=== PATIENT | female | born 1935 | race Caucasian/White ===

== ENCOUNTER → 2016-04-11 | Outpatient (CLI) | payer OTHER ==
[~2016-04-11] MED LIST: ADVIN25/60 INH; ALBUAER19 INH; AMOX1TAB43 PO; AMOX875T PO; CIPR-255 PO; CMD/25 PO; CPAP; DICY10CA12 PO; DOCU-94 PO; FLNIN/ NAE; HYOS1SUB SL; LOSA100T65 PO; LSX20 PO; LUTE15CA PO; LVS125 PO; MCRK/20 PO; MISCCAP80 PO; MULT-190 PO; MULT-506 PO; NCY50 PO; NORT10CA4 PO; NRN300 PO; NRV/5 PO; OMEG10007 PO; OXGN; OXYC1TAB3 PO; POTA20TA16 PO; PRAV40TA2 PO; PRED10TA PO; PRED20TA PO; PRLSR20 PO; RANITAB33 PO; SNG10 PO; TRAM-10 PO; TRAM-453 PO; VLT500 PO; VNTHFA/IN INH; WARF-246 PO; ZNTT/150 PO; ZTA10 PO; ZVRO EXT
--- NOTE | 2016-04-11 15:19 | DIAGNOSTIC IMAGING REPORT ---
CT SCAN OF THE ABDOMEN AND PELVIS WITHOUT CONTRAST CLINICAL HISTORY: Lower abdominal pain. History of ureteral calculus or diverticulitis. COMPARISON STUDY: 03/19/2016 TECHNIQUE: CT scan of the abdomen and pelvis was performed from the lung bases to the proximal femurs. Images are reviewed in the axial, sagittal, and coronal planes. IV contrast was not administered for this examination. CT DOSE: 1282.41 mGy.cm FINDINGS: Lower chest: There are mild basilar atelectatic changes. The heart is enlarged. Liver: The unenhanced liver is normal in size, contour, and attenuation. There is no intrahepatic biliary ductal dilatation. Gallbladder: Surgically absent Spleen: Normal in size and attenuation. Pancreas: Unremarkable. Adrenal glands: Unremarkable. Kidneys: There is a 2 mm nonobstructing lower pole right renal calculus. There are punctate nonobstructing right renal calculi. No ureteral or bladder calculi are visualized. Bowel: There are no transition zones indicate bowel obstruction. The appendix is not visualized with certainty. There are no findings to indicate acute appendicitis. There is extensive sigmoid diverticulosis. Mild bowel wall thickening is likely secondary to muscular hypertrophy. There is subtle infiltration the perisigmoid fat suggesting minimal diverticulitis. Peritoneum: There is no intraperitoneal free air or abdominal ascites. Vasculature: The abdominal aorta is normal in course and caliber. Adenopathy: None. Pelvic viscera: The uterus appears surgically absent. Skeletal structures: No destructive osseous lesions are seen. IMPRESSION: 1. Bilateral nonobstructing renal calculi 2. No ureteral or bladder calculi identified 3. Surgically absent gallbladder appendix and uterus 4. No evidence of bowel obstruction. No evidence of free air 5. Extensive sigmoid diverticulosis with minimal peridiverticular inflammatory change. Electronically signed by: Paco Mendez M.D. 04/11/2016 3:17 PM Dictated Date/Time: 04/11/2016 3:12 PM
== END | disposition home or self-care (01) ==
LOC: C.CTS 14:45
PROVIDERS: ATTEND Internal Medicine
DX: K57.92 Diverticulitis of intestine, part unspecified, without perforation or abscess without bleeding (principal); N20.0 Calculus of kidney

== ENCOUNTER 2016-04-16 03:49 | Observation (INO) | payer OTHER ==
[2016-04-16] VITALS (8 sets, daily range): BP systolic 126–156; BP diastolic 73–83; PULSE 71–85; TEMP 36.6–37; O2SAT 91–98; Ht 152.4 cm; Wt 1.0 kg
[~2016-04-16] VITALS: Ht 152.4 cm; Wt 1.0 kg
[~2016-04-16 03:49] MED LIST changes: -AMOX875T PO; -CMD/25 PO; -CPAP; -DOCU-94 PO; -LUTE15CA PO; -LVS125 PO; -MCRK/20 PO; -MULT-190 PO; -NCY50 PO; -NORT10CA4 PO; -NRN300 PO; -PRED10TA PO; -PRED20TA PO; -PRLSR20 PO; -RANITAB33 PO; -TRAM-453 PO; -VLT500 PO; -VNTHFA/IN INH; -ZNTT/150 PO; -ZVRO EXT
--- NOTE | 2016-04-16 04:07 | EMERGENCY ROOM VISIT NOTE ---
History Report prepared by Cleopatra: Stephanie Sequeira Under the Supervision of: Dr. Celia Milan D.O. First contact with patient: 03:57 Chief Complaint: CARDIAC ASSESSMENT Stated Complaint: PAIN BETWEEN SHOULDER BLADES/NAUSEA History of Present Illness The patient is a 80 year old female who presents to the Emergency Room with complaints of resolving chest pain beginning 3 hours prior to arrival. The patient states that she went to bed feeling fine. She then woke up around 1am with pain between her shoulder blades that radiated around into her chest and down her left arms. The patient describes the sensation as feeling as though she had to belch. She arrived via EMS and notes she was given Morphine which has helped to resolve the chest pain. The patient notes that during the chest pain episode she felt nauseous and like she was going to have a bowel movement. She denies similar pain before, shortness of breath, or diaphoresis. The patient was diagnosed with diverticulitis earlier this week. Source of History: patient Onset: 1 am this morning Position: chest Quality: other (need to belch sensation) Timing: resolved Associated Symptoms: + nausea Note: The patient experienced shoulder blade pain, left arm pain, and bowel movement sensation need. Review of Systems See HPI for pertinent positives & negatives. A total of 10 systems reviewed and were otherwise negative. Past Medical & Surgical Medical Problems: (1) A-fib (2) C. difficile colitis (3) HTN (hypertension) (4) Kidney stone (5) PNA (pneumonia) Family History Hypertension Social History Smoking Status: Never Smoker Alcohol Use: none Marital Status: Housing Status: lives alone Occupation Status: retired Current/Historical Medications Scheduled Amlodipine Besylate (Amlodipine Besylate), 5 MG PO QAM Amoxicillin & Pot Clavulanate (Amoxicillin/Clavulanate P), 1 TAB PO Q12 Ezetimibe (Zetia), 10 MG PO HS Fish Oil (Morse-3), 1 CAP PO HS Fluticasone Prop/Salmeterol (Advair Diskus 250/50 60 Dose), 1 PUFF INH Q12 Fluticasone Propionate (Fluticasone Propionate), 2 SPRAYS SHY DAILY Furosemide (Furosemide), 20 MG PO QAM Losartan Potassium (Cozaar), 100 MG PO QAM Lutein-Zeaxanthin (Lutein), 1 CAP PO DAILY Montelukast Sod (Montelukast Sodium), 10 MG PO HS Multivitamin (Multivitamin), 1 TAB PO QAM Ocuvite Preservision (Ocuvite Preservision), 2 TAB PO DAILY Oxygen (Oxygen), 2 LITER NA HS Potassium Chloride (Potassium Chloride ER), 20 MEQ PO QAM Pravastatin Sodium (Pravastatin Sodium), 40 MG PO HS Probiotic Product (Probiotic), 1 CAP PO QAM Warfarin Sodium (Warfarin Sodium), 5 MG PO DAILY Scheduled PRN Albuterol Inhaler (Ventolin Inhaler), 2 PUFFS INH Q4 PRN for SOB/Wheezing Hyoscyamine Sulfate (Hyoscyamine Sulfate), 0.125 MG PO Q6 PRN for ABDOMINAL PAIN Durable Medical Equipment [Cpap], HS Allergies Coded Allergies: Budesonide (Verified Allergy, Unknown, PT UNSURE OF RXN, 04/16/16) Formoterol (Verified Allergy, Unknown, PT UNSURE OF RXN, 04/16/16) Iodinated Diagnostic Agents (Verified Allergy, Unknown, RASH,HIVES FROM IVP DYE, 04/16/16) Metronidazole (Verified Allergy, Unknown, SEVERE GI SYMPTOMS, 04/16/16) KEENA Inhibitors (Verified Adverse Reaction, Intermediate, COUGH, 04/16/16) Physical Exam Vital Signs Date Time Temp Pulse Resp B/P Pulse Ox O2 Delivery O2 Flow Rate FiO2 04/16/16 06:51 71 21 132/80 96 Nasal Cannula 2.0 04/16/16 06:09 73 20 149/78 98 Nasal Cannula 2.0 04/16/16 05:40 87 20 151/65 99 Nasal Cannula 2.0 04/16/16 05:04 73 20 165/86 95 Nasal Cannula 2.0 04/16/16 04:35 77 20 130/54 95 Nasal Cannula 2.0 04/16/16 03:58 81 04/16/16 03:58 82 Room Air 04/16/16 03:57 92 Nasal Cannula 2.0 04/16/16 03:55 83 Room Air 04/16/16 03:54 36.9 79 23 127/91 83 Room Air Physical Exam General: Morbidly obese female, appears to be comfortable. HEENT: Head - normocephalic and atraumatic Pupils are equal, round, and reactive to light. Extraocular eye muscles are intact, and sclera are anicteric. Nose - moist nasal mucosa without discharge. Mouth - moist buccal mucosa. Oropharynx is nonerythematous and there is no tonsillar exudate or edema noted. Neck: Supple; no JVD, nuchal rigidity, cervical lymphadenopathy. Heart: Regular rate and rhythm. Sound extremely distant secondary to body habitus. Lungs: Clear to auscultation bilaterally with no wheezes, rales, or rhonchi. Abdomen: Soft, completely nontender, nondistended, with good bowel sounds. There are no palpable pulsatile masses or hepatosplenomegaly. There is no guarding, rigidity, or rebound noted. Extremities: No evidence of cyanosis, clubbing, or edema. There are easily palpable peripheral pulses. Skin: warm and dry with good turgor and no rashes. Back: The patient has no reproducible discomfort with palpation between the shoulder blades. Medical Decision & Procedures ER Provider Diagnostic Interpretation: Other radiology results as stated below per my review and the radiologist's interpretation: Chest: Pacemaker in place, cardiomegaly, no pulmonary consolidation. CT CHEST With Contrast: No PE. No aortic dissection or aneurysm. Left chest wall pacemaker. Aortic and coronary calcifications. Mild basilar atelectasis. Degenerative changes of the spine. No obvious fracture. Cholecystectomy Radiologist: Mary jameson MD Study ready 06:05. . Laboratory Results 04/16/16 03:58 Red Blood Count 4.20, Mean Corpuscular Volume 94.5, Mean Corpuscular Hemoglobin 32.1, Mean Corpuscular Hemoglobin Concent 34.0, Mean Platelet Volume 10.9, Neutrophils (%) (Auto) 63.6, Lymphocytes (%) (Auto) 23.1, Monocytes (%) (Auto) 9.0, Eosinophils (%) (Auto) 3.7, Basophils (%) (Auto) 0.4, Neutrophils # (Auto) 5.80, Lymphocytes # (Auto) 2.11, Monocytes # (Auto) 0.82, Eosinophils # (Auto) 0.34, Basophils # (Auto) 0.04 04/16/16 03:58 Test 04/16/16 03:58 04/16/16 07:23 White Blood Count 9.13 K/uL (4.8-10.8) Red Blood Count 4.20 M/uL (4.2-5.4) Hemoglobin 13.5 g/dL (12.0-16.0) Hematocrit 39.7 % (37-47) Mean Corpuscular Volume 94.5 fL (80-100) Mean Corpuscular Hemoglobin 32.1 pg (25-34) Mean Corpuscular Hemoglobin Concent 34.0 g/dl (32-36) Platelet Count 199 K/uL (130-400) Mean Platelet Volume 10.9 fL (7.4-10.4) Neutrophils (%) (Auto) 63.6 % Lymphocytes (%) (Auto) 23.1 % Monocytes (%) (Auto) 9.0 % Eosinophils (%) (Auto) 3.7 % Basophils (%) (Auto) 0.4 % Neutrophils # (Auto) 5.80 K/uL (1.4-6.5) Lymphocytes # (Auto) 2.11 K/uL (1.2-3.4) Monocytes # (Auto) 0.82 K/uL (0.11-0.59) Eosinophils # (Auto) 0.34 K/uL (0-0.5) Basophils # (Auto) 0.04 K/uL (0-0.2) RDW Standard Deviation 45.4 fL (36.4-46.3) RDW Coefficient of Variation 13.1 % (11.5-14.5) Immature Granulocyte % (Auto) 0.2 % Immature Granulocyte # (Auto) 0.02 K/uL (0.00-0.02) Anion Gap 10.0 mmol/L (3-11) Est Creatinine Clear Calc Drug Dose 80.9 ml/min Estimated GFR () 98.9 Estimated GFR (Non- 85.4 BUN/Creatinine Ratio 30.4 (10-20) Calcium Level 8.8 mg/dl (8.5-10.1) Total Bilirubin 0.4 mg/dl (0.2-1) Aspartate Amino Transf (AST/SGOT) 13 U/L (15-37) Alanine Aminotransferase (ALT/SGPT) 31 U/L (12-78) Alkaline Phosphatase 67 U/L (45-117) Total Creatine Kinase 68 U/L (26-192) Creatine Kinase MB 1.0 ng/ml (0.5-3.6) Creatine Kinase MB Ratio 1.5 (0-3.0) Troponin I < 0.015 ng/ml (0-0.045) Pro-B-Type Natriuretic Peptide 257 pg/ml (0-1800) Total Protein 6.5 gm/dl (6.4-8.2) Albumin 3.2 gm/dl (3.4-5.0) Globulin 3.3 gm/dl (2.5-4.0) Albumin/Globulin Ratio 1.0 (0.9-2) Thyroid Stimulating Hormone (TSH) 1.970 uIu/ml (0.300-4.500) Medications Administered Medications (Trade) Dose Ordered Sig/Farhan Route Start Time Stop Time Status Last Admin Dose Admin Diphenhydramine HCl (Benadryl Inj) 50 mg NOW STAT IV 04/16/16 05:13 04/16/16 05:14 DC 04/16/16 05:37 50 MG Methylprednisolone Sodium Succinate (Solu-Medrol IV) 125 mg NOW STAT IV 04/16/16 05:13 04/16/16 05:14 DC 04/16/16 05:36 125 MG Procedure Solu-Medrol IV 125 mg IV, Benadryl Inj 50 mg IV. ECG Indication: chest pain Rate (beats per minute): 80 Rhythm: other (Dual chamber paced ) Findings: no acute ischemic change, no ectopy ED Course 0358: Past medical records reviewed. The patient was evaluated in room B6. A complete history and physical exam was performed. Laboratory studies were drawn as above. A twelve-lead EKG was obtained as described above 0359: Upon arrival patient was hypoxic with O2% of 82. 0443: Multiple episodes of hypoxia while in ED. the patient had a chest x-ray as described above 0456: I reevaluated the patient. The patient got up to use the restroom and experienced the chest pain again. A second ECG was done that was unchanged from previous. She had a pulse oxygen of 88%. The patient will be placed back on supplemental oxygen. 0513: Solu-Medrol IV 125 mg IV, Benadryl Inj 50 mg IV to premedicated before CT scan. 0652: I reevaluated the patient. I reviewed the results of the CT scan with the patient and her family. 0720: Discussed the patient's case with Dr. Yris OJEDA. The patient will be evaluated for further management. Medical Decision The patient is a 80 year old female who presents to the ED for a cardiac assessment. Differential diagnosis includes aortic dissection, cardiac ischemia , acute coronary syndrome, GERD, back strain, PE. Lab findings include normal renal function, glucose 127, LFT normal, troponin less than 0.015, normal TSH, stable H&H, no leukocytosis. This is an 80-year-old female patient who presents to the emergency department with moderate pain between her shoulder blades and associated nausea. The patient states that the pain was fairly sudden in onset and she felt as if she were going to need to move her bowels emergently. Once she arrived here in the emergency room, the pain seemed to subside but then she felt some shortness of breath. A chest x-ray was unremarkable. However, the patient had multiple episodes of hypoxia while here in the ER. She went for CT scan of her chest to rule out aortic dissection and PE. This was negative. After discussing the patient's CT results with her, she tells me that she recently underwent pulmonary function tests with Dr. Lea. She also told me that she has had increased episodes of lethargy over the past 2 days. In fact, she states that every time she sits down, she sleeps for approximately 2 hours. I'm concerned about its the sleep apnea and hypoxia that she has demonstrated while here in the emergency department. This may be leading to hypercarbia. I have just ordered an ABG. I discussed the case with the [facility] Hospitalist and they will evaluate for further management. Consults Time Called: 717 Consulting Physician: Dr. Yris OJEDA Returned Call: 07 Discussed the patient's case with Dr. Yris OJEDA. The patient will be evaluated for further management. Impression Primary Impression: Hypoxia Additional Impression: Back pain Scribe Attestation The scribe's documentation has been prepared under my direction and personally reviewed by me in its entirety. I confirm that the note above accurately reflects all work, treatment, procedures, and medical decision making performed by me. Departure Information Dispostion Being Evaluated By Hospitalist Referrals Dania Walsh DO (PCP) Problem Qualifiers
[2016-04-16 04:18] LABS: BASO % 0.4 %; BASO ABS # 0.04 K/uL (0-0.2); COMPLETE YES; EOS % 3.7 %; HEMATOCRIT 39.7 % (37-47); IG% 0.2 %; LYMPH % 23.1 %; LYMPH ABS # 2.11 K/uL (1.2-3.4); MEAN CELL VOLUME 94.5 fL (80-100); MEAN CORPUSCULAR HEMOGLOBIN 32.1 pg (25-34); MEAN PLATELET VOLUME 10.9 fL (7.4-10.4); NEUT % 63.6 %; PLATELET COUNT 199 K/uL (130-400); WHITE BLOOD COUNT 9.13 K/uL (4.8-10.8)
[2016-04-16 04:37] LABS: ALT/SGPT 31 U/L (12-78); AST/SGOT 13 U/L (15-37); BLOOD UREA NITROGEN 18 mg/dl (7-18); BUN/CREATININE RATIO 30.4 (10-20); CALCIUM 8.8 mg/dl (8.5-10.1); CARBON DIOXIDE 28 mmol/L (21-32); CHLORIDE 106 mmol/L (98-107); CREATININE 0.59 mg/dl (0.60-1.20); GLUCOSE 127 mg/dl (70-99); POTASSIUM 3.7 mmol/L (3.5-5.1); SODIUM 144 mmol/L (136-145)
[2016-04-16 04:47] LABS: ALKALINE PHOSPHATASE 67 U/L (45-117); CKMB/CK RATIO 1.5 (0-3.0)
[2016-04-16] MEDS ORDERED: LVS125 PO (04:53)
[2016-04-16] MEDS ORDERED: MCRK/20 PO (04:54)
[2016-04-16] MEDS ORDERED: LUTE15CA PO (04:55)
[2016-04-16] MEDS ORDERED: MULT-190 PO (04:55)
[2016-04-16] MEDS ORDERED: CPAP (04:59)
[2016-04-16] MEDS ORDERED: DiphenhydrAMINE HCL 50 MG/ML VIAL IV STA (05:13)
[2016-04-16] MEDS ORDERED: METHYLPREDNISOLONE 125 MG VIAL IV STA (05:13)
[2016-04-16] MEDS ORDERED: OPTIRAY 320 IV PRN (05:30)
--- NOTE | 2016-04-16 06:39 | DIAGNOSTIC IMAGING REPORT ---
CHEST 2 VIEWS ROUTINE CLINICAL HISTORY: Atypical chest pain. Wide mediastinum. COMPARISON STUDY: 07/23/2014 FINDINGS: The cardiac and mediastinal contours remain stable. There is no evidence of pathologic mediastinal widening on conventional radiographic imaging. If there is clinical concern over mediastinal process, CT scan should be obtained in follow-up. There is a left subclavian dual-chamber central venous pacemaker present. There is no failure. There is no lobar consolidation. There is equivocal 8 mm right upper lung zone nodule. There is mild interstitial thickening which is felt to be chronic. IMPRESSION: 1. No evidence of pathologic mediastinal widening on conventional radiographic evaluation 2. Equivocal 8 mm right upper lung zone pulmonary nodule 3. If further evaluation of the mediastinum and or possible right upper lung zone nodule is desired, CT scanning would be considered the test of choice Electronically signed by: Paco Mendez M.D. 04/16/2016 6:37 AM Dictated Date/Time: 04/16/2016 6:35 AM
--- NOTE | 2016-04-16 06:54 | DIAGNOSTIC IMAGING REPORT ---
CT ANGIOGRAPHY OF THE CHEST, PULMONARY EMBOLUS PROTOCOL CLINICAL HISTORY: Chest and back pain. Hypoxia. COMPARISON STUDY: Chest radiograph April 16, 2016 and July 23, 2014. TECHNIQUE: Following IV administration of 998. mL of Optiray-320, helical axial images of the chest were obtained utilizing the pulmonary embolus protocol. Maximal intensity projections and sagittal and coronal reformats were viewed on an independent 3D workstation. IV contrast was administered without complication. CT DOSE: 747.16 mGy.cm FINDINGS: No pulmonary emboli are identified. The heart is moderately enlarged. There is no pericardial effusion. There is a left subclavian biventricular pacemaker. No enlarged axillary, mediastinal or hilar lymph nodes are present. The central airways are patent. No consolidation is identified to suggest pneumonia. A 4 mm right upper lobe nodule shown on image 235 of 316 is likely benign. The possible nodule shown on chest radiograph from earlier today was artifactual. There is a calcified granuloma within the right upper lobe. Linear and groundglass opacities are suggestive of atelectasis. There is no pneumothorax or pleural effusion. There are cholecystectomy clips. No suspicious osseous lesions are present. IMPRESSION: 1. No pulmonary emboli identified. 2. No acute intrathoracic findings. 3. Moderate cardiomegaly. 4. Linear and ground glass opacities suggestive of atelectasis. Electronically signed by: Constantino Crandall M.D. 04/16/2016 6:52 AM Dictated Date/Time: 04/16/2016 6:44 AM
[2016-04-16 07:57] LABS: ARTERIAL BLD GAS O2 SATURATION 95.9 % (90-95); ARTERIAL BLOOD GAS BASE EXCESS 3.4 mEq/L (-9-1.8); ARTERIAL BLOOD GAS HCO3 29 mmol/L (19-24); ARTERIAL BLOOD GAS PO2 80 mm/Hg (80-95); ARTERIAL BLOOD GAS pH 7.42 (7.35-7.45)
[2016-04-16 07:59] LABS: ALLEN TEST POS (POS); O2 ADMINISTRATION 2L
[2016-04-16] MEDS ORDERED: ACETAMINOPHEN 325 MG TAB PO ONE (08:45)
[2016-04-16] MEDS ORDERED: DEXTROSE 50% 50 ML SYR IV PRN (08:45)
[2016-04-16] MEDS ORDERED: ONDANSETRON INJ 2 MG/ML 2 ML VIAL IV PRN (08:45)
[2016-04-16] MEDS ORDERED: ALUMINUM/MAGNESIUM/SIMETH (MAALOX MAX) 30 ML UDC PO PRN (08:45)
[2016-04-16] MEDS ORDERED: GLUCOSE 10 TABS/TUBE PO PRN (08:45)
[2016-04-16] MEDS ORDERED: POLYETHYLENE (MIRALAX) 17 GM PACK PO PRN (08:45)
[2016-04-16] MEDS ORDERED: MAGNESIUM HYDROXIDE SUSP 30 ML UDC PO PRN (08:45)
[2016-04-16] MEDS ORDERED: ALBUTEROL HFA 8 GM INHALER INH PRN (08:45)
[2016-04-16] MEDS ORDERED: GLUCOSE 40% GEL 15 GM TUBE PO PRN (08:45)
[2016-04-16] MEDS ORDERED: GLUCAGON FOR INJ 1 MG VIAL SQ PRN (08:45)
[2016-04-16] MEDS ORDERED: ENOXAPARIN 40 MG/0.4 ML SYR SC SCH (08:45)
[2016-04-16] MEDS ORDERED: NON-FORMULARY MEDICATION (Probiotic Product (Probiotic) 1 CAP) PO SCH (09:00)
[2016-04-16] MEDS: AMLODIPINE BESYLATE 5 MG TAB PO SCH (09:00)
[2016-04-16] MEDS ORDERED: ACETAMINOPHEN 325 MG TAB ONE (09:01)
[2016-04-16] MEDS ORDERED: AMOX875T PO (09:05)
[2016-04-16] MEDS ORDERED: CMD/25 PO (09:09)
[2016-04-16] MEDS ORDERED: IV FLUIDS COMPLETED PRN (09:45)
--- NOTE | 2016-04-16 09:49 | History and Physical ---
History & Physical Date & Time of Service: Apr 16, 2016 at 09:16 Chief Complaint: Pain Between Shoulder Blades/Nausea Primary Care Physician: Dania Walsh DO History of Present Illness Source: patient, family (daughter and son at bedside), clinic records, hospital records This is an 80 y/o female with a history of asthma, MARIBETH, HTN, HLD, and paroxysmal a-fib who presented to the ED on 04/16 with pain behind her left shoulder radiating to her chest and hypoxia. The patient woke up around 1 am this morning with a sharp, 7/10 pain posterior to her left shoulder that radiated to the left side of her chest and down her left arm. She also felt nauseous at that time but denied any other associated symptoms. In the ambulance, the patient received 2 nitro sprays, which did not alleviate the pain. The patient then received morphine, which resolved the pain. Upon arrival to the ED, the patient's pulse ox was 83% on room air. The patient does have a history of asthma and MARIBETH, but she does not use supplemental oxygen during the day. She does have a history of low oxygen saturations at nighttime , however, and uses 2L oxygen with her CPAP at night. The patient states that she has been doing well with her asthma and CPAP and recently had PFTs that were "okay". She does report having new onset of daytime drowsiness starting one day prior to arrival, stating that every time she sat down yesterday she immediately fell asleep for 2 hours at a time. Currently, the patient feels a 3/10 sharp pain behind her left shoulder, but no chest or arm pain. She states that the pain has been intermittent since arrival, although she has not received any additional doses of morphine while in the ED. The patient denies fevers, chills, sweats,palpitations, claudication, cough, wheezing, shortness of breath, vomiting, abdominal pain, dysuria, hematuria, urinary retention, paralysis, weakness, numbness and tingling. Past Medical/Surgical History Medical Problems: (1) Paroxysmal a-fib Status: Chronic (2) C. difficile colitis Status: Resolved (3) HTN (hypertension) Status: Chronic (4) Kidney stone Status: Resolved (5) PNA (pneumonia) Status: Resolved Asthma HTN HLD MARIBETH Diverticulitis--acute Family History Coronary artery disease FATHER Diabetes mellitus MOTHER Hypertension FATHER MOTHER Myocardial infarction FATHER Stroke FATHER MOTHER Social History Smoking Status: Never Smoker Smokeless Tobacco Use: No Alcohol Use: occasionally (special occasions/holidays) Drug Use: none Marital Status: Housing status: lives alone Occupational Status: retired Immunizations History of Influenza Vaccine: Unknown History of Tetanus Vaccine?: Unknown History of Pneumococcal: Unknown History of Hepatitis B Vaccine: Unknown Multi-Drug Resistant Organisms History of MDRO: No Allergies Coded Allergies: Budesonide (Verified Allergy, Unknown, PT UNSURE OF RXN, 04/16/16) Formoterol (Verified Allergy, Unknown, PT UNSURE OF RXN, 04/16/16) Iodinated Diagnostic Agents (Verified Allergy, Unknown, RASH,HIVES FROM IVP DYE, 04/16/16) Metronidazole (Verified Allergy, Unknown, SEVERE GI SYMPTOMS, 04/16/16) KEENA Inhibitors (Verified Adverse Reaction, Intermediate, COUGH, 04/16/16) Home Medications Scheduled Amlodipine Besylate (Amlodipine Besylate), 5 MG PO QAM Amoxicillin & Pot Clavulanate (Augmentin 875-125 mg), 1 TAB PO BID Ezetimibe (Zetia), 10 MG PO HS Fish Oil ([place]-3), 1 CAP PO HS Fluticasone Prop/Salmeterol (Advair Diskus 250/50 60 Dose), 1 PUFF INH Q12 Fluticasone Propionate (Fluticasone Propionate), 2 SPRAYS SHY DAILY Furosemide (Furosemide), 20 MG PO QAM Losartan Potassium (Cozaar), 100 MG PO QAM Lutein-Zeaxanthin (Lutein), 1 CAP PO DAILY Montelukast Sod (Montelukast Sodium), 10 MG PO HS Multivitamin (Multivitamin), 1 TAB PO QAM Ocuvite Preservision (Ocuvite Preservision), 2 TAB PO DAILY Oxygen (Oxygen), 2 LITER NA HS Potassium Chloride (Potassium Chloride ER), 20 MEQ PO QAM Pravastatin Sodium (Pravastatin Sodium), 40 MG PO HS Probiotic Product (Probiotic), 1 CAP PO QAM Warfarin Sod (Coumadin), 2.5 MG PO UD Warfarin Sodium (Warfarin Sodium), 5 MG PO UD Scheduled PRN Albuterol Inhaler (Ventolin Inhaler), 2 PUFFS INH Q4 PRN for SOB/Wheezing Hyoscyamine Sulfate (Hyoscyamine Sulfate), 0.125 MG PO Q6 PRN for ABDOMINAL PAIN Review of Systems Constitutional: No chills, No fever, No sweats Eyes: No diplopia, No eye pain, No worsening of vision ENT: No hearing loss, No sore throat, No tinnitus Respiratory: No cough, No shortness of breath, No wheezing Cardiovascular: + chest pain (left chest, radiating from posterior left shoulder), No claudication, No palpitations Abdomen: + nausea, No pain, No vomiting Musculoskeletal: + joint pain (L posterior shoulder), No calf pain, No muscle pain Genitourinary - Female: No dysuria, No hematuria, No urinary retention Neurologic: No numbness/tingling, No paralysis, No weakness Integumentary: No color change, No itch, No rash Physical Exam Vital Signs Date Time Temp Pulse Resp B/P Pulse Ox O2 Delivery O2 Flow Rate FiO2 04/16/16 07:54 84 04/16/16 07:36 83 20 162/70 95 Nasal Cannula 2.0 04/16/16 06:51 71 21 132/80 96 Nasal Cannula 2.0 04/16/16 06:09 73 20 149/78 98 Nasal Cannula 2.0 04/16/16 05:40 87 20 151/65 99 Nasal Cannula 2.0 04/16/16 05:04 73 20 165/86 95 Nasal Cannula 2.0 04/16/16 04:35 77 20 130/54 95 Nasal Cannula 2.0 04/16/16 03:58 81 04/16/16 03:58 82 Room Air 04/16/16 03:57 92 Nasal Cannula 2.0 04/16/16 03:55 83 Room Air 04/16/16 03:54 36.9 79 23 127/91 83 Room Air General Appearance: WD/WN, no apparent distress, + obese (morbidly obese) Head: normocephalic, atraumatic Eyes: normal inspection, PERRL, EOMI ENT: normal ENT inspection, hearing grossly normal, pharynx normal Neck: supple, no JVD, trachea midline Respiratory/Chest: normal breath sounds, no respiratory distress, + crackles ( bases bilaterally), + pertinent finding (left chest TTP) Cardiovascular: regular rate, rhythm, no gallop, no murmur Abdomen/GI: normal bowel sounds, soft, + tenderness (RLQ mildy TTP) Back: normal inspection, no muscle spasm, normal range of motion Extremities/Musculoskelatal: normal inspection, no calf tenderness, no pedal edema Neurologic/Psych: alert, normal mood/affect, oriented x 3 Skin: normal color, warm/dry, no rash Diagnostics Laboratory Results Results Past 24 Hours Test 04/16/16 03:58 04/16/16 07:47 Range/Units White Blood Count 9.13 4.8-10.8 K/uL Red Blood Count 4.20 4.2-5.4 M/uL Hemoglobin 13.5 12.0-16.0 g/dL Hematocrit 39.7 37-47 % Mean Corpuscular Volume 94.5 80-100 fL Mean Corpuscular Hemoglobin 32.1 25-34 pg Mean Corpuscular Hemoglobin Concent 34.0 32-36 g/dl Platelet Count 199 130-400 K/uL Mean Platelet Volume 10.9 7.4-10.4 fL Neutrophils (%) (Auto) 63.6 % Lymphocytes (%) (Auto) 23.1 % Monocytes (%) (Auto) 9.0 % Eosinophils (%) (Auto) 3.7 % Basophils (%) (Auto) 0.4 % Neutrophils # (Auto) 5.80 1.4-6.5 K/uL Lymphocytes # (Auto) 2.11 1.2-3.4 K/uL Monocytes # (Auto) 0.82 0.11-0.59 K/uL Eosinophils # (Auto) 0.34 0-0.5 K/uL Basophils # (Auto) 0.04 0-0.2 K/uL RDW Standard Deviation 45.4 36.4-46.3 fL RDW Coefficient of Variation 13.1 11.5-14.5 % Immature Granulocyte % (Auto) 0.2 % Immature Granulocyte # (Auto) 0.02 0.00-0.02 K/uL Sodium Level 144 136-145 mmol/L Potassium Level 3.7 3.5-5.1 mmol/L Chloride Level 106 98-107 mmol/L Carbon Dioxide Level 28 21-32 mmol/L Anion Gap 10.0 3-11 mmol/L Blood Urea Nitrogen 18 7-18 mg/dl Creatinine 0.59 0.60-1.20 mg/dl Est Creatinine Clear Calc Drug Dose 80.9 ml/min Estimated GFR () 98.9 Estimated GFR (Non- 85.4 BUN/Creatinine Ratio 30.4 10-20 Random Glucose 127 70-99 mg/dl Calcium Level 8.8 8.5-10.1 mg/dl Total Bilirubin 0.4 0.2-1 mg/dl Aspartate Amino Transf (AST/SGOT) 13 15-37 U/L Alanine Aminotransferase (ALT/SGPT) 31 12-78 U/L Alkaline Phosphatase 67 45-117 U/L Total Creatine Kinase 68 26-192 U/L Creatine Kinase MB 1.0 0.5-3.6 ng/ml Creatine Kinase MB Ratio 1.5 0-3.0 Troponin I < 0.015 0-0.045 ng/ml Pro-B-Type Natriuretic Peptide 257 0-1800 pg/ml Total Protein 6.5 6.4-8.2 gm/dl Albumin 3.2 3.4-5.0 gm/dl Globulin 3.3 2.5-4.0 gm/dl Albumin/Globulin Ratio 1.0 0.9-2 Thyroid Stimulating Hormone (TSH) 1.970 0.300-4.500 uIu/ml Arterial Blood pH 7.42 7.35-7.45 Arterial Blood Partial Pressure CO2 46 35-46 mmHg Arterial Blood Partial Pressure O2 80 80-95 mm/Hg Arterial Blood HCO3 29 19-24 mmol/L Arterial Blood Oxygen Saturation 95.9 90-95 % Arterial Blood Base Excess 3.4 -9-1.8 mEq/L Arterial Blood Gas Delivery 2L Luca Test POS POS Diagnostic Radiology Reviewed the following studies and agree with interpretation as follows: Patient Name: SUSAN MANZANO Unit Number: [id number] Dictated: 04/16/16634 Transcribed: 04/16/16634 ARG Printed Date/Time: [~ rep prt dt]/[~ rep prt tm] [~ rep ct labl] - [~ rep ct ivnm] [facility] [place] [address] Dictated: 04/16/16634 Transcribed: 04/16/16634 ARG Printed Date/Time: [~ rep prt dt]/[~ rep prt tm] [~ rep ct labl] - [~ rep ct ivnm] Patient: SUSAN MANZANO Address1: [address] [facility] Rec: [id number] Address2: Acct ID: [id number] [facility] Zip: [place] [address] Date: 1935 Sex: F Room/Bed: Ref Phy: Dania Walsh DO SC: GEO Att Phy: Report #: [id number] Whit Phy: Dania Walsh DO Test: CXR Admit Phy: [employer] Sales Consultant: MARKUS Interpreting Phy: Paco Mendez M.D. Diagnosis: PAIN BETWEEN SHOULDER BLADES/ NAUSEA Ordering Phy: Celia Milan D.O. Service Date: 04/16/16 Admit Date: 04/16/16 MNE: PWRSCRIBE CONF: DICTATED BY: Paco Mendez M.D.]] CC: Celia Milan D.O. Dellegrotti, Cara M., DO Endcc: [~ rep ct add3]] CHEST 2 VIEWS ROUTINE CLINICAL HISTORY: Atypical chest pain. Wide mediastinum. COMPARISON STUDY: 07/23/2014 FINDINGS: The cardiac and mediastinal contours remain stable. There is no evidence of pathologic mediastinal widening on conventional radiographic imaging. If there is clinical concern over mediastinal process, CT scan should be obtained in follow-up. There is a left subclavian dual-chamber central venous pacemaker present. There is no failure. There is no lobar consolidation. There is equivocal 8 mm right upper lung zone nodule. There is mild interstitial thickening which is felt to be chronic. IMPRESSION: 1. No evidence of pathologic mediastinal widening on conventional radiographic evaluation 2. Equivocal 8 mm right upper lung zone pulmonary nodule 3. If further evaluation of the mediastinum and or possible right upper lung zone nodule is desired, CT scanning would be considered the test of choice Electronically signed by: Paco Mendez M.D. 04/16/2016 6:37 AM Dictated Date/Time: 04/16/2016 6:35 AM The status of this report is Signed. Draft = Not yet reviewed or approved by Radiologist. Signed = Reviewed and approved by Radiologist. <AttendingPhy></AttendingPhy> <FamilyPhy>Dania Walsh DO</FamilyPhy> < PrimaryPhy>Dania Walsh, </PrimaryPhy> <UnitNumber>[id number]</ UnitNumber> <VisitNumber>[id number]</VisitNumber> <PatientName>SUSAN MANZANO</ PatientName> <DateOfBirth>1935</DateOfBirth> <Location>C.EDB</Location> < ServiceDate>04/16/16</ServiceDate> <MNE>ESINDI</MNE> <OrderingPhy>Celia Milan D.Delores</OrderingPhy> <OrderingPhyMNE>f rep ord dr camilo</OrderingPhyMNE> < DictatingPhyMNE>f rep dict dr camilo</DictatingPhyMNE> <CCListMNE>f rep ct mne</ CCListMNE> <AdmittingPhyMNE>f pt admit dr camilo</AdmittingPhyMNE> <AttendingPhyMNE >f pt attend dr camilo</AttendingPhyMNE> <ConsultingPhyMNE>f pt consult dr camilo</ConsultingPhyMNE> <FamilyPhyMNE>f pt fam dr camilo</FamilyPhyMNE> <OtherPhyMNE>f pt other dr camilo</OtherPhyMNE> < PrimaryPhyMNE>f pt prim care dr camilo</PrimaryPhyMNE> <ReferringPhyMNE>f pt referring dr camilo</ReferringPhyMNE> Patient Name: SUSAN MANZANO Unit Number: [id number] Dictated: 04/16/16643 Transcribed: 04/16/16643 HANNY Printed Date/Time: [~ rep prt dt]/[~ rep prt tm] [~ rep ct labl] - [~ rep ct ivnm] [facility] [place] [address] Dictated: 04/16/16643 Transcribed: 04/16/16643 HANNY Printed Date/Time: [~ rep prt dt]/[~ rep prt tm] [~ rep ct labl] - [~ rep ct ivnm] Patient: SUSAN MANZANO Address1: [address] [facility] Rec: [id number] Address2: Acct ID: [id number] [facility] Zip: [place] [address] Date: 1935 Sex: F Room/Bed: Ref Phy: Dania Walsh DO SC: GEO Att Phy: Report #: [id number] Whit Phy: Dania Walsh DO Test: CXPEA Admit Phy: [employer] Sales Consultant: JINA Interpreting Phy: Constantino Crandall MD Diagnosis: PAIN BETWEEN SHOULDER BLADES /NAUSEA Ordering Phy: Celia Milan D.O. Service Date: 04/16/16 Admit Date: 04/16/16 MNE: PWRSCRIBE CONF: DICTATED BY: Constantino Crandall MD]] CC: Celia Milan D.O. Dellegrotti, Cara M., DO Endcc: [~ rep ct add3]] CT ANGIOGRAPHY OF THE CHEST, PULMONARY EMBOLUS PROTOCOL CLINICAL HISTORY: Chest and back pain. Hypoxia. COMPARISON STUDY: Chest radiograph April 16, 2016 and July 23, 2014. TECHNIQUE: Following IV administration of 998. mL of Optiray-320, helical axial images of the chest were obtained utilizing the pulmonary embolus protocol. Maximal intensity projections and sagittal and coronal reformats were viewed on an independent 3D workstation. IV contrast was administered without complication. CT DOSE: 747.16 mGy.cm FINDINGS: No pulmonary emboli are identified. The heart is moderately enlarged. There is no pericardial effusion. There is a left subclavian biventricular pacemaker. No enlarged axillary, mediastinal or hilar lymph nodes are present. The central airways are patent. No consolidation is identified to suggest pneumonia. A 4 mm right upper lobe nodule shown on image 235 of 316 is likely benign. The possible nodule shown on chest radiograph from earlier today was artifactual. There is a calcified granuloma within the right upper lobe. Linear and groundglass opacities are suggestive of atelectasis. There is no pneumothorax or pleural effusion. There are cholecystectomy clips. No suspicious osseous lesions are present. IMPRESSION: 1. No pulmonary emboli identified. 2. No acute intrathoracic findings. 3. Moderate cardiomegaly. 4. Linear and ground glass opacities suggestive of atelectasis. Electronically signed by: Constantino Crandall M.D. 04/16/2016 6:52 AM Dictated Date/Time: 04/16/2016 6:44 AM The status of this report is Signed. Draft = Not yet reviewed or approved by Radiologist. Signed = Reviewed and approved by Radiologist. <AttendingPhy></AttendingPhy> <FamilyPhy>Dania Walsh, DO</FamilyPhy> < PrimaryPhy>Dania Walsh, DO</PrimaryPhy> <UnitNumber>[id number]</ UnitNumber> <VisitNumber>[id number]</VisitNumber> <PatientName>SUSAN MANZANO</ PatientName> <DateOfBirth>1935</DateOfBirth> <Location>C.EDB</Location> < ServiceDate>04/16/16</ServiceDate> <MNE>ESINDI</MNE> <OrderingPhy>Celia Milan D.O.</OrderingPhy> <OrderingPhyMNE>f rep ord dr camilo</OrderingPhyMNE> < DictatingPhyMNE>f rep dict dr camilo</DictatingPhyMNE> <CCListMNE>f rep ct mne</ CCListMNE> <AdmittingPhyMNE>f pt admit dr camilo</AdmittingPhyMNE> <AttendingPhyMNE >f pt attend dr camilo</AttendingPhyMNE> <ConsultingPhyMNE>f pt consult dr camilo</ConsultingPhyMNE> <FamilyPhyMNE>f pt fam dr camilo</FamilyPhyMNE> <OtherPhyMNE>f pt other dr camilo</OtherPhyMNE> < PrimaryPhyMNE>f pt prim care dr camilo</PrimaryPhyMNE> <ReferringPhyMNE>f pt referring dr camilo</ReferringPhyMNE> EKG Reviewed EKG and agree with interpretation as follows: 03:55--80 bpm, ventricularly paced rhythm 04:56--75 bpm, ventricularly paced rhythm Impression Assessment and Plan 80 y/o female with a history of asthma, MARIBETH, HTN, HLD, and paroxysmal a-fib who presented to the ED on 04/16 with pain behind her left shoulder radiating to her chest and hypoxia. Excessive daytime drowsiness one day prior to arrival. Pt woke up early this morning with pain behind left shoulder radiating to left chest and left arm, nausea. Received 2 sprays nitro in ambulance, no relief. Pain resolved with morphine in ambulance. Pulse ox 83% on room air upon arrival. CTA negative for PE, CXR RUL nodule no acute disease. EKGs no ischemic changes. ABG normal pH, elevated HCO3 at 29. Cardiac enzymes negative. Chest pain, hypoxia--Pt uses supplemental oxygen at nighttime only with her CPAP , h/o MARIBETH and asthma that has been well-controlled according to outpatient records. PFTs done 1 month ago showed mild restrictive changes secondary to obesity -Admit to telemetry for observation -Trend cardiac enzymes q8h x 2 more sets -Check HgbA1c -Check PTT, PT/INR -Stress echo tomorrow am -NPO after midnight -Fasting lipid panel tomorrow am -Consult pulmonology, appreciate recs -Continue CPAP, O2 by protocol Acute diverticulitis--following with SARITA Barker as outpatient -Continue Augmentin 875 mg PO BID. 10 day course total, pt on day #5 Asthma -Continue Advair 1 puff inh BID, Singulair 10 mg PO qd and Ventolin 2 puffs inh q4h prn SOB/wheezing HTN--stable -Continue amlodipine 5 mg and losartan 100 mg PO qd HLD -Continue pravastatin 40 mg PO qhs and Zetia 10 mg PO qd Paroxysmal a-fib--pt has pacemaker -Continue Warfarin 5 mg PO /// and 2.5 mg PO // DVT prophylaxis -Enoxaparin 40 mg SC q24h -NAHOMY alfredo and SCDs Code Status -Level IV, FULL WITHOUT CARDIOVERSION OR MECHANICAL VENTILATOR Level of Care Telemetry (observation) Resuscitation Status FULL NO CARDIOV/MECH SHIRLEY VTE Prophylaxis VTE Risk Assessment Done? Y/N: Yes Risk Level: Moderate Given or contraindicated: Enoxaparin (Lovenox)SQ, T.E.D. Stockings, SCD's
[2016-04-16] MEDS: INSULIN ASPART 100 UNITS/ML 3 ML PEN SC SCH ×3 (11:00→20:25)
[2016-04-16 11:01] LABS: INR 2.5 (0.9-1.1); PARTIAL THROMBOPLASTIN RATIO 1.5; PROTHROMBIN TIME (PATIENT) 27.4 SECONDS (9.0-12.0)
[2016-04-16 11:24] LABS: ESTIMATED AVERAGE GLUCOSE 134 mg/dl; HA1C FLAG Normal (Normal)
--- NOTE | 2016-04-16 12:59 | PULMONARY CONSULTATION ---
DATE OF CONSULTATION: 04/16/2016 The patient is an 80-year-old female who was admitted to the hospital with left-sided chest pain and left arm pain. She was noted to be hypoxemic with an oxygen saturation of 83% on room air upon arrival to the Emergency Room. Was 95% on 2 liters. Eventually, she had a blood gas done that revealed a pH 7.42, pCO2 of 46, pO2 of 80 on 2 liters suggesting mild widening of the A-a gradient. Ms. Tracy has asked me to evaluate the patient from a pulmonary standpoint. Her 2 daughters were there for the evaluation today. She has not had any problems with her lungs except pneumonia in the past. When I reviewed those records, her oxygen saturation was 93% on room air at the time of discharge. She denies cough, sputum production, fevers, night sweats or chest pain and has not had any peripheral edema or evidence of DVT. She remains fairly active at home and was able to go up her cellar steps, do her shopping, go out to [employer] and to the grocery store without difficulty. She drives. Can walk in through the parking lot without shortness of breath. She does have easy fatigability recently with occasional episodes of chest discomfort. Apparently she was given some nitroglycerin before she arrived in the Emergency Room and cared for by Dr. Milan. I wonder if that could have caused bit of a low oxygen saturation. The patient feels well at the present time. She denies any chest pain other than some discomfort across the thorax and into the left arm, which has resolved now. She has not had any problems from a pulmonary standpoint otherwise. She does carry a history of asthma, and that has been under good control. She is cared for by Dr. Lea. Recently she was seen by him according to the outpatient records on March 07. Recent PFT showed normal flow/volume with normal spirometry. PAST MEDICAL HISTORY: Positive for atrial fibrillation, C. diff colitis, diverticulitis, hypertension, renal lithiasis, and pneumonia and asthma in the past. PAST SURGICAL HISTORY: Unremarkable. ALLERGIES: BUDESONIDE, FORMOTEROL, IODINATED DIAGNOSTIC AGENTS, METRONIDAZOLE, AND KEENA INHIBITORS. THE KEENA INHIBITORS CAUSED COUGH. SOCIAL HISTORY: Unremarkable. 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 Both of her parents were heavy tobacco users so she has had significant secondhand smoke exposure. She is compliant with CPAP. MEDICATIONS: Noted. PHYSICAL EXAMINATION: VITAL SIGNS: Stable and she is afebrile. Oxygen saturation 91% on 2 liters. It was 94% on room air at 10:00 this morning. Her blood pressure 147/80. Weight is stable at 103 kilograms. HEENT: Unremarkable. No telangiectasia is noted. No AVMs on the skin or conjunctiva noted. No adenopathy is noted. NECK: Carotid upstroke normal, no bruits are auscultated. Thyroid normal. CHEST: Expansion of the thorax is slightly limited because of her obesity, inability to take a full deep breath, perhaps related to some chest cage restriction. HEART: Regular rate and rhythm. No murmurs are heard. Pacer pocket looks good underneath the left clavicle. LUNGS: Lungs are clear. No crackles, wheezing or rales noted. No rhonchi are noted. There is no fremitus or dullness to percussion. ABDOMEN: Soft and obese, nontender. She has no cyanosis, clubbing or edema. CT scan of the chest was done with contrast and shows no pulmonary emboli, no intrathoracic findings, moderate cardiomegaly and minimal atelectatic changes at the lung bases. This is supported by the chest x-ray as well. There is a small 4 mm nodule in the right upper lobe. The blood gases noted as above. White count 9.13. Hemoglobin was 13.5 with a platelet count of 199,000. PRP is unremarkable with sugar 127. A1c is 6.3. Liver function studies are normal. BNP, troponin, CK enzymes are unremarkable. TSH is 1.97. Coagulation profile reveals an INR of 2.5. IMPRESSION: 1. Hypoxemia. I wonder if this could have been related to mild basilar atelectasis with inability to take a full deep breath, perhaps related to the chest discomfort, maybe the supine position. It has resolved. There is no evidence of any hypoxemia during a recent hospitalization for pneumonia in 2015. She has not had any hypoxemia. Her lung exam is unremarkable. Spirometry looked good. A CAT scan showed no evidence of any significant parenchymal abnormalities or pulmonary embolism. It is unlikely she has a shunt since she has not had chronic hypoxemia. I suspect the nitroglycerin could have caused problems with the hemoglobin and the red cell, but she only got 1 dose apparently. 2. Asthma, under good control. 3. Obstructive sleep apnea. RECOMMENDATIONS: At this point, I think a stress test will be indicated. I believe she is scheduled for that for tomorrow. I would continue on oxygen and if the stress test is unremarkable, check a 6-minute walk test before she is discharged. If she needs oxygen, that can be adjusted. She should follow up with Dr. Lea within the next 2 weeks for assessment of her oxygenation. She has a 4 mm nodule in the right upper lobe, is a nonsmoker and by the Fleischner criteria, it probably does not need to be reevaluated in the future. Thanks for asking me to evaluate Ms. Perkins and I will be glad to see her again if you desire.
[2016-04-16] MEDS: FLUTICASONE/SALMETEROL 250/50 (ADVAIR) 14 PUFF/1 INHALER INH SCH ×2 (13:03→20:31)
[2016-04-16] MEDS: LOSARTAN POTASSIUM 50 MG TAB PO SCH (13:04)
[2016-04-16 13:05] LABS: CKMB/CK RATIO 0.9 (0-3.0)
[2016-04-16] MEDS: FUROSEMIDE 20 MG TAB PO SCH (13:05)
[2016-04-16] MEDS: POTASSIUM CHLORIDE 20 MEQ TABCR PO SCH (13:05)
[2016-04-16] MEDS ORDERED: WARFARIN SOD 5 MG TAB PO SCH (16:00)
[2016-04-16] MEDS: AMOXICILLIN/CLAVULANATE TAB 875 MG TAB PO SCH (16:20)
[2016-04-16] MEDS ORDERED: ALBUT/IPRATROP 3MG/0.5MG NEB 3 ML VIAL INH PRN (17:45)
[2016-04-16] MEDS ORDERED: ZOLPIDEM TARTRATE 5 MG TAB PO PRN (18:00)
[2016-04-16] MEDS ORDERED: IBUPROFEN 200 MG TAB PO PRN (18:00)
[2016-04-16] MEDS: ACETAMINOPHEN 325 MG TAB PO PRN (18:41)
[2016-04-16] MEDS: ALBUT/IPRATROP 3MG/0.5MG NEB 3 ML VIAL INH SCH (19:45)
[2016-04-16 20:40] LABS: CKMB/CK RATIO 0.8 (0-3.0)
[2016-04-16] MEDS ORDERED: MONTELUKAST SOD 10 MG TAB PO SCH (21:00)
[2016-04-16] MEDS ORDERED: EZETIMIBE 10MG TAB PO SCH (21:00)
[2016-04-16] MEDS ORDERED: PRAVASTATIN SOD 40 MG TAB PO SCH (21:00)
[2016-04-17] VITALS: BP 125/65; PULSE 80; TEMP 36.1; O2SAT 95
[2016-04-17 04:00] VITALS: BP 134/66; PULSE 76; TEMP 36.4; O2SAT 96
[2016-04-17] MEDS: INSULIN ASPART 100 UNITS/ML 3 ML PEN SC SCH ×2 (07:00→11:00)
[2016-04-17 07:08] VITALS: PULSE 81; O2SAT 96
[2016-04-17] MEDS: ALBUT/IPRATROP 3MG/0.5MG NEB 3 ML VIAL INH SCH ×2 (07:08→11:07)
[2016-04-17 07:19] VITALS: BP 129/77; PULSE 74; TEMP 36.5; O2SAT 96
[2016-04-17 07:33] LABS: HEMATOCRIT 41.1 % (37-47); MEAN CELL VOLUME 94.3 fL (80-100); MEAN CORPUSCULAR HEMOGLOBIN 31.7 pg (25-34); MEAN CORPUSCULAR HGB CONC 33.6 g/dl (32-36); MEAN PLATELET VOLUME 11.6 fL (7.4-10.4); PLATELET COUNT 219 K/uL (130-400); RED BLOOD COUNT 4.36 M/uL (4.2-5.4); WHITE BLOOD COUNT 13.36 K/uL (4.8-10.8)
[2016-04-17] MEDS: FUROSEMIDE 20 MG TAB PO SCH (07:49)
[2016-04-17] MEDS: AMLODIPINE BESYLATE 5 MG TAB PO SCH (07:49)
[2016-04-17] MEDS: LOSARTAN POTASSIUM 50 MG TAB PO SCH (07:50)
[2016-04-17] MEDS: FLUTICASONE/SALMETEROL 250/50 (ADVAIR) 14 PUFF/1 INHALER INH SCH (07:51)
[2016-04-17] MEDS: POTASSIUM CHLORIDE 20 MEQ TABCR PO SCH (07:51)
--- NOTE | 2016-04-17 07:59 | PULMONARY PROGRESS NOTE ---
DATE: 04/17/2016 HISTORY OF PRESENT ILLNESS: The patient is comfortable this morning. She is using a nebulizer treatment and states she had a fairly good night last night. She denies cough, chest pain or shortness of breath. She has had prednisone on board started last night with incentive spirometry. PHYSICAL EXAMINATION: VITAL SIGNS: Stable and she is afebrile. Apparently she is scheduled for cardiac catheterization today. Blood pressure 129/77, oxygen saturation 96% on 2 liters. I\T\O is 372 in and 1430 out. Weight 97.2 kilograms and that is down about a half kilogram. According to nurses' note she had a fairly good night last night, resting comfortably, rhythm has been stable. Oxygen sats on room air in the high 80s, 92% on 2 liters. HEENT: Unremarkable. No neck vein distention or HJR. HEART: Regular rate and rhythm. No murmurs are heard. LUNGS: Clear today. No wheezing is noted. ABDOMEN: Soft, nontender. EXTREMITIES: She has no cyanosis, clubbing or edema. She does use CPAP each night. LABORATORY DATA: White count is 13.36, hemoglobin 13.8. PRP is pending. Glucose is 177 range. CK enzymes are unremarkable. IMPRESSION: 1. Hypoxemia, probably related to some regional areas of atelectasis with increase in AA gradient. 2. Asthma. 3. Obstructive sleep apnea. 4. Chest pain. RECOMMENDATIONS: 1. Continue with her present medications. I think the prednisone, if that is used for bronchospasm, could be tapered down and perhaps even stopped. I do not think she needs 80 mg; she is not wheezing and I do not think that this is going to help with the hypoxemia. 2. Continue to adjust the Coumadin. Her INR was 2.5 yesterday. 3. Continue with her present inhalers. 4. Continue with CPAP each time she sleeps. Overall she is stable. A 6-minute walk test would be helpful as well to ascertain whether she will need oxygen with exercise during the daytime.
[2016-04-17 08:04] LABS: BUN/CREATININE RATIO 31.4 (10-20); CALCIUM 9.1 mg/dl (8.5-10.1); CREATININE 0.58 mg/dl (0.60-1.20); MAGNESIUM 2.2 mg/dl (1.8-2.4); POTASSIUM 3.8 mmol/L (3.5-5.1)
[2016-04-17 08:06] LABS: CHOLESTEROL/HDL RATIO 2.8
[2016-04-17] MEDS: AMOXICILLIN/CLAVULANATE TAB 875 MG TAB PO SCH (08:38)
[2016-04-17] MEDS: ACETAMINOPHEN 325 MG TAB PO PRN (09:17)
[2016-04-17] MEDS ORDERED: DOBUTamine HCL 12.5 MG/ML 20 ML VIAL ONE (10:21)
[2016-04-17] MEDS ORDERED: ATROPINE SULFATE 0.1 MG/ML 5ML SYR ONE (10:21)
[2016-04-17] MEDS ORDERED: METOPROLOL TARTRATE 1 MG/ML VIAL ONE (10:22)
[2016-04-17] MEDS ORDERED: ESMOLOL HCL 10 MG/ML 10 ML VIAL ONE (10:22)
[2016-04-17] MEDS ORDERED: PERFLUTREN LIPID MICROSPHERE (DEFINITY) IV ONE (11:10)
[2016-04-17] MEDS ORDERED: AMOX875T PO (11:35)
[2016-04-17] MEDS ORDERED: PRED10TA PO (11:35)
[2016-04-17 12:30] VITALS: BP 104/65; PULSE 83; TEMP 36.5; O2SAT 91
[2016-04-17 14:39] VITALS: BP 141/97; PULSE 84; TEMP 36.5; O2SAT 94
--- NOTE | 2016-04-17 15:18 | Discharge Instructions ---
Discharge Instructions Admission Reason for Admission: Pain Between Shoulder Blades/Nausea Discharge Discharge Diagnosis / Problem: Chest pain Discharge Goals Goal(s): Decrease discomfort, Diagnostic testing, Therapeutic intervention Activity Recommendations Activity Limitations: resume your previous activity . Instructions / Follow-Up Instructions / Follow-Up You were admitted to the hospital for overnight observation due to chest pain. Upon arrival to the emergency room, you were also found to have a low oxygen saturation just breathing on room air, so you were put on supplemental oxygen. You had a cardiac work up which included checking your cholesterol, checking for diabetes, repeat EKGs, and a stress echocardiogram, or ultrasound of your heart. We also trended your cardiac enzymes, which are chemicals released by your heart if it is damaged or doesn't have enough blood/oxygen. This work up all came back normal, and your pain spontaneously resolved after a few hours. Pulmonology was consulted during your stay regarding the oxygen issue. Dr. Ivy recommended continuing your current home regimen and your CPAP with oxygen. He also recommended a 2 step walk test to assess any possible need for daytime oxygen in addition to the oxygen you use with your CPAP. This test was performed prior to discharge and determined that you do not need additional oxygen during the daytime at home. Dr. Ivy also recommended that you follow up with Dr. Lea in 2 weeks regarding your breathing and oxygenation. You were started on an oral steroid called Prednisone while in the hospital. You will need to taper this medication prior to stopping. A prescription for this medication has been sent to your pharmacy. Please take it as directed: -Take 2 tablets twice a day on Day 1 (04/18) and Day 2 (04/19) -Take 2 tablets once a day on Day 3 (04/20) and Day 4 (04/21) -Take 1 tablet once a day on Day 5 (04/22) and Day 6 (04/23) You will also continue the antibiotic that you have been taking for acute diverticulitis. You have been taking amoxicillin/potassium clavulanate 875/125 (brand name Augmentin). You will continue to take the pills that had been given to you; however, since you received some of this medication while in the hospital instead of your pill bottle at home, I have given you new instructions as follows: -Take 1 tablet twice a day at 9 am and 9 pm. -Restart your home Augmentin pills tonight at 9 pm. -Take a total of 10 more pills to complete the 10 day course that was prescribed to you by Crista Barker. Your last pill should be the morning of You may resume your other home medications as previously prescribed with the above exceptions. As your work up has been normal, you are medically stable for discharge. Please seek medical attention if you experience fever, chills, sweats, lightheadedness, fainting, chest pain, shortness of breath, nausea, vomiting, numbness, or tingling. Please follow up with your primary care provider within 1 week regarding your hospital stay. Please follow up with Dr. Lea in 2 weeks. Current Hospital Diet Patient's current hospital diet: Low Fiber Diet, AHA Diet (Heart Healthy) Discharge Diet Recommended Diet: AHA Diet (Heart Healthy), Low Fiber Diet Procedures Procedures Performed: Stress echocardiogram Pending Studies Studies pending at discharge: no Laboratory Results Hemoglobin A1c Test 04/16/16 03:58 Range/Units Estimated Average Glucose 134 mg/dl Hemoglobin A1c 6.3 H 4.5-5.6 % Lipid Panel Test 04/17/16 06:30 Range/Units Triglycerides Level 81 0-150 mg/dl Cholesterol Level 182 0-200 mg/dl HDL Cholesterol 66 mg/dl Cholesterol/HDL Ratio 2.8 LDL Cholesterol, Calculated 100 mg/dl Medical Emergencies . Who to Call and When: Medical Emergencies: If at any time you feel your situation is an emergency, please call 911 immediately. . Non-Emergent Contact Non-Emergency issues call your: Primary Care Provider, Head Waiter/Waitress Banquet Call Non-Emergent contact if: you have a fever, your pain is not controlled, your pain is worsening, your pain is concerning you, you have any medication questions . Past History Medical & Surgical History: (1) Chest pain (2) Hypoxia (3) Diverticulitis . "Provider Documentation" section prepared by Linh Tracy. VTE Core Measure Inpt VTE Proph given/why not?: Warfarin (Coumadin), T.E.D. Ivonne, SCD's
--- NOTE | 2016-04-17 15:55 | Discharge Summary ---
Discharge Summary Admission Date: Apr 16, 2016 at 09:16 Discharge Date: Apr 17, 2016 Discharge Disposition: Home Principal Diagnosis: Chest pain Immunizations: Have You Had Influenza Vaccine: Unknown History of Tetanus Vaccine?: Unknown History of Pneumococcal: Unknown History of Hepatitis B Vaccine: Unknown Procedures: Stress echocardiogram Medication Reconciliation New Medications: Prednisone Tab (Prednisone) 10 Mg Tab 10 MG PO UD for 6 Days, #14 TAB Take 2 tablets twice a day on days 1 & 2. Take 2 tablets once a day on days 3 & 4. Take 1 tablet once a day on days 5 & 6. Changed Medications: Amoxicillin & Pot Clavulanate (Augmentin 875-125 mg) 1 Tab Tab 1 TAB PO BID, #10 TAB (Changed from: 12) Take 1 tablet twice a day at 9 am and 9 pm. Continued Medications: Albuterol Inhaler (Ventolin Inhaler) Aers 2 PUFFS INH Q4 PRN for SOB/Wheezing Amlodipine Besylate (Amlodipine Besylate) 5 Mg Tab 5 MG PO QAM Ezetimibe (Zetia) 10 Mg Tab 10 MG PO HS Fish Oil ([place]-3) 1 Ea Cap 1 CAP PO HS, CAP Fluticasone Prop/Salmeterol (Advair Diskus 250/50 60 Dose) 1 Ea Aerp 1 PUFF INH Q12 Fluticasone Propionate (Fluticasone Propionate) 120 Sprays/6000 Mcg Inha 2 SPRAYS SHY DAILY Furosemide (Furosemide) 20 Mg Tab 20 MG PO QAM Hyoscyamine Sulfate (Hyoscyamine Sulfate) 0.125 Mg Tab 0.125 MG PO Q6 PRN for ABDOMINAL PAIN Losartan Potassium (Cozaar) 100 Mg Tab 100 MG PO QAM Lutein-Zeaxanthin (Lutein) 1 Cap Cap 1 CAP PO DAILY Montelukast Sod (Montelukast Sodium) 10 Mg Tab 10 MG PO HS Multivitamin (Multivitamin) Tab 1 TAB PO QAM, TAB Ocuvite Preservision (Ocuvite Preservision) 1 Tab Tab 2 TAB PO DAILY, TAB Oxygen (Oxygen) Gas 2 LITER NA HS USE WITH CPAP Potassium Chloride (Potassium Chloride ER) 20 Meq Tabcr 20 MEQ PO QAM Pravastatin Sodium (Pravastatin Sodium) 40 Mg Tab 40 MG PO HS Probiotic Product (Probiotic) 1 Cap Cap 1 CAP PO QAM Warfarin Sod (Coumadin) 2.5 Mg Tab 2.5 MG PO UD, TAB Take 2.5 mg Saturday, , Saturday Warfarin Sodium (Warfarin Sodium) 5 Mg Tab 5 MG PO UD Take 5 mg Saturday, Saturday, Saturday, Saturday [Cpap] () HS NASAL CPAP 7CM WATER,C-FLEX OF 2 MIRAGE FX NASAL MASK,20 MIN RAMP,HEATED,HUMIDIFIED Referrals At Discharge Follow up Referrals: Spreader Operator Automatic Referral - Within 2 Weeks with Guru Lea M.D. Discharge Exam Patient reports feeling well. She has not had any pain since yesterday and denies any shortness of breath. Cardiac work up has all been normal. The patient denies fevers, chills, sweats, chest pain, palpitations, claudication, cough, wheezing, shortness of breath, nausea, vomiting, abdominal pain, dysuria , hematuria, urinary retention, paralysis, weakness, numbness and tingling. Review of Systems: Constitutional: No chills, No fever, No sweats Eyes: No diplopia, No eye pain, No worsening of vision ENT: No hearing loss, No sore throat, No tinnitus Respiratory: No cough, No shortness of breath, No wheezing Cardiovascular: No chest pain, No claudication, No palpitations Abdomen: No nausea, No pain, No vomiting Musculoskeletal: No calf pain, No joint pain, No muscle pain Genitourinary - Female: No dysuria, No hematuria, No urinary retention Neurologic: No numbness/tingling, No paralysis, No weakness Integumentary: No color change, No itch, No rash Physical Exam: General Appearance: WD/WN, no apparent distress, + obese (morbidly obese) Eyes: normal inspection, PERRL, EOMI ENT: normal ENT inspection, hearing grossly normal, pharynx normal Neck: supple, no JVD, trachea midline Respiratory/Chest: normal breath sounds, no respiratory distress, + decreased breath sounds, + crackles (mild crackles left base) Cardiovascular: regular rate, rhythm, no gallop, no murmur Abdomen / GI: normal bowel sounds, non tender, soft Extremities: normal inspection, no calf tenderness, no pedal edema Neurologic/Psychiatric: alert, normal mood/affect, oriented x 3 Skin: normal color, warm/dry, no rash Hospital Course 80 y/o female with a history of asthma, MARIBETH, HTN, HLD, and paroxysmal a-fib who presented to the ED on 04/16 with pain behind her left shoulder radiating to her chest and hypoxia. Excessive daytime drowsiness one day prior to arrival. Pt woke up early this morning with pain behind left shoulder radiating to left chest and left arm, nausea. Received 2 sprays nitro in ambulance, no relief. Pain resolved with morphine in ambulance. Pulse ox 83% on room air upon arrival. CTA negative for PE, CXR RUL nodule no acute disease. EKGs no ischemic changes. ABG normal pH, elevated HCO3 at 29. Cardiac enzymes negative. Chest pain, hypoxia--Pt uses supplemental oxygen at nighttime only with her CPAP , h/o MARIBETH and asthma that has been well-controlled according to outpatient records. PFTs done 1 month ago showed mild restrictive changes secondary to obesity -Admit to telemetry for observation -Trend cardiac enzymes q8h x 2 more sets. Cardiac enzymes negative x 3 -Check HgbA1c. 6.3 on 04/16 -Check PTT, PT/INR. Warfarin therapeutic with INR of 2.5 -Repeat EKG 04/17 no ischemic changes -Stress echo. Final report pending, spoke with Bon Robbins PA-C who performed the study. No ischemia, infarction, or significant hypokinesis. Overall normal study. -NPO after midnight prior to stress echo -Fasting lipid panel WNL: total cholesterol 182, HLD 66, LDL 100, triglycerides 81 -Consult pulmonology, appreciate recs: recommend 2-step prior to discharge, f/ u with Dr. Lea in 2 weeks. No further evaluation needed. -Continue CPAP, O2 by protocol. Pt. weaned off daytime O2 in afternoon prior to discharge, pulse ox in mid 90s in room air -2 step done, no oxygen needed at rest or with ambulation at home during daytime -Pt had been started on Prednisone 40 mg PO BID, will taper dose on discharge: 20 mg PO BID x 2 days, 20 mg PO qd x 2 days, 10 mg PO qd x 2 days Acute diverticulitis--following with SARITA Barker as outpatient -Continue Augmentin 875 mg PO BID. 10 day course total, pt started course in the evening of 04/12. Instructed to continue taking twice a day until the morning of 04/22 Mild leukocytosis--WBC 9.13 upon arrival -WBC 13.36 on 04/17 -Likely secondary to steroids. Pt afebrile. Asthma -Continue Advair 1 puff inh BID, Singulair 10 mg PO qd and Ventolin 2 puffs inh q4h prn SOB/wheezing HTN--stable -Continue amlodipine 5 mg and losartan 100 mg PO qd HLD -Continue pravastatin 40 mg PO qhs and Zetia 10 mg PO qd Paroxysmal a-fib--pt has pacemaker -Continue Warfarin 5 mg PO /// and 2.5 mg PO // DVT prophylaxis -Warfarin -NAHOMY alfredo and SCDs Code Status -Level IV, FULL WITHOUT CARDIOVERSION OR MECHANICAL VENTILATOR Total Time Spent: Greater than 30 minutes This includes examination of the patient, discharge planning, medication reconciliation, and communication with other providers. Discharge Instructions Please refer to the electronic Patient Visit Report (Discharge Instructions) for additional information. Additional Copies To Reuben Akers M.D.; Dania Walsh, DO
[2016-04-17] MEDS ORDERED: WARFARIN SOD 2.5 MG TAB PO SCH (16:00)
--- NOTE | 2016-04-17 17:56 | DOBUTAMINE ECHO ---
*NOTICE TO RECEIVING LIBERTARIAN AGENCY This information is strictly Confidential and protected under [place] law. [place] law prohibits you from making any further disclosure of this information unless further disclosure is expressly permitted by the written consent of the person to whom it pertains or is authorized by law. A general authorization for the release of medical or other information is not sufficient for this purpose. Hospital accepts no responsibility if the information is made available to any other person, INCLUDING THE PATIENT. Interpretation Summary * Name: SUSAN MANZANO Study Date: 04/17/2016 10:31 AM BP: 149/52 mmHg * Patient Location: C.2T\S\S240\S\1 HR: 90 * : 1935 (M/d/yyyy) Gender: Female Height: 60 in * Age: 80 yrs Ethnicity: CA Weight: 226 lb * Ordering Physician: Linh Tracy * Referring Physician: Self, Referred * Performed By: Raisa Brown RDCS * * Reason For Study: Chest Pain * BSA: 2.0 m2 * Normal resting biventricular systolic function. * Small pericardial effusion without evidence of cardiac tamponade. * The study was technically difficult. * This was a normal stress echocardiogram. * The left ventricular ejection fraction increases normally with stress. The left ventricular end-systolic cavity size reduces post-stress (normal response). The left ventricular wall motion with stress is normal. * The stress ECG response was normal * The stress echocardiogram is negative for inducible ischemia. * -- Conclusions -- * There is no diastolic compression of the right ventricle to suggest cardiac tamponade. * No segmental left ventricular wall motion abnormalities are noted. Procedure Details * DOBUTAMINE ECHO, CPT#[id number] * ECHO DOPPLER, CPT #[id number] * ECHO COLOR FLOW, CPT #[id number] * The study was technically difficult with many images being suboptimal in quality. * A contrast injection of Definity was performed to improve assessment of LV function. * Contrast was injected into an intravenous site in the left arm. * One vial of Definity ultrasound contrast was diluted in normal saline to a total volume of 10 ml. A total of '5' ml of solution was administered during imaging. * Lot # [id number] of Definity utilized for procedure. * Expiration date . * The attending nurse who injected the contrast agent was Toña Araujo RN. Left Ventricle * The left ventricle is normal in size. * There is normal left ventricular wall thickness. * Ejection Fraction = 65-70%. * Left ventricular systolic function is normal. * No segmental left ventricular wall motion abnormalities are noted. * Resting wall motion: Normal. Stress wall motion: Appropriate increase in Left ventricular systolic function and decrease in cavity size. No stress induced segmental wall motion abnormalities. * The left ventricular ejection fraction increases normally with stress. The left ventricular end-systolic cavity size reduces post-stress (normal response). The left ventricular wall motion with stress is normal. Right Ventricle * The right ventricle is normal in size and function. Atria * The left atrial size is normal. * Right atrial size is normal. Mitral Valve * The mitral valve is not well visualized. * Significant mitral regurgitation is absent. Tricuspid Valve * The tricuspid valve is not well visualized. * Significant tricuspid regurgitation is absent. Aortic Valve * The aortic valve is trileaflet. * The aortic valve opens well. * No aortic regurgitation is present. Pulmonic Valve * The pulmonic valve is not well visualized. * There is no significant pulmonary regurgitation. Great Vessels * The aortic root is normal size. Pericardium * Small pericardial effusion. * There are no echocardiographic indications of cardiac tamponade. * There is no diastolic compression of the right ventricle to suggest cardiac tamponade. Stress Parameters * Baseline ECG: NSR, Left axis deviation, left anterior fasicular block, right bundle branch block * The stress ECG response was normal * Stress ECG: No ST changes. Isolated premature ventricular contractions were present. * Rest heart rate was '90' BPM. * Rest blood pressure was '149/52' * Maximum heart rate achieved was 130 bpm. * Maximum heart rate was 94 % of maximum age-predicted heart rate. * Maximum blood pressure was '181/38' * Maximum Dobutamine infusion rate was '30' mcg/kg/min. * Dobutamine infusion was terminated due to achieving target heart rate * [place] 17.5 mg * The patient did not exhibit any symptoms during drug infusion. MMode 2D Measurements and Calculations IVSd 0.88 cm IVSs 1.3 cm LVIDd 5.3 cm LVIDs 3.2 cm LVPWd 1.0 cm LVPWs 1.6 cm IVS/LVPW 0.84 FS 40.1 % EDV(Teich) 135.7 ml ESV(Teich) 40.4 ml EF(Teich) 70.3 % EDV(cubed) 149.3 ml ESV(cubed) 32.2 ml EF(cubed) 78.5 % % IVS thick 44.2 % % LVPW thick 57.2 % LV mass(C)d 191.0 grams LV mass(C)dI 97.2 grams/m\S\2 LV mass(C)s 162.2 grams LV mass(C)sI 82.5 grams/m\S\2 SV(Teich) 95.3 ml SI(Teich) 48.5 ml/m\S\2 SV(cubed) 117.2 ml SI(cubed) 59.6 ml/m\S\2 Ao root diam 2.8 cm Ao root area 6.3 cm\S\2 ACS 1.9 cm LA dimension 3.3 cm LA/Ao 1.2 LVAd ap4 26.6 cm\S\2 LVLd ap4 7.5 cm EDV(MOD-sp4) 79.6 ml EDV(sp4-el) 80.6 ml LVAs ap4 14.8 cm\S\2 LVLs ap4 6.4 cm ESV(MOD-sp4) 29.4 ml ESV(sp4-el) 29.0 ml EF(MOD-sp4) 63.1 % EF(sp4-el) 64.0 % LVAd ap2 28.4 cm\S\2 LVLd ap2 8.2 cm EDV(MOD-sp2) 85.4 ml EDV(sp2-el) 82.9 ml LVAs ap2 12.3 cm\S\2 LVLs ap2 6.1 cm ESV(MOD-sp2) 22.1 ml ESV(sp2-el) 20.7 ml EF(MOD-sp2) 74.2 % EF(sp2-el) 75.0 % LVLd %diff 9.4 % EDV(MOD-bp) 86.5 ml LVLs %diff -4.64 % ESV(MOD-bp) 25.8 ml EF(MOD-bp) 70.2 % SV(MOD-sp4) 50.3 ml SI(MOD-sp4) 25.6 ml/m\S\2 SV(MOD-sp2) 63.3 ml SI(MOD-sp2) 32.2 ml/m\S\2 SV(MOD-bp) 60.7 ml SI(MOD-bp) 30.9 ml/m\S\2 SV(sp4-el) 51.5 ml SI(sp4-el) 26.2 ml/m\S\2 SV(sp2-el) 62.1 ml SI(sp2-el) 31.6 ml/m\S\2 Doppler Measurements and Calculations MV E max armando 113.1 cm/sec MV A max armando 97.1 cm/sec MV E/A 1.2 MV dec time 0.17 sec Ao V2 max 124.8 cm/sec Ao max PG 6.4 mmHg Ao max PG (full) 4.3 mmHg Ao V2 mean 89.5 cm/sec Ao mean PG 3.8 mmHg Ao V2 VTI 30.2 cm LV V1 max PG 2.1 mmHg LV V1 max 72.7 cm/sec SV(Ao) 190.6 ml SI(Ao) 96.9 ml/m\S\2 PA V2 max 97.6 cm/sec PA max PG 3.9 mmHg
--- NOTE | 2016-04-20 10:09 | EDITING REQUIRED CODING QUERY ---
SUPPORTING DIAGNOSIS NEEDED A supporting diagnosis is required for the test/procedure performed on this patient in order for us to be reimbursed by the patient's insurance. Please provide a supporting diagnosis for the following test/procedure listed below next to the test name along with your signature. *If there is no additional diagnosis for this patient that would support the following test/procedure please document that below next to the test/procedure. Test(s)/Procedure(s) that require a supporting diagnosis: * GLYCATED HEMOGLOBIN DIAGNOSIS: Hyperglycemia in the setting of acute coronary syndrome rule out * DOS: 04/16/16 Provider Signature: _Linh Tracy PA-C Date: Thank you Miranda Vazquez Health Information Management For questions please call [phone]
[2016-05-10] MEDS ORDERED: DICY10CA12 PO (13:55)
[2016-05-10] MEDS ORDERED: RANITAB33 PO (13:55)
[2016-09-13] MEDS ORDERED: NRN300 PO (10:38)
[2016-09-13] MEDS ORDERED: ZVRO EXT (10:38)
[2016-09-13] MEDS ORDERED: VLT500 PO (10:38)
[2016-09-13] MEDS ORDERED: NORT10CA4 PO (10:38)
[2016-09-13] MEDS ORDERED: NCY50 PO (10:42)
== END 2016-04-17 15:45 | disposition home or self-care (01) ==
LOC: ENRESERVDT → ENRESERVTM → C.EDB 03:49 → EDBD 03:49 → C.2T 09:16
PROVIDERS: ADMIT Hospitalist; ATTEND Hospitalist
DX: R07.9 Chest pain, unspecified (principal); E66.9 Obesity, unspecified; E78.5 Hyperlipidemia, unspecified; G47.33 Obstructive sleep apnea (adult) (pediatric); I10 Essential (primary) hypertension; I48.0 Paroxysmal atrial fibrillation; J45.909 Unspecified asthma, uncomplicated; K57.92 Diverticulitis of intestine, part unspecified, without perforation or abscess without bleeding; R91.1 Solitary pulmonary nodule; Z79.01 Long term (current) use of anticoagulants; D72.829 Elevated white blood cell count, unspecified; R73.9 Hyperglycemia, unspecified

== ENCOUNTER → 2016-05-16 | Day surgery (SDC) | payer OTHER ==
[2016-05-10 13:59] VITALS: Ht 152.4 cm; Wt 95.9 kg
[~2016-05-16] VITALS: Ht 152.4 cm; Wt 95.9 kg
[~2016-05-16] MED LIST changes: -AMOX1TAB43 PO; -CIPR-255 PO; +CMD/25 PO; +DOCU-94 PO; -HYOS1SUB SL; +LIDOCAINE HCL 2% 2 ML VIAL (20MG/ML) ONE; +LUTE15CA PO; +LVS125 PO; +MCRK/20 PO; +MULT-190 PO; +NCY50 PO; +NORT10CA4 PO; +NRN300 PO; -OXGN; -POTA20TA16 PO; +PRED20TA PO; +PRLSR20 PO; +PROPOFOL IV EMULSION 10 MG/ML 20 ML VIAL IV ONE; +RANITAB33 PO; +SODIUM CHLORIDE 0.9% 500ML 500 ML IV ONE; -TRAM-10 PO; +TRAM-453 PO; +VLT500 PO; +VNTHFA/IN INH; +ZNTT/150 PO; +ZVRO EXT
--- NOTE | 2016-05-16 15:21 | Endo History and Physical ---
History & Physical Date of Service: May 16, 2016. Chief Complaint: LLQ PAIN Referring Physician: Dania Barcenas History of Present Illness 80 yo CF who presents for colonoscopy secondary to LLQ abdominal pain. Past Medical History Atrial Fibrillation, Arthritis, Pacemaker, Asthma, Gastrointestinal Disorder, Cancer, High Cholesterol, Sleep Apnea, Hypertension, Other Past Surgical History Hx Cardiac Surgery: Yes (CARDIAC ABLATION 2011) Hx Internal Defibrillator: No Hx Pacemaker: Yes (2011) Hx Abdominal Surgery: Yes (PRIMO BSO, [facility]VIZ) Hx of Implantable Prosthesis: No Hx Post-Op Nausea and Vomiting: No Hx Cancer Surgery: Yes (SKIN CANCER REMOVAL FROM NOSE (MOHS)) Hx Thoracic Surgery: No Hx Orthopedic: Yes (L/R TKA, RT RCR, RT CTR) Hx Urinary Tract Surgery: Yes (BLADDER SLING PLACEMENT AND REMOVAL, RECTOCELE) Family History None Social History Smoking Status: Never Smoker Hx Substance Use: No Hx Alcohol Use: No Allergies Coded Allergies: Budesonide (Verified Allergy, Unknown, PT UNSURE OF RXN, 05/10/16) Formoterol (Verified Allergy, Unknown, PT UNSURE OF RXN, 05/10/16) Iodinated Diagnostic Agents (Verified Allergy, Unknown, RASH,HIVES FROM IVP DYE, 05/10/16) Metronidazole (Verified Allergy, Unknown, SEVERE GI SYMPTOMS, 05/10/16) KEENA Inhibitors (Verified Adverse Reaction, Intermediate, COUGH, 05/10/16) Current Medications Reported Home Medications Medications Dose Route/Sig Max Daily Dose Days Date Category Dose Instructions Zantac (Ranitidine Hcl) 75 Mg Tab 75 Mg PO HS PRN 05/10/16 Reported Dicyclomine Hcl 10 Mg Cap 1 Cap PO TID PRN 05/10/16 Reported Coumadin (Warfarin Sod) 2.5 Mg Tab 2.5 Mg PO UD 04/16/16 Reported Take 2.5 mg Saturday, , Saturday Lutein (Lutein-Zeaxanthin) 1 Cap Cap 1 Cap PO QAM 04/16/16 Reported Ocuvite Preservision (Multivitamins/Minerals) 1 Tab Tab 2 Tab PO QAM 04/16/16 Reported Potassium Chloride ER (Potassium Chloride) 20 Meq Tabcr 20 Meq PO HS 04/16/16 Reported Hyoscyamine Sulfate 0.125 Mg Tab 0.125 Mg PO Q6 PRN 04/16/16 Reported Warfarin Sodium 5 Mg Tab 5 Mg PO UD 08/11/15 Reported Take 5 mg Saturday, Saturday, Saturday, Saturday Probiotic (Probiotic Product) 1 Cap Cap 1 Cap PO BID 07/13/15 Reported [place]-3 (Fish Oil) 1 Ea Cap 1 Cap PO HS 07/13/15 Reported Multivitamin (Multivitamins) Tab 1 Tab PO QAM 07/13/15 Reported Advair Diskus 250/50 60 Dose (Fluticasone Prop/Salmeterol) 1 Ea Aerp 1 Puff INH Q12 07/13/15 Reported Ventolin Inhaler (Albuterol) Aers 2 Puffs INH Q4 PRN 07/07/14 Reported Zetia (Ezetimibe) 10 Mg Tab 10 Mg PO HS 07/07/14 Reported Pravastatin Sodium 40 Mg Tab 40 Mg PO HS 07/07/14 Reported Montelukast Sodium (Montelukast Sod) 10 Mg Tab 10 Mg PO HS 07/07/14 Reported Cozaar (Losartan Potassium) 100 Mg Tab 100 Mg PO QAM 07/07/14 Reported Furosemide 20 Mg Tab 20 Mg PO QAM 07/07/14 Reported Fluticasone Propionate 120 Sprays/6000 Mcg Inha 2 Sprays SHY DAILY PRN 07/07/14 Reported Amlodipine Besylate 5 Mg Tab 5 Mg PO QAM 07/07/14 Reported Vital Signs Weight (Kilograms): 95.91 Height (Feet): 5 Height (Inches): 0 Date Time Temp Pulse Resp B/P Pulse Ox O2 Delivery O2 Flow Rate FiO2 05/16/16 14:48 36.8 74 20 186/70 95 Room Air Physical Exam General Appearance: WD/WN, no apparent distress Respiratory/Chest: Auscultation: breath sounds normal Cardiovascular: Heart Auscultation: RRR Abdomen: Bowel Sounds: normal Inspection & Palpation: soft, non-distended, no tenderness, guarding & rebound Assessment and Plan Assessment: 80 yo CF who presents for colonoscopy secondary to LLQ abdominal pain. Plan: Proceed with colonoscopy.
--- NOTE | 2016-05-16 16:26 | Discharge Instructions ---
Endoscopy Patient Instructions Date / Procedure(s) Performed May 16, 2016. Colonoscopy Allergy Information Coded Allergies: Budesonide (Verified Allergy, Unknown, PT UNSURE OF RXN, 05/10/16) Formoterol (Verified Allergy, Unknown, PT UNSURE OF RXN, 05/10/16) Iodinated Diagnostic Agents (Verified Allergy, Unknown, RASH,HIVES FROM IVP DYE, 05/10/16) Metronidazole (Verified Allergy, Unknown, SEVERE GI SYMPTOMS, 05/10/16) KEENA Inhibitors (Verified Adverse Reaction, Intermediate, COUGH, 05/10/16) Discharge Date / Findings May 16, 2016. Colon polyps Diverticulosis Internal hemorrhoids Medication Instructions Stopped Medication(s): coumadin Restart Stopped Medication(s): OK to resume Coumadin therapy starting on 05/17/2016 OK to resume all medications today as prescribed Reported Home Medications Medications Dose Route/Sig Max Daily Dose Days Date Category Dose Instructions Zantac (Ranitidine Hcl) 75 Mg Tab 75 Mg PO HS PRN 05/10/16 Reported Dicyclomine Hcl 10 Mg Cap 1 Cap PO TID PRN 05/10/16 Reported Coumadin (Warfarin Sod) 2.5 Mg Tab 2.5 Mg PO UD 04/16/16 Reported Take 2.5 mg Saturday, , Saturday Lutein (Lutein-Zeaxanthin) 1 Cap Cap 1 Cap PO QAM 04/16/16 Reported Ocuvite Preservision (Multivitamins/Minerals) 1 Tab Tab 2 Tab PO QAM 04/16/16 Reported Potassium Chloride ER (Potassium Chloride) 20 Meq Tabcr 20 Meq PO HS 04/16/16 Reported Hyoscyamine Sulfate 0.125 Mg Tab 0.125 Mg PO Q6 PRN 04/16/16 Reported Warfarin Sodium 5 Mg Tab 5 Mg PO UD 08/11/15 Reported Take 5 mg Saturday, Saturday, Saturday, Saturday Probiotic (Probiotic Product) 1 Cap Cap 1 Cap PO BID 07/13/15 Reported [place]-3 (Fish Oil) 1 Ea Cap 1 Cap PO HS 07/13/15 Reported Multivitamin (Multivitamins) Tab 1 Tab PO QAM 07/13/15 Reported Advair Diskus 250/50 60 Dose (Fluticasone Prop/Salmeterol) 1 Ea Aerp 1 Puff INH Q12 07/13/15 Reported Ventolin Inhaler (Albuterol) Aers 2 Puffs INH Q4 PRN 07/07/14 Reported Zetia (Ezetimibe) 10 Mg Tab 10 Mg PO HS 07/07/14 Reported Pravastatin Sodium 40 Mg Tab 40 Mg PO HS 07/07/14 Reported Montelukast Sodium (Montelukast Sod) 10 Mg Tab 10 Mg PO HS 07/07/14 Reported Cozaar (Losartan Potassium) 100 Mg Tab 100 Mg PO QAM 07/07/14 Reported Furosemide 20 Mg Tab 20 Mg PO QAM 07/07/14 Reported Fluticasone Propionate 120 Sprays/6000 Mcg Inha 2 Sprays SHY DAILY PRN 07/07/14 Reported Amlodipine Besylate 5 Mg Tab 5 Mg PO QAM 07/07/14 Reported Provider Instructions Activity Restrictions - No exercising or heavy lifting for 24 hours. - Do not drink alcohol the day of the procedure. - Do not drive a car or operate machinery until the day after the procedure. - Do not make any important decisions or sign important papers in 24 hours after the procedure. Following Day: - Return to full activity which may include returning to work/school. Diet Start your diet with liquids and light foods (jello, soup, juice, toast). Then eat your usual diet if not nauseated. Treatment For Common After Affects For mild abdominal pain, bloating, or excessive gas: - Rest - Eat lightly - Lie on right side Follow-Up Information Follow-up with Dania Barcenas as scheduled Anesthesia Information What You Should Know You have had a procedure that required some medicine to reduce anxiety and discomfort. This treatment is called moderate sedation. After receiving the treatment, you may be sleepy, but you will be able to breathe on your own. The effects of the treatment may last for several hours. Follow these instructions along with Activity/Diet recommendations noted above: * Do NOT do anything where dizziness or clumsiness would be dangerous. * Rest quietly at home today, then you can be up and about tomorrow. * Have a responsible person stay with you the rest of today. * You may have had an I.V. today. If so, you may take the dressing off later today. Recommendations Call your doctor if: * Trouble breathing * Continuous vomiting for more than 24 hours * Temperature above 101 degrees * Severe abdominal pain or bloating * Pain not relieved by pain medicine ordered * There is increased drainage or redness from any incision * A large amount of rectal bleeding greater than 2-3 tablespoons. (If you had a polyp/s removed or have hemorrhoids, a small amount of blood - from the rectum is to be expected.) * You have any unanswered questions or concerns. IN THE EVENT OF A SERIOUS EMERGENCY, GO TO THE NEAREST EMERGENCY ROOM Your discharge instructions were prepared by provider Cassius Traore. Patient Instructions Signature Page Lorna Perkins Patient (or Guardian) Signature/Date: I have read and understand the instructions given to me by my caregivers. Caregiver/RN/Doctor Signature/Date: The above-named patient and/or guardian has received patient instructions on this date. + Original Patient Signature Page (only) stays with chart. Please make copy for patient.
--- NOTE | 2016-05-16 16:35 | Anesthesiology Progress Note ---
Anesthesia Post Op Note Date & Time May 16, 2016 at 16:29 Vital Signs Vital Signs Past 12 Hours Date Time Temp Pulse Resp B/P Pulse Ox O2 Delivery O2 Flow Rate FiO2 05/16/16 14:48 36.8 74 20 186/70 95 Room Air Notes Mental Status: alert / awake / arousable, participated in evaluation Pt Amnestic to Procedure: Yes Nausea / Vomiting: adequately controlled Pain: adequately controlled Airway Patency, RR, SpO2: stable & adequate BP & HR: stable & adequate Hydration State: stable & adequate Anesthetic Complications: no major complications apparent Pt seen in PACU awake, VSS. Complaining that she was awake and having pain during procedure. Pt was sedated with propofol 300mg total for procedure. She had moderate degree of respiratory depression from medication. I expressed regret for pt's discomfort but emphasized that increased doses would have posed risk of further respiratory depression and potentially severe complications. She expressed understanding and is presently being prepared for discharge.
--- NOTE | 2016-05-16 16:49 | GI REPORT ---
Procedure Date: 05/16/2016 3:25 PM Procedure: Colonoscopy Indications: Abdominal pain in the left lower quadrant Medicines: Monitored Anesthesia Care Complications: No immediate complications. Estimated Blood Loss: Estimated blood loss: none. Procedure: Pre-Anesthesia Assessment: - Prior to the procedure, a History and Physical was performed, and patient medications and allergies were reviewed. The patient's tolerance of previous anesthesia was also reviewed. The risks and benefits of the procedure and the sedation options and risks were discussed with the patient. All questions were answered, and informed consent was obtained. Prior Anticoagulants: The patient has taken Coumadin (warfarin), last dose was 4 days prior to procedure. ASA Grade Assessment: III - A patient with severe systemic disease. After reviewing the risks and benefits, the patient was deemed in satisfactory condition to undergo the procedure. After I obtained informed consent, the scope was passed under direct vision. Throughout the procedure, the patient's blood pressure, pulse, and oxygen saturations were monitored continuously. The scope was introduced through the anus and advanced to the cecum, identified by appendiceal orifice and ileocecal valve. The colonoscopy was performed with difficulty due to the patient's body habitus and the patient's respiratory instability (hypoxia). Successful completion of the procedure was aided by decreasing the dose of sedation medication and applying abdominal pressure. The patient tolerated the procedure. The quality of the bowel preparation was good. The ileocecal valve, appendiceal orifice, and rectum were photographed. Findings: A 18 mm polyp was found in the cecum. The polyp was flat. The polyp was removed with a saline injection-lift technique using a hot snare. Resection and retrieval were complete. To prevent bleeding after the polypectomy, four hemostatic clips were successfully placed (MR conditional). There was no bleeding at the end of the procedure. A 4 mm polyp was found in the descending colon. The polyp was sessile. The polyp was removed with a hot snare. Resection was complete, but the polyp tissue was not retrieved. A 8 mm polyp was found in the sigmoid colon. The polyp was pedunculated. The polyp was removed with a hot snare. Resection and retrieval were complete. To prevent bleeding after the polypectomy, one hemostatic clip was successfully placed (MR conditional). There was no bleeding at the end of the procedure. Scattered small and large-mouthed diverticula were found in the entire colon. There was no evidence of diverticular bleeding. Non-bleeding internal hemorrhoids were found during retroflexion. The hemorrhoids were small. Impression: - One 18 mm polyp in the cecum, removed using injection-lift and a hot snare. Resected and retrieved. Clips (MR conditional) were placed. - One 4 mm polyp in the descending colon, removed with a hot snare. Complete resection. Polyp tissue not retrieved. - One 8 mm polyp in the sigmoid colon, removed with a hot snare. Resected and retrieved. Clip (MR conditional) was placed. - Severe diverticulosis in the sigmoid colon. There was no evidence of diverticular bleeding. - Non-bleeding internal hemorrhoids. Recommendation: - Resume previous diet. - Continue present medications. - Repeat colonoscopy for surveillance based on pathology results. - Return to primary care physician as previously scheduled. Cassius Traore, DO 05/16/2016 4:48:38 PM This report has been signed electronically. Note Initiated On: 05/16/2016 3:25 PM I attest to the content of the Intraoperative Record and orders documented therein, exceptions below
[2016-05-16 16:58] VITALS: BP 172/80; PULSE 78; O2SAT 92
== END | disposition home or self-care (01) ==
LOC: C.GI 14:14
PROVIDERS: ATTEND Internal Medicine
DX: D12.0 Benign neoplasm of cecum (principal); D12.5 Benign neoplasm of sigmoid colon; K57.30 Diverticulosis of large intestine without perforation or abscess without bleeding; K64.8 Other hemorrhoids; M19.90 Unspecified osteoarthritis, unspecified site; I48.91 Unspecified atrial fibrillation; J45.909 Unspecified asthma, uncomplicated; E78.5 Hyperlipidemia, unspecified; I10 Essential (primary) hypertension; Z98.890 Other specified postprocedural states; Z79.01 Long term (current) use of anticoagulants; Z91.041 Radiographic dye allergy status

== ENCOUNTER → 2016-05-23 | Outpatient (CLI) | payer OTHER ==
[~2016-05-23] MED LIST changes: -LIDOCAINE HCL 2% 2 ML VIAL (20MG/ML) ONE; -PROPOFOL IV EMULSION 10 MG/ML 20 ML VIAL IV ONE; -SODIUM CHLORIDE 0.9% 500ML 500 ML IV ONE
--- NOTE | 2016-05-23 13:35 | MAMMOGRAPHY REPORT ---
BILATERAL DIGITAL DIAGNOSTIC MAMMOGRAM TOMOSYNTHESIS WITH CAD: 05/23/2016 CLINICAL HISTORY: 80 year-old woman presents for follow-up of probably benign subcentimeter masses i n the central left breast. TECHNIQUE: Bilateral breast tomosynthesis in addition to standard 2D mammography was performed. Curr ent study was also evaluated with a Computer Aided Detection (CAD) system. COMPARISON: Comparison is made to exams dated: 11/21/2015 mammogram, 05/24/2015 ultrasound, 05/24/2015 mammogram, and 05/06/2015 mammogram - [facility]. BREAST COMPOSITION: There are scattered areas of fibroglandular density in both breasts. FINDINGS: There are moderate vascular calcifications and scattered benign rim calcifications in the breasts. The previously observed subcentimeter rounded masses in the central left breast have decre ased comparing to prior mammograms and are no longer definitely visible, confirming benignity. No n ew suspicious mass, architectural distortion or cluster of microcalcifications is seen. Recommend f ollow-up in 1 year for next annual screening mammogram. IMPRESSION: ACR BI-RADS CATEGORY 2: BENIGN The 2 benign-appearing subcentimeter masses in the central left breast are decreased in size, confir esthela benignity. There is no mammographic evidence of malignancy. A 1 year screening mammogram is re commended. The patient has been verbally notified of the results. Approximately 10% of breast cancers are not detected with mammography. A negative mammographic repor t should not delay biopsy if a clinically suggestive mass is present. Luna Amador M.D. ay/:05/23/2016 12:48:43 Employment Case Manager: Skye MANDEL(Lorna)(Erich), [facility] letter sent: Normal 1/2 BI-RADS Code: ACR BI-RADS Category 2: Benign
== END | disposition home or self-care (01) ==
LOC: C.MAMM 09:20
PROVIDERS: ATTEND Family Medicine
DX: N63 Unspecified lump in breast (principal)

== ENCOUNTER 2016-08-16 08:45 | Emergency (ER) | payer OTHER ==
[~2016-08-16] VITALS: Ht 154.9 cm; Wt 97.4 kg
[~2016-08-16 08:45] MED LIST changes: -DOCU-94 PO; -NCY50 PO; -NORT10CA4 PO; -NRN300 PO; -OXYC1TAB3 PO; -PRED20TA PO; -PRLSR20 PO; -TRAM-453 PO; -VLT500 PO; -VNTHFA/IN INH; -ZNTT/150 PO; -ZVRO EXT
[2016-08-16 09:03] VITALS: TEMP 36.8; Ht 154.9 cm; Wt 97.4 kg
[2016-08-16] MEDS ORDERED: VNTHFA/IN INH (09:16)
[2016-08-16] MEDS ORDERED: SODIUM CHLORIDE 0.9% 1000ML 1,000 ML IV STA (09:37)
--- NOTE | 2016-08-16 09:42 | EMERGENCY ROOM VISIT NOTE ---
History Report prepared by Cleopatra: Rob Parrish Under the Supervision of: Dr. Tonia Dalton M.D. First contact with patient: 09:03 Chief Complaint: ABDOMINAL PAIN Stated Complaint: STOMACH AND BACK PAIN History of Present Illness The patient is an 81 year old female who presents to the Emergency Room with complaints of persistent abdominal pain that began on Saturday, four days prior to arrival. The patient states that her abdominal pain is radiating into her right lower back. She has a history of diverticulitis and claims that her current pains feels similar to the symptoms she has had in the past. She denies any recent bouts of nausea. She is having bowel movements lately which have been somewhat lose, but she denies any significant diarrhea. The patient also complains that when she sits down she has pain in her rectum. She also has a history of kidney stones. She has a pacemaker placed. 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 A total of 10 systems reviewed and were otherwise negative. Past Medical & Surgical Medical Problems: (1) A-fib (2) C. difficile colitis (3) Chest pain (4) HTN (hypertension) (5) Hypoxia (6) Kidney stone (7) PNA (pneumonia) Family History Coronary artery disease FATHER Diabetes mellitus MOTHER Hypertension FATHER MOTHER Myocardial infarction FATHER Stroke FATHER MOTHER Social History Smoking Status: Never Smoker Alcohol Use: none Drug Use: none Marital Status: Housing Status: lives alone Occupation Status: retired Current/Historical Medications Scheduled Amlodipine Besylate (Amlodipine Besylate), 5 MG PO QAM Ezetimibe (Zetia), 10 MG PO HS Fish Oil ([place]-3), 1 CAP PO HS Fluticasone Prop/Salmeterol (Advair Diskus 250/50 60 Dose), 1 PUFF INH Q12 Furosemide (Furosemide), 20 MG PO QAM Losartan Potassium (Cozaar), 100 MG PO QAM Lutein-Zeaxanthin (Lutein), 1 CAP PO QAM Montelukast Sod (Montelukast Sodium), 10 MG PO HS Multivitamin (Multivitamin), 1 TAB PO QAM Ocuvite Preservision (Ocuvite Preservision), 2 TAB PO QAM Omeprazole (Prilosec), 20 MG PO DAILY Potassium Chloride (Potassium Chloride ER), 20 MEQ PO HS Pravastatin Sodium (Pravastatin Sodium), 40 MG PO HS Probiotic Product (Probiotic), 1 CAP PO BID Warfarin Sod (Coumadin), 2.5 MG PO UD Warfarin Sodium (Warfarin Sodium), 5 MG PO UD Scheduled PRN Albuterol Hfa (Ventolin Hfa), 2 PUFFS INH Q4H PRN for SOB/Wheezing Dicyclomine Hcl (Dicyclomine Hcl), 1 CAP PO TID PRN for ABDOMINAL PAIN Fluticasone Propionate (Fluticasone Propionate), 2 SPRAYS SHY DAILY PRN for ALLERGIES Hyoscyamine Sulfate (Hyoscyamine Sulfate), 0.125 MG PO Q6 PRN for ABDOMINAL PAIN Ranitidine Hcl (Zantac), 75 MG PO HS PRN for Indigestion Allergies Coded Allergies: Budesonide (Verified Allergy, Unknown, PT UNSURE OF RXN, 08/16/16) Formoterol (Verified Allergy, Unknown, PT UNSURE OF RXN, 08/16/16) Iodinated Diagnostic Agents (Verified Allergy, Unknown, RASH,HIVES FROM IVP DYE, 08/16/16) Metronidazole (Verified Allergy, Unknown, SEVERE GI SYMPTOMS, 08/16/16) KEENA Inhibitors (Verified Adverse Reaction, Intermediate, COUGH, 08/16/16) Physical Exam Vital Signs Date Time Temp Pulse Resp B/P Pulse Ox O2 Delivery O2 Flow Rate FiO2 08/16/16 12:03 83 153/81 93 08/16/16 10:24 71 08/16/16 10:21 70 171/81 94 Room Air 08/16/16 09:03 36.8 102 20 155/74 98 Room Air Physical Exam Vital signs reviewed. General: Well-appearing 81 yo female, in no significant distress. HEENT: No scleral icterus, PERRLA, neck supple. Atraumatic. Cardiovascular: Regular rate and rhythm, no extra sounds. Pulmonary: Clear to auscultation bilaterally, normal work of breathing. Abdomen: Obese, Soft, with diffuse mild tenderness; particularly in the RLQ, no rebounding or guarding nondistended, positive bowel sounds. Musculoskeletal: Atraumatic, minimal peripheral edema. BACK: No CVA tenderness. Neurologic: Patient awake alert and oriented x 3 Skin: Warm, dry, no rash Medical Decision & Procedures ER Provider Diagnostic Interpretation: Radiology results as stated below per my review and radiologist interpretation: CT SCAN OF THE ABDOMEN AND PELVIS WITHOUT CONTRAST CLINICAL HISTORY: diverticulitis RIGHT-SIDED ABDOMINAL PAIN COMPARISON STUDY: 04/11/2016 TECHNIQUE: CT scan of the abdomen and pelvis was performed from the lung bases to the proximal femurs. Images are reviewed in the axial, sagittal, and coronal planes. IV contrast was not administered for this examination. CT DOSE: 1588.31 mGy.cm FINDINGS: Lower chest: The heart is mildly enlarged. There is a pacemaker present. There is dependent atelectasis in lung reticulation. Liver: The unenhanced liver is normal in size, contour, and attenuation. There is no intrahepatic biliary ductal dilatation. Gallbladder: Surgically absent Spleen: Normal in size and attenuation. Pancreas: Unremarkable. Adrenal glands: Unremarkable. Kidneys: There is a nonobstructing 4 mm lower pole left renal calculus. There are punctate nonobstructing lower pole right renal calculi. No ureteral or bladder calculi are visualized. Bowel: There are no transition zone to indicate bowel obstruction. There are no findings to indicate acute appendicitis. There is moderately extensive sigmoid diverticulosis. No acute peridiverticular inflammatory changes are visualized. Peritoneum: There is no intraperitoneal free air or abdominal ascites. Vasculature: The abdominal aorta is normal in course and caliber. Adenopathy: None. Pelvic viscera: The uterus appears surgically absent. Skeletal structures: No destructive osseous lesions are seen. IMPRESSION: 1. No evidence of bowel obstruction. No evidence of free air 2. Bilateral nephrolithiasis. No ureteral or bladder calculi identified. 3. Extensive sigmoid diverticulosis. No current evidence of significant peridiverticular inflammatory change. Electronically signed by: Paco Mendez M.D. 08/16/2016 10:18 AM Dictated Date/Time: 08/16/2016 10:12 AM Laboratory Results 08/16/16 09:43 Red Blood Count 4.56, Mean Corpuscular Volume 93.2, Mean Corpuscular Hemoglobin 30.9, Mean Corpuscular Hemoglobin Concent 33.2, Mean Platelet Volume 11.2, Neutrophils (%) (Auto) 69.0, Lymphocytes (%) (Auto) 19.4, Monocytes (%) (Auto) 10.0, Eosinophils (%) (Auto) 0.9, Basophils (%) (Auto) 0.4, Neutrophils # (Auto ) 6.47, Lymphocytes # (Auto) 1.82, Monocytes # (Auto) 0.94, Eosinophils # (Auto ) 0.08, Basophils # (Auto) 0.04 08/16/16 09:43 Test 08/16/16 09:43 08/16/16 09:50 White Blood Count 9.38 K/uL (4.8-10.8) Red Blood Count 4.56 M/uL (4.2-5.4) Hemoglobin 14.1 g/dL (12.0-16.0) Hematocrit 42.5 % (37-47) Mean Corpuscular Volume 93.2 fL (80-100) Mean Corpuscular Hemoglobin 30.9 pg (25-34) Mean Corpuscular Hemoglobin Concent 33.2 g/dl (32-36) Platelet Count 199 K/uL (130-400) Mean Platelet Volume 11.2 fL (7.4-10.4) Neutrophils (%) (Auto) 69.0 % Lymphocytes (%) (Auto) 19.4 % Monocytes (%) (Auto) 10.0 % Eosinophils (%) (Auto) 0.9 % Basophils (%) (Auto) 0.4 % Neutrophils # (Auto) 6.47 K/uL (1.4-6.5) Lymphocytes # (Auto) 1.82 K/uL (1.2-3.4) Monocytes # (Auto) 0.94 K/uL (0.11-0.59) Eosinophils # (Auto) 0.08 K/uL (0-0.5) Basophils # (Auto) 0.04 K/uL (0-0.2) RDW Standard Deviation 46.8 fL (36.4-46.3) RDW Coefficient of Variation 13.7 % (11.5-14.5) Immature Granulocyte % (Auto) 0.3 % Immature Granulocyte # (Auto) 0.03 K/uL (0.00-0.02) Anion Gap 5.0 mmol/L (3-11) Est Creatinine Clear Calc Drug Dose 91.0 ml/min Estimated GFR () 103.7 Estimated GFR (Non- 89.5 BUN/Creatinine Ratio 19.3 (10-20) Calcium Level 8.9 mg/dl (8.5-10.1) Magnesium Level 2.1 mg/dl (1.8-2.4) Total Bilirubin 0.6 mg/dl (0.2-1) Direct Bilirubin 0.2 mg/dl (0-0.2) Aspartate Amino Transf (AST/SGOT) 25 U/L (15-37) Alanine Aminotransferase (ALT/SGPT) 35 U/L (12-78) Alkaline Phosphatase 84 U/L (45-117) Total Protein 7.1 gm/dl (6.4-8.2) Albumin 3.4 gm/dl (3.4-5.0) Urine Color YELLOW Urine Appearance CLEAR (CLEAR) Urine pH 6.0 (4.5-7.5) Urine Specific [place] 1.009 (1.000-1.030) Urine Protein NEG (NEG) Urine Glucose (UA) NEG (NEG) Urine Ketones TRACE (NEG) Urine Occult Blood NEG (NEG) Urine Nitrite NEG (NEG) Urine Bilirubin NEG (NEG) Urine Urobilinogen NEG (NEG) Urine Leukocyte Esterase MODERATE (NEG) Urine WBC (Auto) 5-10 /hpf (0-5) Urine RBC (Auto) 0-4 /hpf (0-4) Urine Hyaline Casts (Auto) 0 /lpf (0-5) Urine Epithelial Cells (Auto) 20-30 /lpf (0-5) Urine Bacteria (Auto) NEG (NEG) Laboratory results per my review. Medications Administered Medications (Trade) Dose Ordered Sig/Farhan Route Start Time Stop Time Status Last Admin Dose Admin Sodium Chloride (Nss 1000ml) 1,000 ml @ 150 mls/hr [id number] STAT IV 08/16/16 09:37 08/16/16 12:20 DC 08/16/16 10:18 150 MLS/HR ED Course 0911: Past medical records reviewed. The patient was evaluated in room B3. A complete history and physical examination was performed. 0937: Ordered Sodium Chloride 1000 mL @ 150 mL/hr IV. 1157: Upon reevaluation, the patient appeared to have improvement of her symptoms. I discussed findings with her. She verbalized agreement of the treatment plan. The patient was discharged home. Medical Decision Differential diagnosis: Etiologies such as appendicitis, diverticulitis, PUD, biliary pathology, UTI, pancreatitis, obstruction, mesenteric ischemia, aortic pathology, infections, inflammatory bowel disease, renal colic, as well as others were entertained. This patient was evaluated and appeared to be in no significant distress. IV access was obtained and laboratory work was drawn. The patient was placed on the electronic device monitor and found to be in a normal sinus rhythm. She was hydrated with normal saline solution. A CT scan of the abdomen and pelvis was performed and reveals evidence of diverticulosis without evidence of acute diverticulitis. Laboratory work is fairly unrevealing. Urinalysis is likely contaminated by epithelial cells. The patient was informed of the findings. She will be discharged to follow-up closely with her primary care physician. If symptoms worsen or a fever develops, she will return to the ER immediately for further management. Impression Primary Impression: Right sided abdominal pain Additional Impression: Diverticulosis Scribe Attestation The scribe's documentation has been prepared under my direction and personally reviewed by me in its entirety. I confirm that the note above accurately reflects all work, treatment, procedures, and medical decision making performed by me. Departure Information Prescriptions Omeprazole (PRILOSEC) 20 Mg Capcr 20 MG PO DAILY, #30 CAP Prov: Tonia Dalton M.D. 08/16/16 Referrals No Doctor, Assigned (PCP) Forms HOME CARE DOCUMENTATION FORM, IMPORTANT VISIT INFORMATION Patient Instructions My [facility] Additional Instructions Diagnosis: Left Colles' fracture. Ice and elevate the wrist as much as possible. Ultram 50 mg every 6 hours as needed for pain. Follow-up with [place] [facility] tomorrow for reevaluation. Return to the emergency department for worsening of symptoms or any medical concerns. Problem Qualifiers
[2016-08-16 10:06] LABS: BASO % 0.4 %; BASO ABS # 0.04 K/uL (0-0.2); COMPLETE YES; EOS % 0.9 %; HEMATOCRIT 42.5 % (37-47); IG% 0.3 %; LYMPH % 19.4 %; LYMPH ABS # 1.82 K/uL (1.2-3.4); MEAN CELL VOLUME 93.2 fL (80-100); MEAN CORPUSCULAR HEMOGLOBIN 30.9 pg (25-34); MEAN CORPUSCULAR HGB CONC 33.2 g/dl (32-36); MEAN PLATELET VOLUME 11.2 fL (7.4-10.4); PLATELET COUNT 199 K/uL (130-400); RED BLOOD COUNT 4.56 M/uL (4.2-5.4); WHITE BLOOD COUNT 9.38 K/uL (4.8-10.8)
[2016-08-16 10:12] LABS: URINE APPEARANCE CLEAR (CLEAR); URINE BILIRUBIN NEG (NEG); URINE COLOR YELLOW; URINE EPITHELIAL CELL AUTO 20-30 /lpf (0-5); URINE NITRITE NEG (NEG); URINE SPECIFIC GRAVITY 1.009 (1.000-1.030); UROBILINOGEN NEG (NEG); ZZUR CULT IF INDIC CLEAN CATCH NO
[2016-08-16 10:16] LABS: REVIEW REQ? NO
[2016-08-16 10:17] LABS: MANUAL MICROSCOPIC REQUIRED? NO
--- NOTE | 2016-08-16 10:19 | DIAGNOSTIC IMAGING REPORT ---
CT SCAN OF THE ABDOMEN AND PELVIS WITHOUT CONTRAST CLINICAL HISTORY: diverticulitis RIGHT-SIDED ABDOMINAL PAIN COMPARISON STUDY: 04/11/2016 TECHNIQUE: CT scan of the abdomen and pelvis was performed from the lung bases to the proximal femurs. Images are reviewed in the axial, sagittal, and coronal planes. IV contrast was not administered for this examination. CT DOSE: 1588.31 mGy.cm FINDINGS: Lower chest: The heart is mildly enlarged. There is a pacemaker present. There is dependent atelectasis in lung reticulation. Liver: The unenhanced liver is normal in size, contour, and attenuation. There is no intrahepatic biliary ductal dilatation. Gallbladder: Surgically absent Spleen: Normal in size and attenuation. Pancreas: Unremarkable. Adrenal glands: Unremarkable. Kidneys: There is a nonobstructing 4 mm lower pole left renal calculus. There are punctate nonobstructing lower pole right renal calculi. No ureteral or bladder calculi are visualized. Bowel: There are no transition zone to indicate bowel obstruction. There are no findings to indicate acute appendicitis. There is moderately extensive sigmoid diverticulosis. No acute peridiverticular inflammatory changes are visualized. Peritoneum: There is no intraperitoneal free air or abdominal ascites. Vasculature: The abdominal aorta is normal in course and caliber. Adenopathy: None. Pelvic viscera: The uterus appears surgically absent. Skeletal structures: No destructive osseous lesions are seen. IMPRESSION: 1. No evidence of bowel obstruction. No evidence of free air 2. Bilateral nephrolithiasis. No ureteral or bladder calculi identified. 3. Extensive sigmoid diverticulosis. No current evidence of significant peridiverticular inflammatory change. Electronically signed by: Paco Mendez M.D. 08/16/2016 10:18 AM Dictated Date/Time: 08/16/2016 10:12 AM
[2016-08-16 10:24] LABS: BUN/CREATININE RATIO 19.3 (10-20); CALCIUM 8.9 mg/dl (8.5-10.1); CREATININE 0.5 mg/dl (0.60-1.20); MAGNESIUM 2.1 mg/dl (1.8-2.4); POTASSIUM 3.7 mmol/L (3.5-5.1)
[2016-08-16] MEDS ORDERED: PRLSR20 PO (11:17)
[2016-08-16 12:03] VITALS: BP 153/81; PULSE 83; O2SAT 93
[2016-09-13] MEDS ORDERED: NORT10CA4 PO (10:38)
[2016-09-13] MEDS ORDERED: VLT500 PO (10:38)
[2016-09-13] MEDS ORDERED: ZVRO EXT (10:38)
[2016-09-13] MEDS ORDERED: NRN300 PO (10:38)
[2016-09-13] MEDS ORDERED: NCY50 PO (10:42)
== END 2016-08-16 12:06 | disposition home or self-care (01) ==
LOC: C.EDB 08:46
DX: K57.90 Diverticulosis of intestine, part unspecified, without perforation or abscess without bleeding (principal); R10.9 Unspecified abdominal pain; I48.91 Unspecified atrial fibrillation; I10 Essential (primary) hypertension; Z87.442 Personal history of urinary calculi; Z86.19 Personal history of other infectious and parasitic diseases; Z79.01 Long term (current) use of anticoagulants; Z79.899 Other long term (current) drug therapy; Z88.8 Allergy status to other drugs, medicaments and biological substances; Z91.041 Radiographic dye allergy status; Z82.49 Family history of ischemic heart disease and other diseases of the circulatory system; Z83.3 Family history of diabetes mellitus; Z82.3 Family history of stroke

== ENCOUNTER 2016-09-02 06:35 | Emergency (ER) | payer OTHER ==
[~2016-09-02] VITALS: Ht 154.9 cm; Wt 98.2 kg
[~2016-09-02 06:35] MED LIST changes: -ALBUAER19 INH; +PRLSR20 PO; +VNTHFA/IN INH
[2016-09-02 06:40] VITALS: TEMP 36.7; Ht 154.9 cm; Wt 98.2 kg
[2016-09-02] MEDS ORDERED: ONDANSETRON 4MG OD TAB PO STA (07:32)
[2016-09-02] MEDS ORDERED: MoRPHine SULFATE 4 MG/ML 1 ML CARP\\VIAL IM STA ×2 (07:32→08:29)
--- NOTE | 2016-09-02 08:35 | DIAGNOSTIC IMAGING REPORT ---
LUMBAR SPINE 3 VIEWS CLINICAL HISTORY: Low back pain. No trauma. FINDINGS: AP, lateral, and coned-down views of lumbar spine are correlated with abdominal CT dated 08/16/2016. The skeletal structures are osteopenic. There is no radiographic evidence of fracture or malalignment. Vertebral body height is maintained throughout the lumbar spine. There is minimal anterolisthesis at L3-L4 and L4-L5. The transverse and spinous processes appear intact. Small anterior osteophytes are seen throughout. Moderate facet arthropathy is noted in the lower lumbar region. Mild degenerative disc space narrowing is seen at all levels. The bony pelvis is intact as visualized. Sclerotic change is noted in the sacroiliac joints. Cholecystectomy clips are observed. There is a nonobstructed abdominal bowel gas pattern. Advanced atherosclerotic calcification is present in the abdominal aorta. Cardiomegaly and cardiac pacemaker leads are observed on the lateral projection. Large calcified gluteal granulomas are incidentally noted. IMPRESSION: 1. No acute bony abnormality is seen involving the lumbosacral spine. 2. Osteopenia and spondylotic change as above. Electronically signed by: Melo Vega M.D. 09/02/2016 8:33 AM Dictated Date/Time: 09/02/2016 8:15 AM
[2016-09-02] MEDS ORDERED: RANITIDINE HCL 150 MG TAB PO STA (09:06)
--- NOTE | 2016-09-02 09:06 | EMERGENCY ROOM VISIT NOTE ---
History First contact with patient: 07:07 Chief Complaint: BACK PAIN Stated Complaint: BACK PAIN History of Present Illness The patient is a 81 year old female who presents to the Emergency Room with complaints of lower back pain. This started on night after a day of cleaning the house and chores which was a lot of activity for her. She took a Tylenol that night and the pain went away. The pain came back Saturday morning and then started to radiate down her left leg down to her knee with associated numbness. Steady aching pain which progressed slowly and is now 10/10 severity. Worse when she lies down and keeps still, better with moving around. No falls or trauma. No fevers, chills. No weight loss. No bowel incontinence or perianal numbness. Stable chronic urinary stress incontinence (wears incontinence pads). She had a similar pain years previously but reports complete resolution of that with steroid injections, thinks it was due to a herniated disc. Review of Systems See HPI for pertinent positives & negatives. A total of 10 systems reviewed and were otherwise negative. Past Medical/Surgical History Medical Problems: (1) A-fib (2) C. difficile colitis (3) Chest pain (4) HTN (hypertension) (5) Hypoxia (6) Kidney stone (7) PNA (pneumonia) Family History Coronary artery disease FATHER Diabetes mellitus MOTHER Hypertension FATHER MOTHER Myocardial infarction FATHER Stroke FATHER MOTHER Social History Smoking Status: Never Smoker Alcohol Use: none Drug Use: none Marital Status: Housing Status: lives alone Occupation Status: retired Current/Historical Medications Scheduled Amlodipine Besylate (Amlodipine Besylate), 5 MG PO QAM Ezetimibe (Zetia), 10 MG PO HS Fish Oil (Ellsworth-3), 1 CAP PO HS Fluticasone Prop/Salmeterol (Advair Diskus 250/50 60 Dose), 1 PUFF INH Q12 Furosemide (Furosemide), 20 MG PO QAM Losartan Potassium (Cozaar), 100 MG PO QAM Lutein-Zeaxanthin (Lutein), 1 CAP PO QAM Montelukast Sod (Montelukast Sodium), 10 MG PO HS Multivitamin (Multivitamin), 1 TAB PO QAM Ocuvite Preservision (Ocuvite Preservision), 2 TAB PO QAM Potassium Chloride (Potassium Chloride ER), 20 MEQ PO HS Pravastatin Sodium (Pravastatin Sodium), 40 MG PO HS Prednisone (Prednisone), 1 TAB PO DAILY Probiotic Product (Probiotic), 1 CAP PO BID Ranitidine (Zantac), 1 TAB PO BID Warfarin Sod (Coumadin), 2.5 MG PO UD Warfarin Sodium (Warfarin Sodium), 5 MG PO UD Scheduled PRN Albuterol Hfa (Ventolin Hfa), 2 PUFFS INH Q4H PRN for SOB/Wheezing Dicyclomine Hcl (Dicyclomine Hcl), 1 CAP PO TID PRN for ABDOMINAL PAIN Fluticasone Propionate (Fluticasone Propionate), 2 SPRAYS SHY DAILY PRN for ALLERGIES Hyoscyamine Sulfate (Hyoscyamine Sulfate), 0.125 MG PO Q6 PRN for ABDOMINAL PAIN Oxycodone Ir (Roxicodone Ir), 1-2 TAB PO Q4H PRN for Severe Pain Ranitidine Hcl (Zantac), 75 MG PO HS PRN for Indigestion Allergies Coded Allergies: Budesonide (Verified Allergy, Unknown, PT UNSURE OF RXN, 09/02/16) Formoterol (Verified Allergy, Unknown, PT UNSURE OF RXN, 09/02/16) Iodinated Diagnostic Agents (Verified Allergy, Unknown, RASH,HIVES FROM IVP DYE, 09/02/16) Metronidazole (Verified Allergy, Unknown, SEVERE GI SYMPTOMS, 09/02/16) KEENA Inhibitors (Verified Adverse Reaction, Intermediate, COUGH, 09/02/16) Physical Exam Vital Signs Date Time Temp Pulse Resp B/P (MAP) Pulse Ox O2 Delivery O2 Flow Rate FiO2 09/02/16 10:20 90 16 142/69 92 09/02/16 08:53 81 09/02/16 08:24 71 18 133/63 91 Room Air 09/02/16 06:40 36.7 73 18 190/90 95 Room Air Physical Exam VITAL SIGNS: were reviewed as above GENERAL: mild acute distress from pain SKIN: Warm dry and pink, no rashes HEAD: Normocephalic and atraumatic EYES: extraocular muscles intact, pupils equal and reactive to light OROPHARYNX: non erythematous, clear and moist NECK: Supple, no adenopathy or meningismus LUNGS: clear to auscultation, no accessory muscle use HEART: Regular rate and rhythm, heart sounds 1+2, no murmurs ABDOMEN: Soft and nontender, bowel sounds normal BACK: no CVA tenderness, no central spinal tenderness, pain on palpation of left SI joint and surrounding muscles EXTREMITIES: Warm and well perfused, no calf tenderness/swelling, no pedal edema. NEUROLOGICALLY: Awake alert and oriented without focal deficit. Normal gait. Bilateral Hip flex, knee flex/ext, ankle dorsi/plantarflex 5/5. B/l knee and ankle reflexes 2+ equal b/l. Plantars downgoing b/l. Pain and numbness left L3/ 4 dermatome otherwise sensory examination normal. MUSCULOSKELETAL: Good muscle tone. FREEDOM positive on left side. Hip rotation and knee flexion without pain. No evidence of trauma Medical Decision & Procedures ER Provider Diagnostic Interpretation: LUMBAR SPINE 3 VIEWS CLINICAL HISTORY: Low back pain. No trauma. FINDINGS: AP, lateral, and coned-down views of lumbar spine are correlated with abdominal CT dated 08/16/2016. The skeletal structures are osteopenic. There is no radiographic evidence of fracture or malalignment. Vertebral body height is maintained throughout the lumbar spine. There is minimal anterolisthesis at L3-L4 and L4-L5. The transverse and spinous processes appear intact. Small anterior osteophytes are seen throughout. Moderate facet arthropathy is noted in the lower lumbar region. Mild degenerative disc space narrowing is seen at all levels. The bony pelvis is intact as visualized. Sclerotic change is noted in the sacroiliac joints. Cholecystectomy clips are observed. There is a nonobstructed abdominal bowel gas pattern. Advanced atherosclerotic calcification is present in the abdominal aorta. Cardiomegaly and cardiac pacemaker leads are observed on the lateral projection. Large calcified gluteal granulomas are incidentally noted. IMPRESSION: 1. No acute bony abnormality is seen involving the lumbosacral spine. 2. Osteopenia and spondylotic change as above. Electronically signed by: Melo Vega M.D. 09/02/2016 8:33 AM Dictated Date/Time: 09/02/2016 8:15 AM Medications Administered Medications (Trade) Dose Ordered Sig/Farhan Route Start Time Stop Time Status Last Admin Dose Admin Morphine Sulfate (MoRPHine SULFATE INJ) 4 mg ONE STAT IM 09/02/16 07:32 09/02/16 07:38 DC 09/02/16 07:49 4 MG Ondansetron HCl (Zofran Odt) 4 mg NOW STAT PO 09/02/16 07:32 09/02/16 07:38 DC 09/02/16 07:49 4 MG Morphine Sulfate (MoRPHine SULFATE INJ) 4 mg ONE STAT IM 09/02/16 08:29 09/02/16 08:30 DC 09/02/16 08:46 4 MG Ranitidine HCl (zANTac TAB) 150 mg NOW STAT PO 09/02/16 09:06 09/02/16 09:08 DC 09/02/16 09:20 150 MG Prednisone (PredniSONE TAB) 20 mg NOW STAT PO 09/02/16 09:07 09/02/16 09:08 DC 09/02/16 09:21 20 MG Ondansetron HCl (ZOFRAN ODT 4MG Home Pack) 1 homepack UD STAT PO 09/02/16 09:48 09/02/16 09:49 DC 09/02/16 10:18 1 HOMEPACK ED Course Patient history and physical taken. Morphine and ondansetron ordered due to ongoing back pain and unable to take NSAIDs. Discussed patient with Dr Julian who separately saw patient and took history and examination. 8:28am re-examined patient and pain went from 10-6/10 with morphine so additional dose ordered. 9:00am had some abdominal fullness with morphine injection but rapidly resolved , back pain 0/10. Ranitidine and prednisone ordered. Good resolution of pain and discharge information written and discussed plan with patient including follow up with her PCP regarding her ER visit. Medical Decision Back pain - age is a red flag but otherwise no acute red flags. Lumbar spine XR show degenerative changes only, no acute fracture or mass identified. Good relief with opiate medications. Discussed in detail side effects of these include dizziness, nausea/vomiting, confusion, constipation and increased risk of falls. She lives home alone but family live close by and can keep a close eye on her. She wishes to return home rather than acute inpatient rehabilitation. Will treat acute inflammation with prednisone 20mg for 5 days and pain with oxycodone. Recommend taking ondansetron with the oxycodone given previous nausea and vomiting with oxycodone use. Mild epigastric pain - possible gastritis from increased stress, recommend increasing dose of Zantac to 150mg BID especially while on prednisone. [place] Drug Monitoring Program Search Results: patient reviewed within database, no issues identified ( Oxycodone from Mar 2016 20 tabs) Impression Primary Impression: Sciatica Additional Impressions: Strain of lumbar region Musculoskeletal back pain Lumbar disc herniation with radiculopathy Gastritis Departure Information Dispostion Home / Self-Care Condition GOOD Prescriptions Prednisone (Prednisone) 20 Mg Tab 1 TAB PO DAILY for 4 Days, #4 TAB Prov: Michael Sanford MD 09/02/16 Ranitidine (Zantac) 150 Mg Tab 1 TAB PO BID for 15 Days, #30 TAB 3 Refills Prov: Michael Sanford MD 09/02/16 Oxycodone Ir (Roxicodone Ir) 5 Mg Tab 1-2 TAB PO Q4H Y for Severe Pain, #15 TAB Prov: Michael Sanford MD 09/02/16 Referrals Derrick Hare DYannOYann (PCP) Patient Instructions [facility] Resident Tracking Resident Involvement: Resident Care Provided Care Provided: Adult ED Problem Qualifiers Primary Impression: Sciatica Laterality: left Qualified Codes: M54.32 - Sciatica, left side Additional Impressions: Strain of lumbar region Encounter type: initial encounter Qualified Codes: S39.012A - Strain of muscle, fascia and tendon of lower back, initial encounter
[2016-09-02] MEDS ORDERED: OXYC1TAB3 PO (09:32)
[2016-09-02] MEDS ORDERED: PRED20TA PO (09:33)
[2016-09-02] MEDS ORDERED: ZNTT/150 PO (09:33)
[2016-09-02] MEDS ORDERED: ONDANSETRON HOME PACK 4MG OD TAB PO STA (09:48)
--- NOTE | 2016-09-02 09:55 | EMERGENCY ROOM VISIT NOTE ---
History Report prepared by Cleopatra: David Rubin Under the Supervision of: Dr. Khoa Julian D.O. First contact with patient: 07:07 Chief Complaint: BACK PAIN Stated Complaint: BACK PAIN History of Present Illness The patient is an 81 year old female who presents to the Emergency Room with complaints of worsening lower left back pain that started 3 days ago. She says that she did a bunch of house work 3 days ago, and that night, she started feeling low back pain. The patient notes that the pain went away with Tylenol, but she woke up the next morning with the pain, and it has progressively gotten worse since then. She currently rates her pain as a 10 out of 10 in severity. She states that the pain is worsened with lying down, and gets better when she is up and walking around. The patient adds that the back pain radiates down into her left leg, down to her left knee. The pain does not go below her knee. She does not have chronic back pain. The patient denies any chest pain, nausea, abdominal pain, numbness in groin, new bowel or urinary difficulties, or weakness in legs. The patient does note that her left knee is a bit tingly and sore. She states that she has a history of a herniated disc 15 years ago, which has just required steroid injections. The patient says that her current pain is similar to the herniated disc pain, but the pain that time went all the way down her left leg into her toes. She is on Warfarin. The patient says that she is a borderline diabetic. Source of History: patient Onset: 3 days ago Position: back (lower left) Symptom Intensity: 10/10 Timing: worsening Modifying Factors (Worsening): other (lying down) Modifying Factors (Relieving): tylenol, other (standing and walking around) Associated Symptoms: No chest pain, No nausea, No abdominal pain, No urinary symptoms, No weakness (in legs), No numbness (in groin) Note: Associated symptoms: Pain radiating down left leg into left knee, a bit of tingling in left knee, soreness in left knee. Denies bowel difficulties or pain below left knee. Review of Systems See HPI for pertinent positives & negatives. A total of 10 systems reviewed and were otherwise negative. Past Medical & Surgical Medical Problems: (1) A-fib (2) C. difficile colitis (3) Chest pain (4) HTN (hypertension) (5) Hypoxia (6) Kidney stone (7) PNA (pneumonia) Family History Coronary artery disease FATHER Diabetes mellitus MOTHER Hypertension FATHER MOTHER Myocardial infarction FATHER Stroke FATHER MOTHER Social History Smoking Status: Never Smoker Alcohol Use: none Drug Use: none Marital Status: Housing Status: lives alone Occupation Status: retired Current/Historical Medications Scheduled Amlodipine Besylate (Amlodipine Besylate), 5 MG PO QAM Ezetimibe (Zetia), 10 MG PO HS Fish Oil (Beulah-3), 1 CAP PO HS Fluticasone Prop/Salmeterol (Advair Diskus 250/50 60 Dose), 1 PUFF INH Q12 Furosemide (Furosemide), 20 MG PO QAM Losartan Potassium (Cozaar), 100 MG PO QAM Lutein-Zeaxanthin (Lutein), 1 CAP PO QAM Montelukast Sod (Montelukast Sodium), 10 MG PO HS Multivitamin (Multivitamin), 1 TAB PO QAM Ocuvite Preservision (Ocuvite Preservision), 2 TAB PO QAM Potassium Chloride (Potassium Chloride ER), 20 MEQ PO HS Pravastatin Sodium (Pravastatin Sodium), 40 MG PO HS Prednisone (Prednisone), 1 TAB PO DAILY Probiotic Product (Probiotic), 1 CAP PO BID Ranitidine (Zantac), 1 TAB PO BID Warfarin Sod (Coumadin), 2.5 MG PO UD Warfarin Sodium (Warfarin Sodium), 5 MG PO UD Scheduled PRN Albuterol Hfa (Ventolin Hfa), 2 PUFFS INH Q4H PRN for SOB/Wheezing Dicyclomine Hcl (Dicyclomine Hcl), 1 CAP PO TID PRN for ABDOMINAL PAIN Fluticasone Propionate (Fluticasone Propionate), 2 SPRAYS SHY DAILY PRN for ALLERGIES Hyoscyamine Sulfate (Hyoscyamine Sulfate), 0.125 MG PO Q6 PRN for ABDOMINAL PAIN Oxycodone Ir (Roxicodone Ir), 1-2 TAB PO Q4H PRN for Severe Pain Ranitidine Hcl (Zantac), 75 MG PO HS PRN for Indigestion Allergies Coded Allergies: Budesonide (Verified Allergy, Unknown, PT UNSURE OF RXN, 09/02/16) Formoterol (Verified Allergy, Unknown, PT UNSURE OF RXN, 09/02/16) Iodinated Diagnostic Agents (Verified Allergy, Unknown, RASH,HIVES FROM IVP DYE, 09/02/16) Metronidazole (Verified Allergy, Unknown, SEVERE GI SYMPTOMS, 09/02/16) KEENA Inhibitors (Verified Adverse Reaction, Intermediate, COUGH, 09/02/16) Physical Exam Vital Signs Date Time Temp Pulse Resp B/P (MAP) Pulse Ox O2 Delivery O2 Flow Rate FiO2 09/02/16 08:53 81 09/02/16 08:24 71 18 133/63 91 Room Air 09/02/16 06:40 36.7 73 18 190/90 95 Room Air Physical Exam GENERAL: standing up, walking around room, in mild distress, holding left lower back EYE EXAM: normal conjunctiva OROPHARYNX: no exudate, no erythema, lips, buccal mucosa, and tongue normal and mucous membranes are moist NECK: supple, no nuchal rigidity, no adenopathy, non-tender LUNGS: Clear to auscultation. Normal chest wall mechanics HEART: no murmurs, S1 normal and S2 normal ABDOMEN: abdomen soft, non-tender, normo-active bowel sounds, no masses, no rebound or guarding. BACK: Acute reproducible tenderness in left lateral lumbar tracking through SI joint and left gluteus. SKIN: no rashes and no bruising UPPER EXTREMITIES: upper extremities are grossly normal. LOWER EXTREMITIES: Flexion/extension of hip, knee, ankles, and EHL 5/5 bilaterally. Gross sensations intact. DP is 2/4. Patellar tendon reflexes 1/4 bilaterally. Old incisions over bilateral knees. NEURO EXAM: Normal sensorium, cranial nerves II-XII grossly intact, normal speech, no gross weakness of arms. Medical Decision & Procedures ER Provider Diagnostic Interpretation: X-ray results as stated below per my review and the radiologist's interpretation : LUMBAR SPINE 3 VIEWS CLINICAL HISTORY: Low back pain. No trauma. FINDINGS: AP, lateral, and coned-down views of lumbar spine are correlated with abdominal CT dated 08/16/2016. The skeletal structures are osteopenic. There is no radiographic evidence of fracture or malalignment. Vertebral body height is maintained throughout the lumbar spine. There is minimal anterolisthesis at L3-L4 and L4-L5. The transverse and spinous processes appear intact. Small anterior osteophytes are seen throughout. Moderate facet arthropathy is noted in the lower lumbar region. Mild degenerative disc space narrowing is seen at all levels. The bony pelvis is intact as visualized. Sclerotic change is noted in the sacroiliac joints. Cholecystectomy clips are observed. There is a nonobstructed abdominal bowel gas pattern. Advanced atherosclerotic calcification is present in the abdominal aorta. Cardiomegaly and cardiac pacemaker leads are observed on the lateral projection. Large calcified gluteal granulomas are incidentally noted. IMPRESSION: 1. No acute bony abnormality is seen involving the lumbosacral spine. 2. Osteopenia and spondylotic change as above. Electronically signed by: Melo Vega M.D. 09/02/2016 8:33 AM Dictated Date/Time: 09/02/2016 8:15 AM Medications Administered Medications (Trade) Dose Ordered Sig/Farhan Route Start Time Stop Time Status Last Admin Dose Admin Morphine Sulfate (MoRPHine SULFATE INJ) 4 mg ONE STAT IM 09/02/16 07:32 09/02/16 07:38 DC 09/02/16 07:49 4 MG Ondansetron HCl (Zofran Odt) 4 mg NOW STAT PO 09/02/16 07:32 09/02/16 07:38 DC 09/02/16 07:49 4 MG Morphine Sulfate (MoRPHine SULFATE INJ) 4 mg ONE STAT IM 09/02/16 08:29 09/02/16 08:30 DC 09/02/16 08:46 4 MG Ranitidine HCl (zANTac TAB) 150 mg NOW STAT PO 09/02/16 09:06 09/02/16 09:08 DC 09/02/16 09:20 150 MG Prednisone (PredniSONE TAB) 20 mg NOW STAT PO 09/02/16 09:07 09/02/16 09:08 DC 09/02/16 09:21 20 MG ECG Indication: abdominal pain Rate (beats per minute): 73 Rhythm: other (AV paced) Findings: left axis deviation ED Course ED COURSE: Vital signs were reviewed and showed hypertensive vitals. The patients medical record was reviewed The above diagnostic studies were performed and reviewed. ED treatments and interventions as stated above. 0732: Ordered Zofran Odt 4 mg PO, Morphine Sulfate Inj 4 mg IM. 0743: The patient was evaluated in room A3. A complete history and physical examination was performed. 0853: I reevaluated the patient and she is starting to get chest tightness with the Morphine. 0906: Ordered Zantac Tab 150 mg PO. 0908: Ordered Prednisone Tab 20 mg PO. 0940: Upon reevaluation, the patient is resting comfortably. She is sitting up, and eating. She says that her pain was in the epigastric region, and after burping it completely resolved. She has had this before. I discussed my findings with the patient and she understands and agrees with the treatment plan. Based on the patients age, coexisting illnesses, exam and lab findings the decision to treat as an outpatient was made. The patient remained stable while under my care. The patient appeared well at the time of discharge. Medical Decision Differential diagnoses includes but is not limited to lumbar radiculopathy, muscle strain, facture, cauda equina, mass, and disc herniation. Medication Reconciliation: I attest that I have personally reviewed the patient' s current medication list. Blood pressure screening: Patient was found to have an elevated blood pressure and was referred to their primary doctor for recheck and further treatment. Patient is an 81-year-old female who presents the ER for left lower back pain which radiates down her left leg. She denies any saddle paresthesias. No weakness in her legs. She is able to ambulate as she normally does with a cane. She complains of pain on her left lateral knee which sometimes feels like a slight numbness. No fevers or IV drug use. No trauma. X-rays of her lumbar spine show no acute fractures. Patient was given 2 doses of IM morphine with resolution of her pain. Following the second dose she did have a discomfort in her epigastric region. Following her belching she had complete resolution of her symptoms. I did obtain an EKG which showed a paced rhythm as there was a chance that this could've been cardiac but after her belching and stating that this feels like her previous bouts of reflux felt was reasonable to discharge her. She was given a small dose of steroids. She was discharged with OxyIR. She was seen and evaluated independently of the resident. Discussed with Pt concerning signs and symptoms to watch out for. Pt was instructed to follow up with their PCP and discussed with the patient their option to return to the ED at anytime for persistent or worsening symptoms. The appropriate anticipatory guidance and out-patient management, including indications for return to the emergency department, were explained at length to the patient and understood. Impression Primary Impression: Sciatica Additional Impressions: Strain of lumbar region Lumbar disc herniation with radiculopathy Musculoskeletal back pain HTN (hypertension) Scribe Attestation The scribe's documentation has been prepared under my direction and personally reviewed by me in its entirety. I confirm that the note above accurately reflects all work, treatment, procedures, and medical decision making performed by me. Departure Information Dispostion Home / Self-Care Prescriptions Prednisone (Prednisone) 20 Mg Tab 1 TAB PO DAILY for 4 Days, #4 TAB Prov: Michael Sanford MD 09/02/16 Ranitidine (Zantac) 150 Mg Tab 1 TAB PO BID for 15 Days, #30 TAB 3 Refills Prov: Michael Sanford MD 09/02/16 Oxycodone Ir (Roxicodone Ir) 5 Mg Tab 1-2 TAB PO Q4H Y for Severe Pain, #15 TAB Prov: Michael Sanford MD 09/02/16 Referrals Derrick Hare D.OYann (PCP) Patient Instructions Back Pain - [facility], My [facility] Additional Instructions You were seen in the ER for lower back pain radiating down your left leg. The history and examination of this is most consistent with sciatica and sacro- ilitis. Lumbar spine XR showed degerative changes only but no acute fracture or concerning mass. The treatment for this is pain relief and physical therapy. You have also been prescribed prednisone to help reduce any inflammation. I also recommend taking Ranitidine 150mg BID due to epigastric pain/fullness that you had in the ER and the prednisone can exacerbate gastritis (stomach inflammation). Please follow up with your PCP on as previously arranged as you may need formal physical therapy or further pain relief. In the ER we see you at one point in time therefore if your symptoms should change or get worse you should be reassesed. In an emergency please return to the ER. Problem Qualifiers Primary Impression: Sciatica Laterality: left Qualified Codes: M54.32 - Sciatica, left side Additional Impressions: Strain of lumbar region Encounter type: initial encounter Qualified Codes: S39.012A - Strain of muscle, fascia and tendon of lower back, initial encounter HTN (hypertension) Hypertension type: unspecified secondary hypertension Qualified Codes: I15.9 - Secondary hypertension, unspecified
[2016-09-02 10:20] VITALS: BP 142/69; PULSE 90; O2SAT 92
[2016-09-13] MEDS ORDERED: ZVRO EXT (10:38)
[2016-09-13] MEDS ORDERED: NORT10CA4 PO (10:38)
[2016-09-13] MEDS ORDERED: VLT500 PO (10:38)
[2016-09-13] MEDS ORDERED: NRN300 PO (10:38)
[2016-09-13] MEDS ORDERED: NCY50 PO (10:42)
== END 2016-09-02 10:24 | disposition home or self-care (01) ==
LOC: C.EDB 06:36 → C.EDA 10:24
DX: M54.32 Sciatica, left side (principal); S39.012A Strain of muscle, fascia and tendon of lower back, initial encounter; M51.16 Intervertebral disc disorders with radiculopathy, lumbar region; I15.9 Secondary hypertension, unspecified; I48.91 Unspecified atrial fibrillation; Z79.01 Long term (current) use of anticoagulants; Z79.899 Other long term (current) drug therapy; Z86.19 Personal history of other infectious and parasitic diseases; Z87.09 Personal history of other diseases of the respiratory system; Z87.442 Personal history of urinary calculi

== ENCOUNTER 2016-09-06 11:34 | Emergency (ER) | payer OTHER ==
[~2016-09-06] VITALS: Ht 152.4 cm; Wt 100.0 kg
[~2016-09-06 11:34] MED LIST changes: +OXYC1TAB3 PO; +PRED20TA PO; -PRLSR20 PO; +ZNTT/150 PO
[2016-09-06 11:43] VITALS: Ht 152.4 cm; Wt 100.0 kg
[2016-09-06 11:58] VITALS: O2SAT 92
[2016-09-06] MEDS ORDERED: ONDANSETRON INJ 2 MG/ML 2 ML VIAL IV PRN (12:15)
[2016-09-06] MEDS ORDERED: MoRPHine SULFATE 10 MG/ML CARP/VIAL IV PRN (12:15)
--- NOTE | 2016-09-06 12:25 | EMERGENCY ROOM VISIT NOTE ---
History Report prepared by Cleopatra: Dina Doyle Under the Supervision of: Dr. Jd Anderson M.D. First contact with patient: 11:55 Chief Complaint: CONSTIPATION Stated Complaint: ABD PAIN Nursing Triage Summary: pt was seen here on saturday with back pain and RX oxycodone and has been taking it every 4 hrs and has not had a BM since saturday. pt had taken numerous OTC meds to help with this and has also attempted a fleets with her son who is a nurse and has not gone. no c/o abd pain pt c/o her lower back hurting with it going down her leg pt is ambulatory and wears 2 L at night with her c pap History of Present Illness The patient is an 81 year old female who presents to the Emergency Room with complaints of persistent constipation that began five days ago. She currently rates her discomfort as a 5/10 in severity. The patient reports that she was evaluated in the emergency department on Saturday for sciatica. She reports that she was started on oxycodone every four hours. The patient reports that she has not had a bowel movement since Saturday. She reports that her pain is alleviated with the narcotics, but states that she still notices the pain. The patient states that she has tried taking multiple over the counter stool softeners and also attempted a fleets enema without relief of her constipation. The patient reports a history of IBS, stating that she typically has three bowel movements per day. Source of History: patient Onset: five days ago Position: other (global) Symptom Intensity: 5/10 Quality: other (constipation) Timing: other (persistent) Associated Symptoms: + back pain Review of Systems See HPI for pertinent positives & negatives. A total of 10 systems reviewed and were otherwise negative. Past Medical & Surgical Medical Problems: (1) A-fib (2) C. difficile colitis (3) Chest pain (4) HTN (hypertension) (5) Hypoxia (6) Kidney stone (7) PNA (pneumonia) Family History Coronary artery disease FATHER Diabetes mellitus MOTHER Hypertension FATHER MOTHER Myocardial infarction FATHER Stroke FATHER MOTHER Social History Smoking Status: Never Smoker Alcohol Use: none Drug Use: none Marital Status: Housing Status: lives alone Occupation Status: retired Current/Historical Medications Scheduled Amlodipine Besylate (Amlodipine Besylate), 5 MG PO QAM Docusate Sodium (Colace), 100 MG PO BID Ezetimibe (Zetia), 10 MG PO HS Fish Oil (Biggs-3), 1 CAP PO HS Fluticasone Prop/Salmeterol (Advair Diskus 250/50 60 Dose), 1 PUFF INH Q12 Furosemide (Furosemide), 20 MG PO QAM Losartan Potassium (Cozaar), 100 MG PO QAM Lutein-Zeaxanthin (Lutein), 1 CAP PO QAM Montelukast Sod (Montelukast Sodium), 10 MG PO HS Multivitamin (Multivitamin), 1 TAB PO QAM Ocuvite Preservision (Ocuvite Preservision), 2 TAB PO QAM Potassium Chloride (Potassium Chloride ER), 20 MEQ PO HS Pravastatin Sodium (Pravastatin Sodium), 40 MG PO HS Prednisone (Prednisone), 1 TAB PO DAILY Probiotic Product (Probiotic), 1 CAP PO BID Ranitidine (Zantac), 1 TAB PO BID Warfarin Sod (Coumadin), 2.5 MG PO UD Warfarin Sodium (Warfarin Sodium), 5 MG PO UD Scheduled PRN Albuterol Hfa (Ventolin Hfa), 2 PUFFS INH Q4H PRN for SOB/Wheezing Dicyclomine Hcl (Dicyclomine Hcl), 1 CAP PO TID PRN for ABDOMINAL PAIN Fluticasone Propionate (Fluticasone Propionate), 2 SPRAYS SHY DAILY PRN for ALLERGIES Hyoscyamine Sulfate (Hyoscyamine Sulfate), 0.125 MG PO Q6 PRN for ABDOMINAL PAIN Oxycodone Ir (Roxicodone Ir), 1-2 TAB PO Q4H PRN for Severe Pain Ranitidine Hcl (Zantac), 75 MG PO HS PRN for Indigestion Tramadol Hcl (Ultram), 50 MG PO Q4H PRN for Pain Allergies Coded Allergies: Budesonide (Verified Allergy, Unknown, PT UNSURE OF RXN, 09/06/16) Formoterol (Verified Allergy, Unknown, PT UNSURE OF RXN, 09/06/16) Iodinated Diagnostic Agents (Verified Allergy, Unknown, RASH,HIVES FROM IVP DYE, 09/06/16) Metronidazole (Verified Allergy, Unknown, SEVERE GI SYMPTOMS, 09/06/16) KEENA Inhibitors (Verified Adverse Reaction, Intermediate, COUGH, 09/06/16) Physical Exam Vital Signs Date Time Temp Pulse Resp B/P (MAP) Pulse Ox O2 Delivery O2 Flow Rate FiO2 09/06/16 14:20 36.6 70 16 128/71 89 09/06/16 14:13 89 Room Air 09/06/16 13:47 70 16 128/71 96 2.0 09/06/16 12:43 Nasal Cannula 2.0 09/06/16 11:58 92 Room Air 09/06/16 11:43 36.6 72 20 173/79 91 Room Air Physical Exam GENERAL: Patient awake, alert, oriented x 3. Patient appears to be in moderate to severe distress. Patient follows commands. Patient does not appear toxic. Patient is adequately hydrated and well-nourished. SKIN: No erythema, pallor, cyanosis or rash HEENT: Normal head, pupils equal, reactive to light and accommodation. Neck: Without adenopathy, no neck vein distention. LUNGS: Clear to auscultation. No wheezes, no rales, no rhonchi. HEART: No murmurs. No gallops. No rubs ABDOMEN: Obese, soft nontender. EXTREMITIES: Pain down left leg to knee, no obvious deformity or signs of infection. Mild peripheral edema bilaterally. No calf or thigh tenderness. NEUROLOGIC: Cranial nerves II-XII within normal limits. No gross motor sensory function deficits. Medical Decision & Procedures Laboratory Results 09/06/16 12:14 09/06/16 12:14 Test 09/06/16 12:14 Red Blood Count 4.88 M/uL (4.2-5.4) Mean Corpuscular Volume 94.1 fL (80-100) Mean Corpuscular Hemoglobin 32.2 pg (25-34) Mean Corpuscular Hemoglobin Concent 34.2 g/dl (32-36) RDW Standard Deviation 48.5 fL (36.4-46.3) RDW Coefficient of Variation 14.2 % (11.5-14.5) Mean Platelet Volume 11.3 fL (7.4-10.4) Prothrombin Time 29.1 SECONDS (9.0-12.0) Prothromb Time International Ratio 2.6 (0.9-1.1) Anion Gap 7.0 mmol/L (3-11) Est Creatinine Clear Calc Drug Dose 62.0 ml/min Estimated GFR () 88.3 Estimated GFR (Non- 76.2 BUN/Creatinine Ratio 20.7 (10-20) Calcium Level 8.5 mg/dl (8.5-10.1) Laboratory results as stated above per my review. Medications Administered Medications (Trade) Dose Ordered Sig/Farhan Route Start Time Stop Time Status Last Admin Dose Admin Morphine Sulfate (MoRPHine SULFATE INJ) 6 mg Q1H PRN IV 09/06/16 12:15 09/06/16 14:37 DC 09/06/16 12:32 6 MG Ondansetron HCl (Zofran Inj) 4 mg Q1HWA PRN IV 09/06/16 12:15 09/06/16 14:37 DC 09/06/16 12:31 4 MG ED Course 1155: Past medical records reviewed. The patient was evaluated in room C5. A complete history and physical examination was performed. 1215: Ordered Zofran Inj 4 mg IV, Morphine Sulfate 6 mg IV. 1330: I reevaluated the patient at this time. She had a large bowel movement and is feeling much better. I discussed the exam findings with her and I discussed the treatment plan. She verbalized complete understanding and agreement. She is ready to go home. Medical Decision Nurses notes reviewed. Medical history sheet reviewed. Differential diagnosis includes but is not limited to: constipation, sciatica, bowel obstruction, metabolic disorder. Medication Reconciliation: I attest that I have personally reviewed the patient' s current medication list. Blood pressure Screening: Patient was found to have normal blood pressure on screening and does not require follow up. The patient is here with pain in her left leg previously diagnosed as sciatica. She also complains of severe constipation. The patient has been on narcotics for sciatica. The patient was given a soapsuds enema with good results. The patient felt significantly better. Patient will continue taking pain medication at home along with Colace. Multiple labs were obtained. Please see above. White count is elevated most likely secondary to prednisone which she has been on. Impression Primary Impression: Constipation Additional Impression: Sciatica Scribe Attestation The scribe's documentation has been prepared under my direction and personally reviewed by me in its entirety. I confirm that the note above accurately reflects all work, treatment, procedures, and medical decision making performed by me. Departure Information Dispostion Home / Self-Care Prescriptions Tramadol Hcl (ULTRAM) 50 Mg Tab 50 MG PO Q4H Y for Pain, #20 TAB PRN PAIN Prov: Jd Anderson M.D. 09/06/16 Docusate Sodium (COLACE) 100 Mg Cap 100 MG PO BID, #60 CAP Prov: Jd Anderson M.D. 09/06/16 Referrals Derrick Hare D.O. (PCP) Forms HOME CARE DOCUMENTATION FORM, IMPORTANT VISIT INFORMATION Patient Instructions My [facility] Additional Instructions Follow-up with your family physician within the next week. 650 mg of Tylenol every 4 hours as needed for [id number] pain. 1 tramadol every 4 hours as needed for moderate to severe pain. 100 mg of Colace twice a day. Continue all of your current medications as prescribed. Problem Qualifiers
[2016-09-06 12:38] LABS: HEMATOCRIT 45.9 % (37-47); MEAN CELL VOLUME 94.1 fL (80-100); MEAN CORPUSCULAR HEMOGLOBIN 32.2 pg (25-34); MEAN CORPUSCULAR HGB CONC 34.2 g/dl (32-36); MEAN PLATELET VOLUME 11.3 fL (7.4-10.4); PLATELET COUNT 213 K/uL (130-400); RED BLOOD COUNT 4.88 M/uL (4.2-5.4); WHITE BLOOD COUNT 18.01 K/uL (4.8-10.8)
[2016-09-06 12:48] LABS: INR 2.6 (0.9-1.1); PROTHROMBIN TIME (PATIENT) 29.1 SECONDS (9.0-12.0)
[2016-09-06 12:55] LABS: BUN/CREATININE RATIO 20.7 (10-20); CALCIUM 8.5 mg/dl (8.5-10.1); CREATININE 0.73 mg/dl (0.60-1.20); POTASSIUM 3.3 mmol/L (3.5-5.1)
[2016-09-06] MEDS ORDERED: DOCU-94 PO (13:51)
[2016-09-06] MEDS ORDERED: TRAM-453 PO (13:51)
[2016-09-06 14:20] VITALS: BP 128/71; PULSE 70; TEMP 36.6; O2SAT 89
[2016-09-13] MEDS ORDERED: NORT10CA4 PO (10:38)
[2016-09-13] MEDS ORDERED: NRN300 PO (10:38)
[2016-09-13] MEDS ORDERED: ZVRO EXT (10:38)
[2016-09-13] MEDS ORDERED: VLT500 PO (10:38)
[2016-09-13] MEDS ORDERED: NCY50 PO (10:42)
== END 2016-09-06 14:21 | disposition home or self-care (01) ==
LOC: EDBD 11:34 → C.EDC 11:35
DX: K59.00 Constipation, unspecified (principal); M53.3 Sacrococcygeal disorders, not elsewhere classified; I48.91 Unspecified atrial fibrillation; I10 Essential (primary) hypertension; Z87.442 Personal history of urinary calculi; Z86.19 Personal history of other infectious and parasitic diseases; Z79.01 Long term (current) use of anticoagulants; Z79.899 Other long term (current) drug therapy; Z82.49 Family history of ischemic heart disease and other diseases of the circulatory system; Z83.3 Family history of diabetes mellitus; Z82.3 Family history of stroke

== ENCOUNTER 2016-09-08 09:41 | Observation (INO) | payer OTHER ==
[~2016-09-08] VITALS: Ht 152.4 cm; Wt 96.7 kg
[~2016-09-08 09:41] MED LIST changes: +DOCU-94 PO; -PRED20TA PO; +TRAM-453 PO
[2016-09-08] MEDS ORDERED: ONDANSETRON INJ 2 MG/ML 2 ML VIAL IV PRN (10:15)
[2016-09-08] MEDS ORDERED: MoRPHine SULFATE 10 MG/ML CARP/VIAL IV PRN (10:15)
--- NOTE | 2016-09-08 10:19 | EMERGENCY ROOM VISIT NOTE ---
History Report prepared by Cleopatra: Dina Doyle Under the Supervision of: Dr. Jd Anderson M.D. First contact with patient: 10:06 Chief Complaint: BACK PAIN Stated Complaint: SCIATICA History of Present Illness The patient is an 81 year old female who presents to the Emergency Room with complaints of persistent, worsening back pain that began 1 week ago. She currently rates her discomfort as a 10/10 in severity. The patient reports that she is evaluated in the emergency department 1 week ago for her back pain. She states that her pain radiates into her left leg. The patient notes that she was diagnosed with sciatica and discharged with narcotic pain medications. She states that she then developed constipation and was evaluated in the emergency department two days ago. The patient states that constipation was alleviated with a soaps suds enema and was discharged with Tramadol for her pain. She reports increased pain since . The patient states that she has had a decrease in sleep due to the pain. She reports rectal soreness and states that she had a bowel movement this morning. The patient denies any abdominal pain or leg numbness. Source of History: patient Onset: 1 week ago Position: back Symptom Intensity: 10/10 Timing: worsening, other (persistent) Associated Symptoms: No abdominal pain, No numbness Note: Associated Symptoms: sore rectum, decreased sleep Review of Systems Review of Systems were reviewed and no change from 09/06/2016 Past Medical & Surgical Medical Problems: (1) A-fib (2) Atrial flutter (3) C. difficile colitis (4) Chest pain (5) HTN (hypertension) (6) Hypoxia (7) Kidney stone (8) PNA (pneumonia) Family History Coronary artery disease FATHER Diabetes mellitus MOTHER Hypertension FATHER MOTHER Myocardial infarction FATHER Stroke FATHER MOTHER Social History Smoking Status: Never Smoker Alcohol Use: none Drug Use: none Marital Status: Housing Status: lives alone Occupation Status: retired Current/Historical Medications Scheduled Amlodipine Besylate (Amlodipine Besylate), 5 MG PO QAM Docusate Sodium (Colace), 100 MG PO BID Ezetimibe (Zetia), 10 MG PO HS Fish Oil (Coleman-3), 1 CAP PO HS Fluticasone Prop/Salmeterol (Advair Diskus 250/50 60 Dose), 1 PUFF INH Q12 Furosemide (Furosemide), 20 MG PO QAM Losartan Potassium (Cozaar), 100 MG PO QAM Lutein-Zeaxanthin (Lutein), 1 CAP PO QAM Montelukast Sod (Montelukast Sodium), 10 MG PO HS Multivitamin (Multivitamin), 1 TAB PO QAM Ocuvite Preservision (Ocuvite Preservision), 2 TAB PO QAM Potassium Chloride (Potassium Chloride ER), 20 MEQ PO HS Pravastatin Sodium (Pravastatin Sodium), 40 MG PO HS Probiotic Product (Probiotic), 1 CAP PO BID Ranitidine (Zantac), 1 TAB PO DAILY Warfarin Sod (Coumadin), 2.5 MG PO UD Warfarin Sodium (Warfarin Sodium), 5 MG PO UD Scheduled PRN Albuterol Hfa (Ventolin Hfa), 2 PUFFS INH Q4H PRN for SOB/Wheezing Dicyclomine Hcl (Dicyclomine Hcl), 1 CAP PO TID PRN for ABDOMINAL PAIN Fluticasone Propionate (Fluticasone Propionate), 2 SPRAYS SHY DAILY PRN for ALLERGIES Hyoscyamine Sulfate (Hyoscyamine Sulfate), 0.125 MG PO Q6 PRN for ABDOMINAL PAIN Oxycodone Ir (Roxicodone Ir), 1-2 TAB PO Q4H PRN for Severe Pain Tramadol Hcl (Ultram), 50 MG PO Q4H PRN for Pain Allergies Coded Allergies: Acetaminophen (Unverified Allergy, Unknown, NAUSEA/DIZZINESS, 09/08/16) Budesonide (Verified Allergy, Unknown, PT UNSURE OF RXN, 09/08/16) Formoterol (Verified Allergy, Unknown, PT UNSURE OF RXN, 09/08/16) Iodinated Diagnostic Agents (Verified Allergy, Unknown, RASH,HIVES FROM IVP DYE, 09/08/16) Metronidazole (Verified Allergy, Unknown, SEVERE GI SYMPTOMS, 09/08/16) Oxycodone (Unverified Allergy, Unknown, NAUSEA/DIZZINESS, 09/08/16) Tramadol (Unverified Allergy, Unknown, NAUSEA/DIZZINESS, 09/08/16) KEENA Inhibitors (Verified Adverse Reaction, Intermediate, COUGH, 09/08/16) Physical Exam Vital Signs Date Time Temp Pulse Resp B/P (MAP) Pulse Ox O2 Delivery O2 Flow Rate FiO2 09/08/16 13:46 68 16 129/60 92 Nasal Cannula 3.0 09/08/16 13:15 94 Nasal Cannula 2.0 09/08/16 11:49 74 18 137/71 94 Nasal Cannula 2.0 09/08/16 11:18 70 09/08/16 10:53 92 Room Air 09/08/16 09:49 36.7 76 20 166/84 92 Room Air Physical Exam GENERAL: Patient awake, alert, oriented x 3. Patient follows commands. Patient does not appear toxic. Patient is adequately hydrated and well- nourished. SKIN: No erythema, pallor, cyanosis or rash HEENT: Normal head, pupils equal, reactive to light and accommodation. Neck: Without adenopathy, no neck vein distention. LUNGS: Clear to auscultation. No wheezes, no rales, no rhonchi. HEART: No murmurs. No gallops. No rubs ABDOMEN: No masses, no rebound, no hepatomegaly or splenomegaly. BACK: Patient has severe pain from mid lumbar spine through buttocks, down lateral aspect of left leg. EXTREMITIES: No signs of trauma. No pedal or pretibial edema. No calf or thigh tenderness. NEUROLOGIC: Cranial nerves II-XII within normal limits. No gross motor sensory function deficits. Medical Decision & Procedures Laboratory Results 09/08/16 10:38 Red Blood Count 4.92, Mean Corpuscular Volume 94.1, Mean Corpuscular Hemoglobin 31.7, Mean Corpuscular Hemoglobin Concent 33.7, Mean Platelet Volume 11.1, Neutrophils (%) (Auto) 77.2, Lymphocytes (%) (Auto) 12.6, Monocytes (%) (Auto) 9.1, Eosinophils (%) (Auto) 0.4, Basophils (%) (Auto) 0.3, Neutrophils # (Auto) 12.04, Lymphocytes # (Auto) 1.96, Monocytes # (Auto) 1.42, Eosinophils # (Auto) 0.06, Basophils # (Auto) 0.04 09/08/16 10:38 Test 09/08/16 10:38 White Blood Count 15.59 K/uL (4.8-10.8) Red Blood Count 4.92 M/uL (4.2-5.4) Hemoglobin 15.6 g/dL (12.0-16.0) Hematocrit 46.3 % (37-47) Mean Corpuscular Volume 94.1 fL (80-100) Mean Corpuscular Hemoglobin 31.7 pg (25-34) Mean Corpuscular Hemoglobin Concent 33.7 g/dl (32-36) Platelet Count 214 K/uL (130-400) Mean Platelet Volume 11.1 fL (7.4-10.4) Neutrophils (%) (Auto) 77.2 % Lymphocytes (%) (Auto) 12.6 % Monocytes (%) (Auto) 9.1 % Eosinophils (%) (Auto) 0.4 % Basophils (%) (Auto) 0.3 % Neutrophils # (Auto) 12.04 K/uL (1.4-6.5) Lymphocytes # (Auto) 1.96 K/uL (1.2-3.4) Monocytes # (Auto) 1.42 K/uL (0.11-0.59) Eosinophils # (Auto) 0.06 K/uL (0-0.5) Basophils # (Auto) 0.04 K/uL (0-0.2) RDW Standard Deviation 49.4 fL (36.4-46.3) RDW Coefficient of Variation 14.4 % (11.5-14.5) Immature Granulocyte % (Auto) 0.4 % Immature Granulocyte # (Auto) 0.07 K/uL (0.00-0.02) Anion Gap 9.0 mmol/L (3-11) Estimated GFR () 98.2 Estimated GFR (Non- 84.8 BUN/Creatinine Ratio 15.0 (10-20) Calcium Level 8.5 mg/dl (8.5-10.1) Laboratory results as stated above per my review. Medications Administered Medications (Trade) Dose Ordered Sig/Farhan Route Start Time Stop Time Status Last Admin Dose Admin Morphine Sulfate (MoRPHine SULFATE INJ) 8 mg Q1H PRN IV 09/08/16 10:15 09/22/16 10:14 09/08/16 10:22 8 MG Ondansetron HCl (Zofran Inj) 4 mg Q1HWA PRN IV 09/08/16 10:15 10/08/16 10:14 09/08/16 10:21 4 MG Morphine Sulfate (MoRPHine SULFATE INJ) 6 mg ONE ONCE IV 09/08/16 12:00 09/08/16 12:01 DC 09/08/16 12:08 6 MG ED Course 1007: Past medical records reviewed. The patient was evaluated in room B11B. A complete history and physical examination was performed. 1015: Ordered Zofran Inj 4 mg IV, Morphine Sulfate 8 mg IV. 1154: I reevaluated the patient and she is still experiencing pain. I discussed the exam findings with her and her family and I discussed the treatment plan. She verbalized complete understanding and agreement. She will be evaluated for further treatment. 1200: Ordered Morphine Sulfate 6 mg IV. 1257: I discussed the patients case with LYNETTE Burnette. He is going to evaluate the patient for further treatment. Medical Decision Nurses notes reviewed. Medical history sheet reviewed. Differential diagnosis includes but is not limited to: sciatica, ruptured spondylosis nucleosis, discitis, constipation. Medication Reconciliation: I attest that I have personally reviewed the patient' s current medication list. Blood Pressure Screening: Patient was found to have a slightly elevated blood pressure due to circumstances. I do not believe that the patient requires hypertension monitoring. This is the patient's fourth visit in the last 30 days. I saw the patient 2 days ago for severe constipation in addition to her sciatica. The patient was given multiple doses of pain medication here but still has significant pain. I believe that she will require further evaluation in the hospital. I discussed care with the hospitalist, patient and with her daughter. Consults Time Called: 1156 Consulting Physician: LYNETTE Burnette Returned Call: [phone] I discussed the patients case with LYNETTE Burnette. He is going to evaluate the patient for further treatment. Impression Primary Impression: Intractable back pain Additional Impressions: Sciatica History of constipation Scribe Attestation The scribe's documentation has been prepared under my direction and personally reviewed by me in its entirety. I confirm that the note above accurately reflects all work, treatment, procedures, and medical decision making performed by me. Departure Information Dispostion Being Evaluated By Hospitalist Prescriptions Ranitidine (Zantac) 150 Mg Tab 1 TAB PO DAILY for 15 Days, #15 TAB 3 Refills Prov: Linh Tracy ., BOGDAN 09/08/16 Referrals Derrick Hare D.O. (PCP) Problem Qualifiers
[2016-09-08 10:56] LABS: BASO % 0.3 %; BASO ABS # 0.04 K/uL (0-0.2); COMPLETE YES; EOS % 0.4 %; HEMATOCRIT 46.3 % (37-47); IG% 0.4 %; LYMPH % 12.6 %; LYMPH ABS # 1.96 K/uL (1.2-3.4); MEAN CELL VOLUME 94.1 fL (80-100); MEAN CORPUSCULAR HEMOGLOBIN 31.7 pg (25-34); MEAN CORPUSCULAR HGB CONC 33.7 g/dl (32-36); MEAN PLATELET VOLUME 11.1 fL (7.4-10.4); MONO % 9.1 %; NEUT % 77.2 %; PLATELET COUNT 214 K/uL (130-400); RED BLOOD COUNT 4.92 M/uL (4.2-5.4); WHITE BLOOD COUNT 15.59 K/uL (4.8-10.8)
[2016-09-08 11:32] LABS: CALCIUM 8.5 mg/dl (8.5-10.1); CARBON DIOXIDE 31 mmol/L (21-32); CHLORIDE 101 mmol/L (98-107); CREATININE 0.59 mg/dl (0.60-1.20); GLUCOSE 127 mg/dl (70-99); POTASSIUM 3.8 mmol/L (3.5-5.1); SODIUM 141 mmol/L (136-145)
[2016-09-08 11:42] LABS: BLOOD UREA NITROGEN 9 mg/dl (7-18)
[2016-09-08] MEDS ORDERED: MoRPHine SULFATE 10 MG/ML CARP/VIAL IV ONE (12:00)
[2016-09-08 13:15] VITALS: O2SAT 94; BMI 41.6
[2016-09-08 13:20] VITALS: Ht 152.4 cm; Wt 96.7 kg
--- NOTE | 2016-09-08 14:02 | DIAGNOSTIC IMAGING REPORT ---
CT OF THE LUMBAR SPINE WITHOUT CONTRAST CT DOSE: 2016.41 mGy.cm CLINICAL HISTORY: Low back pain radiating to left leg. Elevated INR. Concern for paraspinal hematoma. TECHNIQUE: Axial images of lumbar spine were obtained without IV contrast. Sagittal and coronal reconstructions were viewed. COMPARISON STUDY: Lumbar spine radiographs September 02, 2016. FINDINGS: 3 mm of anterolisthesis of L3 on L4 and 4 mm of anterolisthesis of L4 and L5 is unchanged. Vertebral body heights are maintained. There is no acute lumbar spine fracture or subluxation. No suspicious lesions identified by CT. Paravertebral soft tissues are unremarkable. There is no paraspinal hematoma. The central canal and neural foramen are suboptimally assessed by CT but no epidural fluid collection is identified. There is suspected moderate central canal stenosis at L3-L4 and L4-L5. This is unchanged from prior exams. There is mild multilevel neural foraminal stenosis. Left colon diverticulosis is noted within visualized portions of the colon. IMPRESSION: 1. No acute lumbar spine fracture or subluxation. 2. No paraspinal hematoma by CT. Suboptimal evaluation of central canal and neural foramen but no epidural fluid collection identified by CT. Suspected moderate central canal stenosis at L3-L4 and L4-L5. Electronically signed by: Constantino Crandall M.D. 09/08/2016 2:00 PM Dictated Date/Time: 09/08/2016 1:51 PM
[2016-09-08] MEDS ORDERED: ALUMINUM/MAGNESIUM/SIMETH (MAALOX MAX) 30 ML UDC PO PRN (14:15)
[2016-09-08] MEDS ORDERED: MAGNESIUM HYDROXIDE SUSP 30 ML UDC PO PRN (14:15)
[2016-09-08] MEDS ORDERED: POLYETHYLENE (MIRALAX) 17 GM PACK PO PRN (14:15)
[2016-09-08] MEDS ORDERED: ZNTT/150 PO (14:19)
[2016-09-08] MEDS ORDERED: ALBUTEROL HFA 8 GM INHALER INH PRN (14:30)
[2016-09-08] MEDS ORDERED: HYOSCYAMINE SULFATE 0.125 MG SL TAB PO PRN (14:30)
[2016-09-08] MEDS ORDERED: DICYCLOMINE HCL 10 MG CAP PO PRN (14:30)
[2016-09-08] MEDS ORDERED: IV FLUIDS COMPLETED PRN (14:30)
[2016-09-08] MEDS ORDERED: FLUTICASONE PROPIONATE NA SPR 16 GM BTL NAE PRN (14:30)
--- NOTE | 2016-09-08 14:53 | History and Physical ---
History & Physical Date & Time of Service: Sep 08, 2016 at 14:24 Chief Complaint: Sciatica Primary Care Physician: Derrick Hare D.O. History of Present Illness Source: patient, family (daughter at bedside), hospital records This is an 81 y/o female with a history of HTN, HLD, paroxysmal afib, pacemaker placement, asthma, MARIBETH, and lower extremity edema who presented to the ED on with intractable lower back pain x 10 days. The patient states that she first developed lower back pain on August 30. The pain got progressively worse prompting her to come to the ED on September 02. The patient had a lumbar spine x- ray done at that time which showed minimal anterolisthesis from L3-L5, mild degenerative disc space narrowing at all levels, and osteopenia. The patient was discharged home with prednisone 20 mg 4 days and oxycodone. The patient states the oxycodone did not do much to alleviate her symptoms and made her very constipated. The patient returned to the ED on 09/06 with opioid-induced constipation that was relieved with a soap suds enema. Upon discharge from that visit, the patient was instructed to take Colace twice a day, and she was given tramadol to try for her pain instead. The patient states that neither tramadol nor oxycodone helps relieve her pain and she became nauseous after taking either medication. She complains of a sharp pain in her left lower back that radiates down her left leg to her knee. She associates numbness in the left leg with these symptoms. The pain is temporarily relieved after receiving IV morphine. The patient currently rates her pain as a 4/10 sharp pain. Her constipation is improving, and she was able to have a bowel movement this morning after taking some MiraLAX in addition to the Colace. Her nausea is resolved after receiving Zofran in the ED. She does note some mild dull pain in her lower abdomen. The patient denies fevers, chills, sweats, chest pain, palpitations, claudication, cough, wheezing, shortness of breath, vomiting, dysuria, hematuria, urinary retention, paralysis, weakness. Past Medical/Surgical History Medical Problems: (1) Paroxysmal a-fib Status: Chronic (2) C. difficile colitis Status: Resolved (3) HTN (hypertension) Status: Chronic (4) Kidney stone Status: Chronic (5) PNA (pneumonia) Status: Resolved HLD S/p pacemaker Asthma MARIBETH Lower extremity edema Family History Coronary artery disease FATHER Diabetes mellitus MOTHER Hypertension FATHER MOTHER Myocardial infarction FATHER Stroke FATHER MOTHER Social History Smoking Status: Never Smoker Smokeless Tobacco Use: No Alcohol Use: occasionally Drug Use: none Marital Status: Housing status: lives alone Occupational Status: retired Immunizations History of Influenza Vaccine: Unknown History of Tetanus Vaccine?: Unknown History of Pneumococcal: Unknown History of Hepatitis B Vaccine: Unknown Multi-Drug Resistant Organisms History of MDRO: No Allergies Coded Allergies: Acetaminophen (Unverified Allergy, Unknown, NAUSEA/DIZZINESS, 09/08/16) Budesonide (Verified Allergy, Unknown, PT UNSURE OF RXN, 09/08/16) Formoterol (Verified Allergy, Unknown, PT UNSURE OF RXN, 09/08/16) Iodinated Diagnostic Agents (Verified Allergy, Unknown, RASH,HIVES FROM IVP DYE, 09/08/16) Metronidazole (Verified Allergy, Unknown, SEVERE GI SYMPTOMS, 09/08/16) Oxycodone (Unverified Allergy, Unknown, NAUSEA/DIZZINESS, 09/08/16) Tramadol (Unverified Allergy, Unknown, NAUSEA/DIZZINESS, 09/08/16) KEENA Inhibitors (Verified Adverse Reaction, Intermediate, COUGH, 09/08/16) Home Medications Scheduled Amlodipine Besylate (Amlodipine Besylate), 5 MG PO QAM Docusate Sodium (Colace), 100 MG PO BID Ezetimibe (Zetia), 10 MG PO HS Fish Oil (Lorena-3), 1 CAP PO HS Fluticasone Prop/Salmeterol (Advair Diskus 250/50 60 Dose), 1 PUFF INH Q12 Furosemide (Furosemide), 20 MG PO QAM Losartan Potassium (Cozaar), 100 MG PO QAM Lutein-Zeaxanthin (Lutein), 1 CAP PO QAM Montelukast Sod (Montelukast Sodium), 10 MG PO HS Multivitamin (Multivitamin), 1 TAB PO QAM Ocuvite Preservision (Ocuvite Preservision), 2 TAB PO QAM Potassium Chloride (Potassium Chloride ER), 20 MEQ PO HS Pravastatin Sodium (Pravastatin Sodium), 40 MG PO HS Probiotic Product (Probiotic), 1 CAP PO BID Ranitidine (Zantac), 1 TAB PO DAILY Warfarin Sod (Coumadin), 2.5 MG PO UD Warfarin Sodium (Warfarin Sodium), 5 MG PO UD Scheduled PRN Albuterol Hfa (Ventolin Hfa), 2 PUFFS INH Q4H PRN for SOB/Wheezing Dicyclomine Hcl (Dicyclomine Hcl), 1 CAP PO TID PRN for ABDOMINAL PAIN Fluticasone Propionate (Fluticasone Propionate), 2 SPRAYS SHY DAILY PRN for ALLERGIES Hyoscyamine Sulfate (Hyoscyamine Sulfate), 0.125 MG PO Q6 PRN for ABDOMINAL PAIN Oxycodone Ir (Roxicodone Ir), 1-2 TAB PO Q4H PRN for Severe Pain Tramadol Hcl (Ultram), 50 MG PO Q4H PRN for Pain Review of Systems Constitutional: No fever, No chills, No sweats Eyes: No worsening of vision, No eye pain, No diplopia ENT: No hearing loss, No sore throat, No trouble swallowing Respiratory: No cough, No wheezing, No shortness of breath Cardiovascular: No chest pain, No claudication, No palpitations Abdomen: + pain, + nausea, No vomiting Musculoskeletal: + joint pain (left lower back radiating down left leg), No muscle pain, No calf pain Genitourinary - Female: No dysuria, No urinary incontinence, No urinary retention, No hematuria Neurologic: + numbness/tingling (left leg), No paralysis, No weakness Integumentary: No rash, No itch, No color change Physical Exam Vital Signs Date Time Temp Pulse Resp B/P (MAP) Pulse Ox O2 Delivery O2 Flow Rate FiO2 09/08/16 13:46 68 16 129/60 92 Nasal Cannula 3.0 09/08/16 13:15 94 Nasal Cannula 2.0 09/08/16 11:49 74 18 137/71 94 Nasal Cannula 2.0 09/08/16 11:18 70 09/08/16 10:53 92 Room Air 09/08/16 09:49 36.7 76 20 166/84 92 Room Air General appearance: + Morbidly obese. Well-developed, well-nourished, no apparent distress Head: Normocephalic, atraumatic Eyes: Normal inspection, PERRL, EOMI ENT: Normal ENT inspection, hearing grossly normal, pharynx normal Neck: Supple, no JVD, trachea midline Respiratory/Chest: + Decreased breath sounds in bases bilaterally. Lungs clear to auscultation, normal breath sounds, no respiratory distress Cardiovascular: + Irregularly irregular. No gallop, no murmur Abdomen/GI: Normal bowel sounds, non-tender, soft Extremities/Musculoskeletal: + Left paraspinal area and lumbar region tender to palpation. Left lateral leg from hip to knee tender to palpation. Normal inspection, no calf tenderness, no pedal edema Neurological/Psych: Alert, normal mood/affect, oriented x 3 Skin: Normal color, warm/dry, no rash Diagnostics Laboratory Results Results Past 24 Hours Test 09/08/16 10:38 Range/Units White Blood Count 15.59 4.8-10.8 K/uL Red Blood Count 4.92 4.2-5.4 M/uL Hemoglobin 15.6 12.0-16.0 g/dL Hematocrit 46.3 37-47 % Mean Corpuscular Volume 94.1 80-100 fL Mean Corpuscular Hemoglobin 31.7 25-34 pg Mean Corpuscular Hemoglobin Concent 33.7 32-36 g/dl Platelet Count 214 130-400 K/uL Mean Platelet Volume 11.1 7.4-10.4 fL Neutrophils (%) (Auto) 77.2 % Lymphocytes (%) (Auto) 12.6 % Monocytes (%) (Auto) 9.1 % Eosinophils (%) (Auto) 0.4 % Basophils (%) (Auto) 0.3 % Neutrophils # (Auto) 12.04 1.4-6.5 K/uL Lymphocytes # (Auto) 1.96 1.2-3.4 K/uL Monocytes # (Auto) 1.42 0.11-0.59 K/uL Eosinophils # (Auto) 0.06 0-0.5 K/uL Basophils # (Auto) 0.04 0-0.2 K/uL RDW Standard Deviation 49.4 36.4-46.3 fL RDW Coefficient of Variation 14.4 11.5-14.5 % Immature Granulocyte % (Auto) 0.4 % Immature Granulocyte # (Auto) 0.07 0.00-0.02 K/uL Sodium Level 141 136-145 mmol/L Potassium Level 3.8 3.5-5.1 mmol/L Chloride Level 101 98-107 mmol/L Carbon Dioxide Level 31 21-32 mmol/L Anion Gap 9.0 3-11 mmol/L Blood Urea Nitrogen 9 7-18 mg/dl Creatinine 0.59 0.60-1.20 mg/dl Estimated GFR () 98.2 Estimated GFR (Non- 84.8 BUN/Creatinine Ratio 15.0 10-20 Random Glucose 127 70-99 mg/dl Calcium Level 8.5 8.5-10.1 mg/dl Diagnostic Radiology Reviewed the following studies and agree with interpretation as follows: Patient Name: SUSAN MANZANO Unit Number: [id number] Dictated: 09/08/161350 Transcribed: 09/08/161350 JA Printed Date/Time: [~ rep prt dt]/[~ rep prt tm] [~ rep ct labl] - [~ rep ct ivnm] [facility] [place] [address] Dictated: 09/08/161350 Transcribed: 09/08/161350 JA Printed Date/Time: [~ rep prt dt]/[~ rep prt tm] [~ rep ct labl] - [~ rep ct ivnm] Patient: SUSAN MANZANO Address1: [address] [place] [address] Rec: [id number] Address2: Acct ID: [id number] [facility] Zip: [place] [address] Date: 1935 Sex: F Room/Bed: Ref Phy: No Doctor, Assigned SC: GEO Att Phy: Report #: [id number] Whit Phy: Derrick Hare D.OYann Test: LSWO Admit Phy: Pharmacometrician: SHI Interpreting Phy: Constantino Crandall MD Diagnosis: SCIATICA Ordering Phy: Linh Tracy PA-C Service Date: 09/08/16 Admit Date: 09/08/16 MNE: [id number] CONF: DICTATED BY: Constantino Crandall MD]] CC: Linh Tracy .BOGDAN Philip A., D.OYann No Doctor, Assigned Jd Anderson M.D. Endcc: [~ rep ct add3]] CT OF THE LUMBAR SPINE WITHOUT CONTRAST CT DOSE: 2016.41 mGy.cm CLINICAL HISTORY: Low back pain radiating to left leg. Elevated INR. Concern for paraspinal hematoma. TECHNIQUE: Axial images of lumbar spine were obtained without IV contrast. Sagittal and coronal reconstructions were viewed. COMPARISON STUDY: Lumbar spine radiographs September 02, 2016. FINDINGS: 3 mm of anterolisthesis of L3 on L4 and 4 mm of anterolisthesis of L4 and L5 is unchanged. Vertebral body heights are maintained. There is no acute lumbar spine fracture or subluxation. No suspicious lesions identified by CT. Paravertebral soft tissues are unremarkable. There is no paraspinal hematoma. The central canal and neural foramen are suboptimally assessed by CT but no epidural fluid collection is identified. There is suspected moderate central canal stenosis at L3-L4 and L4-L5. This is unchanged from prior exams. There is mild multilevel neural foraminal stenosis. Left colon diverticulosis is noted within visualized portions of the colon. IMPRESSION: 1. No acute lumbar spine fracture or subluxation. 2. No paraspinal hematoma by CT. Suboptimal evaluation of central canal and neural foramen but no epidural fluid collection identified by CT. Suspected moderate central canal stenosis at L3-L4 and L4-L5. Electronically signed by: Constantino Crandall M.D. 09/08/2016 2:00 PM Dictated Date/Time: 09/08/2016 1:51 PM The status of this report is Signed. Draft = Not yet reviewed or approved by Radiologist. Signed = Reviewed and approved by Radiologist. <AttendingPhy></AttendingPhy> <FamilyPhy>No Doctor, Assigned</FamilyPhy> < PrimaryPhy>Derrick Hare D.O.</PrimaryPhy> <UnitNumber>[id number]</ UnitNumber> <VisitNumber>[id number]</VisitNumber> <PatientName>SUSAN MANZANO< /PatientName> <DateOfBirth>1935</DateOfBirth> <Location>C.EDB</Location> < ServiceDate>09/08/16</ServiceDate> <MNE>ESINDI</MNE> <OrderingPhy>Linh Tracy PA-C</OrderingPhy> <OrderingPhyMNE>f rep ord dr camilo</OrderingPhyMNE> < DictatingPhyMNE>f rep dict dr camilo</DictatingPhyMNE> <CCListMNE>f rep ct leslee</ CCListMNE> <AdmittingPhyMNE>f pt admit dr camilo</AdmittingPhyMNE> <AttendingPhyMNE >f pt attend dr camilo</AttendingPhyMNE> <ConsultingPhyMNE>f pt consult dr camilo</ConsultingPhyMNE> <FamilyPhyMNE>f pt fam dr camilo</FamilyPhyMNE> <OtherPhyMNE>f pt other dr camilo</OtherPhyMNE> < PrimaryPhyMNE>f pt prim care dr camilo</PrimaryPhyMNE> <ReferringPhyMNE>f pt referring dr camilo</ReferringPhyMNE> Impression Assessment and Plan 81 y/o female with a history of HTN, HLD, paroxysmal afib, pacemaker placement, asthma, MARIBETH, and lower extremity edema who presented to the ED on 09/08 with intractable lower back pain x 10 days. Patient initially presented with these symptoms on 09/02. Had lumbar spine x-ray as reviewed in HPI. Discharged with prednisone and oxycodone. Patient states these did not help. Returned to ED with constipation on 09/06 which was relieved with a soap suds enema, also switched to tramadol which also did not help. Patient given IV morphine during this ED visit and notes some temporary relief. Intractable back pain radiating to left leg w/numbness--patient states she had a similar episode in 1994 and received a cortisone injection at that time which relieved her symptoms -STAT CT of lumbar spine to rule out paraspinal hematoma or abscess, given recent INR 2.6 (on 09/06) and elevated white blood cell count -CT shows suspected moderate central canal stenosis at L3-L4 and L4-L5 which is unchanged from prior exams -Consult orthopedics, appreciate recs -Decadron 10 mg IV 1, then 4 mg IV q6h -Morphine 4 mg IV q2h prn pain -Zofran 4 mg IV q6h prn nausea Atrial flutter/afib--patient currently rate controlled, HR in 70s. Pt is not always in afib, however (h/o of it being paroxysmal) -Admitted to telemetry for cardiac monitoring. If remains stable and rate controlled, may move to med/surg -Continue warfarin 5 mg PO ///Sun and 2.5 mg PO //Sat -EKG now -EKG prn chest pain Leukocytosis--improving -Presumably secondary to recent steroid use (Prednisone 20 mg PO x 4 days) -WBC 18.01 on 09/06, down to 15.59 on 09/08 HTN--stable -Continue amlodipine 5 mg PO qd and losartan 100 mg PO qd HLD -Continue pravastatin 40 mg PO qd and Zetia 10 mg PO qhs Asthma -Continue Singulair 10 mg PO qd and Advair BID MARIBETH -Continue CPAP with 2 L O2 at night Lower extremity edema--stable -Continue Lasix 20 mg PO qd and potassium chloride 20 mEq PO qd Constipation -Continue Colace 100 mg PO BID -MiraLAX 17 gm PO qd scheduled DVT prophylaxis -Therapeutic warfarin -NAHOMY alfredo and SCDs Code Status -Level I, FULL RESUSCITATION STATUS This chart was completed in part utilizing [employer] Voice Recognition software. Attempts were made to minimize the grammatical errors, random word insertions, pronoun errors and incomplete sentences. Any formal questions or concerns about the content, text or information contained within the body of this dictation should be directly addressed to the provider for clarification. Level of Care Telemetry Advanced Directives Existing Living Will: No Existing Power of Vp Mobile Products: Yes Resuscitation Status FULL RESUSCITATION VTE Prophylaxis VTE Risk Assessment Done? Y/N: Yes Risk Level: Moderate Given or contraindicated: Warfarin (Coumadin), T.E.D. Stockings, SCD's Assessment and Plan Attending Addendum: I have physically seen and examined this patient, directed their medical care, supervised the Physician Scratcher Tender's activity, and agree with the H&P as noted above, with the following changes: NONE.
[2016-09-08 15:00] LABS: INR 1.6 (0.9-1.1); PROTHROMBIN TIME (PATIENT) 17.5 SECONDS (9.0-12.0)
[2016-09-08] MEDS: MoRPHine SULFATE 4 MG/ML 1 ML CARP\\VIAL IV PRN ×2 (15:36→20:33)
[2016-09-08] MEDS ORDERED: DEXAMETHASONE INJ 10 MG in SYRINGE 0 ML IV STA (15:52)
[2016-09-08 16:00] VITALS: BP 150/83; PULSE 72; TEMP 36.6; O2SAT 94
[2016-09-08] MEDS ORDERED: WARFARIN SOD 2.5 MG TAB PO SCH (16:00)
[2016-09-08 19:32] VITALS: BP 157/76; PULSE 83; TEMP 36.8; O2SAT 91
[2016-09-08] MEDS: DEXAMETHASONE INJ 4 MG in SYRINGE 0 ML IV SCH (20:33)
[2016-09-08] MEDS: POTASSIUM CHLORIDE 20 MEQ TABCR PO SCH (20:35)
[2016-09-08] MEDS: PRAVASTATIN SOD 40 MG TAB PO SCH (20:35)
[2016-09-08] MEDS: FLUTICASONE/SALMETEROL 250/50 (ADVAIR) 14 PUFF/1 INHALER INH SCH (20:35)
[2016-09-08] MEDS: MONTELUKAST SOD 10 MG TAB PO SCH (20:36)
[2016-09-08] MEDS: EZETIMIBE 10MG TAB PO SCH (20:36)
[2016-09-08] MEDS: DOCUSATE SODIUM 100 MG CAP PO SCH (20:36)
[2016-09-08 21:44] VITALS: PULSE 81; O2SAT 93
[2016-09-09] VITALS (11 sets, daily range): BP systolic 114–146; BP diastolic 72–82; PULSE 69–80; TEMP 36.7–37.2; O2SAT 91–96
[2016-09-09] MEDS: MoRPHine SULFATE 4 MG/ML 1 ML CARP\\VIAL IV PRN ×4 (02:36→23:55)
[2016-09-09] MEDS: DEXAMETHASONE INJ 4 MG in SYRINGE 0 ML IV SCH ×4 (03:39→21:27)
[2016-09-09 06:34] LABS: HEMATOCRIT 43.9 % (37-47); MEAN CELL VOLUME 94.8 fL (80-100); MEAN CORPUSCULAR HEMOGLOBIN 30.2 pg (25-34); MEAN CORPUSCULAR HGB CONC 31.9 g/dl (32-36); MEAN PLATELET VOLUME 11.1 fL (7.4-10.4); PLATELET COUNT 215 K/uL (130-400); RED BLOOD COUNT 4.63 M/uL (4.2-5.4); WHITE BLOOD COUNT 10.06 K/uL (4.8-10.8)
[2016-09-09 06:41] LABS: INR 1.6 (0.9-1.1); PROTHROMBIN TIME (PATIENT) 17.3 SECONDS (9.0-12.0)
[2016-09-09 07:09] LABS: BUN/CREATININE RATIO 22.5 (10-20); CALCIUM 8.7 mg/dl (8.5-10.1); CREATININE 0.52 mg/dl (0.60-1.20); POTASSIUM 4.8 mmol/L (3.5-5.1)
[2016-09-09] MEDS: FLUTICASONE/SALMETEROL 250/50 (ADVAIR) 14 PUFF/1 INHALER INH SCH ×2 (08:02→21:19)
[2016-09-09] MEDS: FUROSEMIDE 20 MG TAB PO SCH (08:02)
[2016-09-09] MEDS: RANITIDINE HCL 150 MG TAB PO SCH (08:03)
[2016-09-09] MEDS: DOCUSATE SODIUM 100 MG CAP PO SCH ×2 (08:03→21:22)
[2016-09-09] MEDS: LOSARTAN POTASSIUM 50 MG TAB PO SCH (08:03)
[2016-09-09] MEDS: POLYETHYLENE (MIRALAX) 17 GM PACK PO SCH (08:03)
[2016-09-09] MEDS: CEROVITE ADV FORMULA TAB PO SCH (08:03)
[2016-09-09] MEDS: AMLODIPINE BESYLATE 5 MG TAB PO SCH (08:04)
[2016-09-09] MEDS ORDERED: MULTIVITAMIN TAB PO SCH (09:00)
--- NOTE | 2016-09-09 10:34 | ORTHOPEDIC CONSULTATION ---
DATE OF CONSULTATION: 09/09/2016 CHIEF COMPLAINT: Left leg pain. HISTORY OF PRESENT ILLNESS: Pleasant 81-year-old female that has had the onset of significant left leg symptoms over the past week. She denies any specific trauma, fall or event. She had been in the hospital Emergency Room over the past week on 2 occasions, given some pain medications, but the medicines were unable to sustain her pain and she returns again with incapacitating pain. She describes the pain along the left buttock, anterolateral left thigh to the knee. She denies pain below the knee. She denies pain in the right lower extremity. She is somewhat more comfortable this morning, having been on pain medications and steroids. PAST MEDICAL HISTORY: Significant for AFib, she is status post pacemaker. She has hypertension, kidney stones. PHYSICAL EXAMINATION: She appears somewhat comfortable, is cooperative. She exhibits +5/5 plantarflexion, dorsiflexion. Has negative log roll. Sensory appears to be essentially symmetric and intact. She has markedly positive tension signs to straight leg raising on the left compared to the right. A CAT scan dated 09/08/2016 of the lumbar spine available for review. It does demonstrate multilevel spondylosis throughout the lumbar spine, anterolisthesis at both the L3-L4 and L4-L5 levels. Axillary views demonstrate some modest rotation deformity again multilevel spondylosis. She exhibits facet hypertrophy at L3-L4 level with some lateral recess disease at L3-L4, at least moderate to significant stenosis. At L4-L5, there is evidence of a broad-based disc protrusion with bilateral lateral recess stenosis extending out into the foramina. Again, marked facet hypertrophy. L5-S1 appears relatively benign with modest facet hypertrophy. ASSESSMENT: Spinal stenosis, spondylolisthesis. PLAN: At this time, If possible, we will hold her Coumadin, consult interventional pain management for a trial of epidural injections. If these fail to improve her symptom complex, she may require decompression involving at least the L3-L4 and L4-L5 levels. Again, unfortunately she is unable to have an MRI secondary to the pacemaker placement. The patient understands and agrees.
--- NOTE | 2016-09-09 13:05 | Progress Note ---
Subjective Date of Service: Sep 09, 2016. Subjective Pt evaluation today including: conversation w/ patient, physical exam, chart review, lab review, review of studies, review of inpatient medication list Pain: 2-3/10 PO Intake: good Voiding: no voiding problems, no incontinence Pt states her back pain is much better this morning compare to yesterday, yesterday pain was 10/10 and today pain is 2-3/10. Pt denies any difficulty with urination and defection.Pt denies any motor weakness in bilateral lower extremities. Pt is able to move around. Problem List Medical Problems: (1) Back pain Status: Acute (2) Constipation Status: Acute (3) Diverticulosis Status: Acute (4) Gastritis Status: Acute (5) History of constipation Status: Acute (6) Hypoxia Status: Acute (7) Intractable back pain Status: Acute (8) Leukocytosis Status: Acute (9) Lumbar disc herniation with radiculopathy Status: Acute (10) Musculoskeletal back pain Status: Acute (11) Right sided abdominal pain Status: Acute (12) Sciatica Status: Acute (13) Sciatica Status: Acute (14) Sciatica Status: Acute (15) Strain of lumbar region Status: Acute Review of Systems Musculoskeletal: + problem reported All Other Systems: Reviewed and Negative (back pain) Medications Medications (Trade) Dose Ordered Sig/Farhan Route Start Time Stop Time Status Last Admin Dose Admin Polyethylene (Miralax Powder Packet) 17 gm DAILY PRN PO 09/08/16 14:15 10/08/16 14:14 09/08/16 20:36 17 GM Dexamethasone Sodium Phosphate 10 mg/Syringe 2.5 ml @ 1 mls/min NOW STAT IV 09/08/16 15:52 09/08/16 15:54 DC 09/08/16 16:25 1 MLS/MIN Dexamethasone Sodium Phosphate 4 mg/Syringe 1 ml @ 1 mls/min Q6H IV 09/08/16 22:00 10/08/16 21:59 09/09/16 09:40 1 MLS/MIN Amlodipine Besylate (Norvasc Tab) 5 mg QAM PO 09/09/16 09:00 10/09/16 08:59 09/09/16 08:04 5 MG Docusate Sodium (coLACE CAP) 100 mg BID PO 09/08/16 21:00 10/08/16 20:59 09/09/16 08:03 100 MG EZETIMIBE (Zetia Tab) 10 mg HS PO 09/08/16 21:00 10/08/16 20:59 09/08/16 20:36 10 MG Salmeterol Xinafoate/ Fluticasone (Advair Diskus 250/50 Inh) 1 puff Q12 INH 09/08/16 21:00 10/08/16 20:59 09/09/16 08:02 1 PUFF Furosemide (Lasix Tab) 20 mg QAM PO 09/09/16 09:00 10/09/16 08:59 09/09/16 08:02 20 MG Losartan Potassium (coZAAR TAB) 100 mg QAM PO 09/09/16 09:00 10/09/16 08:59 09/09/16 08:03 100 MG Montelukast Sodium (Singulair Tab) 10 mg HS PO 09/08/16 21:00 10/08/16 20:59 09/08/16 20:36 10 MG Multivitamins/ Minerals (Multivitamin W/ Minerals Tab) 2 tab QAM PO 09/09/16 09:00 10/09/16 08:59 09/09/16 08:03 2 TAB Potassium Chloride (Klor-Con Tab) 20 meq HS PO 09/08/16 21:00 10/08/16 20:59 09/08/16 20:35 20 MEQ Pravastatin Sodium (Pravachol Tab) 40 mg HS PO 09/08/16 21:00 10/08/16 20:59 09/08/16 20:35 40 MG Ranitidine HCl (zANTac TAB) 150 mg DAILY PO 09/09/16 09:00 10/09/16 08:59 09/09/16 08:03 150 MG Warfarin Sodium (Coumadin Tab) 2.5 mg TuThSa@1600 PO 09/08/16 16:00 10/08/16 15:59 09/08/16 16:25 2.5 MG Morphine Sulfate (MoRPHine SULFATE INJ) 4 mg Q2H PRN IV 09/08/16 14:30 09/22/16 14:29 09/09/16 09:05 4 MG Polyethylene (Miralax Powder Packet) 17 gm DAILY PO 09/09/16 09:00 10/09/16 08:59 09/09/16 08:03 17 GM Objective Vital Signs Date Time Temp Pulse Resp B/P (MAP) Pulse Ox O2 Delivery O2 Flow Rate FiO2 09/09/16 12:04 36.9 73 16 132/80 (97) 95 Nasal Cannula 2.0 09/09/16 08:18 36.8 70 16 146/78 (100) 96 Nasal Cannula 2.0 09/09/16 08:00 96 Nasal Cannula 2.0 09/09/16 04:00 CPAP 09/09/16 04:00 37.0 74 18 125/79 (94) 93 Nasal Cannula 2.0 09/09/16 00:00 37.2 80 19 114/72 (86) 91 CPAP 09/08/16 23:59 CPAP 09/08/16 21:44 81 93 2.0 09/08/16 20:00 Nasal Cannula 2.0 09/08/16 19:32 36.8 83 22 157/76 (103) 91 Nasal Cannula 2.0 09/08/16 16:00 36.6 72 16 150/83 (105) 94 Nasal Cannula 09/08/16 16:00 94 Nasal Cannula 2.0 09/08/16 15:33 69 18 154/77 94 Nasal Cannula 2.0 09/08/16 14:41 74 16 159/73 95 Nasal Cannula 2.0 09/08/16 13:46 68 16 129/60 92 Nasal Cannula 3.0 09/08/16 13:15 94 Nasal Cannula 2.0 Physical Exam General Appearance: no apparent distress Respiratory/Chest: lungs clear, normal breath sounds, no respiratory distress Cardiovascular: regular rate, rhythm, no edema, no murmur Abdomen: normal bowel sounds, soft Extremities: + pertinent finding (left antlateral thigh pain radiating down left knee) Neurologic/Psychiatric: alert, normal mood/affect, oriented x 3 Skin: no rash Laboratory Results Last 24 Hours Test 09/09/16 05:46 White Blood Count 10.06 K/uL Red Blood Count 4.63 M/uL Hemoglobin 14.0 g/dL Hematocrit 43.9 % Mean Corpuscular Volume 94.8 fL Mean Corpuscular Hemoglobin 30.2 pg Mean Corpuscular Hemoglobin Concent 31.9 g/dl RDW Standard Deviation 50.8 fL RDW Coefficient of Variation 14.7 % Platelet Count 215 K/uL Mean Platelet Volume 11.1 fL Prothrombin Time 17.3 SECONDS Prothromb Time International Ratio 1.6 Sodium Level 139 mmol/L Potassium Level 4.8 mmol/L Chloride Level 101 mmol/L Carbon Dioxide Level 32 mmol/L Anion Gap 6.0 mmol/L Blood Urea Nitrogen 12 mg/dl Creatinine 0.52 mg/dl Est Creatinine Clear Calc Drug Dose 85.4 ml/min Estimated GFR () 102.4 Estimated GFR (Non- 88.4 BUN/Creatinine Ratio 22.5 Random Glucose 163 mg/dl Calcium Level 8.7 mg/dl Assessment and Plan 81 y/o female with a history of HTN, HLD, paroxysmal afib, pacemaker placement, asthma, MARIBETH, and lower extremity edema who presented to the ED on 09/08 with intractable lower back pain x 10 days. Patient initially presented with these symptoms on 09/02. Had lumbar spine x-ray as reviewed in HPI. Discharged with prednisone and oxycodone. Patient states these did not help. Returned to ED with constipation on 09/06 which was relieved with a soap suds enema, also switched to tramadol which also did not help. Patient given IV morphine during this ED visit and notes some temporary relief. Intractable back pain radiating to left leg w/numbness--secondary to Spinal stenosis, spondylolisthesis. - Patient states she had a similar episode in 1994 and received a cortisone injection at that time which relieved her symptoms - STAT CT of lumbar spine to rule out paraspinal hematoma or abscess, given recent INR 2.6 (on 09/06) and elevated white blood cell count -CT shows suspected moderate central canal stenosis at L3-L4 and L4-L5 which is unchanged from prior exams -Decadron 10 mg IV 1, then 4 mg IV q6h -Morphine 4 mg IV q2h prn pain -Zofran 4 mg IV q6h prn nausea -Ortho recommends: hold her Coumadin, consult interventional pain management for a trial of epidural injections. If these fail to improve her symptom complex, she may require decompression involving at least the L3-L4 and L4-L5 levels. Atrial flutter/afib--patient currently rate controlled, HR in 70s. Pt is not always in afib, however (h/o of it being paroxysmal) -Admitted to telemetry for cardiac monitoring. If remains stable and rate controlled, may move to med/surg -Continue warfarin 5 mg PO ///Sat and 2.5 mg PO //Sat -EKG now -EKG prn chest pain Leukocytosis--improving -Presumably secondary to recent steroid use (Prednisone 20 mg PO x 4 days) -WBC 18.01 on 09/06, down to 15.59 on 09/08 HTN--stable -Continue amlodipine 5 mg PO qd and losartan 100 mg PO qd HLD -Continue pravastatin 40 mg PO qd and Zetia 10 mg PO qhs Asthma -Continue Singulair 10 mg PO qd and Advair BID MARIBETH -Continue CPAP with 2 L O2 at night Lower extremity edema--stable -Continue Lasix 20 mg PO qd and potassium chloride 20 mEq PO qd Constipation -Continue Colace 100 mg PO BID -MiraLAX 17 gm PO qd scheduled DVT prophylaxis -Therapeutic warfarin -NAHOMY Ceron Code Status -Level I, FULL RESUSCITATION S Continued [facility] stay due to: multiple IV medications needed Discharge planning: uncertain
[2016-09-09] MEDS ORDERED: WARFARIN SOD 5 MG TAB PO SCH (16:00)
[2016-09-09] MEDS: EZETIMIBE 10MG TAB PO SCH (21:20)
[2016-09-09] MEDS: POTASSIUM CHLORIDE 20 MEQ TABCR PO SCH (21:20)
[2016-09-09] MEDS: MONTELUKAST SOD 10 MG TAB PO SCH (21:20)
[2016-09-09] MEDS: PRAVASTATIN SOD 40 MG TAB PO SCH (21:21)
[2016-09-10] VITALS (8 sets, daily range): BP systolic 116–166; BP diastolic 69–87; PULSE 67–85; TEMP 36.5–37.1; O2SAT 91–96
[2016-09-10] MEDS: ONDANSETRON INJ 2 MG/ML 2 ML VIAL IV PRN ×2 (00:15→13:56)
[2016-09-10] MEDS: DEXAMETHASONE INJ 4 MG in SYRINGE 0 ML IV SCH ×4 (04:24→21:23)
[2016-09-10] MEDS: MoRPHine SULFATE 4 MG/ML 1 ML CARP\\VIAL IV PRN ×4 (04:30→17:31)
[2016-09-10 06:44] LABS: HEMATOCRIT 42.5 % (37-47); MEAN CELL VOLUME 94.7 fL (80-100); MEAN CORPUSCULAR HEMOGLOBIN 31.4 pg (25-34); MEAN CORPUSCULAR HGB CONC 33.2 g/dl (32-36); MEAN PLATELET VOLUME 11.1 fL (7.4-10.4); PLATELET COUNT 202 K/uL (130-400); RED BLOOD COUNT 4.49 M/uL (4.2-5.4); WHITE BLOOD COUNT 15.21 K/uL (4.8-10.8)
[2016-09-10 06:50] LABS: INR 1.8 (0.9-1.1); PROTHROMBIN TIME (PATIENT) 20.3 SECONDS (9.0-12.0)
[2016-09-10 07:12] LABS: BUN/CREATININE RATIO 26.9 (10-20); CALCIUM 8.5 mg/dl (8.5-10.1); CREATININE 0.55 mg/dl (0.60-1.20); POTASSIUM 4.7 mmol/L (3.5-5.1)
[2016-09-10] MEDS: FLUTICASONE/SALMETEROL 250/50 (ADVAIR) 14 PUFF/1 INHALER INH SCH ×2 (08:48→20:53)
[2016-09-10] MEDS: LOSARTAN POTASSIUM 50 MG TAB PO SCH (08:49)
[2016-09-10] MEDS: AMLODIPINE BESYLATE 5 MG TAB PO SCH (08:50)
[2016-09-10] MEDS: DOCUSATE SODIUM 100 MG CAP PO SCH ×2 (08:58→20:54)
[2016-09-10] MEDS: FUROSEMIDE 20 MG TAB PO SCH (08:59)
[2016-09-10] MEDS: CEROVITE ADV FORMULA TAB PO SCH (09:00)
[2016-09-10] MEDS: RANITIDINE HCL 150 MG TAB PO SCH (09:00)
[2016-09-10] MEDS: POLYETHYLENE (MIRALAX) 17 GM PACK PO SCH (09:01)
[2016-09-10] MEDS: GABAPENTIN 300 MG CAP PO SCH ×2 (10:24→20:55)
[2016-09-10] MEDS ORDERED: PHYTONADIONE INJ 5 MG in SODIUM CHLORIDE 0.9% 50ML 50 ML IV ONE (10:45)
--- NOTE | 2016-09-10 13:41 | Pain Management Consultation ---
Pain Management Consultation Date of Consultation Sep 10, 2016. Reason for Consultation Left-sided lumbar radicular pain History Ms. Perkins is an 81-year-old white female with a 2 week history of left-sided lumbar radicular symptoms down her L4 and 5 dermatomes stopping past level the level of the knee. She denies any injury or trauma as to the etiology of her pain. She reports pain is 100% radicular at this time. She has a history of lumbar spinal stenosis and was treated in the early with an epidural steroid injection 1 which resolved her pain since that time until 2 weeks ago. She reports pain is sharp and at times burning. She did try prednisone 20 mg 2 weeks ago with some marginal improvement. She was given tramadol and oxycodone and had significant constipation with both narcotics requiring a soap suds enema. She denies any bowel or bladder incontinence motor weakness any foot drop or falls at this time. She reports that pain is worse with activity and better with rest. She has been more active over the last 24 hours but reports that this pain is still significant. She is chronically on Coumadin administration for her paroxysmal atrial fibrillation under the direction of Dr. Akers. She received a dose last evening Past Medical/Surgical History (1) Bronchitis (2) Asthma (3) Community acquired bacterial pneumonia (4) Febrile illness (5) Urinary tract infection (6) Renal colic (7) Hypoxia (8) Diverticulitis (9) Chest pain (10) Atrial flutter (11) Sciatica (12) History of constipation (13) Intractable back pain (14) C. difficile colitis (15) Asthma (16) Pacemaker (17) PNA (pneumonia) (18) A-fib (19) HTN (hypertension) (20) Bronchitis (21) Kidney stone (22) S/P cholecystectomy (23) H/O: hysterectomy (24) S/P knee replacement (25) H/O rotator cuff surgery (26) Back pain (27) Constipation (28) Diverticulosis (29) Gastritis (30) Hypoxia (31) Leukocytosis (32) Lumbar disc herniation with radiculopathy (33) Musculoskeletal back pain (34) Right sided abdominal pain (35) Sciatica (36) Strain of lumbar region Family History Coronary artery disease FATHER Diabetes mellitus MOTHER Hypertension FATHER MOTHER Myocardial infarction FATHER Stroke FATHER MOTHER Social / Work History Smokeless Tobacco Use: No Alcohol Use: occasionally Marital Status: Housing Status: lives alone Occupation: retired Allergies Coded Allergies: Acetaminophen (Unverified Allergy, Unknown, NAUSEA/DIZZINESS, 09/08/16) Budesonide (Verified Allergy, Unknown, PT UNSURE OF RXN, 09/08/16) Formoterol (Verified Allergy, Unknown, PT UNSURE OF RXN, 09/08/16) Iodinated Diagnostic Agents (Verified Allergy, Unknown, RASH,HIVES FROM IVP DYE, 09/08/16) Metronidazole (Verified Allergy, Unknown, SEVERE GI SYMPTOMS, 09/08/16) Oxycodone (Unverified Allergy, Unknown, NAUSEA/DIZZINESS, 09/08/16) Tramadol (Unverified Allergy, Unknown, NAUSEA/DIZZINESS, 09/08/16) KEENA Inhibitors (Verified Adverse Reaction, Intermediate, COUGH, 09/08/16) Medications Current Inpatient Medications Medications (Trade) Dose Ordered Sig/Farhan Route Start Time Stop Time Status Last Admin Dose Admin Al Hydrox/Mg Hydrox/Simethicone (Maalox Max Susp) 15 ml Q4H PRN PO 09/08/16 14:15 10/08/16 14:14 Magnesium Hydroxide (Milk Of Magnesia Susp) 30 ml Q12H PRN PO 09/08/16 14:15 10/08/16 14:14 Ondansetron HCl (Zofran Inj) 4 mg Q6H PRN IV 09/08/16 14:15 10/08/16 14:14 09/10/16 00:15 4 MG Polyethylene (Miralax Powder Packet) 17 gm DAILY PRN PO 09/08/16 14:15 10/08/16 14:14 09/08/16 20:36 17 GM Dexamethasone Sodium Phosphate 4 mg/Syringe 1 ml @ 1 mls/min Q6H IV 09/08/16 22:00 10/08/16 21:59 09/10/16 10:24 1 MLS/MIN Miscellaneous (Iv Fluids Completed) 1 ea PRN PRN N/A 09/08/16 14:30 09/08/17 14:29 Albuterol (Ventolin Hfa Inhaler) 2 puffs Q4H PRN INH 09/08/16 14:30 10/08/16 14:29 Amlodipine Besylate (Norvasc Tab) 5 mg QAM PO 09/09/16 09:00 10/09/16 08:59 09/10/16 08:50 5 MG Dicyclomine HCl (Bentyl Cap) 10 mg TID PRN PO 09/08/16 14:30 10/08/16 14:29 Docusate Sodium (coLACE CAP) 100 mg BID PO 09/08/16 21:00 10/08/16 20:59 09/10/16 08:58 100 MG EZETIMIBE (Zetia Tab) 10 mg HS PO 09/08/16 21:00 10/08/16 20:59 09/09/16 21:20 10 MG Salmeterol Xinafoate/ Fluticasone (Advair Diskus 250/50 Inh) 1 puff Q12 INH 09/08/16 21:00 10/08/16 20:59 09/10/16 08:48 1 PUFF Fluticasone Propionate (Flonase Nasal [place]) 2 sprays DAILY PRN SHY 09/08/16 14:30 10/08/16 14:29 Furosemide (Lasix Tab) 20 mg QAM PO 09/09/16 09:00 10/09/16 08:59 09/10/16 08:59 20 MG Hyoscyamine Sulfate (Levsin Tab) 0.125 mg Q6 PRN PO 09/08/16 14:30 10/08/16 14:29 Losartan Potassium (coZAAR TAB) 100 mg QAM PO 09/09/16 09:00 10/09/16 08:59 09/10/16 08:49 100 MG Montelukast Sodium (Singulair Tab) 10 mg HS PO 09/08/16 21:00 10/08/16 20:59 09/09/16 21:20 10 MG Multivitamins/ Minerals (Multivitamin W/ Minerals Tab) 2 tab QAM PO 09/09/16 09:00 10/09/16 08:59 09/10/16 09:00 2 TAB Potassium Chloride (Klor-Con Tab) 20 meq HS PO 09/08/16 21:00 10/08/16 20:59 09/09/16 21:20 20 MEQ Pravastatin Sodium (Pravachol Tab) 40 mg HS PO 09/08/16 21:00 10/08/16 20:59 09/09/16 21:21 40 MG Ranitidine HCl (zANTac TAB) 150 mg DAILY PO 09/09/16 09:00 10/09/16 08:59 09/10/16 09:00 150 MG Morphine Sulfate (MoRPHine SULFATE INJ) 4 mg Q2H PRN IV 09/08/16 14:30 09/22/16 14:29 09/10/16 07:31 4 MG Polyethylene (Miralax Powder Packet) 17 gm DAILY PO 09/09/16 09:00 10/09/16 08:59 09/10/16 09:01 17 GM Gabapentin (Neurontin Cap) 300 mg BID PO 09/10/16 10:00 10/10/16 09:59 09/10/16 10:24 300 MG Nortriptyline HCl (Pamelor Cap) 10 mg HS PO 09/10/16 21:00 10/10/16 20:59 Review of Systems 10 point review of systems was otherwise negative aside from HPI Physical Exam Height & Weight: Height 5 feet, 0 inches. Weight 96.700 (Kilograms) 213 (Pounds) Last Vital Signs Documentation Date Time Temp Pulse Resp B/P (MAP) Pulse Ox O2 Delivery O2 Flow Rate FiO2 09/10/16 12:07 36.8 69 18 166/87 (113) 91 Room Air 09/10/16 07:59 2.0 Exam: Awake alert 3 appearing in no acute distress sitting in her bedside chair next line pupils are equally round and reactive to light and She is calm and cooperative throughout examination She is tender over her lumbosacral junction left greater than right she has decreased range of motion in all planes of her lumbar spine particularly with extension to about 10. She is obese and deconditioned She is nontender over bilateral SI joints or greater trochanters there is no significant spasm noted on today's examination over her lumbar paravertebral spinous musculature. She has 5 out of 5 strength bilateral lower extremities equal throughout with intact sensation and 1+ DTRs of bilateral L4 and S1 She has a negative right straight leg raise she has a significantly positive left straight leg raise worse with Achilles stretch no appreciable ankle clonus Gait is guarded she utilizes a walker for assistance with ambulation Cranial nerves are grossly intact Laboratory Laboratory Review: results personally reviewed by me Laboratory Results (Last CBC): 09/10/16 06:[address] Findings Patient: FARHANSUSAN SUBRAMANIAN [address] [facility] [facility] Rec: [id number] Address2: Acct ID: [id number] [facility] Zip: [place] [address] Date: 1935 Sex: F Room/Bed: Ref Phy: No Doctor, Assigned SC: GEO Att Phy: Report #: [id number] Whit Phy: Derrick Hare D.O. Test: LSWO Admit Phy: Pin Ball Machine Mechanic: SHI Interpreting Phy: Constantino Crandall MD Diagnosis: SCIATICA Ordering Phy: Linh Tracy PA-C Service Date: 09/08/16 Admit Date: 09/08/16 MNE: [id number] CONF: DICTATED BY: Constantino Crandall MD]] CC: Linh Tracy ., Derrick Wilson D.Delores No Doctor, Assigned Jd Anderson M.D. Endcc: [~ rep ct add3]] CT OF THE LUMBAR SPINE WITHOUT CONTRAST CT DOSE: 2016.41 mGy.cm CLINICAL HISTORY: Low back pain radiating to left leg. Elevated INR. Concern for paraspinal hematoma. TECHNIQUE: Axial images of lumbar spine were obtained without IV contrast. Sagittal and coronal reconstructions were viewed. COMPARISON STUDY: Lumbar spine radiographs September 02, 2016. FINDINGS: 3 mm of anterolisthesis of L3 on L4 and 4 mm of anterolisthesis of L4 and L5 is unchanged. Vertebral body heights are maintained. There is no acute lumbar spine fracture or subluxation. No suspicious lesions identified by CT. Paravertebral soft tissues are unremarkable. There is no paraspinal hematoma. The central canal and neural foramen are suboptimally assessed by CT but no epidural fluid collection is identified. There is suspected moderate central canal stenosis at L3-L4 and L4-L5. This is unchanged from prior exams. There is mild multilevel neural foraminal stenosis. Left colon diverticulosis is noted within visualized portions of the colon. IMPRESSION: 1. No acute lumbar spine fracture or subluxation [place] Drug Monitoring Program Search Results: patient reviewed within database Opioid Risk Assessment Risk assessment performed, no issues identified Assessment 1. Multifactorial multilevel lumbar spinal stenosis worst at L4 to 5 2. Lumbar radiculitis 3. Lumbago 4. Paroxysmal atrial fibrillation on chronic warfarin administration with an INR of 1.8 today Recommendations 1. I spoke with Dr. Brooke today about the timing of an epidural steroid injection for her and regards to her Coumadin administration. She will receive vitamin K in preparation for an L4 to 5 interlaminar lumbar epidural steroid injection hopefully to be provided tomorrow morning. She'll be made nothing by mouth after midnight and provided that her INR is 1.2 or less we'll plan for injection at that time. It can take up to 2 weeks for epidural steroid injections to have maximal effect. 2. Initiate her on gabapentin 300 mg by mouth twice a day as well as nortriptyline 10 mg by mouth daily at bedtime to diminish her neuropathic type pain. She was counseled on the risks and benefits of these medications 3. Continue her other medications as current with the exception of holding warfarin. 4. Physical therapy and occupational therapy as previous. The patient does live home alone by herself and may need to consider other housing options for the short-term. [employer] Voice Recognition This chart was completed in part utilizing [employer] Voice Recognition Software. Random word insertions, pronoun errors, and incomplete sentences are an occasional consequence of this system due to software limitations and ambient noise. Any questions or concerns about the content, text or information contained within the body of this dictation should be directly addressed to the provider for clarification.
--- NOTE | 2016-09-10 17:24 | Progress Note ---
Subjective Date of Service: Sep 10, 2016. Subjective pt with fairly intractable pain, was seen by pain management and will benefit from an injection but will likely need assistance post procedure until injection causes symptom relief Pt relates the pain to being intense, almost non tolerable, left leg not below knee Problem List Medical Problems: (1) Back pain Status: Acute (2) Constipation Status: Acute (3) Diverticulosis Status: Acute (4) Gastritis Status: Acute (5) History of constipation Status: Acute (6) Hypoxia Status: Acute (7) Intractable back pain Status: Acute (8) Leukocytosis Status: Acute (9) Lumbar disc herniation with radiculopathy Status: Acute (10) Musculoskeletal back pain Status: Acute (11) Right sided abdominal pain Status: Acute (12) Sciatica Status: Acute (13) Sciatica Status: Acute (14) Sciatica Status: Acute (15) Strain of lumbar region Status: Acute Review of Systems Constitutional: No fever, No chills, No weakness Respiratory: No cough, No shortness of breath, No dyspnea on exertion Cardiac: No chest pain, No edema, No claudication Abdomen: No pain, No nausea, No vomiting, No diarrhea Musculoskeletal: + joint pain, + muscle pain Neurologic: + weakness, + numbness/tingling Objective Vital Signs Date Time Temp Pulse Resp B/P (MAP) Pulse Ox O2 Delivery O2 Flow Rate FiO2 09/10/16 07:59 36.5 73 18 163/86 (111) 93 Nasal Cannula 2.0 09/09/16 23:40 Nasal Cannula 2.0 09/09/16 22:57 36.7 71 14 144/82 (102) 95 Nasal Cannula 2.0 09/09/16 19:00 36.8 70 18 125/73 (90) 94 Nasal Cannula 2.0 09/09/16 18:30 Nasal Cannula 2.0 09/09/16 18:27 36.7 69 22 96 2.0 09/09/16 16:00 96 Nasal Cannula 2.0 09/09/16 15:47 36.7 69 22 142/79 (100) 96 Nasal Cannula 2.0 09/09/16 12:04 36.9 73 16 132/80 (97) 95 Nasal Cannula 2.0 09/09/16 12:00 95 Nasal Cannula 2.0 Physical Exam General Appearance: WD/WN, + moderate distress Eyes: PERRL, EOMI Neck: supple, no JVD Respiratory/Chest: chest non-tender, lungs clear, normal breath sounds Cardiovascular: regular rate, rhythm, no murmur Abdomen: normal bowel sounds, non tender, soft Extremities: no pedal edema, no calf tenderness Neurologic/Psychiatric: alert, oriented x 3 Laboratory Results Last 24 Hours Test 09/10/16 06:27 White Blood Count 15.21 K/uL Red Blood Count 4.49 M/uL Hemoglobin 14.1 g/dL Hematocrit 42.5 % Mean Corpuscular Volume 94.7 fL Mean Corpuscular Hemoglobin 31.4 pg Mean Corpuscular Hemoglobin Concent 33.2 g/dl RDW Standard Deviation 50.3 fL RDW Coefficient of Variation 14.6 % Platelet Count 202 K/uL Mean Platelet Volume 11.1 fL Prothrombin Time 20.3 SECONDS Prothromb Time International Ratio 1.8 Sodium Level 142 mmol/L Potassium Level 4.7 mmol/L Chloride Level 104 mmol/L Carbon Dioxide Level 33 mmol/L Anion Gap 5.0 mmol/L Blood Urea Nitrogen 15 mg/dl Creatinine 0.55 mg/dl Est Creatinine Clear Calc Drug Dose 80.7 ml/min Estimated GFR () 100.5 Estimated GFR (Non- 86.7 BUN/Creatinine Ratio 26.9 Random Glucose 157 mg/dl Calcium Level 8.5 mg/dl Assessment and Plan 81 F with intractable LBP with radicular component which failed outpt treatment( Including consitpation from pain meds) she has a history of HTN, HLD, paroxysmal afib, pacemaker placement, asthma, MARIBETH, and lower extremity edema Intractable back pain radiating to left leg w/numbness--secondary to Spinal stenosis, spondylolisthesis. -CT shows suspected moderate central canal stenosis at L3-L4 and L4-L5 which is unchanged from prior exams -Decadron 10 mg IV 1, then 4 mg IV q6h, Morphine 4 mg IV q2h prn pain -Ortho recommends: hold Coumadin, given vitamin K 09/10, interventional pain management for consideration of local injections if INR is 1.2 or so, may need subacute or acute rehab after to improve mobility. If no relief she may require decompression involving at least the L3-L4 and L4-L5 levels. Atrial flutter/afib- rate controlled, Leukocytosis-secondary to recent steroid use (Prednisone 20 mg PO x 4 days) HTN-- amlodipine 5 mg PO qd and losartan 100 mg PO qd Asthma clinically stable Singulair 10 mg PO qd and Advair BID MARIBETH CPAP with 2 L O2 at night Code Status -Level I, FULL RESUSCITATION Continued [facility] stay due to: multiple IV medications needed Discharge planning: uncertain
[2016-09-10] MEDS: NORTRIPTYLINE HCL 10 MG CAP PO SCH (20:54)
[2016-09-10] MEDS: POTASSIUM CHLORIDE 20 MEQ TABCR PO SCH (20:54)
[2016-09-10] MEDS: PRAVASTATIN SOD 40 MG TAB PO SCH (20:54)
[2016-09-10] MEDS: MONTELUKAST SOD 10 MG TAB PO SCH (20:55)
[2016-09-10] MEDS: EZETIMIBE 10MG TAB PO SCH (20:55)
[2016-09-11] MEDS: DEXAMETHASONE INJ 4 MG in SYRINGE 0 ML IV SCH ×4 (03:47→21:40)
[2016-09-11 04:37] LABS: MEAN CELL VOLUME 93.3 fL (80-100); MEAN CORPUSCULAR HEMOGLOBIN 30.4 pg (25-34); MEAN CORPUSCULAR HGB CONC 32.6 g/dl (32-36); MEAN PLATELET VOLUME 10.7 fL (7.4-10.4); PLATELET COUNT 212 K/uL (130-400); RED BLOOD COUNT 4.61 M/uL (4.2-5.4); WHITE BLOOD COUNT 15.95 K/uL (4.8-10.8)
[2016-09-11 04:46] LABS: INR 1.1 (0.9-1.1)
[2016-09-11 04:56] LABS: BUN/CREATININE RATIO 31.4 (10-20); CALCIUM 8.4 mg/dl (8.5-10.1); CREATININE 0.65 mg/dl (0.60-1.20); POTASSIUM 4.4 mmol/L (3.5-5.1)
[2016-09-11 06:57] VITALS: BP 148/68; PULSE 70; TEMP 36.8; O2SAT 94
[2016-09-11] MEDS: FLUTICASONE/SALMETEROL 250/50 (ADVAIR) 14 PUFF/1 INHALER INH SCH ×2 (07:46→21:39)
[2016-09-11] MEDS: DOCUSATE SODIUM 100 MG CAP PO SCH ×2 (07:47→21:39)
[2016-09-11] MEDS: LOSARTAN POTASSIUM 50 MG TAB PO SCH (07:48)
[2016-09-11] MEDS: AMLODIPINE BESYLATE 5 MG TAB PO SCH (07:49)
[2016-09-11] MEDS: GABAPENTIN 300 MG CAP PO SCH ×3 (07:49→21:39)
[2016-09-11] MEDS: RANITIDINE HCL 150 MG TAB PO SCH (07:49)
[2016-09-11] MEDS: CEROVITE ADV FORMULA TAB PO SCH (07:50)
[2016-09-11] MEDS: FUROSEMIDE 20 MG TAB PO SCH (07:50)
[2016-09-11] MEDS: POLYETHYLENE (MIRALAX) 17 GM PACK PO SCH (07:51)
[2016-09-11] MEDS ORDERED: TRIAMCINOLONE ACET 40 MG/ML VIAL ONE (08:04)
--- NOTE | 2016-09-11 09:19 | Pain Management Progress Note ---
Pain Management Progress Note Date of Service Sep 11, 2016. Subjective I saw 81-year-old Ms. Perkins at the [facility]. She was scheduled to have a lumbar epidural steroid injection today at L4 to 5. However whenever she was placed in the prone position a zoster rash was noted in her area of pain. The procedure was subsequently aborted and taken back up to her room. She continues to note burning neuropathic type pain in her left lower extremity. She admits that gabapentin has been effective along with nortriptyline and diminishing her burning type pain and she reports that she slept soundly last night for the first time in about a week and a half. She denies any new complaints complaints or bladder incontinence motor weakness foot drop or falls. She notes that she has some mental sedation with morphine IV dosing. Objective Vital Signs: Last Vital Signs Documentation Date Time Temp Pulse Resp B/P (MAP) Pulse Ox O2 Delivery O2 Flow Rate FiO2 09/11/16 06:57 36.8 70 18 148/68 (94) 94 Room Air 09/10/16 22:33 2.0 Physical Exam: AAOx3 in NAD residing in bed slight loss of lumbar lordosis, Left L4-5-S1 zoster blister rash along dermatome with mild allodynia 5/5 strength BL LE no ankle clonus gait no observed. Able to log roll without much difficulty Laboratory Laboratory Review: results personally reviewed by me Laboratory Findings 09/11/16 04:30 Assessment 1. Herpes Zoster LLE 2. 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 Will abort CARIN today 2. Will increase gabapentin to 300mg po tid and continue nortriptylline at 10mg po qhs 3. Will initiate valtrex 1000mg PO TID x7days 4. Will initiate nucynta 50mg po q4prn pain and reserve morphine IV for breakthrough Dragon Voice Recognition This chart was completed in part utilizing [employer] Voice Recognition Software. Random word insertions, pronoun errors, and incomplete sentences are an occasional consequence of this system due to software limitations and ambient noise. Any questions or concerns about the content, text or information contained within the body of this dictation should be directly addressed to the provider for clarification.
[2016-09-11] MEDS: TAPENTADOL HCL 50 MG TAB PO PRN ×3 (11:24→23:24)
[2016-09-11 16:41] VITALS: BP 160/85; PULSE 71; TEMP 36.8; O2SAT 94
--- NOTE | 2016-09-11 18:36 | Progress Note ---
Subjective Date of Service: Sep 11, 2016. Subjective this pt has zoster outbreak now explaining her pain, pain control is improved. will have PT /OT evaluation for possible assistance needed post discharge Problem List Medical Problems: (1) Back pain Status: Acute (2) Constipation Status: Acute (3) Diverticulosis Status: Acute (4) Gastritis Status: Acute (5) History of constipation Status: Acute (6) Hypoxia Status: Acute (7) Intractable back pain Status: Acute (8) Leukocytosis Status: Acute (9) Lumbar disc herniation with radiculopathy Status: Acute (10) Musculoskeletal back pain Status: Acute (11) Right sided abdominal pain Status: Acute (12) Sciatica Status: Acute (13) Sciatica Status: Acute (14) Sciatica Status: Acute (15) Strain of lumbar region Status: Acute Review of Systems Constitutional: No fever, No chills Cardiac: No chest pain, No edema Abdomen: No pain, No nausea, No vomiting, No diarrhea Musculoskeletal: + muscle pain, No joint pain, No swelling, No calf pain Skin: + rash, + new/changing skin lesions Objective Vital Signs Date Time Temp Pulse Resp B/P (MAP) Pulse Ox O2 Delivery O2 Flow Rate FiO2 09/11/16 06:57 36.8 70 18 148/68 (94) 94 Room Air 09/10/16 23:35 CPAP 09/10/16 22:52 36.5 72 18 135/81 (99) 96 CPAP 09/10/16 22:33 85 95 2.0 09/10/16 19:44 37.1 69 18 116/69 (85) 92 Room Air 09/10/16 16:30 Room Air 09/10/16 15:39 36.7 69 16 144/83 (103) 92 Room Air 09/10/16 12:07 36.8 69 18 166/87 (113) 91 Room Air 09/10/16 11:47 36.6 67 18 152/80 (104) 91 Room Air 09/10/16 11:17 36.8 70 18 138/80 (99) 91 Room Air 09/10/16 07:59 36.5 73 18 163/86 (111) 93 Nasal Cannula 2.0 Physical Exam General Appearance: WD/WN, no apparent distress Eyes: PERRL, EOMI Neck: supple, no JVD Respiratory/Chest: chest non-tender, lungs clear, normal breath sounds Cardiovascular: regular rate, rhythm, no murmur Abdomen: normal bowel sounds, non tender, soft Extremities: no pedal edema, no calf tenderness, + pertinent finding (clusters of lesions on left buttock and trailing toward posterior leg) Laboratory Results Last 24 Hours Test 09/11/16 04:30 White Blood Count 15.95 K/uL Red Blood Count 4.61 M/uL Hemoglobin 14.0 g/dL Hematocrit 43.0 % Mean Corpuscular Volume 93.3 fL Mean Corpuscular Hemoglobin 30.4 pg Mean Corpuscular Hemoglobin Concent 32.6 g/dl RDW Standard Deviation 49.8 fL RDW Coefficient of Variation 14.7 % Platelet Count 212 K/uL Mean Platelet Volume 10.7 fL Prothrombin Time 12.0 SECONDS Prothromb Time International Ratio 1.1 Sodium Level 142 mmol/L Potassium Level 4.4 mmol/L Chloride Level 103 mmol/L Carbon Dioxide Level 33 mmol/L Anion Gap 6.0 mmol/L Blood Urea Nitrogen 20 mg/dl Creatinine 0.65 mg/dl Est Creatinine Clear Calc Drug Dose 68.3 ml/min Estimated GFR () 95.2 Estimated GFR (Non- 82.1 BUN/Creatinine Ratio 31.4 Random Glucose 162 mg/dl Calcium Level 8.4 mg/dl Assessment and Plan 81 F with intractable LBP with radicular component which failed outpt treatment( Including consitpation from pain meds) she has a history of HTN, HLD, paroxysmal afib, pacemaker placement, asthma, MARIBETH, and lower extremity edema Intractable back pain, cutaneous outbreak and history now seem that pain is most consistent with Zoster outbreak, also pain is improved with neurontin, started valtrex 1000 tid -CT shows suspected moderate central canal stenosis at L3-L4 and L4-L5 which is unchanged from prior exams stop decadron restart Coumadin after given vitamin K 09/10, Atrial flutter/afib-continues to be rate controlled, Leukocytosis-seems secondary to recent steroid use (prior Prednisone 20 mg PO x 4 days) HTN-- , amlodipine 5 mg PO qd and losartan 100 mg PO qd Asthma continue s to be stable on Singulair 10 mg PO qd and Advair BID MARIBETH CPAP with 2 L O2 at night Code Status -Level I, FULL RESUSCITATION Continued [facility] stay due to: multiple IV medications needed Discharge planning: uncertain
[2016-09-11] MEDS: WARFARIN SOD 5 MG TAB PO SCH (19:46)
[2016-09-11] MEDS: NORTRIPTYLINE HCL 10 MG CAP PO SCH (21:38)
[2016-09-11] MEDS: EZETIMIBE 10MG TAB PO SCH (21:38)
[2016-09-11] MEDS: ACYCLOVIR 5% OINT 15 GM TUBE EXT SCH (21:38)
[2016-09-11] MEDS: PRAVASTATIN SOD 40 MG TAB PO SCH (21:39)
[2016-09-11] MEDS: MONTELUKAST SOD 10 MG TAB PO SCH (21:39)
[2016-09-11] MEDS: POTASSIUM CHLORIDE 20 MEQ TABCR PO SCH (21:40)
[2016-09-11 22:28] VITALS: PULSE 84; O2SAT 95
[2016-09-11 23:10] VITALS: BP 147/83; PULSE 72; TEMP 36.6; O2SAT 98
[2016-09-12] MEDS: DEXAMETHASONE INJ 4 MG in SYRINGE 0 ML IV SCH ×2 (04:33→10:11)
[2016-09-12 06:58] LABS: HEMATOCRIT 42.7 % (37-47); MEAN CELL VOLUME 93.6 fL (80-100); MEAN CORPUSCULAR HEMOGLOBIN 31.4 pg (25-34); MEAN CORPUSCULAR HGB CONC 33.5 g/dl (32-36); PLATELET COUNT 208 K/uL (130-400); RED BLOOD COUNT 4.56 M/uL (4.2-5.4); WHITE BLOOD COUNT 13.35 K/uL (4.8-10.8)
[2016-09-12] MEDS: TAPENTADOL HCL 50 MG TAB PO PRN ×3 (07:28→23:15)
[2016-09-12 07:31] LABS: BUN/CREATININE RATIO 34.9 (10-20); CALCIUM 8.4 mg/dl (8.5-10.1); CREATININE 0.61 mg/dl (0.60-1.20); POTASSIUM 4.4 mmol/L (3.5-5.1)
[2016-09-12 07:32] VITALS: BP 148/93; PULSE 71; TEMP 36.8; O2SAT 93
[2016-09-12] MEDS: DOCUSATE SODIUM 100 MG CAP PO SCH ×2 (09:00→21:41)
[2016-09-12] MEDS: POLYETHYLENE (MIRALAX) 17 GM PACK PO SCH (09:00)
[2016-09-12] MEDS: FLUTICASONE/SALMETEROL 250/50 (ADVAIR) 14 PUFF/1 INHALER INH SCH ×2 (09:12→21:39)
[2016-09-12] MEDS: ACYCLOVIR 5% OINT 15 GM TUBE EXT SCH ×3 (09:12→21:41)
[2016-09-12] MEDS: FUROSEMIDE 20 MG TAB PO SCH (09:15)
[2016-09-12] MEDS: LOSARTAN POTASSIUM 50 MG TAB PO SCH (09:15)
[2016-09-12] MEDS: CEROVITE ADV FORMULA TAB PO SCH (09:16)
[2016-09-12] MEDS: GABAPENTIN 300 MG CAP PO SCH ×3 (09:17→21:41)
[2016-09-12] MEDS: AMLODIPINE BESYLATE 5 MG TAB PO SCH (09:17)
[2016-09-12] MEDS: RANITIDINE HCL 150 MG TAB PO SCH (09:20)
--- NOTE | 2016-09-12 14:45 | Progress Note ---
Subjective Date of Service: Sep 12, 2016. Subjective pts radicular back pain and painful rash are better, perhaps 3/, no has developed diarrhea and has history of previous c diff Problem List Medical Problems: (1) Back pain Status: Acute (2) Constipation Status: Acute (3) Diverticulosis Status: Acute (4) Gastritis Status: Acute (5) History of constipation Status: Acute (6) Hypoxia Status: Acute (7) Intractable back pain Status: Acute (8) Leukocytosis Status: Acute (9) Lumbar disc herniation with radiculopathy Status: Acute (10) Musculoskeletal back pain Status: Acute (11) Right sided abdominal pain Status: Acute (12) Sciatica Status: Acute (13) Sciatica Status: Acute (14) Sciatica Status: Acute (15) Strain of lumbar region Status: Acute Review of Systems Constitutional: No fever, No chills ENT: No hearing loss, No unusual epistaxis Respiratory: No cough, No sputum, No shortness of breath Cardiac: No chest pain, No orthopnea, No PND, No edema Abdomen: No pain, No nausea, No vomiting, No diarrhea Musculoskeletal: No joint pain, No muscle pain, No swelling Neurologic: No memory loss, No weakness Psychiatric: No depression symptoms, No anhedonism Objective Vital Signs Date Time Temp Pulse Resp B/P (MAP) Pulse Ox O2 Delivery O2 Flow Rate FiO2 09/12/16 07:32 36.8 71 16 148/93 (111) 93 Room Air 09/12/16 07:15 Room Air 09/11/16 23:35 CPAP 09/11/16 23:10 36.6 72 16 147/83 (104) 98 BiPAP 09/11/16 22:28 84 95 2.0 09/11/16 19:30 Room Air 09/11/16 16:41 36.8 71 18 160/85 (110) 94 Room Air 09/11/16 16:40 Room Air Physical Exam General Appearance: WD/WN, + mild distress Eyes: PERRL, EOMI Neck: supple, no JVD Respiratory/Chest: chest non-tender, lungs clear, normal breath sounds Cardiovascular: regular rate, rhythm, no murmur Abdomen: normal bowel sounds, non tender, soft Extremities: no pedal edema, no calf tenderness Neurologic/Psychiatric: alert, oriented x 3 Skin: + rash, + pertinent finding (less reddened ) Laboratory Results Last 24 Hours Test 09/12/16 06:35 White Blood Count 13.35 K/uL Red Blood Count 4.56 M/uL Hemoglobin 14.3 g/dL Hematocrit 42.7 % Mean Corpuscular Volume 93.6 fL Mean Corpuscular Hemoglobin 31.4 pg Mean Corpuscular Hemoglobin Concent 33.5 g/dl RDW Standard Deviation 49.7 fL RDW Coefficient of Variation 14.7 % Platelet Count 208 K/uL Mean Platelet Volume 11.0 fL Prothrombin Time 11.0 SECONDS Prothromb Time International Ratio 1.0 Sodium Level 141 mmol/L Potassium Level 4.4 mmol/L Chloride Level 104 mmol/L Carbon Dioxide Level 30 mmol/L Anion Gap 7.0 mmol/L Blood Urea Nitrogen 21 mg/dl Creatinine 0.61 mg/dl Est Creatinine Clear Calc Drug Dose 72.8 ml/min Estimated GFR () 97.2 Estimated GFR (Non- 83.8 BUN/Creatinine Ratio 34.9 Random Glucose 143 mg/dl Calcium Level 8.4 mg/dl Assessment and Plan 81 F with intractable LBP with radicular component which failed outpt treatment( Including consitpation from pain meds) she has a history of HTN, HLD, paroxysmal afib, pacemaker placement, asthma, MARIBETH, and lower extremity edema Intractable back pain, cutaneous outbreak and history now seem that pain is most consistent with Zoster outbreak, also pain is improved with neurontin, started valtrex 1000 tid, plus topical acyclovir per patient request -CT shows suspected moderate central canal stenosis at L3-L4 and L4-L5 which is unchanged from prior exams stop decadron diarrhea will check c diff restarted Coumadin after given vitamin K 09/10,INr remains low, pt requests INr on discharge sent to Dr De Jesus Atrial flutter/afib stable rate HTN-- controlled with, amlodipine 5 mg PO qd and losartan 100 mg PO qd Asthma no symptoms Singulair 10 mg PO qd and Advair BID MARIBETH CPAP with 2 L O2 at night Code Status -Level I, FULL RESUSCITATION Continued [facility] stay due to: multiple IV medications needed Discharge planning: uncertain
[2016-09-12 15:09] VITALS: BP 147/82; PULSE 71; TEMP 36.7; O2SAT 92
[2016-09-12] MEDS: WARFARIN SOD 5 MG TAB PO SCH (16:36)
[2016-09-12] MEDS: PRAVASTATIN SOD 40 MG TAB PO SCH (21:40)
[2016-09-12] MEDS: EZETIMIBE 10MG TAB PO SCH (21:40)
[2016-09-12] MEDS: MONTELUKAST SOD 10 MG TAB PO SCH (21:40)
[2016-09-12] MEDS: NORTRIPTYLINE HCL 10 MG CAP PO SCH (21:40)
[2016-09-12] MEDS: POTASSIUM CHLORIDE 20 MEQ TABCR PO SCH (21:41)
[2016-09-12 22:21] VITALS: PULSE 75; O2SAT 96
[2016-09-12 23:09] VITALS: BP 153/83; PULSE 73; TEMP 36.6; O2SAT 96
[2016-09-13] MEDS: TAPENTADOL HCL 50 MG TAB PO PRN ×3 (04:08→12:20)
[2016-09-13 07:40] VITALS: BP 143/84; PULSE 70; PULSE 75; TEMP 36.7; O2SAT 95
[2016-09-13 07:48] VITALS: O2SAT 95
[2016-09-13 07:53] LABS: INR 1.2 (0.9-1.1); PROTHROMBIN TIME (PATIENT) 12.5 SECONDS (9.0-12.0)
[2016-09-13] MEDS: POLYETHYLENE (MIRALAX) 17 GM PACK PO SCH (08:11)
[2016-09-13] MEDS: ACYCLOVIR 5% OINT 15 GM TUBE EXT SCH (08:13)
[2016-09-13] MEDS: CEROVITE ADV FORMULA TAB PO SCH (08:13)
[2016-09-13] MEDS: FLUTICASONE/SALMETEROL 250/50 (ADVAIR) 14 PUFF/1 INHALER INH SCH (08:13)
[2016-09-13] MEDS: GABAPENTIN 300 MG CAP PO SCH (08:15)
[2016-09-13] MEDS: FUROSEMIDE 20 MG TAB PO SCH (08:16)
[2016-09-13] MEDS: RANITIDINE HCL 150 MG TAB PO SCH (08:16)
[2016-09-13] MEDS: LOSARTAN POTASSIUM 50 MG TAB PO SCH (08:16)
[2016-09-13] MEDS: DOCUSATE SODIUM 100 MG CAP PO SCH (08:17)
[2016-09-13] MEDS: AMLODIPINE BESYLATE 5 MG TAB PO SCH (08:18)
[2016-09-13 08:20] LABS: CREATININE 0.73 mg/dl (0.60-1.20); POTASSIUM 3.8 mmol/L (3.5-5.1)
[2016-09-13 08:26] LABS: CALCIUM 8.8 mg/dl (8.5-10.1)
[2016-09-13 09:31] VITALS: PULSE 70
[2016-09-13] MEDS ORDERED: NORT10CA4 PO (10:38)
[2016-09-13] MEDS ORDERED: ZVRO EXT (10:38)
[2016-09-13] MEDS ORDERED: NRN300 PO (10:38)
[2016-09-13] MEDS ORDERED: VLT500 PO (10:38)
[2016-09-13] MEDS ORDERED: NCY50 PO (10:42)
--- NOTE | 2016-09-13 10:45 | Discharge Instructions ---
Discharge Instructions Date of Service Sep 13, 2016. Admission Reason for Admission: Atrial Flutter, Intractable Back Pain Discharge Discharge Diagnosis / Problem: zoster, with radicular neuropathic pain Discharge Goals Goal(s): Diagnostic testing, Therapeutic intervention Activity Recommendations Activity Limitations: resume your previous activity . Current Hospital Diet Patient's current hospital diet: AHA Diet (Heart Healthy) Discharge Diet Recommended Diet: Regular Diet Pending Studies Studies pending at discharge: no Medical Emergencies . Who to Call and When: Medical Emergencies: If at any time you feel your situation is an emergency, please call 911 immediately. . Non-Emergent Contact Non-Emergency issues call your: Primary Care Provider Call Non-Emergent contact if: temperature is above 101, your pain is unusual for you . . "Provider Documentation" section prepared by Adam Brooke. . VTE Core Measure Inpt VTE Proph given/why not?: Warfarin (Coumadin), T.E.D. Stockings, SCD's
[2016-09-13 11:07] VITALS: BP 143/84; PULSE 70; TEMP 36.7; O2SAT 95
--- NOTE | 2016-09-13 17:28 | Discharge Summary ---
Discharge Summary Date of Service Sep 13, 2016. Discharge Summary Admission Date: Sep 08, 2016 at 14:16 Discharge Date: Sep 13, 2016 Discharge Disposition: Home Principal Diagnosis: zoster neuropathy Immunizations: Have You Had Influenza Vaccine: Unknown History of Tetanus Vaccine?: Unknown History of Pneumococcal: Unknown History of Hepatitis B Vaccine: Unknown Medication Reconciliation New Medications: Acyclovir (Zovirax) 45 Appln/15 Gm Oint 1 APPLN EXT BID, #1 TUBE Gabapentin (Gabapentin) 300 Mg Cap 300 MG PO TID, #90 CAP 4 Refills Nortriptyline HCl (Nortriptyline HCl) 10 Mg Cap 10 MG PO HS, #30 CAP 5 Refills Tapentadol HCl (Nucynta) 50 Mg Tab 50 MG PO Q4H PRN for Pain, #30 TAB Valacyclovir HCl (Valacyclovir HCl) 500 Mg Tab 1000 MG PO TID, #15 TAB Continued Medications: Albuterol Hfa (Ventolin Hfa) 200 Puffs/46578 Mcg Aers 2 PUFFS INH Q4H PRN for SOB/Wheezing, #1 INHALER Amlodipine Besylate (Amlodipine Besylate) 5 Mg Tab 5 MG PO QAM Dicyclomine Hcl (Dicyclomine Hcl) 10 Mg Cap 1 CAP PO TID PRN for ABDOMINAL PAIN Docusate Sodium (Colace) 100 Mg Cap 100 MG PO BID, #60 CAP Ezetimibe (Zetia) 10 Mg Tab 10 MG PO HS Fish Oil (Burnham-3) 1 Ea Cap 1 CAP PO HS, CAP Fluticasone Prop/Salmeterol (Advair Diskus 250/50 60 Dose) 1 Ea Aerp 1 PUFF INH Q12 Fluticasone Propionate (Fluticasone Propionate) 120 Sprays/6000 Mcg Inha 2 SPRAYS SHY DAILY PRN for ALLERGIES Furosemide (Furosemide) 20 Mg Tab 20 MG PO QAM Hyoscyamine Sulfate (Hyoscyamine Sulfate) 0.125 Mg Tab 0.125 MG PO Q6 PRN for ABDOMINAL PAIN Losartan Potassium (Cozaar) 100 Mg Tab 100 MG PO QAM Lutein-Zeaxanthin (Lutein) 1 Cap Cap 1 CAP PO QAM Montelukast Sod (Montelukast Sodium) 10 Mg Tab 10 MG PO HS Multivitamin (Multivitamin) Tab 1 TAB PO QAM, TAB Ocuvite Preservision (Ocuvite Preservision) 1 Tab Tab 2 TAB PO QAM Potassium Chloride (Potassium Chloride ER) 20 Meq Tabcr 20 MEQ PO HS Pravastatin Sodium (Pravastatin Sodium) 40 Mg Tab 40 MG PO HS Probiotic Product (Probiotic) 1 Cap Cap 1 CAP PO BID Ranitidine (Zantac) 150 Mg Tab 1 TAB PO DAILY for 15 Days, #15 TAB 3 Refills Warfarin Sod (Coumadin) 2.5 Mg Tab 2.5 MG PO UD, TAB Take 2.5 mg Saturday, , Saturday Warfarin Sodium (Warfarin Sodium) 5 Mg Tab 5 MG PO UD Take 5 mg Saturday, Saturday, Saturday, Saturday Discontinued Medications: Oxycodone Ir (Roxicodone Ir) 5 Mg Tab 1-2 TAB PO Q4H PRN for Severe Pain, #15 TAB Tramadol Hcl (Ultram) 50 Mg Tab 50 MG PO Q4H PRN for Pain, #20 TAB PRN PAIN Discharge Exam Review of Systems: Constitutional: No fever, No chills Respiratory: No cough, No sputum Cardiovascular: No chest pain, No orthopnea Physical Exam: General Appearance: WD/WN, no apparent distress Neck: supple, no JVD Respiratory/Chest: chest non-tender, lungs clear Abdomen / GI: normal bowel sounds, non tender, soft Neurologic/Psychiatric: alert, oriented x 3 Hospital Course 81 F with intractable LBP with radicular component which failed outpt treatment( Including consitpation from pain meds) proven to be zoster, but does also have lumbar spine disease she has a history of HTN, HLD, paroxysmal afib, pacemaker placement, asthma, MARIBETH, and lower extremity edema Intractable back pain, cutaneous outbreak and history now seem that pain is most consistent with Zoster outbreak, also pain is improved with neurontin, started valtrex 1000 tid, plus topical acyclovir per patient request -CT shows suspected moderate central canal stenosis at L3-L4 and L4-L5 which is unchanged from prior exams, since improved with zoster treatment will hold on further interventional workup diarrhea wanted to check c diff, no additional stool restarted Coumadin after given vitamin K 09/10,INr remains low, pt requests INr on discharge sent to Dr De Jesus Atrial flutter/afib stable rate HTN-- controlled with, amlodipine 5 mg PO qd and losartan 100 mg PO qd Asthma no symptoms Singulair 10 mg PO qd and Advair BID MARIBETH CPAP with 2 L O2 at night Code Status -Level I, FULL RESUSCITATION Total Time Spent: Greater than 30 minutes This includes examination of the patient, discharge planning, medication reconciliation, and communication with other providers. Discharge Instructions Please refer to the electronic Patient Visit Report (Discharge Instructions) for additional information.
== END 2016-09-13 13:10 | disposition home or self-care (01) ==
LOC: C.EDB 09:42 → C.2T 14:16 → ENRESERV 14:36 → CANRESERV 14:36 → EDBEDREQTM 15:04 → ENRESERV 15:05 → C.MSW 09-09 19:20
PROVIDERS: ADMIT Hospitalist; ATTEND Internal Medicine
DX: B02.23 Postherpetic polyneuropathy (principal); M48.06 Spinal stenosis, lumbar region; M43.16 Spondylolisthesis, lumbar region; D72.829 Elevated white blood cell count, unspecified; I48.0 Paroxysmal atrial fibrillation; I48.92 Unspecified atrial flutter; I10 Essential (primary) hypertension; E78.5 Hyperlipidemia, unspecified; G47.33 Obstructive sleep apnea (adult) (pediatric); J45.909 Unspecified asthma, uncomplicated; K59.00 Constipation, unspecified; R60.0 Localized edema; N20.0 Calculus of kidney; Z95.0 Presence of cardiac pacemaker; Z83.3 Family history of diabetes mellitus; Z82.49 Family history of ischemic heart disease and other diseases of the circulatory system; Z82.3 Family history of stroke; Z79.01 Long term (current) use of anticoagulants; Z79.899 Other long term (current) drug therapy

== ENCOUNTER 2016-09-18 10:10 | Emergency (ER) | payer OTHER ==
[~2016-09-18] VITALS: Ht 152.4 cm; Wt 90.0 kg
[~2016-09-18 10:10] MED LIST changes: +NCY50 PO; +NORT10CA4 PO; +NRN300 PO; -OXYC1TAB3 PO; -RANITAB33 PO; -TRAM-453 PO; +VLT500 PO; +ZVRO EXT
[2016-09-18 10:18] VITALS: TEMP 36.8; Ht 152.4 cm; Wt 90.0 kg
--- NOTE | 2016-09-18 10:36 | EMERGENCY ROOM VISIT NOTE ---
History Report prepared by Cleopatra: Dina Doyel Under the Supervision of: Jo Ann SalvadorO. First contact with patient: 10:22 Chief Complaint: PAIN (GENERALIZED) Stated Complaint: SHINGLES PAIN History of Present Illness The patient is an 81 year old female who presents to the Emergency Room with complaints of persistent lower back pain that began two weeks ago. She currently rates her discomfort as an 8/10 in severity. The patient reports that over the last two weeks she was evaluated in the hospital three times and was being treated for her back pain. She states that she was evaluated in the hospital and was then diagnosed with shingles. The patient states that her pain radiates down her leg. She states that she was discharged after being in the hospital for 1 week and discharged with Acyclovir cream, Gabapentin, Valtrex , and Nucynta. The patient denies any abdominal pain, or bowel or bladder difficulties. The patient's daughter reports that the patient was instructed to come to the emergency department due to her pain. Source of History: patient, family (daughter) Onset: two weeks ago Position: back (lower) Symptom Intensity: 8/10 Timing: other (persistent) Associated Symptoms: No abdominal pain Note: Associated Symptoms: shingles diagnosis, pain radiating down right leg. Review of Systems See HPI for pertinent positives & negatives. A total of 10 systems reviewed and were otherwise negative. Past Medical & Surgical Medical Problems: (1) A-fib (2) Atrial flutter (3) C. difficile colitis (4) Chest pain (5) HTN (hypertension) (6) Hypoxia (7) Kidney stone (8) PNA (pneumonia) Family History Coronary artery disease FATHER Diabetes mellitus MOTHER Hypertension FATHER MOTHER Myocardial infarction FATHER Stroke FATHER MOTHER Social History Smoking Status: Never Smoker Alcohol Use: none Drug Use: none Marital Status: Housing Status: lives alone Occupation Status: retired Current/Historical Medications Scheduled Acyclovir (Zovirax), 1 APPLN EXT BID Amlodipine Besylate (Amlodipine Besylate), 5 MG PO QAM Docusate Sodium (Colace), 100 MG PO BID Ezetimibe (Zetia), 10 MG PO HS Fish Oil ([place]-3), 1 CAP PO HS Fluticasone Prop/Salmeterol (Advair Diskus 250/50 60 Dose), 1 PUFF INH Q12 Furosemide (Furosemide), 20 MG PO QAM Gabapentin (Gabapentin), 300 MG PO TID Losartan Potassium (Cozaar), 100 MG PO QAM Lutein-Zeaxanthin (Lutein), 1 CAP PO QAM Montelukast Sod (Montelukast Sodium), 10 MG PO HS Multivitamin (Multivitamin), 1 TAB PO QAM Nortriptyline HCl (Nortriptyline HCl), 10 MG PO HS Ocuvite Preservision (Ocuvite Preservision), 2 TAB PO QAM Potassium Chloride (Potassium Chloride ER), 20 MEQ PO HS Pravastatin Sodium (Pravastatin Sodium), 40 MG PO HS Probiotic Product (Probiotic), 1 CAP PO BID Ranitidine (Zantac), 1 TAB PO DAILY Valacyclovir HCl (Valacyclovir HCl), 1,000 MG PO TID Warfarin Sod (Coumadin), 2.5 MG PO UD Warfarin Sodium (Warfarin Sodium), 5 MG PO UD Scheduled PRN Albuterol Hfa (Ventolin Hfa), 2 PUFFS INH Q4H PRN for SOB/Wheezing Dicyclomine Hcl (Dicyclomine Hcl), 1 CAP PO TID PRN for ABDOMINAL PAIN Fluticasone Propionate (Fluticasone Propionate), 2 SPRAYS SHY DAILY PRN for ALLERGIES Hyoscyamine Sulfate (Hyoscyamine Sulfate), 0.125 MG PO Q6 PRN for ABDOMINAL PAIN Tapentadol HCl (Nucynta), 50 MG PO Q4H PRN for Pain Allergies Coded Allergies: Acetaminophen (Unverified Allergy, Unknown, NAUSEA/DIZZINESS, 09/08/16) Budesonide (Verified Allergy, Unknown, PT UNSURE OF RXN, 09/08/16) Formoterol (Verified Allergy, Unknown, PT UNSURE OF RXN, 09/08/16) Iodinated Diagnostic Agents (Verified Allergy, Unknown, RASH,HIVES FROM IVP DYE, 09/08/16) Metronidazole (Verified Allergy, Unknown, SEVERE GI SYMPTOMS, 09/08/16) Oxycodone (Unverified Allergy, Unknown, NAUSEA/DIZZINESS, 09/08/16) Tramadol (Unverified Allergy, Unknown, NAUSEA/DIZZINESS, 09/08/16) KEENA Inhibitors (Verified Adverse Reaction, Intermediate, COUGH, 09/08/16) Physical Exam Vital Signs Date Time Temp Pulse Resp B/P (MAP) Pulse Ox O2 Delivery O2 Flow Rate FiO2 09/18/16 12:04 80 20 137/74 96 Room Air 09/18/16 10:18 36.8 86 18 162/85 90 Room Air Physical Exam GENERAL: Patient is awake, alert, anxious appearing and appears to be uncomfortable. EYES: The conjunctivae are clear. The pupils are round and reactive. EARS, NOSE, MOUTH AND THROAT: The nose is without any evidence of any deformity. Mucous membranes are moist tongue is midline NECK: The neck is nontender and supple. RESPIRATORY: Normal respiratory effort is noted there is no evidence of wheezing rhonchi or rales CARDIOVASCULAR: Regular rate and rhythm noted there no murmurs rubs or gallops normal S1 normal S2 GASTROINTESTINAL: The abdomen is soft. Bowel sounds are present in all quadrants. Abdomen is nontender BACK: No midline tenderness or or step-off noted range of motion in flexion extension as well as rotation no signs of muscle spasm noted MUSCULOSKELETAL/EXTREMITIES: There is no evidence of gross deformity full range of motion is noted in the hips and shoulders SKIN: Pedal edema noted bilaterally. Vesicular eruption noted on the left buttocks consistent with patient's history of shingles. NEUROLOGIC: Patient is awake alert and oriented x3. Strength is symmetric, patellar tendon reflexes 1+ bilaterally. Medical Decision & Procedures Laboratory Results 09/18/16 10:50 Red Blood Count 4.45, Mean Corpuscular Volume 93.5, Mean Corpuscular Hemoglobin 30.6, Mean Corpuscular Hemoglobin Concent 32.7, Mean Platelet Volume 11.1, Neutrophils (%) (Auto) 67.4, Lymphocytes (%) (Auto) 16.3, Monocytes (%) (Auto) 13.5, Eosinophils (%) (Auto) 1.8, Basophils (%) (Auto) 0.2, Neutrophils # (Auto ) 6.07, Lymphocytes # (Auto) 1.47, Monocytes # (Auto) 1.22, Eosinophils # (Auto ) 0.16, Basophils # (Auto) 0.02 09/18/16 10:50 Test 09/18/16 10:50 White Blood Count 9.01 K/uL (4.8-10.8) Red Blood Count 4.45 M/uL (4.2-5.4) Hemoglobin 13.6 g/dL (12.0-16.0) Hematocrit 41.6 % (37-47) Mean Corpuscular Volume 93.5 fL (80-100) Mean Corpuscular Hemoglobin 30.6 pg (25-34) Mean Corpuscular Hemoglobin Concent 32.7 g/dl (32-36) Platelet Count 178 K/uL (130-400) Mean Platelet Volume 11.1 fL (7.4-10.4) Neutrophils (%) (Auto) 67.4 % Lymphocytes (%) (Auto) 16.3 % Monocytes (%) (Auto) 13.5 % Eosinophils (%) (Auto) 1.8 % Basophils (%) (Auto) 0.2 % Neutrophils # (Auto) 6.07 K/uL (1.4-6.5) Lymphocytes # (Auto) 1.47 K/uL (1.2-3.4) Monocytes # (Auto) 1.22 K/uL (0.11-0.59) Eosinophils # (Auto) 0.16 K/uL (0-0.5) Basophils # (Auto) 0.02 K/uL (0-0.2) RDW Standard Deviation 48.9 fL (36.4-46.3) RDW Coefficient of Variation 14.4 % (11.5-14.5) Immature Granulocyte % (Auto) 0.8 % Immature Granulocyte # (Auto) 0.07 K/uL (0.00-0.02) Urine Color YELLOW Urine Appearance CLEAR (CLEAR) Urine pH 8.0 (4.5-7.5) Urine Specific [place] 1.011 (1.000-1.030) Urine Protein NEG (NEG) Urine Glucose (UA) NEG (NEG) Urine Ketones NEG (NEG) Urine Occult Blood NEG (NEG) Urine Nitrite NEG (NEG) Urine Bilirubin NEG (NEG) Urine Urobilinogen NEG (NEG) Urine Leukocyte Esterase NEG (NEG) Anion Gap 6.0 mmol/L (3-11) Est Creatinine Clear Calc Drug Dose 90.6 ml/min Estimated GFR () 105.9 Estimated GFR (Non- 91.3 BUN/Creatinine Ratio 19.3 (10-20) Calcium Level 8.4 mg/dl (8.5-10.1) Total Bilirubin 0.5 mg/dl (0.2-1) Direct Bilirubin 0.1 mg/dl (0-0.2) Aspartate Amino Transf (AST/SGOT) 20 U/L (15-37) Alanine Aminotransferase (ALT/SGPT) 53 U/L (12-78) Alkaline Phosphatase 80 U/L (45-117) Total Protein 7.0 gm/dl (6.4-8.2) Albumin 2.9 gm/dl (3.4-5.0) Lipase 250 U/L (73-393) Laboratory results per my review. Medications Administered Medications (Trade) Dose Ordered Sig/Farhan Route Start Time Stop Time Status Last Admin Dose Admin Morphine Sulfate (MoRPHine SULFATE INJ) 4 mg Q15M PRN IV 09/18/16 10:45 09/18/16 12:27 DC 09/18/16 11:05 4 MG Ondansetron HCl (Zofran Inj) 4 mg NOW STAT IV 09/18/16 10:37 09/18/16 10:39 DC 09/18/16 11:04 4 MG ED Course 1026: The patient was evaluated in room B9. A complete history and physical examination were performed. 1037: Ordered Zofran Inj 4 mg IV. 1045: Ordered Morphine Sulfate 4 mg IV. 1114: I reevaluated the patient and she is doing well. I discussed the exam findings with her and I discussed the treatment plan. She verbalized complete understanding and agreement. She is ready to go home. Medical Decision Differential diagnosis: Etiologies such as contact dermatitis, viral exanthem, urticaria, allergic reaction, Vizcarra-Sean syndrome, toxic epidermal necrolysis, erythema multiforme, cellulitis, scabies, HSV, varicella, zoster, eczema, staph scalded skin syndrome, fungal infection, as well as others were entertained. Medication Reconciliation: I attest that I have personally reviewed the patient' s current medications list. Patient was found to have a slightly elevated blood pressure due to circumstances. I do not believe that the patient requires hypertension monitoring. The patient is an 81-year-old female who presented to the emergency department for an evaluation of low back pain. The patient was recently diagnosed with shingles. Her physical exam and history appear to be consistent with ongoing shingles which is not well controlled at home. The patient states that she was on pain medication for the shingles which was controlling the pain but she ran out of her pain medication. When she called her primary care physician today she was sent to the emergency department. The patient was treated with pain medication in the emergency department. On subsequent reevaluation she was feeling much better. I discussed the patient's laboratory results with her. She was also evaluated by the case consultant for possible inpatient rehabilitation management but the patient felt that her pain would be well controlled if she was able to get back on her pain medication. She was discharged with her family members and encouraged to keep her appointment today with her primary care physician or return to the emergency department immediately if symptoms change worsen or the need arises. Impression Primary Impression: Shingles Additional Impression: Back pain Scribe Attestation The scribe's documentation has been prepared under my direction and personally reviewed by me in its entirety. I confirm that the note above accurately reflects all work, treatment, procedures, and medical decision making performed by me. Departure Information Dispostion Home / Self-Care Referrals Derrick Hare D.O. (PCP) Forms HOME CARE DOCUMENTATION FORM, IMPORTANT VISIT INFORMATION, WORK / SCHOOL INSTRUCTIONS Patient Instructions My [facility], Shingles Herpes Zoster Additional Instructions Follow-up with your family doctor today as scheduled. Continue all medications as prescribed. Problem Qualifiers Primary Impression: Shingles Herpes zoster complications: unspecified herpes zoster complication Qualified Codes: B02.8 - Zoster with other complications Additional Impression: Back pain Back pain location: low back pain Chronicity: unspecified Back pain laterality: left Sciatica presence: without sciatica Qualified Codes: M54.5 - Low back pain
[2016-09-18] MEDS ORDERED: ONDANSETRON INJ 2 MG/ML 2 ML VIAL IV STA (10:37)
[2016-09-18] MEDS ORDERED: MoRPHine SULFATE 4 MG/ML 1 ML CARP\\VIAL IV PRN (10:45)
[2016-09-18 11:08] LABS: BASO % 0.2 %; BASO ABS # 0.02 K/uL (0-0.2); COMPLETE YES; EOS % 1.8 %; HEMATOCRIT 41.6 % (37-47); IG% 0.8 %; LYMPH % 16.3 %; LYMPH ABS # 1.47 K/uL (1.2-3.4); MEAN CELL VOLUME 93.5 fL (80-100); MEAN CORPUSCULAR HEMOGLOBIN 30.6 pg (25-34); MEAN CORPUSCULAR HGB CONC 32.7 g/dl (32-36); MEAN PLATELET VOLUME 11.1 fL (7.4-10.4); MONO % 13.5 %; NEUT % 67.4 %; PLATELET COUNT 178 K/uL (130-400); RED BLOOD COUNT 4.45 M/uL (4.2-5.4); WHITE BLOOD COUNT 9.01 K/uL (4.8-10.8)
[2016-09-18 11:32] LABS: URINE APPEARANCE CLEAR (CLEAR); URINE BILIRUBIN NEG (NEG); URINE COLOR YELLOW; URINE NITRITE NEG (NEG); URINE SPECIFIC GRAVITY 1.011 (1.000-1.030); UROBILINOGEN NEG (NEG)
[2016-09-18 11:35] LABS: BUN/CREATININE RATIO 19.3 (10-20); CALCIUM 8.4 mg/dl (8.5-10.1); CREATININE 0.47 mg/dl (0.60-1.20); POTASSIUM 3.6 mmol/L (3.5-5.1)
[2016-09-18 11:42] LABS: MANUAL MICROSCOPIC REQUIRED? NO; REVIEW REQ? NO
[2016-09-18 12:04] VITALS: BP 137/74; PULSE 80; O2SAT 96
== END 2016-09-18 12:09 | disposition home or self-care (01) ==
LOC: C.EDB 10:13
DX: B02.8 Zoster with other complications (principal); M54.5 Low back pain; I48.91 Unspecified atrial fibrillation; I10 Essential (primary) hypertension; R09.02 Hypoxemia; Z83.3 Family history of diabetes mellitus; Z82.49 Family history of ischemic heart disease and other diseases of the circulatory system; Z82.3 Family history of stroke; Z79.01 Long term (current) use of anticoagulants; Z51.81 Encounter for therapeutic drug level monitoring

== ENCOUNTER → 2017-01-08 | Outpatient (CLI) | payer OTHER ==
--- NOTE | 2017-01-08 15:44 | DIAGNOSTIC IMAGING REPORT ---
ABD/PELVIS NO IV OR ORAL CONT CLINICAL HISTORY: 81 years-old Female presenting with R10.9 Abdominal pain, unspecified abdominal location. TECHNIQUE: Multidetector CT of the abdomen and pelvis was performed without the use of intravenous contrast. IV contrast: None. A dose lowering technique was used consistent with the principles of ALARA (as low as reasonably achievable). COMPARISON: 08/16/2016. CT DOSE (mGy.cm): The estimated cumulative dose is 902.07 mGycm. FINDINGS: Weigher Alloy topogram: Cholecystectomy clips noted. Pacer leads to the right ventricular apex, right atrium, and coronary sinus. Lung bases: Partially visualized pacer leads . Calcified granuloma noted at the right lung base. Bibasilar bandlike opacities and subpleural reticulation, likely atelectasis. Multichamber enlargement of the heart. No pericardial or pleural effusion. Liver: Normal morphology. Density consistent with hepatic steatosis. Biliary: No intrahepatic or extrahepatic biliary ductal dilatation. Gallbladder surgically absent. Pancreas: Normal noncontrast appearance. Spleen: Normal noncontrast appearance. Adrenal glands: Normal noncontrast appearance. Kidneys and ureters: Nonobstructing 4 mm calculus in the interpolar region the right kidney. No left renal calculi. No hydronephrosis. Ureters normal. Bladder: Incompletely evaluated secondary to underdistention. Pelvic organs: Uterus surgically absent. No adnexal masses. Bowel: Diverticulosis of the sigmoid colon with focal wall thickening and mild pericolonic inflammatory change along the right pelvic sidewall near the distal sigmoid. An adjacent loop of small bowel appears tethered to this site likely indicating the presence of inflammatory effusions. No adjacent fluid collection or gas. No bowel obstruction. Peritoneal cavity: No free fluid or intraperitoneal gas. Lymph nodes: No gross lymphadenopathy allowing for noncontrast technique. Vasculature: Atherosclerosis of the normal caliber abdominal aorta. Abdominal wall: Diastasis of the rectus abdominis. Multiple calcified granulomata noted in the subcutaneous tissue of the proximal likely from medication injection. Musculoskeletal: Degenerative changes of the spine. Severe osteopenia. IMPRESSION: 1. Findings consistent with acute uncomplicated diverticulitis at the distal sigmoid colon. No CT evidence of penny perforation or adjacent abscess. 2. Nonobstructing 4 mm right renal calculus. 3. Severe osteopenia. Electronically signed by: Guido Yuan M.D. 01/08/2017 3:42 PM Dictated Date/Time: 01/08/2017 3:35 PM
== END | disposition home or self-care (01) ==
LOC: C.CTS 15:07
PROVIDERS: ATTEND Family Medicine
DX: R10.9 Unspecified abdominal pain (principal)

== ENCOUNTER → 2017-05-20 | Day surgery (SDC) | payer OTHER ==
[2017-05-03 11:12] VITALS: Ht 154.9 cm; Wt 90.9 kg
[~2017-05-20] VITALS: Ht 154.9 cm; Wt 90.9 kg
[~2017-05-20] MED LIST changes: -CMD/25 PO; -DOCU-94 PO; +DOCU100C31 PO; +LIDOCAINE HCL 2% 2 ML VIAL (20MG/ML) ONE; -NCY50 PO; -NORT10CA4 PO; -NRN300 PO; +OXGN; +PROPOFOL IV EMULSION 10 MG/ML 20 ML VIAL IV ONE; +PSYL48.59 PO; +RANITAB33 PO; +SODIUM CHLORIDE 0.9% 500ML 500 ML IV ONE; -VLT500 PO; -WARF-246 PO; +WARF5TAB90 PO; -ZNTT/150 PO; -ZVRO EXT
--- NOTE | 2017-05-20 11:24 | Endo History and Physical ---
History & Physical Date of Service: May 20, 2017. Chief Complaint: sessile serrated adenoma Referring Physician: Dr. Dania Barcenas History of Present Illness 81 yo CF who presents for colonoscopy secondary to history of colon polyps. 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) Hx Thoracic Surgery: No Hx Orthopedic: Yes (L/R TKA, RT RCR, RT CTR) Hx Urinary Tract Surgery: Yes (BLADDER SLING PLACEMENT AND REMOVAL, RECTOCELE) Family History None Social History Smoking Status: Never Smoker Hx Substance Use: No Hx Alcohol Use: No Allergies Coded Allergies: Acetaminophen (Verified Allergy, Unknown, NAUSEA/DIZZINESS, 05/20/17) Budesonide (Verified Allergy, Unknown, PT UNSURE OF RXN, 05/03/17) Formoterol (Verified Allergy, Unknown, PT UNSURE OF RXN, 05/03/17) Iodinated Diagnostic Agents (Verified Allergy, Unknown, RASH,HIVES FROM IVP DYE, 05/03/17) Metronidazole (Verified Allergy, Unknown, SEVERE GI SYMPTOMS, 05/03/17) Oxycodone (Verified Allergy, Unknown, NAUSEA/DIZZINESS, 05/20/17) Tramadol (Verified Allergy, Unknown, NAUSEA/DIZZINESS, 05/20/17) KEENA Inhibitors (Verified Adverse Reaction, Intermediate, COUGH, 05/03/17) Current Medications Reported Home Medications Medications Dose Route/Sig Max Daily Dose Days Date Category Dose Instructions Oxygen Gas 2 Liters NA HS 05/03/17 Reported Metamucil (Psyllium) 48.57 % Pow 1 Dose PO QAM 05/03/17 Reported Docusate Sodium 100 Mg Cap 1 Cap PO HS 05/03/17 Reported Coumadin (Warfarin Sodium) 5 Mg Tab 5 Mg PO DIRECTED 05/03/17 Reported TAKES 1 TAB ON SATURDAY, SATURDAY, SAT AND SATURDAY ALL OTHER DAYS, TAKES 1/2 TABLETS Zantac (Ranitidine Hcl) 75 Mg Tab 75 Mg PO DAILY PRN 05/03/17 Reported Multivitamin (Multivitamins) Tab 1 Tab PO HS 05/03/17 Reported Lutein (Lutein-Zeaxanthin) 1 Cap Cap 1 Cap PO BID 05/03/17 Reported Ventolin Hfa (Albuterol) 200 Puffs/26873 Mcg Aers 2 Puffs INH Q4H PRN 08/16/16 Reported Dicyclomine Hcl 10 Mg Cap 1 Cap PO TID PRN 05/10/16 Reported Ocuvite Preservision (Multivitamins/Minerals) 1 Tab Tab 1 Tab PO QAM 04/16/16 Reported Potassium Chloride ER (Potassium Chloride) 20 Meq Tabcr 20 Meq PO HS 04/16/16 Reported Hyoscyamine Sulfate 0.125 Mg Tab 0.125 Mg PO Q6 PRN 04/16/16 Reported Probiotic (Probiotic Product) 1 Cap Cap 1 Cap PO BID 07/13/15 Reported [place]-3 (Fish Oil) 1 Ea Cap 1 Cap PO HS 07/13/15 Reported Advair Diskus 250/50 60 Dose (Fluticasone Prop/Salmeterol) 1 Ea Aerp 1 Puff INH Q12 07/13/15 Reported Zetia (Ezetimibe) 10 Mg Tab 10 Mg PO HS 07/07/14 Reported Pravastatin Sodium 40 Mg Tab 40 Mg PO HS 07/07/14 Reported Montelukast Sodium (Montelukast Sod) 10 Mg Tab 10 Mg PO HS 07/07/14 Reported Cozaar (Losartan Potassium) 100 Mg Tab 100 Mg PO QAM 07/07/14 Reported Furosemide 20 Mg Tab 20 Mg PO QAM 07/07/14 Reported Fluticasone Propionate 120 Sprays/6000 Mcg Inha 2 Sprays SHY DAILY PRN 07/07/14 Reported Amlodipine Besylate 5 Mg Tab 5 Mg PO QAM 07/07/14 Reported Vital Signs Weight (Kilograms): 90.91 Height (Feet): 5 Height (Inches): 1 Date Time Temp Pulse Resp B/P (MAP) Pulse Ox O2 Delivery O2 Flow Rate FiO2 05/20/17 11:04 36.7 78 20 141/72 (95) 93 Room Air Physical Exam General Appearance: WD/WN, no apparent distress Respiratory/Chest: Auscultation: breath sounds normal Cardiovascular: Heart Auscultation: RRR Abdomen: Bowel Sounds: normal Inspection & Palpation: soft, non-distended, no tenderness, guarding & rebound Assessment and Plan Assessment: 81 yo CF who presents for colonoscopy secondary to history of colon polyps. Plan: Proceed with colonoscopy.
--- NOTE | 2017-05-20 12:11 | Discharge Instructions ---
Endoscopy Patient Instructions Date / Procedure(s) Performed May 20, 2017. Colonoscopy Allergy Information Coded Allergies: Acetaminophen (Verified Allergy, Unknown, NAUSEA/DIZZINESS, 05/20/17) Budesonide (Verified Allergy, Unknown, PT UNSURE OF RXN, 05/03/17) Formoterol (Verified Allergy, Unknown, PT UNSURE OF RXN, 05/03/17) Iodinated Diagnostic Agents (Verified Allergy, Unknown, RASH,HIVES FROM IVP DYE, 05/03/17) Metronidazole (Verified Allergy, Unknown, SEVERE GI SYMPTOMS, 05/03/17) Oxycodone (Verified Allergy, Unknown, NAUSEA/DIZZINESS, 05/20/17) Tramadol (Verified Allergy, Unknown, NAUSEA/DIZZINESS, 05/20/17) KEENA Inhibitors (Verified Adverse Reaction, Intermediate, COUGH, 05/03/17) Discharge Date / Findings May 20, 2017. Diverticulosis Internal hemorrhoids Medication Instructions Stopped Medication(s): stopped Warfarin Sat.05/15 OK to resume all medications today as prescribed Reported Home Medications Medications Dose Route/Sig Max Daily Dose Days Date Category Dose Instructions Oxygen Gas 2 Liters NA HS 05/03/17 Reported Metamucil (Psyllium) 48.57 % Pow 1 Dose PO QAM 05/03/17 Reported Docusate Sodium 100 Mg Cap 1 Cap PO HS 05/03/17 Reported Coumadin (Warfarin Sodium) 5 Mg Tab 5 Mg PO DIRECTED 05/03/17 Reported TAKES 1 TAB ON SATURDAY, SATURDAY, SAT AND SATURDAY ALL OTHER DAYS, TAKES 1/2 TABLETS Zantac (Ranitidine Hcl) 75 Mg Tab 75 Mg PO DAILY PRN 05/03/17 Reported Multivitamin (Multivitamins) Tab 1 Tab PO HS 05/03/17 Reported Lutein (Lutein-Zeaxanthin) 1 Cap Cap 1 Cap PO BID 05/03/17 Reported Ventolin Hfa (Albuterol) 200 Puffs/05345 Mcg Aers 2 Puffs INH Q4H PRN 08/16/16 Reported Dicyclomine Hcl 10 Mg Cap 1 Cap PO TID PRN 05/10/16 Reported Ocuvite Preservision (Multivitamins/Minerals) 1 Tab Tab 1 Tab PO QAM 04/16/16 Reported Potassium Chloride ER (Potassium Chloride) 20 Meq Tabcr 20 Meq PO HS 04/16/16 Reported Hyoscyamine Sulfate 0.125 Mg Tab 0.125 Mg PO Q6 PRN 04/16/16 Reported Probiotic (Probiotic Product) 1 Cap Cap 1 Cap PO BID 07/13/15 Reported [place]-3 (Fish Oil) 1 Ea Cap 1 Cap PO HS 07/13/15 Reported Advair Diskus 250/50 60 Dose (Fluticasone Prop/Salmeterol) 1 Ea Aerp 1 Puff INH Q12 07/13/15 Reported Zetia (Ezetimibe) 10 Mg Tab 10 Mg PO HS 07/07/14 Reported Pravastatin Sodium 40 Mg Tab 40 Mg PO HS 07/07/14 Reported Montelukast Sodium (Montelukast Sod) 10 Mg Tab 10 Mg PO HS 07/07/14 Reported Cozaar (Losartan Potassium) 100 Mg Tab 100 Mg PO QAM 07/07/14 Reported Furosemide 20 Mg Tab 20 Mg PO QAM 07/07/14 Reported Fluticasone Propionate 120 Sprays/6000 Mcg Inha 2 Sprays SHY DAILY PRN 07/07/14 Reported Amlodipine Besylate 5 Mg Tab 5 Mg PO QAM 07/07/14 Reported Provider Instructions Activity Restrictions - No exercising or heavy lifting for 24 hours. - Do not drink alcohol the day of the procedure. - Do not drive a car or operate machinery until the day after the procedure. - Do not make any important decisions or sign important papers in 24 hours after the procedure. Following Day: - Return to full activity which may include returning to work/school. Diet Start your diet with liquids and light foods (jello, soup, juice, toast). Then eat your usual diet if not nauseated. Treatment For Common After Affects For mild abdominal pain, bloating, or excessive gas: - Rest - Eat lightly - Lie on right side Follow-Up Information Follow-up with Dr. Dania Barcenas as scheduled Anesthesia Information What You Should Know You have had a procedure that required some medicine to reduce anxiety and discomfort. This treatment is called moderate sedation. After receiving the treatment, you may be sleepy, but you will be able to breathe on your own. The effects of the treatment may last for several hours. Follow these instructions along with Activity/Diet recommendations noted above: * Do NOT do anything where dizziness or clumsiness would be dangerous. * Rest quietly at home today, then you can be up and about tomorrow. * Have a responsible person stay with you the rest of today. * You may have had an I.V. today. If so, you may take the dressing off later today. Recommendations Call your doctor if: * Trouble breathing * Continuous vomiting for more than 24 hours * Temperature above 101 degrees * Severe abdominal pain or bloating * Pain not relieved by pain medicine ordered * There is increased drainage or redness from any incision * A large amount of rectal bleeding greater than 2-3 tablespoons. (If you had a polyp/s removed or have hemorrhoids, a small amount of blood - from the rectum is to be expected.) * You have any unanswered questions or concerns. IN THE EVENT OF A SERIOUS EMERGENCY, GO TO THE NEAREST EMERGENCY ROOM Your discharge instructions were prepared by provider Cassius Traore. Patient Instructions Signature Page Lorna Perkins Patient (or Guardian) Signature/Date: I have read and understand the instructions given to me by my caregivers. Caregiver/RN/Doctor Signature/Date: The above-named patient and/or guardian has received patient instructions on this date. + Original Patient Signature Page (only) stays with chart. Please make copy for patient.
--- NOTE | 2017-05-20 12:20 | GI REPORT ---
Procedure Date: 05/20/2017 11:31 AM THIS REPORT HAS BEEN AMENDED Addendum Number: 1 Addendum Date: 05/20/2017 12:47:33 PM No repeat colonoscopy secondary to patient's age and lack of adenomas. Procedure: Colonoscopy Indications: High risk colon cancer surveillance: Personal history of colonic polyps Medicines: Monitored Anesthesia Care Complications: No immediate complications. Estimated Blood Loss: Estimated blood loss: none. Procedure: Pre-Anesthesia Assessment: - Prior to the procedure, a History and Physical was performed, and patient medications and allergies were reviewed. The patient's tolerance of previous anesthesia was also reviewed. The risks and benefits of the procedure and the sedation options and risks were discussed with the patient. All questions were answered, and informed consent was obtained. Prior Anticoagulants: The patient has taken Coumadin (warfarin), last dose was 5 days prior to procedure. ASA Grade Assessment: III - A patient with severe systemic disease. After reviewing the risks and benefits, the patient was deemed in satisfactory condition to undergo the procedure. After I obtained informed consent, the scope was passed under direct vision. Throughout the procedure, the patient's blood pressure, pulse, and oxygen saturations were monitored continuously. The scope was introduced through the anus and advanced to the terminal ileum. The colonoscopy was performed without difficulty. The patient tolerated the procedure well. The quality of the bowel preparation was good. The ileocecal valve, appendiceal orifice, and rectum were photographed. Findings: The perianal and digital rectal examinations were normal. Multiple small-mouthed diverticula were found in the sigmoid colon. Non-bleeding internal hemorrhoids were found during retroflexion. The hemorrhoids were small. Impression: - Diverticulosis in the sigmoid colon. - Non-bleeding internal hemorrhoids. - No specimens collected. Recommendation: - Resume previous diet. - Continue present medications. - Repeat colonoscopy in 5 years for surveillance. - Return to primary care physician as previously scheduled. Cassius Traore, DO 05/20/2017 12:20:00 PM This report has been signed electronically. Note Initiated On: 05/20/2017 11:31 AM I attest to the content of the Intraoperative Record and orders documented therein, exceptions below Cassius Neville León, DO 05/20/2017 12:47:58 PM This report has been signed electronically.
--- NOTE | 2017-05-20 12:35 | Anesthesiology Progress Note ---
Anesthesia Post Op Note Date & Time May 20, 2017 at 12:34 Vital Signs Pain Intensity: 0 Vital Signs Past 12 Hours Date Time Temp Pulse Resp B/P (MAP) Pulse Ox O2 Delivery O2 Flow Rate FiO2 05/20/17 12:25 78 16 158/71 (100) 96 Room Air 05/20/17 12:15 88 16 126/63 (84) 95 Room Air 05/20/17 12:10 91 16 160/76 (104) 95 Room Air 05/20/17 11:04 36.7 78 20 141/72 (95) 93 Room Air Notes Mental Status: alert / awake / arousable, participated in evaluation Pt Amnestic to Procedure: Yes Nausea / Vomiting: adequately controlled Pain: adequately controlled Airway Patency, RR, SpO2: stable & adequate BP & HR: stable & adequate Hydration State: stable & adequate Anesthetic Complications: no major complications apparent
[2017-05-20 12:40] VITALS: BP 167/82; PULSE 71; O2SAT 93
== END | disposition home or self-care (01) ==
LOC: C.GI 10:29
PROVIDERS: ATTEND Internal Medicine
DX: Z12.11 Encounter for screening for malignant neoplasm of colon (principal); Z86.010 Personal history of colon polyps; K64.8 Other hemorrhoids; K57.30 Diverticulosis of large intestine without perforation or abscess without bleeding; I48.91 Unspecified atrial fibrillation; M19.90 Unspecified osteoarthritis, unspecified site; J45.909 Unspecified asthma, uncomplicated; E78.00 Pure hypercholesterolemia, unspecified; E66.9 Obesity, unspecified; R73.03 Prediabetes; I10 Essential (primary) hypertension; G47.33 Obstructive sleep apnea (adult) (pediatric); Z95.0 Presence of cardiac pacemaker; Z90.710 Acquired absence of both cervix and uterus; Z90.89 Acquired absence of other organs; Z90.49 Acquired absence of other specified parts of digestive tract; Z96.653 Presence of artificial knee joint, bilateral; Z98.42 Cataract extraction status, left eye; Z88.6 Allergy status to analgesic agent; Z91.041 Radiographic dye allergy status; Z88.5 Allergy status to narcotic agent; Z88.8 Allergy status to other drugs, medicaments and biological substances; Z79.01 Long term (current) use of anticoagulants; Z85.820 Personal history of malignant melanoma of skin

== ENCOUNTER → 2017-05-27 | Outpatient (CLI) | payer OTHER ==
[~2017-05-27] MED LIST changes: -LIDOCAINE HCL 2% 2 ML VIAL (20MG/ML) ONE; -PROPOFOL IV EMULSION 10 MG/ML 20 ML VIAL IV ONE; -SODIUM CHLORIDE 0.9% 500ML 500 ML IV ONE
--- NOTE | 2017-05-28 07:57 | MAMMOGRAPHY REPORT ---
BILATERAL DIGITAL SCREENING MAMMOGRAM TOMOSYNTHESIS WITH CAD: 05/27/2017 CLINICAL HISTORY: Routine screening. Patient has no complaints. TECHNIQUE: Breast tomosynthesis in addition to standard 2D mammography was performed. Current study was also evaluated with a Computer Aided Detection (CAD) system. COMPARISON: Comparison is made to exams dated: 05/23/2016 mammogram, 05/06/2015 mammogram, 05/05/2014 charbel mogram, 05/04/2013 mammogram, 05/02/2012 mammogram, and 10/18/2010 mammogram - [facility] BREAST COMPOSITION: There are scattered areas of fibroglandular density in both breasts. FINDINGS: There is diffuse nodularity bilaterally, which appears somewhat similar dating back to [place]. There are scattered benign rim calcifications and mild vascular calcifications in the naeem asts. No suspicious spiculated or irregular mass, architectural distortion or new cluster of microca lcifications is seen. IMPRESSION: ACR BI-RADS CATEGORY 1: NEGATIVE There is no mammographic evidence of malignancy. A 1 year screening mammogram is recommended. The pa tient will receive written notification of the results. Approximately 10% of breast cancers are not detected with mammography. A negative mammographic report should not delay biopsy if a clinically suggestive mass is present. Luna Amador M.D. ay/:05/27/2017 18:28:59 Patient Care Director: Ana Paula MANDEL(R)(M), [facility] letter sent: Normal 1/2 BI-RADS Code: ACR BI-RADS Category 1: Negative
== END | disposition home or self-care (01) ==
LOC: C.MAMM 14:34
PROVIDERS: ATTEND Family Medicine
DX: Z12.31 Encounter for screening mammogram for malignant neoplasm of breast (principal)

== ENCOUNTER → 2017-07-29 | Outpatient (CLI) | payer OTHER ==
[2017-07-29 16:53] LABS: HEMATOCRIT 44.1 % (37-47); HEMOGLOBIN 15.2 g/dL (12.0-16.0); MEAN CELL VOLUME 94.8 fL (80-100); MEAN CORPUSCULAR HEMOGLOBIN 32.7 pg (25-34); MEAN CORPUSCULAR HGB CONC 34.5 g/dl (32-36); MEAN PLATELET VOLUME 11.4 fL (7.4-10.4); PLATELET COUNT 191 K/uL (130-400); RED CELL DISTRIBUTION WIDTH CV 13.4 % (11.5-14.5); RED CELL DISTRIBUTION WIDTH SD 46.6 fL (36.4-46.3); WHITE BLOOD COUNT 8.99 K/uL (4.8-10.8)
[2017-07-29 16:58] LABS: INR 1.9 (0.9-1.1)
[2017-07-29 17:17] LABS: ALBUMIN 3.7 gm/dl (3.4-5.0); ALT/SGPT 36 U/L (12-78); AST/SGOT 23 U/L (15-37); BLOOD UREA NITROGEN 15 mg/dl (7-18); CALCIUM 8.8 mg/dl (8.5-10.1); CARBON DIOXIDE 29 mmol/L (21-32); CHOLESTEROL 215 mg/dl (0-200); CREATININE 0.61 mg/dl (0.60-1.20); GLUCOSE,FASTING 116 mg/dl (70-99); POTASSIUM 3.7 mmol/L (3.5-5.1); SODIUM 140 mmol/L (136-145)
[2017-07-29 17:26] LABS: ALKALINE PHOSPHATASE 69 U/L (45-117); LDL CHOLESTEROL (DIRECT) 140 mg/dl; TOTAL PROTEIN 7.6 gm/dl (6.4-8.2)
[2017-07-30 07:04] LABS: HEMOGLOBIN A1C 6.3 % (4.5-5.6)
== END | disposition home or self-care (01) ==
LOC: C.LABPBG 11:04
PROVIDERS: ATTEND Internal Medicine Cardiovascular Disease
DX: R94.31 Abnormal electrocardiogram [ECG] [EKG] (principal); I48.2 Chronic atrial fibrillation; Z79.899 Other long term (current) drug therapy; I10 Essential (primary) hypertension; E78.5 Hyperlipidemia, unspecified

== ENCOUNTER 2020-06-10 09:06 | Inpatient (IN) ==
--- NOTE | 2020-06-10 09:35 | Emergency Department Note ---
Impression & Plan Diverticulitis, Flank pain ED Provider Note NAME: SUSAN MANZANO AGE: 84 SEX: F : 1935 ARRIVES VIA: Ambulance INFORMANT: Patient, ED PROVIDER(S): Curly Sawyer MD Chief Complaint: Back pain HPI: The patient does present with right-sided low back pain. The patient states that it is the same kind of pain that she had during her recent admission and subsequent discharge. The patient describes the pain as sharp and radiating to the right abdomen. The patient has not noticed any obvious blood in the urine but she does have a urinary catheter. Patient denies any recent falls heavy lifting twisting or turning. The patient's son and daughter are her primary caretakers but she does reside at home alone. Patient has been taking the pain medication at home but without any relief. Patient states it was extremely worse this morning around 4 AM where she got very sweaty at the time. The patient does present after a recent discharge during her hospital stay lasted approximately 1 week. Patient was discharged on June 08. Patient did have a right ureteral stone approximately 4 mm in size. Patient is status post cystoscopy right ureteral dilatation and stent placement. Patient did have lith otripsy and removal of the stone. The patient did transition from Rocephin to by mouth antibiotics. Patient was given 7 more days of Keflex 500 twice daily. ROS: See HPI for pertinent positives and negatives. A total of 10 systems were reviewed and otherwise negative. Past medical history: See below Surgical history: See below Social history: See below Physical Exam: GENERAL: Mildly uncomfortable in appearance, wearing glasses and a mask. EYE EXAM: Normal conjunctiva. PERRL, no anisocoria and EOM's grossly intact w/o pain. NECK: Supple, no nuchal rigidity, no adenopathy, non-tender. No signs of meningismus. LUNGS: Clear to auscultation. Normal chest wall mechanics. HEART: NSR, no MRG. ABDOMEN: Abdomen soft, right flank discomfort, normo-active bowel sounds, no masses, no rebound or guarding. BACK: Right-sided lower CVA TTP. SKIN: No rashes and no bruising. : Catheter in place. Draining dark-colored urine UPPER EXTREMITIES: Upper extremities are grossly normal. LOWER EXTREMITIES: Grossly normal, no edema. NEURO EXAM: A&O x3, cranial nerves II-XII grossly intact, normal speech, moves all 4 extremities on command w/o issue. Differential diagnoses: Renal colic, UTI, appendicitis, diverticulitis, mesenteric ischemia, aortic pathology, infections, inflammatory bowel disease, PUD, biliary pathology, as well as other pathologies. Course: Patient was seen and evaluated the bedside. Full history physical exam was performed. EKG: None Imaging Studies: Radiology results as stated below per my review in the radiologist's interpretation: CT SCAN OF THE ABDOMEN AND PELVIS WITHOUT CONTRAST CLINICAL HISTORY: R sided back/flank pain; WBC 29, recent urostent COMPARISON STUDY: 06/01/2020 TECHNIQUE: CT scan of the abdomen and pelvis was performed from the lung bases to the proximal femurs. Images are reviewed in the axial, sagittal, and coronal planes. IV contrast was not administered for this examination. A dose lowering technique was utilized adhering to the principles of ALARA. CT DOSE: 1122.38 mGy.cm FINDINGS: Lower chest: There is a trace right pleural effusion. There is mild basilar atelectasis. Liver: There is mild hepatic steatosis. No focal masses are visualized in this noncontrast study Gallbladder: Surgically absent Spleen: Normal in size and attenuation. Pancreas: Unremarkable. Adrenal glands: Unremarkable. Kidneys: There is been interval placement of a right-sided nephroureteral stent. There has been resolution of previously identified hydronephrosis. There are punctate nonobstructing renal calculi. No calculi are visualized along the course of the right-sided nephroureteral stent. Bowel: There are no transition zones to indicate bowel obstruction. There are scattered colonic air-fluid levels. There is colonic diverticulosis. There is bowel wall thickening and infiltration of pericolonic fat at the level the sigmoid colon consistent with acute sigmoid diverticulitis. There is no evidence of abscess. A small colocolonic fistula cannot be excluded. There are no findings to indicate acute appendicitis. Peritoneum: There is no intraperitoneal free air or abdominal ascites. Vasculature: The abdominal aorta is normal in course and caliber. Adenopathy: None. Pelvic viscera: There is a joint Huerta catheter. There is gas within the bladder likely iatrogenic. The uterus appears surgically absent. Skeletal structures: No destructive osseous lesions are seen. IMPRESSION: 1. Interval development of acute sigmoid diverticulitis 2. No evidence of bowel obstruction. No evidence of free air 3. Punctate bilateral nonobstructing renal calculi 4. Interval placement of a right-sided nephroureteral stent. 5. Interval resolution of the previously described right-sided hydronephrosis ACT 112: Negative or not required by law. Electronically signed by: Paco Mendez M.D. 06/10/2020 11:27 AM Dictated: 06/10/20 111 Transcribed: 06/10/20 111 Cardiac monitoring: An order was placed for continuous cardiac monitoring. The monitor shows a rate of 75 with sinus rhythm. MDM: Patient does present with concern for back pain. Patient did have bladder completed along with a CT. Patient's blood work shows concern for white count of 29 with a left shift. H&H and platelet count are normal. The patient did have ordered lactate, blood cultures Zosyn and MRSA swab. Covid swab also obtained. Kidney function unremarkable with potassium 3.2. Patient does have an IV contrast allergy and apparently has not been premedicated before. We will continue with noncontrast CT. Urinalysis does not show obvious infection. Covid negative. MRSA screen is positive. Patient CT did show concern for diverticulitis. It is uncomplicated. Given the patient's significant white count and pain believe the patient would benefit from inpatient treatment at this time. There is no obvious hydro and the stent is in good place on the right side with no obvious signs of infection based on the urinalysis. I did speak with the on-call hospitalist Dr. Arndt and the patient was admitted to the inpatient medicine service. MRSA swab positive. MRSA coverage deferred to inpatient team. 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 Rolando Friedman- Cystoscopy, Right retrograde pyelogram, Right ureteral dilation, Right ureteral sent placement, Right ureteroscopy, Laser lithotripsy, Stone basket extraction S/P Mohs surgery for basal cell carcinoma Status post placement of cardiac pacemaker (08/2011) Family History Father Cerebral artery occlusion Coronary heart disease Hypertension Myocardial infarction Mother Cerebral artery occlusion Diabetes Hypertension Denies family history of Ovarian cancer Prostate cancer Breast cancer Colorectal cancer Social History Smoking Status: Never smoker Second Hand Exposure: No; Hx Alcohol Use: Yes Alcohol type: beer Hx Substance Use: No Preferred Language: Korean Communication Ability: Effective Visual Impairment: Limited Hearing Ability: Use of Hearing Aid Distribution Center Administrator Required: No Beliefs That Will Affect Care: None marital status: / Current Living Situation: Alone current occupational status: retired Feels Safe at Home: Yes Childhood Exposure to Second-Hand Smoke: Yes during the past year weight has: remained stable Dental Care, Regularly: Yes Physical Activity Frequency: Does not Exercise Seatbelt Use: always Assistive Devices: Walker Allergies Allergies Allergy/AdvReac Type Severity Reaction Status Date / Time acetaminophen Allergy Unknown NAUSEA/DIZZ Verified 06/10/20 10:32 INESS budesonide Allergy Unknown PT UNSURE Verified 06/10/20 10:32 OF RXN formoterol Allergy Unknown PT UNSURE Verified 06/10/20 10:32 OF RXN Iodinated Contrast Media Allergy Unknown RASH,HIVES Verified 06/10/20 10:32 FROM IVP DYE metronidazole Allergy Unknown SEVERE GI Verified 06/10/20 10:32 SYMPTOMS oxycodone Allergy Unknown NAUSEA/DIZZ Verified 06/10/20 10:32 INESS tramadol Allergy Unknown NAUSEA/DIZZ Verified 06/10/20 10:32 INESS KEENA Inhibitors AdvReac Intermediate COUGH Verified 06/10/20 10:32 Home Meds Home Medications Medication Instructions Recorded Confirmed amlodipine 5 mg tablet 5 mg PO QAM 12/29/18 06/10/20 apixaban 5 mg tablet 5 mg PO BID #180 tab 12/29/18 06/10/20 ezetimibe 10 mg tablet 10 mg PO HS tab 12/29/18 06/10/20 furosemide 20 mg tablet 20 mg PO QAM tab 12/29/18 06/10/20 losartan 100 mg tablet 100 mg PO QAM tab 12/29/18 06/10/20 multivitamin 1 tab PO QAM 12/29/18 06/10/20 potassium chloride 20 mEq 20 meq PO QAM tab 12/29/18 06/10/20 tablet,extended release pravastatin 80 mg tablet 80 mg PO HS tab 12/29/18 06/10/20 psyllium husk 3.4 gram/5.4 gram 1 tbs PO QAM 12/29/18 06/10/20 oral powder lutein 10 mg tablet 10 mg PO BID tab 12/30/18 06/10/20 fluticasone propion-salmeterol 1 inh INHALATION BID 06/01/20 06/10/20 [Advair Diskus] montelukast 10 mg PO HS 06/01/20 06/10/20 Previous Rx's Medication Instructions Recorded dicyclomine 10 mg capsule 10 mg PO TID PRN #270 cap 10/13/19 albuterol sulfate 90 mcg/actuation 2 puffs INHALATION Q4H PRN #3 10/19/19 aerosol inhaler inhaler cephalexin 500 mg PO BID 7 Days #14 cap 06/08/20 hydrocodone-acetaminophen 0.5 tab PO Q8H PRN #7 tab 06/08/20 tamsulosin 0.4 mg PO QAM #14 cap 06/08/20 Results & Data (ED) Vital Signs Vital Signs - 24 hr 06/10/20 09:15 06/10/20 09:16 06/10/20 09:31 Temperature 36.8 C Temperature Source Oral Pulse Rate 74 93 H 70 Pulse Rate [Right Finger] 75 Pulse Rate from SpO2 Sensor 75 70 Respiratory Rate 23 19 17 Respiratory Effort / Characteristics Non-Labored Spontaneous Respiratory Depth Normal Respiratory Pattern Regular Blood Pressure 153/56 H 153/56 H 141/64 H Blood Pressure [Left Arm] 153/65 H Blood Pressure Mean 88 88 89 Blood Pressure Mean [Left Arm] 94 Blood Pressure Position Sitting Blood Pressure Position [Left Arm] Lying Pulse Oximetry 96 96 94 Oxygen Delivery Method Room Air Room Air Oxygen Flow Rate 2 Sepsis Recent Fever Within 48 Hours No Sepsis New/Unexplained Change in Mental Status No Sepsis Action Taken by Nursing No Action Required 06/10/20 10:10 06/10/20 10:24 Temperature Temperature Source Pulse Rate 70 70 Pulse Rate [Right Finger] Pulse Rate from SpO2 Sensor 70 Respiratory Rate 23 16 Respiratory Effort / Characteristics Respiratory Depth Respiratory Pattern Blood Pressure 148/61 H Blood Pressure [Left Arm] Blood Pressure Mean 90 Blood Pressure Mean [Left Arm] Blood Pressure Position Blood Pressure Position [Left Arm] Pulse Oximetry 94 96 Oxygen Delivery Method Room Air Room Air Oxygen Flow Rate Sepsis Recent Fever Within 48 Hours Sepsis New/Unexplained Change in Mental Status Sepsis Action Taken by Care Home Medications Current Medication List: was personally reviewed by me Laboratory Data Attestation: I reviewed the patient's lab results. Result diagrams: 06/10/20 10:19 06/10/20 10:19 Lab Results 06/10/20 06/10/20 06/10/20 Range/Units 10:10 10:19 10:19 WBC 29.66 H (4.8-10.8) K/uL RBC 4.37 (4.2-5.4) M/uL Hgb 14.1 (12.0-16.0) g/dL Hct 41.7 (37-47) % MCV 95.4 (80-100) fL MCH 32.3 (25-34) pg MCHC 33.8 (32-36) g/dL RDW Std Deviation 46.7 H (36.4-46.3) fL RDW Coeff of Nasim 13.3 (11.5-14.5) % Plt Count 272 (130-400) K/uL MPV 10.7 H (7.4-10.4) fL Immature Gran % (Auto) 0.6 % Neut % (Auto) 89.4 % Lymph % (Auto) 4.9 % Osborne % (Auto) 4.8 % Eos % (Auto) 0.2 % Baso % (Auto) 0.1 % Neut # (Auto) 26.48 H (1.4-6.5) K/uL Lymph # (Auto) 1.46 (1.2-3.4) K/uL Osborne # (Auto) 1.43 H (0.11-0.59) K/uL Eos # (Auto) 0.07 (0-0.5) K/uL Baso # (Auto) 0.04 (0-0.2) K/uL Immature Gran # (Auto) 0.18 H (0.00-0.02) K/uL PT 10.9 (9.0-12.0) Seconds INR 1.1 (0.9-1.1) Sodium (136-145) mmol/L Potassium (3.5-5.1) mmol/L Chloride (98-107) mmol/L Carbon Dioxide (21-32) mmol/L Anion Gap (3-11) BUN (7-18) mg/dl Creatinine (0.6-1.2) mg/dl Est Cr Clr Drug Dosing ml/min Est GFR ( Amer) Est GFR (Non-Af Amer) BUN/Creatinine Ratio (10-20) Glucose (70-99) mg/dl Lactate (0.4-2.0) mmol/L Calcium (8.5-10.1) mg/dl Total Bilirubin (0.2-1) mg/dl AST (15-37) U/L ALT (12-78) U/L Alkaline Phosphatase (45-117) U/L Total Protein (6.4-8.2) gm/dl Albumin (3.4-5.0) gm/dl Globulin (2.5-4.0) gm/dl Albumin/Globulin Ratio (0.9-2) Lipase (73-393) U/L Urine Color Yellow Urine Appearance Clear (Clear) Urine pH 8.0 H (4.5-7.5) Ur Specific Fonda 1.010 (1.000-1.030) Urine Protein Negative (Negative) Urine Glucose (UA) Negative (Negative) Urine Ketones Negative (Negative) Urine Blood 3+ H (Negative) Urine Nitrite Negative (Negative) Urine Bilirubin Negative (Negative) Urine Urobilinogen Negative (Negative) Ur Leukocyte Esterase Negative (Negative) Urine WBC (Auto) 1-5 (0-5) /hpf Urine RBC (Auto) >30 H (0-4) /hpf U Hyaline Cast (Auto) 1-5 (0-5) /lpf U Epithel Cells (Auto) 0-5 (0-5) /lpf Urine Bacteria (Auto) Negative (Negative) Nasal Screen MRSA (PCR) (Negative) COVID-19 Eval Order SARS-CoV-2, RNA, NAAT (NEGATIVE) 06/10/20 06/10/20 06/10/20 Range/Units 10:19 11:29 11:45 WBC (4.8-10.8) K/uL RBC (4.2-5.4) M/uL Hgb (12.0-16.0) g/dL Hct (37-47) % MCV (80-100) fL MCH (25-34) pg MCHC (32-36) g/dL RDW Std Deviation (36.4-46.3) fL RDW Coeff of Nasim (11.5-14.5) % Plt Count (130-400) K/uL MPV (7.4-10.4) fL Immature Gran % (Auto) % Neut % (Auto) % Lymph % (Auto) % Osborne % (Auto) % Eos % (Auto) % Baso % (Auto) % Neut # (Auto) (1.4-6.5) K/uL Lymph # (Auto) (1.2-3.4) K/uL Osborne # (Auto) (0.11-0.59) K/uL Eos # (Auto) (0-0.5) K/uL Baso # (Auto) (0-0.2) K/uL Immature Gran # (Auto) (0.00-0.02) K/uL PT (9.0-12.0) Seconds INR (0.9-1.1) Sodium 139 (136-145) mmol/L Potassium 3.2 L (3.5-5.1) mmol/L Chloride 104 (98-107) mmol/L Carbon Dioxide 29 (21-32) mmol/L Anion Gap 6.0 (3-11) BUN 8 (7-18) mg/dl Creatinine 0.69 (0.6-1.2) mg/dl Est Cr Clr Drug Dosing 64.9 ml/min Est GFR ( Amer) 91.4 Est GFR (Non-Af Amer) 78.8 BUN/Creatinine Ratio 11.2 (10-20) Glucose 143 H (70-99) mg/dl Lactate 1.6 (0.4-2.0) mmol/L Calcium 9.2 (8.5-10.1) mg/dl Total Bilirubin 0.9 (0.2-1) mg/dl AST 20 (15-37) U/L ALT 44 (12-78) U/L Alkaline Phosphatase 85 (45-117) U/L Total Protein 6.8 (6.4-8.2) gm/dl Albumin 2.9 L (3.4-5.0) gm/dl Globulin 3.9 (2.5-4.0) gm/dl Albumin/Globulin Ratio 0.7 L (0.9-2) Lipase 148 (73-393) U/L Urine Color Urine Appearance (Clear) Urine pH (4.5-7.5) Ur Specific Fonda (1.000-1.030) Urine Protein (Negative) Urine Glucose (UA) (Negative) Urine Ketones (Negative) Urine Blood (Negative) Urine Nitrite (Negative) Urine Bilirubin (Negative) Urine Urobilinogen (Negative) Ur Leukocyte Esterase (Negative) Urine WBC (Auto) (0-5) /hpf Urine RBC (Auto) (0-4) /hpf U Hyaline Cast (Auto) (0-5) /lpf U Epithel Cells (Auto) (0-5) /lpf Urine Bacteria (Auto) (Negative) Nasal Screen MRSA (PCR) Positive A (Negative) COVID-19 Eval Order SARS-CoV-2, RNA, NAAT (NEGATIVE) 06/10/20 06/10/20 Range/Units Unknown Unknown WBC (4.8-10.8) K/uL RBC (4.2-5.4) M/uL Hgb (12.0-16.0) g/dL Hct (37-47) % MCV (80-100) fL MCH (25-34) pg MCHC (32-36) g/dL RDW Std Deviation (36.4-46.3) fL RDW Coeff of Nasim (11.5-14.5) % Plt Count (130-400) K/uL MPV (7.4-10.4) fL Immature Gran % (Auto) % Neut % (Auto) % Lymph % (Auto) % Osborne % (Auto) % Eos % (Auto) % Baso % (Auto) % Neut # (Auto) (1.4-6.5) K/uL Lymph # (Auto) (1.2-3.4) K/uL Osborne # (Auto) (0.11-0.59) K/uL Eos # (Auto) (0-0.5) K/uL Baso # (Auto) (0-0.2) K/uL Immature Gran # (Auto) (0.00-0.02) K/uL PT (9.0-12.0) Seconds INR (0.9-1.1) Sodium (136-145) mmol/L Potassium (3.5-5.1) mmol/L Chloride (98-107) mmol/L Carbon Dioxide (21-32) mmol/L Anion Gap (3-11) BUN (7-18) mg/dl Creatinine (0.6-1.2) mg/dl Est Cr Clr Drug Dosing ml/min Est GFR ( Amer) Est GFR (Non-Af Amer) BUN/Creatinine Ratio (10-20) Glucose (70-99) mg/dl Lactate (0.4-2.0) mmol/L Calcium (8.5-10.1) mg/dl Total Bilirubin (0.2-1) mg/dl AST (15-37) U/L ALT (12-78) U/L Alkaline Phosphatase (45-117) U/L Total Protein (6.4-8.2) gm/dl Albumin (3.4-5.0) gm/dl Globulin (2.5-4.0) gm/dl Albumin/Globulin Ratio (0.9-2) Lipase (73-393) U/L Urine Color Urine Appearance (Clear) Urine pH (4.5-7.5) Ur Specific Fonda (1.000-1.030) Urine Protein (Negative) Urine Glucose (UA) (Negative) Urine Ketones (Negative) Urine Blood (Negative) Urine Nitrite (Negative) Urine Bilirubin (Negative) Urine Urobilinogen (Negative) Ur Leukocyte Esterase (Negative) Urine WBC (Auto) (0-5) /hpf Urine RBC (Auto) (0-4) /hpf U Hyaline Cast (Auto) (0-5) /lpf U Epithel Cells (Auto) (0-5) /lpf Urine Bacteria (Auto) (Negative) Nasal Screen MRSA (PCR) (Negative) COVID-19 Eval [facility] SARS-CoV-2, RNA, NAAT NEGATIVE (NEGATIVE) Administered Medications Discontinued Medications Fentanyl Citrate (Fentanyl Citrate 100 Mcg/2 Ml Vial) 25 mcg IV NOW ONE Stop: 06/10/20 09:54 Last Admin: 06/10/20 10:00 Dose: 25 mcg Documented by: [id number] Fentanyl Citrate (Fentanyl Citrate 100 Mcg/2 Ml Vial) 50 mcg IV NOW STA Stop: 06/10/20 10:45 Last Admin: 06/10/20 11:37 Dose: 50 mcg Documented by: [id number] Sodium Chloride (Nss) 500 mls @ 999 mls/hr IV .Q31M STA Stop: 06/10/20 10:23 Last Infusion: 06/10/20 12:18 Dose: 0 mls/hr Documented by: [id number] Admin: 06/10/20 10:05 Dose: 999 mls/hr Documented by: [id number] Discharge Plan Visit Data Chief Complaint: Back Injury/Pain ED Provider: Curly Sawyer Discharge Problem: Diverticulitis, Flank pain Forms Stand Alone Forms: [facility] [place] [employer] Prescriptions Prescriptions: No Action albuterol sulfate 90 mcg/actuation HFA aerosol inhaler 2 puffs inhalation Q4H PRN (Reason: bronchospasm) Qty: 3 RF: 3 amlodipine [Norvasc] 5 mg tablet 5 mg PO QAM RF: 0 Eliquis 5 mg tablet 5 mg PO BID Qty: 180 RF: 0 furosemide 20 mg tablet 20 mg PO QAM RF: 0 losartan 100 mg tablet 100 mg PO QAM RF: 0 Metamucil 3.4 gram/5.4 gram powder 1 tbs PO QAM RF: 0 multivitamin tablet 1 tab PO QAM RF: 0 potassium chloride 20 mEq tablet extended release 20 meq PO QAM RF: 0 pravastatin 80 mg tablet 80 mg PO HS RF: 0 ezetimibe [Zetia] 10 mg tablet 10 mg PO HS RF: 0 lutein 10 mg tablet 10 mg PO BID RF: 0 dicyclomine 10 mg capsule 10 mg PO TID PRN (Reason: abdominal pain) Qty: 270 RF: 1 montelukast 10 mg tablet 10 mg PO HS RF: 0 fluticasone propion-salmeterol [Advair Diskus] 250-50 mcg/dose blister with device 1 inh INHALATION BID RF: 0 tamsulosin 0.4 mg Capsule 0.4 mg PO QAM Qty: 14 RF: 0 cephalexin 500 mg capsule 500 mg PO BID 7 Days Qty: 14 RF: 0 hydrocodone-acetaminophen 5-325 mg tablet 0.5 tab PO Q8H PRN (Reason: pain) Qty: 7 RF: 0
[2020-06-10] MEDS ORDERED: SODIUM CHLORIDE 0.9% 500 ML IV STA (09:53)
[2020-06-10] MEDS ORDERED: fentaNYL citrate 100 MCG/2 ML VIAL IV ONE (09:53)
[2020-06-10 10:23] LABS: Appearance Urine Clear (Clear); Bacteria Urine Automated Negative (Negative); Bilirubin Urine Negative (Negative); Blood Urine 3+ (Negative); Color Urine Yellow; Epithelial Cell Urine Auto 0-5 /lpf (0-5); Glucose Urine UA Negative (Negative); Ketones Urine Negative (Negative); Leukocyte Esterase Urine Negative (Negative); Nitrite Urine Negative (Negative); Protein Urine Negative (Negative); RBC Urine Automated >30 /hpf (0-4); Urobilinogen Urine Negative (Negative)
[2020-06-10 10:38] LABS: Hematocrit (blood only) 41.7 % (37-47); Hemoglobin 14.1 g/dL (12.0-16.0); Mean Corpuscular Hemoglobin 32.3 pg (25-34); Mean Corpuscular Hgb Conc 33.8 g/dL (32-36); Mean Corpuscular Volume 95.4 fL (80-100); Mean Platelet Volume 10.7 fL (7.4-10.4); Platelet Count 272 K/uL (130-400); RDW Coefficient of Variation 13.3 % (11.5-14.5); RDW Standard Deviation 46.7 fL (36.4-46.3); Red Blood Count 4.37 M/uL (4.2-5.4); White Blood Count 29.66 K/uL (4.8-10.8)
[2020-06-10] MEDS ORDERED: fentaNYL citrate 100 MCG/2 ML VIAL IV STA (10:44)
[2020-06-10 10:46] LABS: INR 1.1 (0.9-1.1); Prothrombin Time 10.9 Seconds (9.0-12.0)
[2020-06-10 10:58] LABS: Albumin Level 2.9 gm/dl (3.4-5.0); BUN Creatinine Ratio 11.2 (10-20); Calcium 9.2 mg/dl (8.5-10.1); Creatinine Clr Calc Pharmacy 64.9 ml/min; Est GFR (African American) 91.4; Est GFR (Non-African American) 78.8; Potassium 3.2 mmol/L (3.5-5.1)
[2020-06-10] MEDS ORDERED: PIPERACILLIN/TAZOBACTAM 4.5 GM/120 ML BAG IV ONE (11:00)
[2020-06-10] MEDS ORDERED: PIPERACILL/TAZOBAC CONSULT ACTIVE PRN ×2 (11:00→15:24)
[2020-06-10 11:01] LABS: Albumin Globulin Ratio 0.7 (0.9-2); Bilirubin,Total 0.9 mg/dl (0.2-1); Globulin 3.9 gm/dl (2.5-4.0); Total Protein 6.8 gm/dl (6.4-8.2)
--- NOTE | 2020-06-10 11:28 | CT Scan Report ---
CT SCAN OF THE ABDOMEN AND PELVIS WITHOUT CONTRAST CLINICAL HISTORY: R sided back/flank pain; WBC 29, recent urostent COMPARISON STUDY: 06/01/2020 TECHNIQUE: CT scan of the abdomen and pelvis was performed from the lung bases to the proximal femurs . Images are reviewed in the axial, sagittal, and coronal planes. IV contrast was not administered fo r this examination. A dose lowering technique was utilized adhering to the principles of ALARA. CT DOSE: 1122.38 mGy.cm FINDINGS: Lower chest: There is a trace right pleural effusion. There is mild basilar atelectasis. Liver: There is mild hepatic steatosis. No focal masses are visualized in this noncontrast study Gallbladder: Surgically absent Spleen: Normal in size and attenuation. Pancreas: Unremarkable. Adrenal glands: Unremarkable. Kidneys: There is been interval placement of a right-sided nephroureteral stent. There has been resol ution of previously identified hydronephrosis. There are punctate nonobstructing renal calculi. No ca lculi are visualized along the course of the right-sided nephroureteral stent. Bowel: There are no transition zones to indicate bowel obstruction. There are scattered colonic air-f luid levels. There is colonic diverticulosis. There is bowel wall thickening and infiltration of kulwinder colonic fat at the level the sigmoid colon consistent with acute sigmoid diverticulitis. There is no evidence of abscess. A small colocolonic fistula cannot be excluded. There are no findings to indicat e acute appendicitis. Peritoneum: There is no intraperitoneal free air or abdominal ascites. Vasculature: The abdominal aorta is normal in course and caliber. Adenopathy: None. Pelvic viscera: There is a joint Huerta catheter. There is gas within the bladder likely iatrogenic. T he uterus appears surgically absent. Skeletal structures: No destructive osseous lesions are seen. IMPRESSION: 1. Interval development of acute sigmoid diverticulitis 2. No evidence of bowel obstruction. No evidence of free air 3. Punctate bilateral nonobstructing renal calculi 4. Interval placement of a right-sided nephroureteral stent. 5. Interval resolution of the previously described right-sided hydronephrosis ACT 112: Negative or not required by law. Electronically signed by: Paco Mendez M.D. 06/10/2020 11:27 AM
[2020-06-10 11:35] LABS: Basophils # (auto) 0.04 K/uL (0-0.2); Basophils % (auto) 0.1 %; Eosinophils # (auto) 0.07 K/uL (0-0.5); Eosinophils % (auto) 0.2 %; Immature Granulocytes # (auto) 0.18 K/uL (0.00-0.02); Immature Granulocytes % (auto) 0.6 %; Lymphocytes # (auto) 1.46 K/uL (1.2-3.4); Lymphocytes % (auto) 4.9 %; Monocytes # (auto) 1.43 K/uL (0.11-0.59); Monocytes % (auto) 4.8 %; Neutrophils # (auto) 26.48 K/uL (1.4-6.5); Neutrophils % (auto) 89.4 %
[2020-06-10] MEDS ORDERED: POTASSIUM CHLORIDE CRTAB 20 MEQ TABCR PO STA (13:06)
--- NOTE | 2020-06-10 13:08 | History & Physical Report ---
Date of Service June 10, 2020 Assessment & Plan (1) Sepsis: Presents with fever, tachycardia, significant leukocytosis, abdominal pain that is mostly right flank and right lower quadrant but also some left lower quadrant. With explosive diarrhea for the last 24 hours in the setting of recent antibiotic use for UTI. Also with right ureteral stent but UA is negative for infection although she has been on Keflex. CT abdomen/pelvis shows stent is in place and there is resolution of previous right hydronephrosis, no present stones within the stent. With acute sigmoid diverticulitis also present. With a history of C. 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 difficile and stool culture -Continue IV fluids-she received 500 mL normal saline bolus in the ER and I will continue LR at 80 mL's per hour -She is allergic to acetaminophen so would have to use NSAIDs as needed sparingly for fever -Follow blood cultures, stool culture (2) Diarrhea: As above, with a history of C. difficile colitis Check C. difficile and stool cultures Replace electrolytes as needed (3) Diverticulitis: As above, acute sigmoid diverticulitis-uncomplicated Has moderate tenderness on examination on the left lower quadrant With leukocytosis which may be from C. difficile colitis versus acute diverticulitis Keep n.p.o. for now except for sips and chips Continue maintenance fluids with LR at 80 mL's per hour Slowly advance diet as tolerated (4) Flank pain: With severe right-sided flank pain radiating to the right lower quadrant Suspect this is secondary to ureteral stent in place but may also be from gastroenteritis or C. difficile colitis as above Continue Flomax, start oxybutynin 5 mg p.o. twice daily as needed spasms IV Dilaudid as needed Consult urology to see if can have ureteral stent removed while inpatient as her stones seem to have all passed (5) Nephrolithiasis: As above Consult urology (6) Extrinsic asthma: No acute issues Continue albuterol as needed Advair or substitute twice daily (7) Irritable bowel syndrome: Hold home Bentyl in the setting of possible C. difficile colitis (8) Hyperlipidemia: Continue pravastatin, hold home Zetia to minimize p.o. pills while n.p.o. (9) Atrial flutter: With a history of such, has pacemaker Follows with Dr. Smith of cardiology in [place] continue Eliquis, she is not on AV ralph blockers (10) Allergic rhinitis due to pollen: Continue Singulair (11) Urinary retention: With a history of such during last admission and had an indwelling Huerta catheter since that time Follow with urology (12) Pacemaker: Noted Just had the battery generator replaced 3 weeks ago (13) Hypokalemia: Possibly due to GI losses and loop diuretic therapy Holding home Lasix Replace with potassium chloride p.o. Follow BMP and magnesium in the morning (14) HTN (hypertension), benign: Blood pressures are stable Continue home amlodipine, losartan (15) DVT prophylaxis: Eliquis Disposition-admit to medical floor telemetry DNR/DNI History of Present Illness Chief Complaint: Right lower back and abdomen pain Primary Care Provider: Dania Barcenas DO This patient is an 84-year-old female with a history of paroxysmal atrial fibrillation on Eliquis, PPM, HTN, borderline DM 2, asthma, Zenker's diverticulum, urinary retention with recent right sided ureterolithiasis with hydronephrosis and stent placement and UTI. She was discharged from hospital 2 days ago after a prolonged course for UTI and kidney stones. She reports starting yesterday she had explosive diarrhea at least 5 times along with fecal incontinence but denies bloody stools. She has developed significantly worsened right sided flank pain radiating into the right lower quadrant as well as some soreness in the left lower quadrant. She has had sweats and chills at home. She denies nausea or vomiting and has been eating and drinking. She has been making urine in her Huerta catheter bag that she is had in place since last admission for 1 L urinary retention and urethral stricture. She has a history of C. difficile colitis in the past. She has been taking Keflex for her UTI since discharge. In the ER, she was found to have a significant leukocytosis of 29,000, was febrile, and vital signs were otherwise stable. A lactate was normal. She had a mild hypokalemia. No evidence of infection on UA. CT of the abdomen/pelvis showed acute sigmoid diverticulitis and her right ureteral stent was in place without any evidence of stones along it. Her Covid test was negative Denies any chest pain or shortness of breath, no headaches or lightheadedness. Allergies Allergy/AdvReac Type Severity Reaction Status Date / Time acetaminophen Allergy Unknown NAUSEA/DIZZ Verified 06/10/20 10:32 INESS budesonide Allergy Unknown PT UNSURE Verified 06/10/20 10:32 OF RXN formoterol Allergy Unknown PT UNSURE Verified 06/10/20 10:32 OF RXN Iodinated Contrast Media Allergy Unknown RASH,HIVES Verified 06/10/20 10:32 FROM IVP DYE metronidazole Allergy Unknown SEVERE GI Verified 06/10/20 10:32 SYMPTOMS oxycodone Allergy Unknown NAUSEA/DIZZ Verified 06/10/20 10:32 INESS tramadol Allergy Unknown NAUSEA/DIZZ Verified 06/10/20 10:32 INESS KEENA Inhibitors AdvReac Intermediate COUGH Verified 06/10/20 10:32 Home Medications Medication Instructions Recorded Confirmed Type amlodipine 5 mg tablet 5 mg PO QAM 12/29/18 06/10/20 History apixaban 5 mg tablet 5 mg PO BID #180 tab 12/29/18 06/10/20 History ezetimibe 10 mg tablet 10 mg PO HS tab 12/29/18 06/10/20 History furosemide 20 mg tablet 20 mg PO QAM tab 12/29/18 06/10/20 History losartan 100 mg tablet 100 mg PO QAM tab 12/29/18 06/10/20 History multivitamin 1 tab PO QAM 12/29/18 06/10/20 History potassium chloride 20 mEq 20 meq PO QAM tab 12/29/18 06/10/20 History tablet,extended release pravastatin 80 mg tablet 80 mg PO HS tab 12/29/18 06/10/20 History psyllium husk 3.4 gram/5.4 gram 1 tbs PO QAM 12/29/18 06/10/20 History oral powder lutein 10 mg tablet 10 mg PO BID tab 12/30/18 06/10/20 History dicyclomine 10 mg capsule 10 mg PO TID PRN #270 cap 10/13/19 06/10/20 Rx albuterol sulfate 90 mcg/actuation 2 puffs INHALATION Q4H PRN #3 10/19/19 06/10/20 Rx aerosol inhaler inhaler fluticasone propion-salmeterol 1 inh INHALATION BID 06/01/20 06/10/20 History [Advair Diskus] montelukast 10 mg PO HS 06/01/20 06/10/20 History cephalexin 500 mg PO BID 7 Days #14 cap 06/08/20 06/10/20 Rx hydrocodone-acetaminophen 0.5 tab PO Q8H PRN #7 tab 06/08/20 06/10/20 Rx tamsulosin 0.4 mg PO QAM #14 cap 06/08/20 06/10/20 Rx Past Med/Surg History Medical History (Updated 06/10/20 @ 22:01 by Estella Arndt MD) Acid reflux disease Allergic rhinitis due to pollen Atrial flutter Basal cell carcinoma of skin of face Current use of intermediate anticoagulation Depression Diverticulosis Extrinsic asthma History of Clostridium difficile infection HTN (hypertension), benign Hydronephrosis with renal and ureteral calculous obstruction Hyperlipidemia Internal hemorrhoids Irritable bowel syndrome Macular degeneration Nephrolithiasis Osteoarthritis Pacemaker Urinary retention Zenker diverticulum Surgical History H/O rectocele repair H/O: hysterectomy History of bladder surgery bladder sling History of total knee arthroplasty bilateral Hx of repair of right rotator cuff S/P carpal tunnel release S/P cataract surgery b/l eyes S/P cholecystectomy S/P cystoscopy with ureteral stent placement 06/02/20 Dr. Rolando Friedman- Cystoscopy, Right retrograde pyelogram, Right ureteral dilation, Right ureteral sent placement, Right ureteroscopy, Laser lithotripsy, Stone basket extraction S/P Mohs surgery for basal cell carcinoma Status post placement of cardiac pacemaker (08/2011) Family History Father Cerebral artery occlusion Coronary heart disease Hypertension Myocardial infarction Mother Cerebral artery occlusion Diabetes Hypertension Denies family history of Ovarian cancer Prostate cancer Breast cancer Colorectal cancer Social History Smoking Status: Never smoker Second Hand Exposure: No; Hx Alcohol Use: Yes Alcohol type: beer Hx Substance Use: No Preferred Language: British Communication Ability: Effective Visual Impairment: Limited Hearing Ability: Use of Hearing Aid Power Transformer 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 Required: No Beliefs That Will Affect Care: None marital status: / Current Living Situation: Alone current occupational status: retired Other Information That Helps Us Care for You: No Feels Safe at Home: Yes Safety Concerns: Feels Safe At This Time Childhood Exposure to Second-Hand Smoke: Yes during the past year weight has: remained stable Dental Care, Regularly: Yes Physical Activity Frequency: Does not Exercise Seatbelt Use: always Assistive Devices: Cane, CPAP, Oxygen - at Night and Walker Review of Systems Review of Systems: All systems reviewed & are unremarkable except as noted in HPI & below Physical Exam Constitutional: WD/WN, vitals as above Eyes: PERRL, conjunctivae normal, anicteric sclerae ENMT: external ear and nose normal, oropharynx normal Neck: trachea midline, no thyromegaly Respiratory: normal respiratory effort, lungs clear to auscultation Cardiovascular: RRR, no murmur, no edema Chest (Breasts): Chest: normal inspection of chest Gastrointestinal (Abdomen): Inspection/Auscultation: abdomen normal to inspection and normal bowel sounds; abdomen not distended Percussion/Palpation: + abdomen tender (Exquisitely TTP in RLQ and right CVA, moderate TTP in LLQ, no guarding) and abdomen soft Musculoskeletal: Extremities: extremities normal to inspection; no cyanosis and no clubbing Skin: no rashes, warm and dry Neurologic: moves all extremities and awake; no focal motor deficits Psychiatric: A+Ox3, euthymic affect Genitourinary: Huerta catheter in place draining copious medium yellow urine Lymphatic: no lymphedema Results & Data Results & Data ([facility]) Vital Signs (Past 12 Hours) Vital Signs Temp Pulse Pulse Resp BP BP Pulse Ox 06/10/20 10:24 70 16 96 06/10/20 10:10 70 23 148/61 H 94 06/10/20 09:31 70 17 141/64 H 94 06/10/20 09:16 36.8 C 93 H 75 19 153/56 H 153/65 H 96 06/10/20 09:15 74 23 153/56 H 96 Laboratory Results 06/10/20 06/10/20 06/10/20 Range/Units Unknown Unknown 20:35 WBC (4.8-10.8) K/uL RBC (4.2-5.4) M/uL Hgb (12.0-16.0) g/dL Hct (37-47) % MCV (80-100) fL MCH (25-34) pg MCHC (32-36) g/dL RDW Std Deviation (36.4-46.3) fL RDW Coeff of Nasim (11.5-14.5) % Plt Count (130-400) K/uL MPV (7.4-10.4) fL Immature Gran % (Auto) % Neut % (Auto) % Lymph % (Auto) % Evans % (Auto) % Eos % (Auto) % Baso % (Auto) % Neut # (Auto) (1.4-6.5) K/uL Lymph # (Auto) (1.2-3.4) K/uL Evans # (Auto) (0.11-0.59) K/uL Eos # (Auto) (0-0.5) K/uL Baso # (Auto) (0-0.2) K/uL Immature Gran # (Auto) (0.00-0.02) K/uL PT (9.0-12.0) Seconds INR (0.9-1.1) Sodium (136-145) mmol/L Potassium (3.5-5.1) mmol/L Chloride (98-107) mmol/L Carbon Dioxide (21-32) mmol/L Anion Gap (3-11) BUN (7-18) mg/dl Creatinine (0.6-1.2) mg/dl Est Cr Clr Drug Dosing ml/min Est GFR ( Amer) Est GFR (Non-Af Amer) BUN/Creatinine Ratio (10-20) Glucose (70-99) mg/dl POC Glucose 109 H (70-99) mg/dl Lactate (0.4-2.0) mmol/L Calcium (8.5-10.1) mg/dl Total Bilirubin (0.2-1) mg/dl AST (15-37) U/L ALT (12-78) U/L Alkaline Phosphatase (45-117) U/L Total Protein (6.4-8.2) gm/dl Albumin (3.4-5.0) gm/dl Globulin (2.5-4.0) gm/dl Albumin/Globulin Ratio (0.9-2) Lipase (73-393) U/L Urine Color Urine Appearance (Clear) Urine pH (4.5-7.5) Ur Specific Ewing (1.000-1.030) Urine Protein (Negative) Urine Glucose (UA) (Negative) Urine Ketones (Negative) Urine Blood (Negative) Urine Nitrite (Negative) Urine Bilirubin (Negative) Urine Urobilinogen (Negative) Ur Leukocyte Esterase (Negative) Urine WBC (Auto) (0-5) /hpf Urine RBC (Auto) (0-4) /hpf U Hyaline Cast (Auto) (0-5) /lpf U Epithel Cells (Auto) (0-5) /lpf Urine Bacteria (Auto) (Negative) Nasal Screen MRSA (PCR) (Negative) Stl C. diff Tox B Gene COVID-19 Eval Order Covid19 IDNow [facility] SARS-CoV-2, RNA, NAAT NEGATIVE (NEGATIVE) 06/10/20 06/10/20 06/10/20 Range/Units 17:02 14:05 11:45 WBC (4.8-10.8) K/uL RBC (4.2-5.4) M/uL Hgb (12.0-16.0) g/dL Hct (37-47) % MCV (80-100) fL MCH (25-34) pg MCHC (32-36) g/dL RDW Std Deviation (36.4-46.3) fL RDW Coeff of Nasim (11.5-14.5) % Plt Count (130-400) K/uL MPV (7.4-10.4) fL Immature Gran % (Auto) % Neut % (Auto) % Lymph % (Auto) % Evans % (Auto) % Eos % (Auto) % Baso % (Auto) % Neut # (Auto) (1.4-6.5) K/uL Lymph # (Auto) (1.2-3.4) K/uL Evans # (Auto) (0.11-0.59) K/uL Eos # (Auto) (0-0.5) K/uL Baso # (Auto) (0-0.2) K/uL Immature Gran # (Auto) (0.00-0.02) K/uL PT (9.0-12.0) Seconds INR (0.9-1.1) Sodium (136-145) mmol/L Potassium (3.5-5.1) mmol/L Chloride (98-107) mmol/L Carbon Dioxide (21-32) mmol/L Anion Gap (3-11) BUN (7-18) mg/dl Creatinine (0.6-1.2) mg/dl Est Cr Clr Drug Dosing ml/min Est GFR ( Amer) Est GFR (Non-Af Amer) BUN/Creatinine Ratio (10-20) Glucose (70-99) mg/dl POC Glucose 99 (70-99) mg/dl Lactate (0.4-2.0) mmol/L Calcium (8.5-10.1) mg/dl Total Bilirubin (0.2-1) mg/dl AST (15-37) U/L ALT (12-78) U/L Alkaline Phosphatase (45-117) U/L Total Protein (6.4-8.2) gm/dl Albumin (3.4-5.0) gm/dl Globulin (2.5-4.0) gm/dl Albumin/Globulin Ratio (0.9-2) Lipase (73-393) U/L Urine Color Urine Appearance (Clear) Urine pH (4.5-7.5) Ur Specific Ewing (1.000-1.030) Urine Protein (Negative) Urine Glucose (UA) (Negative) Urine Ketones (Negative) Urine Blood (Negative) Urine Nitrite (Negative) Urine Bilirubin (Negative) Urine Urobilinogen (Negative) Ur Leukocyte Esterase (Negative) Urine WBC (Auto) (0-5) /hpf Urine RBC (Auto) (0-4) /hpf U Hyaline Cast (Auto) (0-5) /lpf U Epithel Cells (Auto) (0-5) /lpf Urine Bacteria (Auto) (Negative) Nasal Screen MRSA (PCR) Positive A (Negative) Stl C. diff Tox B Gene Cancelled COVID-19 Eval Order SARS-CoV-2, RNA, NAAT (NEGATIVE) 06/10/20 06/10/20 06/10/20 Range/Units 11:29 10:19 10:19 WBC (4.8-10.8) K/uL RBC (4.2-5.4) M/uL Hgb (12.0-16.0) g/dL Hct (37-47) % MCV (80-100) fL MCH (25-34) pg MCHC (32-36) g/dL RDW Std Deviation (36.4-46.3) fL RDW Coeff of Nasim (11.5-14.5) % Plt Count (130-400) K/uL MPV (7.4-10.4) fL Immature Gran % (Auto) % Neut % (Auto) % Lymph % (Auto) % Evans % (Auto) % Eos % (Auto) % Baso % (Auto) % Neut # (Auto) (1.4-6.5) K/uL Lymph # (Auto) (1.2-3.4) K/uL Evans # (Auto) (0.11-0.59) K/uL Eos # (Auto) (0-0.5) K/uL Baso # (Auto) (0-0.2) K/uL Immature Gran # (Auto) (0.00-0.02) K/uL PT 10.9 (9.0-12.0) Seconds INR 1.1 (0.9-1.1) Sodium 139 (136-145) mmol/L Potassium 3.2 L (3.5-5.1) mmol/L Chloride 104 (98-107) mmol/L Carbon Dioxide 29 (21-32) mmol/L Anion Gap 6.0 (3-11) BUN 8 (7-18) mg/dl Creatinine 0.69 (0.6-1.2) mg/dl Est Cr Clr Drug Dosing 64.9 ml/min Est GFR ( Amer) 91.4 Est GFR (Non-Af Amer) 78.8 BUN/Creatinine Ratio 11.2 (10-20) Glucose 143 H (70-99) mg/dl POC Glucose (70-99) mg/dl Lactate 1.6 (0.4-2.0) mmol/L Calcium 9.2 (8.5-10.1) mg/dl Total Bilirubin 0.9 (0.2-1) mg/dl AST 20 (15-37) U/L ALT 44 (12-78) U/L Alkaline Phosphatase 85 (45-117) U/L Total Protein 6.8 (6.4-8.2) gm/dl Albumin 2.9 L (3.4-5.0) gm/dl Globulin 3.9 (2.5-4.0) gm/dl Albumin/Globulin Ratio 0.7 L (0.9-2) Lipase 148 (73-393) U/L Urine Color Urine Appearance (Clear) Urine pH (4.5-7.5) Ur Specific Ewing (1.000-1.030) Urine Protein (Negative) Urine Glucose (UA) (Negative) Urine Ketones (Negative) Urine Blood (Negative) Urine Nitrite (Negative) Urine Bilirubin (Negative) Urine Urobilinogen (Negative) Ur Leukocyte Esterase (Negative) Urine WBC (Auto) (0-5) /hpf Urine RBC (Auto) (0-4) /hpf U Hyaline Cast (Auto) (0-5) /lpf U Epithel Cells (Auto) (0-5) /lpf Urine Bacteria (Auto) (Negative) Nasal Screen MRSA (PCR) (Negative) Stl C. diff Tox B Gene COVID-19 Eval Order SARS-CoV-2, RNA, NAAT (NEGATIVE) 06/10/20 06/10/20 Range/Units 10:19 10:10 WBC 29.66 H (4.8-10.8) K/uL RBC 4.37 (4.2-5.4) M/uL Hgb 14.1 (12.0-16.0) g/dL Hct 41.7 (37-47) % MCV 95.4 (80-100) fL MCH 32.3 (25-34) pg MCHC 33.8 (32-36) g/dL RDW Std Deviation 46.7 H (36.4-46.3) fL RDW Coeff of Nasim 13.3 (11.5-14.5) % Plt Count 272 (130-400) K/uL MPV 10.7 H (7.4-10.4) fL Immature Gran % (Auto) 0.6 % Neut % (Auto) 89.4 % Lymph % (Auto) 4.9 % Evans % (Auto) 4.8 % Eos % (Auto) 0.2 % Baso % (Auto) 0.1 % Neut # (Auto) 26.48 H (1.4-6.5) K/uL Lymph # (Auto) 1.46 (1.2-3.4) K/uL Evans # (Auto) 1.43 H (0.11-0.59) K/uL Eos # (Auto) 0.07 (0-0.5) K/uL Baso # (Auto) 0.04 (0-0.2) K/uL Immature Gran # (Auto) 0.18 H (0.00-0.02) K/uL PT (9.0-12.0) Seconds INR (0.9-1.1) Sodium (136-145) mmol/L Potassium (3.5-5.1) mmol/L Chloride (98-107) mmol/L Carbon Dioxide (21-32) mmol/L Anion Gap (3-11) BUN (7-18) mg/dl Creatinine (0.6-1.2) mg/dl Est Cr Clr Drug Dosing ml/min Est GFR ( Amer) Est GFR (Non-Af Amer) BUN/Creatinine Ratio (10-20) Glucose (70-99) mg/dl POC Glucose (70-99) mg/dl Lactate (0.4-2.0) mmol/L Calcium (8.5-10.1) mg/dl Total Bilirubin (0.2-1) mg/dl AST (15-37) U/L ALT (12-78) U/L Alkaline Phosphatase (45-117) U/L Total Protein (6.4-8.2) gm/dl Albumin (3.4-5.0) gm/dl Globulin (2.5-4.0) gm/dl Albumin/Globulin Ratio (0.9-2) Lipase (73-393) U/L Urine Color Yellow Urine Appearance Clear (Clear) Urine pH 8.0 H (4.5-7.5) Ur Specific Ewing 1.010 (1.000-1.030) Urine Protein Negative (Negative) Urine Glucose (UA) Negative (Negative) Urine Ketones Negative (Negative) Urine Blood 3+ H (Negative) Urine Nitrite Negative (Negative) Urine Bilirubin Negative (Negative) Urine Urobilinogen Negative (Negative) Ur Leukocyte Esterase Negative (Negative) Urine WBC (Auto) 1-5 (0-5) /hpf Urine RBC (Auto) >30 H (0-4) /hpf U Hyaline Cast (Auto) 1-5 (0-5) /lpf U Epithel Cells (Auto) 0-5 (0-5) /lpf Urine Bacteria (Auto) Negative (Negative) Nasal Screen MRSA (PCR) (Negative) Stl C. diff Tox B Gene COVID-19 Eval Order SARS-CoV-2, RNA, NAAT (NEGATIVE) Diagnostic Findings CT SCAN OF THE ABDOMEN AND PELVIS WITHOUT CONTRAST CLINICAL HISTORY: R sided back/flank pain; WBC 29, recent urostent COMPARISON STUDY: 06/01/2020 TECHNIQUE: CT scan of the abdomen and pelvis was performed from the lung bases to the proximal femurs. Images are reviewed in the axial, sagittal, and coronal planes. IV contrast was not administered for this examination. A dose lowering technique was utilized adhering to the principles of ALARA. CT DOSE: 1122.38 mGy.cm FINDINGS: Lower chest: There is a trace right pleural effusion. There is mild basilar atelectasis. Liver: There is mild hepatic steatosis. No focal masses are visualized in this noncontrast study Gallbladder: Surgically absent Spleen: Normal in size and attenuation. Pancreas: Unremarkable. Adrenal glands: Unremarkable. Kidneys: There is been interval placement of a right-sided nephroureteral stent. There has been resolution of previously identified hydronephrosis. There are punctate nonobstructing renal calculi. No calculi are visualized along the course of the right-sided nephroureteral stent. Bowel: There are no transition zones to indicate bowel obstruction. There are scattered colonic air-fluid levels. There is colonic diverticulosis. There is bowel wall thickening and infiltration of pericolonic fat at the level the sigmoid colon consistent with acute sigmoid diverticulitis. There is no evidence of abscess. A small colocolonic fistula cannot be excluded. There are no findings to indicate acute appendicitis. Peritoneum: There is no intraperitoneal free air or abdominal ascites. Vasculature: The abdominal aorta is normal in course and caliber. Adenopathy: None. Pelvic viscera: There is a joint Huerta catheter. There is gas within the bladder likely iatrogenic. The uterus appears surgically absent. Skeletal structures: No destructive osseous lesions are seen. IMPRESSION: 1. Interval development of acute sigmoid diverticulitis 2. No evidence of bowel obstruction. No evidence of free air 3. Punctate bilateral nonobstructing renal calculi 4. Interval placement of a right-sided nephroureteral stent. 5. Interval resolution of the previously described right-sided hydronephrosis Code Status & VTE Plan Code Status DNR/DNI VTE Prophylaxis Plan VTE Prophylaxis will be ordered: Yes PG Care Time/CCT Total # of Minutes Spent Total Time Spent with Patient: Total time spent is greater than 50% in coordination of care (as documented) at patient's floor/unit and/or counseling patient: Coding Level of Care Code 32409 Initial Inpt Care Lvl 3 Diagnoses Sepsis A41.9 Diarrhea R19.7 Diverticulitis K57.92 Flank pain R10.9 Nephrolithiasis N20.0 Extrinsic asthma J45.909 Irritable bowel syndrome K58.9 Hyperlipidemia E78.5 Atrial flutter I48.92 Allergic rhinitis due to pollen J30.1 Urinary retention R33.9 Pacemaker Z95.0 Hypokalemia E87.6 HTN (hypertension), benign I10 DVT prophylaxis Z29.9
[2020-06-10] MEDS: HYDROmorphone INJ 0.5 MG/0.5 ML SYR IV PRN ×3 (14:39→22:29)
[2020-06-10] MEDS ORDERED: CARBOHYDRATES FOR HYPOGLYCEMIA PO PRN (15:24)
[2020-06-10] MEDS ORDERED: GLUCAGON FOR INJ 1 MG VIAL SQ PRN (15:24)
[2020-06-10] MEDS ORDERED: GLUCOSE 40% GEL 15 GM TUBE PO PRN (15:24)
[2020-06-10] MEDS ORDERED: ALBUTEROL HFA 8 GM INHALER INH PRN (15:24)
[2020-06-10] MEDS ORDERED: GLUCOSE 10 TABS/TUBE PO PRN (15:24)
[2020-06-10] MEDS ORDERED: DEXTROSE 50% 50 ML SYRINGE IV PRN (15:24)
[2020-06-10] MEDS: LACTATED RINGER'S 1,000 ML IV SCH ×2 (15:38→22:08)
[2020-06-10] MEDS: INSULIN ASPART 100 UNITS/ML 3 ML PEN SC SCH ×2 (17:04→20:44)
[2020-06-10] MEDS: PIPERACILLIN/TAZOBACTAM 3.375 GM in DEXTROSE 5% 100 ML IV SCH (18:39)
[2020-06-10] MEDS: MONTELUKAST SODIUM 10 MG TABLET PO SCH (20:11)
[2020-06-10] MEDS: APIXABAN 5 MG TABLET PO SCH (20:11)
[2020-06-10] MEDS: PRAVASTATIN SOD 40 MG TAB PO SCH (20:11)
[2020-06-11] MEDS: PIPERACILLIN/TAZOBACTAM 3.375 GM in DEXTROSE 5% 100 ML IV SCH ×3 (02:22→18:44)
[2020-06-11] MEDS: HYDROmorphone INJ 0.5 MG/0.5 ML SYR IV PRN ×5 (03:20→20:08)
[2020-06-11 07:30] LABS: Hematocrit (blood only) 37.9 % (37-47); Hemoglobin 12.7 g/dL (12.0-16.0); Mean Corpuscular Hemoglobin 32.5 pg (25-34); Mean Corpuscular Hgb Conc 33.5 g/dL (32-36); Mean Corpuscular Volume 96.9 fL (80-100); Mean Platelet Volume 10.5 fL (7.4-10.4); Platelet Count 239 K/uL (130-400); RDW Coefficient of Variation 13.7 % (11.5-14.5); RDW Standard Deviation 47.9 fL (36.4-46.3); Red Blood Count 3.91 M/uL (4.2-5.4); White Blood Count 23.34 K/uL (4.8-10.8)
[2020-06-11] MEDS: INSULIN ASPART 100 UNITS/ML 3 ML PEN SC SCH ×4 (07:30→20:27)
[2020-06-11 07:55] LABS: Basophils # (auto) 0.03 K/uL (0-0.2); Basophils % (auto) 0.1 %; Eosinophils # (auto) 0.18 K/uL (0-0.5); Eosinophils % (auto) 0.8 %; Immature Granulocytes # (auto) 0.13 K/uL (0.00-0.02); Immature Granulocytes % (auto) 0.6 %; Lymphocytes # (auto) 1.56 K/uL (1.2-3.4); Lymphocytes % (auto) 6.7 %; Monocytes # (auto) 1.26 K/uL (0.11-0.59); Monocytes % (auto) 5.4 %; Neutrophils # (auto) 20.18 K/uL (1.4-6.5); Neutrophils % (auto) 86.4 %
[2020-06-11 08:01] LABS: Albumin Level 2.2 gm/dl (3.4-5.0); BUN Creatinine Ratio 15.7 (10-20); Calcium 9.2 mg/dl (8.5-10.1); Creatinine Clr Calc Pharmacy 78.9 ml/min; Est GFR (Non-African American) 85.4; Magnesium 1.8 mg/dl (1.8-2.4); Potassium 3.4 mmol/L (3.5-5.1)
[2020-06-11 08:04] LABS: Albumin Globulin Ratio 0.6 (0.9-2); Bilirubin,Total 0.9 mg/dl (0.2-1); Globulin 3.6 gm/dl (2.5-4.0); Phosphorus 2.6 mg/dl (2.5-4.9); Total Protein 5.9 gm/dl (6.4-8.2)
[2020-06-11] MEDS ORDERED: MAGNESIUM SULFATE / D5W 1 GM/100 ML BAG IV ONE (08:30)
[2020-06-11] MEDS: OXYBUTYNIN CHLORIDE 5 MG TAB PO PRN (08:38)
[2020-06-11] MEDS: LOSARTAN POTASSIUM 50 MG TAB PO SCH (08:39)
[2020-06-11] MEDS: APIXABAN 5 MG TABLET PO SCH ×2 (08:39→20:25)
[2020-06-11] MEDS: amLODIPine BESYLATE 5 MG TAB PO SCH (08:39)
[2020-06-11] MEDS: TAMSULOSIN HCL 0.4 MG CAP PO SCH (08:39)
[2020-06-11] MEDS: POTASSIUM CHLORIDE / WTR 10 MEQ/100 ML PLCT IV SCH ×3 (08:48→12:53)
[2020-06-11] MEDS: FLUTICASONE/VILANTEROL 200/25MCG 14 PUFFS/INHALER INH SCH (09:57)
--- NOTE | 2020-06-11 10:55 | Hospitalist Progress Note ---
Date of Service June 11, 2020 Assessment & Plan (1) Sepsis: Lorna Perkins is an 84yo w/ a PMHx of afib on Eliquis, HTN, DM2, recent kidney stone w/ pyelo and abx tx and dc from [facility] 2 days [employer], and C. diff colitis who presented with sudden onset RLQ pain and explosive diarrhea with subsequent eval suspicious for diverticulitis vs c. diff colitis. Sepsis 2/2 Diverticulitis vs C. diff colitis - Febrile, tachycardic, leukocytosis on admit - CT-A/P: Resolution of R hydronephrosis. There are scattered colonic air-fluid levels. There is colonic diverticulosis. There is bowel wall thickening and infiltration of pericolonic fat at the level the sigmoid colon consistent with acute sigmoid diverticulitis. There is no evidence of abscess. - C. diff testing pending - Empiric Zosyn for diverticulitis - IVFM LR80 - NPO + meds & sips - No tyelnol due to allergy - BC, SC pending - Pain control with toradol 10mg IV q6H PRN, hydromorphone 0.5mg q4 prn R Sided Flank Pain, RLQ radiation - Suspect 2/2 infection as above - DDx includes post uretal stent pain - FLomax, oxybutynin for spasm - Analgesics as above - Urology consulted. Recommend waiting for clinical improvement prior to stent removal. Hx Extrinsic Asthma - Albuterol PRN - Continue fluticasone.vilanterol daily 1 puff IBS-D - Bentyl held HLD - COntinue pravastatin 80mg qHS - Zetia held, resume @ d/c Atrial Flutter - Pacer in place - Continue Eliquis - No rate control [employer] Urinary Retention w/ Indewlling Huerta - Uro consulted, see above. Hypokalemia - Lasix held - Repletion ordered - BMP daily, Mg 1.8 HTN - [employer] amlodipine - [employer] losartan DVT PPx: On eliquis Dispo: Med Tele Diet: NPO 2/2 diverticulitous, ADAT when clinically improving Code: DNR/DNI (2) Diarrhea: (3) Hyperlipidemia: (4) Diverticulitis: (5) Flank pain: (6) Depression: (7) Diverticulosis: (8) History of Clostridium difficile infection: (9) Osteoarthritis: Admission and Anticipated Discharge Date Admission Date: June 10, 2020 Supervising Physician Co-Signing Physician Notes Resident Physician Supervision Note: I independently interviewed and examined the patient and verified the palacios history and physical, reviewed labs and image studies, discussed the case with the resident Dr. Norton and agree with the findings and care plan. Subjective Lorna reports she feel fatigued thsi morning. She has had one liquid bowel movement. She feels her abdomen is very distended. Denies fevers/chills this morning. Denies shortness of breath and chest pain. Endorses RIGHT lower back/flank pain. No abdominal pain at rest, but reports her R abdomen is tender to pressure. She is very concerned about the potential for antibiotics to make her diarrhea worse, is aware that her CT shows evidence of diverticulitis but the ddx includes C. diff. Fatigued, and reports after treatment she would like evaluation by PT/OT and thinks she may need additional assistance at home or care at a place like [facility], but doesn't think her insurance covers CC. Reassured that will check with social. No other question or concerns at time of exam. Review of Systems Review of Systems: Constitutional: Denies fever, chills. Endorses fatigue. Eyes: Denies vision change. ENT: Denies ear pain, sore throat, sinus pain Cardiovascular: Denies Chest pain, chest pressure, palpitations, extremity swelling Respiratory: Denies shortness of breath, cough, sputum production, difficulty breathing Gastrointestinal:See HPI. Genitourinary: Denies pain with urination Musculoskeletal: Endorses RLQ back pain and global weakness. Integumentary:Denies rash, lesions, bruising Neurological: Denies headache, numbness, tingling, focal weakness Physical Exam Physical Exam: General: A&Ox3. NAD. Cooperative. Skin warm, dry. HEENT: Atraumatic, normocephalic. Visual acuity grossly intact. Pulm: CTAB A&P. -wheezes, -rales, -rhonchi. Symmetrical chest rise. No increase work of breathing. No respiratory distress. Cardiac: RRR, -mrg. Radial pulses intact and symmetrical. Abdominal: Softly distended, RLQ and R flank TTP. No rebound. BS increased. Results & Data Results & Data ([facility]) Vital Signs (Past 12 Hours) Vital Signs Temp Pulse Pulse Pulse Resp BP Pulse Ox 06/11/20 07:18 37.0 C 71 20 133/76 96 06/11/20 07:00 73 06/11/20 04:00 36.7 C 69 18 129/66 95 06/11/20 02:49 68 18 94 06/11/20 00:59 70 06/10/20 22:56 36.6 C 68 19 129/67 92 Resident Activity Tracking Resident Involvement: Resident Care Provided Care Provided: Adult Hospital Medicine
--- NOTE | 2020-06-11 12:39 | Urology Consultation ---
Date of Consultation June 11, 2020 Assessment & Plan (1) Diarrhea: Diverticulitis vs. C Diff - WBC elevated. Continue treatment. Present on Admission?: Yes (2) Flank pain: S/p ureteroscopy stone extraction and stent placement with lopez due to retention 1. Leave lopez and stent in place at this time. She has an elevated WBC and continues to have large volume diarrhea. I would leave both the stent and lopez until her WBC and bowels stabilize. Present on Admission?: Yes History of Present Illness Attending Physician: Cathi Arevalo MD Patient reports that she had a stone procedure - ureteroscopy and laser/litho now 2 weeks ago. She reports that she has had some flank pain at times on the right side but otherwise was doing well. No blood in her urine. She reports that she has been having severe liquid diarrhea for the past few days. + h/o of C Diff in the past as well. She is currently on ice chips and IVF - still with significant diarrhea. She reports that she has had a lopez catheter now for a few weeks since her last admission. She states that she was voiding alot, and she thought that she had been emptying well but they told her she was retaining. She has had multiple vaginal deliveries, hysterectomy, and POP surgeries, ? sling in the past. She is most bothered by her diarrhea at this time. Allergies Allergy/AdvReac Type Severity Reaction Status Date / Time acetaminophen Allergy Unknown NAUSEA/DIZZ Verified 06/10/20 10:32 INESS budesonide Allergy Unknown PT UNSURE Verified 06/10/20 10:32 OF RXN formoterol Allergy Unknown PT UNSURE Verified 06/10/20 10:32 OF RXN Iodinated Contrast Media Allergy Unknown RASH,HIVES Verified 06/10/20 10:32 FROM IVP DYE metronidazole Allergy Unknown SEVERE GI Verified 06/10/20 10:32 SYMPTOMS oxycodone Allergy Unknown NAUSEA/DIZZ Verified 06/10/20 10:32 INESS tramadol Allergy Unknown NAUSEA/DIZZ Verified 06/10/20 10:32 INESS KEENA Inhibitors AdvReac Intermediate COUGH Verified 06/10/20 10:32 Home Medications Medication Instructions Recorded Confirmed Type amlodipine 5 mg tablet 5 mg PO QAM 12/29/18 06/10/20 History apixaban 5 mg tablet 5 mg PO BID #180 tab 12/29/18 06/10/20 History ezetimibe 10 mg tablet 10 mg PO HS tab 12/29/18 06/10/20 History furosemide 20 mg tablet 20 mg PO QAM tab 12/29/18 06/10/20 History losartan 100 mg tablet 100 mg PO QAM tab 12/29/18 06/10/20 History multivitamin 1 tab PO QAM 12/29/18 06/10/20 History potassium chloride 20 mEq 20 meq PO QAM tab 12/29/18 06/10/20 History tablet,extended release pravastatin 80 mg tablet 80 mg PO HS tab 12/29/18 06/10/20 History psyllium husk 3.4 gram/5.4 gram 1 tbs PO QAM 12/29/18 06/10/20 History oral powder lutein 10 mg tablet 10 mg PO BID tab 12/30/18 06/10/20 History dicyclomine 10 mg capsule 10 mg PO TID PRN #270 cap 10/13/19 06/10/20 Rx albuterol sulfate 90 mcg/actuation 2 puffs INHALATION Q4H PRN #3 10/19/19 06/10/20 Rx aerosol inhaler inhaler fluticasone propion-salmeterol 1 inh INHALATION BID 06/01/20 06/10/20 History [Advair Diskus] montelukast 10 mg PO HS 06/01/20 06/10/20 History cephalexin 500 mg PO BID 7 Days #14 cap 06/08/20 06/10/20 Rx hydrocodone-acetaminophen 0.5 tab PO Q8H PRN #7 tab 06/08/20 06/10/20 Rx tamsulosin 0.4 mg PO QAM #14 cap 06/08/20 06/10/20 Rx Patient History Medical History (Updated 06/11/20 @ 12:37 by Natasha Mccallum MD) Acid reflux disease Allergic rhinitis due to pollen Atrial flutter Basal cell carcinoma of skin of face Current use of intermediate anticoagulation Depression Diverticulosis Extrinsic asthma History of Clostridium difficile infection HTN (hypertension), benign Hydronephrosis with renal and ureteral calculous obstruction Hyperlipidemia Internal hemorrhoids Irritable bowel syndrome Macular degeneration Nephrolithiasis Osteoarthritis Pacemaker Urinary retention Zenker diverticulum Surgical History H/O rectocele repair H/O: hysterectomy History of bladder surgery bladder sling History of total knee arthroplasty bilateral Hx of repair of right rotator cuff S/P carpal tunnel release S/P cataract surgery b/l eyes S/P cholecystectomy S/P cystoscopy with ureteral stent placement 06/02/20 Dr. Rolando Friedman- Cystoscopy, Right retrograde pyelogram, Right ureteral dilation, Right ureteral sent placement, Right ureteroscopy, Laser lithotripsy, Stone basket extraction S/P Mohs surgery for basal cell carcinoma Status post placement of cardiac pacemaker (08/2011) Family History Father Cerebral artery occlusion Coronary heart disease Hypertension Myocardial infarction Mother Cerebral artery occlusion Diabetes Hypertension Denies family history of Ovarian cancer Prostate cancer Breast cancer Colorectal cancer Social History Smoking Status: Never smoker Second Hand Exposure: No; Hx Alcohol Use: Yes Alcohol type: beer Hx Substance Use: No Preferred Language: American Communication Ability: Effective Visual Impairment: Limited Hearing Ability: 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 Job Titles Required: No Beliefs That Will Affect Care: None marital status: / Current Living Situation: Alone current occupational status: retired Other Information That Helps Us Care for You: No Feels Safe at Home: Yes Safety Concerns: Feels Safe At This Time Childhood Exposure to Second-Hand Smoke: Yes during the past year weight has: remained stable Dental Care, Regularly: Yes Physical Activity Frequency: Does not Exercise Seatbelt Use: always Assistive Devices: Oxygen - Continuous Review of Systems Review of Systems: All systems reviewed & are unremarkable except as noted in HPI & below Physical Exam Physical Exam: oriented nonlabored breathing abdomen soft, mild tenderness urine is dark yellow/brown Results & [facility] ([facility]) Vital Signs (Past 12 Hours) Vital Signs Temp Pulse Pulse Resp BP Pulse Ox 06/11/20 11:17 36.8 C 71 20 148/78 H 96 06/11/20 07:18 37.0 C 71 20 133/76 96 06/11/20 07:00 73 06/11/20 04:00 36.7 C 69 18 129/66 95 06/11/20 02:49 68 18 94 06/11/20 00:59 70 PG Care Time/CCT Total # of Minutes Spent Total Time Spent with Patient: Total time spent is greater than 50% in coordination of care (as documented) at patient's floor/unit and/or counseling patient: Coding [place] [address] Office/OBS Consult Lvl 4 Patient Type Established History Expanded Problem Focused Exam Expanded Problem Focused Diagnoses Diarrhea R19.7 Diarrhea type: unspecified type Flank pain R10.9 Time Spent (min) 25 (1) Diarrhea Diarrhea type: unspecified type Qualified Code(s): R19.7 - Diarrhea, unspecified
[2020-06-11] MEDS ORDERED: Nursing to Pharmacy Communication SCH (13:15)
[2020-06-11] MEDS: LACTATED RINGER'S 1,000 ML IV SCH ×2 (13:20→23:55)
[2020-06-11] MEDS: ONDANSETRON INJ 2 MG/ML 2 ML VIAL IV PRN (20:23)
[2020-06-11] MEDS: MONTELUKAST SODIUM 10 MG TABLET PO SCH (20:26)
[2020-06-11] MEDS: PRAVASTATIN SOD 40 MG TAB PO SCH (20:26)
[2020-06-11 20:53] LABS: Cdiff Antigen Positive
[2020-06-11 20:54] LABS: Cdiff Toxin A+B Positive Cdiff Toxin (Negative)
[2020-06-11] MEDS: VANCOMYCIN HCL 125 MG/2.5ML SOLN PO SCH (23:52)
[2020-06-11] MEDS: RASPBERRY SYRUP 5 ML UDP PO SCH (23:53)
[2020-06-12] MEDS: OXYBUTYNIN CHLORIDE 5 MG TAB PO PRN (00:05)
[2020-06-12] MEDS: D5W AND LACTATED RINGERS 1,000 ML IV SCH ×2 (01:32→15:30)
[2020-06-12] MEDS: HYDROmorphone INJ 0.5 MG/0.5 ML SYR IV PRN ×5 (01:33→20:56)
[2020-06-12] MEDS: PIPERACILLIN/TAZOBACTAM 3.375 GM in DEXTROSE 5% 100 ML IV SCH ×2 (03:50→10:23)
[2020-06-12] MEDS: RASPBERRY SYRUP 5 ML UDP PO SCH ×3 (06:25→17:43)
[2020-06-12] MEDS: VANCOMYCIN HCL 125 MG/2.5ML SOLN PO SCH ×3 (06:25→17:43)
[2020-06-12 06:28] LABS: Hematocrit (blood only) 37.4 % (37-47); Hemoglobin 12.3 g/dL (12.0-16.0); Mean Corpuscular Hemoglobin 32.1 pg (25-34); Mean Corpuscular Hgb Conc 32.9 g/dL (32-36); Mean Corpuscular Volume 97.7 fL (80-100); Mean Platelet Volume 10.7 fL (7.4-10.4); Platelet Count 249 K/uL (130-400); RDW Coefficient of Variation 13.4 % (11.5-14.5); RDW Standard Deviation 47.9 fL (36.4-46.3); Red Blood Count 3.83 M/uL (4.2-5.4); White Blood Count 38.83 K/uL (4.8-10.8)
[2020-06-12 06:48] LABS: Basophils # (auto) 0.04 K/uL (0-0.2); Basophils % (auto) 0.1 %; Eosinophils # (auto) 0.06 K/uL (0-0.5); Eosinophils % (auto) 0.2 %; Immature Granulocytes # (auto) 0.21 K/uL (0.00-0.02); Immature Granulocytes % (auto) 0.5 %; Lymphocytes # (auto) 1.16 K/uL (1.2-3.4); Monocytes # (auto) 2.26 K/uL (0.11-0.59); Monocytes % (auto) 5.8 %; Neutrophils % (auto) 90.4 %
[2020-06-12 06:55] LABS: Calcium 8.5 mg/dl (8.5-10.1); Creatinine Clr Calc Pharmacy 77.5 ml/min; Est GFR (African American) 98.4; Est GFR (Non-African American) 84.9; Potassium 3.5 mmol/L (3.5-5.1)
[2020-06-12] MEDS: INSULIN ASPART 100 UNITS/ML 3 ML PEN SC SCH ×3 (07:47→18:09)
[2020-06-12] MEDS: FLUTICASONE/VILANTEROL 200/25MCG 14 PUFFS/INHALER INH SCH (07:59)
[2020-06-12] MEDS: LOSARTAN POTASSIUM 50 MG TAB PO SCH (07:59)
[2020-06-12] MEDS: amLODIPine BESYLATE 5 MG TAB PO SCH (08:00)
[2020-06-12] MEDS: APIXABAN 5 MG TABLET PO SCH ×2 (08:00→20:56)
[2020-06-12] MEDS: TAMSULOSIN HCL 0.4 MG CAP PO SCH (08:00)
--- NOTE | 2020-06-12 08:04 | Hospitalist Progress Note ---
Date of Service June 12, 2020 Assessment & Plan (1) Sepsis: Lorna Perkins is an 84yo w/ a PMHx of afib on Eliquis, HTN, DM2, recent kidney stone w/ pyelo and abx tx and dc from [facility] 2 days [employer], and C. diff colitis who presented with sudden onset RLQ pain and explosive diarrhea with subsequent eval suspicious for diverticulitis vs c. diff colitis. Sepsis 2/2 C. diff colitis with evidence of additional diverticulitis - Febrile, tachycardic, leukocytosis on admit - Hemodynamically stable; BP 116/69 pulse 72, Resp 16-20 on assessment -Initial CT-A/P: Resolution of R hydronephrosis. There are scattered colonic air-fluid levels. There is colonic diverticulosis. There is bowel wall thicke clementina and infiltration of pericolonic fat at the level the sigmoid colon consistent with acute sigmoid diverticulitis. There is no evidence of abscess. - C. diff as below - Empiric Zosyn for diverticulitis - IVFM D5LR 100cc/hr - NPO + meds & sips - No tylenol due to allergy - Blood cultures NGTD - Pain control hydromorphone 0.5mg q4 prn Severe C. difficile colitis. - Gene & Toxin positive. 1x prior C. diff episode 2 years ago. -WBC 34, uptrending Vancomycin 125 every 6 hours Cholestyramine added -Given worsening abdominal tenderness, high leukocytosis, and poor clinical appearance adjunct fidaxomycin 200 mg BID ordered -CTA/P with oral for worsening exam with complicating potential underlying diverticulitis and above noted exam. Patient with severe hives allergy to IV contrast per patient and family, and told she should not receive IV contrast. GI consulted. Pt has had outpt colonoscopies with [facility] previously. Per family has not seen [facility] or [facility] previously. R Sided Flank Pain with history of stent placement - Suspect 2/2 infection as above - DDx includes post uretal stent pain - FLomax, oxybutynin for spasm - Analgesics as above - Urology consulted. Recommend waiting for clinical improvement prior to stent removal. Hx Extrinsic Asthma - Albuterol PRN - Continue fluticasone.vilanterol daily 1 puff IBS-D - Bentyl held HLD - Continue pravastatin 80mg qHS - Zetia held, resume @ d/c Atrial Flutter - Pacer in place - Continue Eliquis - No rate control [employer] Hypokalemia - Improved with repletion - BMP daily, replete as indicated HTN - [employer] amlodipine - [employer] losartan DVT PPx: On eliquis Dispo: Med Tele Diet: NPO Code: DNR/DNI (2) Diarrhea: (3) Hyperlipidemia: (4) Diverticulitis: (5) Flank pain: (6) Depression: (7) Diverticulosis: (8) History of Clostridium difficile infection: (9) Osteoarthritis: Admission and Anticipated Discharge Date Admission Date: June 10, 2020 Supervising Physician Co-Signing Physician Notes Resident Physician Supervision Note: I independently interviewed and examined the patient and verified the palacios history and physical, reviewed labs and image studies, discussed the case with the resident Dr. Norton and agree with the findings and care plan. Chel Rothman is seen at the bedside this morning. She reports she feels "a little bit better "than yesterday, but her abdomen continues to be very sore and tender. She reports she is having bowel movements "as often as they change me ", are completely liquid, and that she does not have much warning before incontinence. She feels globally wiped out, denies fever/chills this morning. She denies chest pain, chest pressure, shortness of breath. Her last bowel movement was approximately 1 hour prior to visit. She reports she feels like she has pain similar to both her past episodes of diverticulitis and C. difficile. She reports her pain is worst in the right lower quadrant, but spreads to her left abdomen. Review of Systems Review of Systems: Constitutional: Denies fever. Endorses fatigue. Eyes: Denies vision change ENT: Denies ear pain, sore throat, sinus pain Cardiovascular: Denies Chest pain, chest pressure, palpitations, extremity swelling Respiratory: Denies shortness of breath, cough, sputum production, difficulty breathing Gastrointestinal: HPI. Endorses abdominal pain, nausea, diarrhea. Genitourinary: Denies dysuria, urinary frequency Musculoskeletal: Endorses global weakness without focal weakness or new muscle aches/body aches. Integumentary:Denies acute rash, lesions, bruising Neurological: Denies headache, numbness, tingling, focal weakness Physical Exam Physical Exam: General: A&Ox3. Appears fatigued, ill. Cooperative. Skin warm, dry. HEENT: Atraumatic, normocephalic. Visual acuity grossly intact. Pulm: CTAB A&P. -wheezes, -rales, -rhonchi. Symmetrical chest rise. No increase work of breathing. No respiratory distress. Cardiac: RRR, -mrg. Radial pulses intact and symmetrical. Abdominal: Increased severe tenderness in right lower quadrant, trace rebound in left lower quadrant. Bowel sounds increased. Distended. Extremities: Warm, dry. Results & Data Results & Data ([facility]) Vital Signs (Past 12 Hours) Vital Signs Temp Pulse Pulse Resp BP Pulse Ox 06/12/20 07:16 36.7 C 72 20 133/75 93 06/11/20 23:32 37.0 C 72 18 142/61 H 93 06/11/20 23:28 70 06/11/20 21:00 67 18 93 06/11/20 20:09 36.9 C 73 18 142/73 H 95 Resident Activity Tracking Resident Involvement: Resident Care Provided Care Provided: Adult Hospital Medicine (1) Diarrhea Diarrhea type: unspecified type Qualified Code(s): R19.7 - Diarrhea, unspecified
[2020-06-12] MEDS: ONDANSETRON INJ 2 MG/ML 2 ML VIAL IV PRN (10:23)
[2020-06-12] MEDS: FIDAXOMICIN 200 MG TAB PO SCH ×2 (12:11→21:20)
[2020-06-12] MEDS: CHOLESTYRAMINE LIGHT 4 GM PKT PO SCH ×2 (12:11→22:19)
--- NOTE | 2020-06-12 16:07 | CT Scan Report ---
CT SCAN OF THE ABDOMEN AND PELVIS WITHOUT IV CONTRAST CLINICAL HISTORY: Generalized abdominal pain. COMPARISON STUDY: Abdominal CT dated 06/10/2020. TECHNIQUE: CT scan of the abdomen and pelvis is performed from the lung bases to the proximal femora. Images are reviewed in the axial, sagittal, and coronal planes. IV contrast was not administered for this examination due to a reported history of contrast allergy. Oral contrast was utilized. A dose l owering technique was utilized adhering to the principles of ALARA. CT DOSE: 1179.45 mGy.cm FINDINGS: Lung bases: The heart is enlarged and noting trace pericardial effusion. The coronary arteries are de nsely calcified. Pacemaker leads are noted. There are small pleural effusions with bibasilar consolid ation. There is a small hiatal hernia. Liver: The unenhanced liver is normal in size, contour, and attenuation. There is no intrahepatic riaz iary ductal dilatation. Gallbladder: Surgically absent noting clips in the gallbladder fossa. Spleen: Normal in size and attenuation. Pancreas: The unenhanced pancreas is moderately atrophic and grossly unremarkable. Adrenal glands: Unremarkable. Kidneys: The unenhanced kidneys demonstrate mild cortical atrophy and are without hydronephrosis. A r ight ureteral stent is unchanged in position. There are 2 tiny calculi identified in the mid right ur eter along the course of the stent seen on image #214. These measure up to 2 mm. There is an addition al punctate nonobstructing right renal calculus. Punctate calculus is also seen in the left kidney. T here is no evidence of contour deforming renal mass lesion. Abdominal vasculature: The abdominal aorta is normal in course and caliber noting advanced atheroscle rotic calcification. Bowel: There is no bowel obstruction. Enteric contrast reaches the left colon. There is mild to moder ate colonic diverticulosis. There is significant wall thickening with pericolic inflammation and flui d involving the sigmoid colon. This is consistent with acute diverticulitis. No organized fluid colle ction is identified on this unenhanced examination to suggest abscess. Findings suggest a fistulous t ract between the sigmoid colon extending towards the vaginal cuff, best seen on axial image #320. Que stion mild wall thickening and pericolonic inflammation throughout the remainder of the colon. Duoden al diverticula are noted. The appendix is not identified and reported surgically absent. Peritoneum: No retroperitoneal free air is identified. There is trace pelvic ascites. Lymphadenopathy: None. Pelvic viscera: The bladder is decompressed and contains the distal end of a right ureteral stent. In traluminal gas is nonspecific. The uterus is surgically absent. No adnexal lesion is identified. Skeletal structures: The skeletal structures are osteopenic. There is moderate lumbosacral spondylosi s. No lytic or blastic lesions are seen. IMPRESSION: 1. There is mild to moderate colonic diverticulosis with evidence of acute sigmoid diverticulitis. Th e degree of inflammation has increased from 06/10/2020. 2. No intraperitoneal free air is identified and there evidence of organized fluid collection on this unenhanced examination to suggest abscess. 3. 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 4. Question a mild superimposed colitis. 5. A right ureteral stent is in appropriate position. There is no right-sided hydronephrosis. 6. There are least 2 small calculi identified in the mid right ureter along the course of the stent m easuring up to 2 mm. 7. Additional punctate nonobstructing stones are present in both kidneys. 8. Small pleural effusions with bibasilar consolidation. 9. Cardiomegaly and cardiac pacemaker. 10. Additional findings as above. ACT 112: Negative or not required by law. Electronically signed by: Melo Vega M.D. 06/12/2020 4:06 PM
[2020-06-12] MEDS: PIPERACILLIN/TAZOBACTAM 4.5 GM in DEXTROSE 5% 100 ML IV SCH (17:43)
[2020-06-12] MEDS: PRAVASTATIN SOD 40 MG TAB PO SCH (20:56)
[2020-06-12] MEDS: MONTELUKAST SODIUM 10 MG TABLET PO SCH (20:56)
[2020-06-12] MEDS ORDERED: Nursing to Pharmacy Communication SCH (22:45)
[2020-06-13] MEDS: RASPBERRY SYRUP 5 ML UDP PO SCH ×4 (00:55→17:25)
[2020-06-13] MEDS: VANCOMYCIN HCL 125 MG/2.5ML SOLN PO SCH ×4 (00:55→17:25)
[2020-06-13] MEDS: INSULIN ASPART 100 UNITS/ML 3 ML PEN SC SCH ×4 (00:55→19:12)
[2020-06-13] MEDS: HYDROmorphone INJ 0.5 MG/0.5 ML SYR IV PRN ×6 (01:16→22:19)
[2020-06-13] MEDS: PIPERACILLIN/TAZOBACTAM 4.5 GM in DEXTROSE 5% 100 ML IV SCH ×3 (02:42→17:16)
[2020-06-13] MEDS: D5W AND LACTATED RINGERS 1,000 ML IV SCH ×2 (03:42→14:29)
[2020-06-13 06:18] LABS: Hematocrit (blood only) 37.1 % (37-47); Hemoglobin 12.4 g/dL (12.0-16.0); Mean Corpuscular Hemoglobin 32.3 pg (25-34); Mean Corpuscular Hgb Conc 33.4 g/dL (32-36); Mean Corpuscular Volume 96.6 fL (80-100); Mean Platelet Volume 11.2 fL (7.4-10.4); Platelet Count 250 K/uL (130-400); RDW Coefficient of Variation 13.3 % (11.5-14.5); RDW Standard Deviation 46.7 fL (36.4-46.3); Red Blood Count 3.84 M/uL (4.2-5.4); White Blood Count 34.48 K/uL (4.8-10.8)
[2020-06-13 06:48] LABS: Albumin Level 1.8 gm/dl (3.4-5.0); BUN Creatinine Ratio 16.7 (10-20); Calcium 8.5 mg/dl (8.5-10.1); Creatinine Clr Calc Pharmacy 69.9 ml/min; Est GFR (African American) 95.1; Est GFR (Non-African American) 82.1; Potassium 3.1 mmol/L (3.5-5.1)
[2020-06-13 06:50] LABS: Albumin Globulin Ratio 0.5 (0.9-2); Bilirubin,Total 0.6 mg/dl (0.2-1); Globulin 3.5 gm/dl (2.5-4.0); Total Protein 5.3 gm/dl (6.4-8.2)
[2020-06-13 06:51] LABS: Basophils # (auto) 0.03 K/uL (0-0.2); Basophils % (auto) 0.1 %; Eosinophils # (auto) 0.15 K/uL (0-0.5); Eosinophils % (auto) 0.4 %; Immature Granulocytes # (auto) 0.17 K/uL (0.00-0.02); Immature Granulocytes % (auto) 0.5 %; Lymphocytes # (auto) 1.25 K/uL (1.2-3.4); Lymphocytes % (auto) 3.6 %; Monocytes % (auto) 7.3 %; Neutrophils # (auto) 30.38 K/uL (1.4-6.5); Neutrophils % (auto) 88.1 %; Toxic Vacuolation 1+
[2020-06-13] MEDS: POTASSIUM CHLORIDE / WTR 10 MEQ/100 ML PLCT IV SCH ×4 (08:55→14:29)
[2020-06-13] MEDS: FLUTICASONE/VILANTEROL 200/25MCG 14 PUFFS/INHALER INH SCH (09:01)
[2020-06-13] MEDS: amLODIPine BESYLATE 5 MG TAB PO SCH (09:02)
[2020-06-13] MEDS: LOSARTAN POTASSIUM 50 MG TAB PO SCH (09:03)
[2020-06-13] MEDS: APIXABAN 5 MG TABLET PO SCH ×2 (09:03→21:46)
[2020-06-13] MEDS: TAMSULOSIN HCL 0.4 MG CAP PO SCH (09:03)
[2020-06-13] MEDS: FIDAXOMICIN 200 MG TAB PO SCH ×2 (09:04→21:46)
--- NOTE | 2020-06-13 09:11 | Gastrointestinal Consultation ---
Date of Consultation June 13, 2020 Assessment & Plan (1) Diverticulitis: Present on Admission?: Yes (2) Clostridium difficile infection: Supervising Physician Co-Signing Physician Notes Attg add: I interviewed and examined pt, reviewed chart and labs. 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 WBC 34 today, albumin 1.8. On oral vanco, dificid and Zosyn; also on cholestyramine. Recommend surgery consult, continued abx. History of Present Illness Reason for Consultation: Severe C-diff Requesting Physician: Dr. Arndt Attending Physician: Khoa Jeter, DO History of Present Illness Ms. Lorna Perkins is an 84 yr old female pt of Dr. Barcenas with a hx of asthma, HTN, DM-2, A-fib on Apixaban (most recent dose this morning), Zenker's diverticulum, urinary retention with recent right sided ureterolithiasis and stent insertion who was brought to [facility] on 06/10 for fever (today 36.7), tachycardia (today HR 70), leukocytosis (today 34). Non contrast Ct on arrival with acute sigmoid diverticulitis. CT with oral contrast on 06/12 with diverticulitis with progression of inflammation. She is passing 2-4 large loose to liquid brown BMs/day and stool is positive for C-diff. Allergies Allergy/AdvReac Type Severity Reaction Status Date / Time acetaminophen Allergy Unknown NAUSEA/DIZZ Verified 06/10/20 10:32 INESS budesonide Allergy Unknown PT UNSURE Verified 06/10/20 10:32 OF RXN formoterol Allergy Unknown PT UNSURE Verified 06/10/20 10:32 OF RXN Iodinated Contrast Media Allergy Unknown RASH,HIVES Verified 06/10/20 10:32 FROM IVP DYE metronidazole Allergy Unknown SEVERE GI Verified 06/10/20 10:32 SYMPTOMS oxycodone Allergy Unknown NAUSEA/DIZZ Verified 06/10/20 10:32 INESS tramadol Allergy Unknown NAUSEA/DIZZ Verified 06/10/20 10:32 INESS KEENA Inhibitors AdvReac Intermediate COUGH Verified 06/10/20 10:32 Home Medications Medication Instructions Recorded Confirmed Type amlodipine 5 mg tablet 5 mg PO QAM 12/29/18 06/10/20 History apixaban 5 mg tablet 5 mg PO BID #180 tab 12/29/18 06/10/20 History ezetimibe 10 mg tablet 10 mg PO HS tab 12/29/18 06/10/20 History furosemide 20 mg tablet 20 mg PO QAM tab 12/29/18 06/10/20 History losartan 100 mg tablet 100 mg PO QAM tab 12/29/18 06/10/20 History multivitamin 1 tab PO QAM 12/29/18 06/10/20 History potassium chloride 20 mEq 20 meq PO QAM tab 12/29/18 06/10/20 History tablet,extended release pravastatin 80 mg tablet 80 mg PO HS tab 12/29/18 06/10/20 History psyllium husk 3.4 gram/5.4 gram 1 tbs PO QAM 12/29/18 06/10/20 History oral powder lutein 10 mg tablet 10 mg PO BID tab 12/30/18 06/10/20 History dicyclomine 10 mg capsule 10 mg PO TID PRN #270 cap 10/13/19 06/10/20 Rx albuterol sulfate 90 mcg/actuation 2 puffs INHALATION Q4H PRN #3 10/19/1903/21 Rx aerosol inhaler inhaler fluticasone propion-salmeterol 1 inh INHALATION BID 06/01/20 06/10/20 History [Advair Diskus] montelukast 10 mg PO HS 06/01/20 06/10/20 History cephalexin 500 mg PO BID 7 Days #14 cap 06/08/20 06/10/20 Rx hydrocodone-acetaminophen 0.5 tab PO Q8H PRN #7 tab 06/08/20 06/10/20 Rx tamsulosin 0.4 mg PO QAM #14 cap 06/08/20 06/10/20 Rx Patient History Medical History (Updated 06/13/20 @ 09:24 by MAYE Plascencia) Acid reflux disease Allergic rhinitis due to pollen Atrial flutter Basal cell carcinoma of skin of face Current use of custodial anticoagulation Depression Diverticulosis Extrinsic asthma History of Clostridium difficile infection HTN (hypertension), benign Hydronephrosis with renal and ureteral calculous obstruction Hyperlipidemia Internal hemorrhoids Irritable bowel syndrome Macular degeneration Nephrolithiasis Osteoarthritis Pacemaker Urinary retention Zenker diverticulum Surgical History H/O rectocele repair H/O: hysterectomy History of bladder surgery bladder sling History of total knee arthroplasty bilateral Hx of repair of right rotator cuff S/P carpal tunnel release S/P cataract surgery b/l eyes S/P cholecystectomy S/P cystoscopy with ureteral stent placement 06/02/20 Dr. Rolando Friedman- Cystoscopy, Right retrograde pyelogram, Right ureteral dilation, Right ureteral sent placement, Right ureteroscopy, Laser lithotripsy, Stone basket extraction S/P Mohs surgery for basal cell carcinoma Status post placement of cardiac pacemaker (08/2011) Family History Father Cerebral artery occlusion Coronary heart disease Hypertension Myocardial infarction Mother Cerebral artery occlusion Diabetes Hypertension Denies family history of Ovarian cancer Prostate cancer Breast cancer Colorectal cancer Social History Smoking Status: Never smoker Second Hand Exposure: No; Hx Alcohol Use: Yes Alcohol type: beer Hx Substance Use: No Preferred Language: Angolan Communication Ability: Effective Visual Impairment: Limited Hearing Ability: Use of Hearing Aid Second Shift Supervisor Required: No Beliefs That Will Affect Care: None marital status: / Current Living Situation: Alone current occupational status: retired Other Information That Helps Us Care for You: No Feels Safe at Home: Yes Safety Concerns: Feels Safe At This Time Childhood Exposure to Second-Hand Smoke: Yes during the past year weight has: remained stable Dental Care, Regularly: Yes Physical Activity Frequency: Does not Exercise Seatbelt Use: always Assistive Devices: Oxygen - Continuous Results & Data ([facility]) Vital Signs (Past 12 Hours) Vital Signs Temp Pulse Pulse Pulse Resp BP Pulse Ox 06/13/20 08:24 36.7 C 70 16 115/73 94 06/13/20 07:00 72 06/13/20 04:12 36.8 C 82 20 112/86 94 06/13/20 03:25 74 18 95 06/13/20 01:24 91 H 06/13/20 01:22 67 95 H 2 L 06/12/20 23:18 36.8 C 74 18 L 95 H 115/69 2 L 06/12/20 21:46 80 18 94 Diagnostic Findings Non contrast Ct 06/10/20: 1. Interval development of acute sigmoid diverticulitis 2. No evidence of bowel obstruction. No evidence of free air 3. Punctate bilateral nonobstructing renal calculi 4. Interval placement of a right-sided nephroureteral stent. 5. Interval resolution of the previously described right-sided hydronephrosis CT with oral, no IV contrast on 06/12/20: 1. There is mild to moderate colonic diverticulosis with evidence of acute s igmoid diverticulitis. The degree of inflammation has increased from 06/10/2020. 2. No intraperitoneal free air is identified and there evidence of organized fluid collection on this unenhanced examination to suggest abscess. 3. 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 4. Question a mild superimposed colitis. 5. A right ureteral stent is in appropriate position. There is no right-sided hydronephrosis. 6. There are least 2 small calculi identified in the mid right ureter along the course of the stent measuring up to 2 mm. 7. Additional punctate nonobstructing stones are present in both kidneys. 8. Small pleural effusions with bibasilar consolidation. 9. Cardiomegaly and cardiac pacemaker.
--- NOTE | 2020-06-13 10:48 | Urology Progress Note ---
Date of Service June 13, 2020 Assessment & Plan (1) Diarrhea: (2) Flank pain: 84 yo F admitted with sepsis secondary to severe diverticulitis, C. difficile, and right flank pain. 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 - Recommend maintain both the right ureteral stent and Huerta in place until her WBC and bowels stabilize - Additionally repeat CT showed small ureteral stones along stent - again favor to keep stent in place at this time - Continue supportive care and medical management per primary service and GI - Will follow along peripherally and arrange outpatient follow-up with our service for right ureteral stent removal Thank you for allowing us to participate in the acute care of Ms. Perkins. Please reconsult us with additional questions, concerns or changes in patient status. Admission and Anticipated Discharge Date Admission Date: June 10, 2020 Subjective Patient awake and resting in bed. Continues to have generalized abdominal discomfort. Some intermittent right flank discomfort, overall this has improved. She is having several liquid bowel movements per day. No f/c/n/v. Tolerating Huerta catheter without bother. Huerta intact, patent, and draining clear yellow urine. No additional concerns at this time. Chart review: Afebrile, creatinine 0.61, WBC 34.48, Hgb 12.4, On IV Zosyn, oral Vancomycin and Dificid. CT A/P 06/12 showed mild to moderate colonic diverticulosis with evidence of acute sigmoid diverticulitis. The degree of inflammation has increased from 06/10/2020, no suggestion of abscess. Suspected fistula between the sigmoid colon extending towards the left aspect of the vaginal cuff. Right ureteral stent is in appropriate position, no right-sided hydronephrosis, at least 2 small calculi identified in the mid right ureter along the course of the stent measuring up to 2 mm. Additional punctate nonobstructing stones are present in both kidneys. Review of Systems Constitutional: as per Subjective / HPI Gastrointestinal: as per Subjective / HPI Genitourinary: as per Subjective / HPI Physical Exam Constitutional: well developed, well nourished and + obese; no acute distress Respiratory: able to speak in complete sentences; no respiratory distress and no labored breathing O2 via nasal cannula Cardiovascular: Extremities: no pedal edema Gastrointestinal (Abdomen): soft, abd with generalized tenderness to palpation, no rebound or guarding Musculoskeletal: Head/Neck/Chest: normocephalic and head atraumatic Skin: no rashes, warm and dry Neurologic: moves all extremities and awake Psychiatric: Orientation: alert and oriented x 3 Genitourinary: no CVA tenderness Results & Data ([facility]) Vital Signs (Past 12 Hours) Vital Signs Temp Pulse Pulse Pulse Resp BP Pulse Ox 06/13/20 08:24 36.7 C 70 16 115/73 94 06/13/20 07:00 72 06/13/20 04:12 36.8 C 82 20 112/86 94 06/13/20 03:25 74 18 95 06/13/20 01:24 91 H 06/13/20 01:22 67 95 H 2 L 06/12/20 23:18 36.8 C 74 18 L 95 H 115/69 2 L PG Care Time/CCT Total # of Minutes Spent Total Time Spent with Patient: Total time spent is greater than 50% in coordination of care (as documented) at patient's floor/unit and/or counseling patient: Coding Level of Care Code 50383 Subseq Hosp Care Lvl 2 Diagnoses Diarrhea R19.7 Diarrhea type: unspecified type Flank pain R10.9 (1) Diarrhea Diarrhea type: unspecified type Qualified Code(s): R19.7 - Diarrhea, unspecified
[2020-06-13] MEDS: CHOLESTYRAMINE LIGHT 4 GM PKT PO SCH ×2 (11:08→22:20)
--- NOTE | 2020-06-13 11:35 | Gastrointestinal Consultation ---
Date of Consultation June 13, 2020 Assessment & Plan (1) Clostridium difficile infection: (2) Diverticulitis: 1. Consult general surgery due to complicated diverticulitis. 2. Continue Vancomycin 125 mg QID and Dificid 200 mg BID. 3. Continue IV Zosyn. 4. Consider ID consultation due to persistently elevated WBC despite broad spectrum abx. 5. Supportive care per primary team. We will continue to follow her clinical course. Thank you for allowing us to participate in the care of this patient. If you have any questions or concerns, please do not hesitate to contact us. Supervising Physician Co-Signing Physician Notes I personally evaluated the patient and agree with the findings as documented by MAYE Levine Exam: abd: soft, moderate diffuse tenderness with voluntary guarding, nd continue current therapy, agree with surgical consultation. History of Present Illness Reason for Consultation: C Diff Requesting Physician: Dr. Norton Attending Physician: Khoa Jeter DO History of Present Illness Patient is a 84 y.o. female with a history of C Difficile colitis last seen in our office in 2014. She did have a colonoscopy by Dr. Traore in May of 2017 which demonstrated internal hemorrhoids and diverticulosis. No routine surveillance was recommended at that time due to lack of adenomas and advanced age. She states she was doing well until she was admitted approximately two weeks ago for nephrolithiasis and UTI. She did have a stent placed by urology. She returned to the ER due to severe pain which began prior to arrival. She states she continues to have severe abdominal pain at present. Most of the pain is located in the lower abdomen right>left. Pain is described as sharp and 8/10 in intensity at present. She remains NPO. GI has been consulted due to C Difficile infection and acute diverticulitis with associated colovaginal fistula. No abscess. Despite Zosyn, Dificid and oral vancomycin, however, she remains with a significantly elevated WBC of 34.48. No fevers or chills. Denies any nausea at present. Continues with small, very loose and frequent bms. Per nursing, she has had 3 bms this morning. Has been prescribed Questran by primary team. Allergies Allergy/AdvReac Type Severity Reaction Status Date / Time acetaminophen Allergy Unknown NAUSEA/DIZZ Verified 06/10/20 10:32 INESS budesonide Allergy Unknown PT UNSURE Verified 06/10/20 10:32 OF RXN formoterol Allergy Unknown PT UNSURE Verified 06/10/20 10:32 OF RXN Iodinated Contrast Media Allergy Unknown RASH,HIVES Verified 06/10/20 10:32 FROM IVP DYE metronidazole Allergy Unknown SEVERE GI Verified 06/10/20 10:32 SYMPTOMS oxycodone Allergy Unknown NAUSEA/DIZZ Verified 06/10/20 10:32 INESS tramadol Allergy Unknown NAUSEA/DIZZ Verified 06/10/20 10:32 INESS KEENA Inhibitors AdvReac Intermediate COUGH Verified 06/10/20 10:32 Home Medications Medication Instructions Recorded Confirmed Type amlodipine 5 mg tablet 5 mg PO QAM 12/29/18 06/10/20 History apixaban 5 mg tablet 5 mg PO BID #180 tab 12/29/18 06/10/20 History ezetimibe 10 mg tablet 10 mg PO HS tab 12/29/18 06/10/20 History furosemide 20 mg tablet 20 mg PO QAM tab 12/29/18 06/10/20 History losartan 100 mg tablet 100 mg PO QAM tab 12/29/18 06/10/20 History multivitamin 1 tab PO QAM 12/29/18 06/10/20 History potassium chloride 20 mEq 20 meq PO QAM tab 12/29/18 06/10/20 History tablet,extended release pravastatin 80 mg tablet 80 mg PO HS tab 12/29/18 06/10/20 History psyllium husk 3.4 gram/5.4 gram 1 tbs PO QAM 12/29/18 06/10/20 History oral powder lutein 10 mg tablet 10 mg PO BID tab 12/30/18 06/10/20 History dicyclomine 10 mg capsule 10 mg PO TID PRN #270 cap 10/13/19 06/10/20 Rx albuterol sulfate 90 mcg/actuation 2 puffs INHALATION Q4H PRN #3 10/19/19 06/10/20 Rx aerosol inhaler inhaler fluticasone propion-salmeterol 1 inh INHALATION BID 06/01/20 06/10/20 History [Advair Diskus] montelukast 10 mg PO HS 06/01/20 06/10/20 History cephalexin 500 mg PO BID 7 Days #14 cap 06/08/20 06/10/20 Rx hydrocodone-acetaminophen 0.5 tab PO Q8H PRN #7 tab 06/08/20 06/10/20 Rx tamsulosin 0.4 mg PO QAM #14 cap 06/08/20 06/10/20 Rx Patient History Medical History Acid reflux disease Allergic rhinitis due to pollen Atrial flutter Basal cell carcinoma of skin of face 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 Depression Diverticulosis Extrinsic asthma History of Clostridium difficile infection HTN (hypertension), benign Hydronephrosis with renal and ureteral calculous obstruction Hyperlipidemia Internal hemorrhoids Irritable bowel syndrome Macular degeneration Nephrolithiasis Osteoarthritis Pacemaker Urinary retention Zenker diverticulum Surgical History H/O rectocele repair H/O: hysterectomy History of bladder surgery bladder sling History of total knee arthroplasty bilateral Hx of repair of right rotator cuff S/P carpal tunnel release S/P cataract surgery b/l eyes S/P cholecystectomy S/P cystoscopy with ureteral stent placement 06/02/20 Dr. Rolando Friedman- Cystoscopy, Right retrograde pyelogram, Right ureteral dilation, Right ureteral sent placement, Right ureteroscopy, Laser lithotripsy, Stone basket extraction S/P Mohs surgery for basal cell carcinoma Status post placement of cardiac pacemaker (08/2011) Family History Father Cerebral artery occlusion Coronary heart disease Hypertension Myocardial infarction Mother Cerebral artery occlusion Diabetes Hypertension Denies family history of Ovarian cancer Prostate cancer Breast cancer Colorectal cancer Social History Smoking Status: Never smoker Second Hand Exposure: No; Hx Alcohol Use: Yes Alcohol type: beer Hx Substance Use: No Preferred Language: Indonesian Communication Ability: Effective Visual Impairment: Limited Hearing Ability: Use of Hearing Aid Emblem Fuser Tender Required: No Beliefs That Will Affect Care: None marital status: / Current Living Situation: Alone current occupational status: retired Other Information That Helps Us Care for You: No Feels Safe at Home: Yes Safety Concerns: Feels Safe At This Time Childhood Exposure to Second-Hand Smoke: Yes during the past year weight has: remained stable Dental Care, Regularly: Yes Physical Activity Frequency: Does not Exercise Seatbelt Use: always Assistive Devices: Oxygen - Continuous Review of Systems Constitutional: as per Subjective / HPI Respiratory: no problem reported Cardiovascular: no problem reported Gastrointestinal: as per Subjective / HPI Physical Exam Constitutional: WD/WN, vitals as above well developed Respiratory: normal respiratory effort, lungs clear to auscultation Cardiovascular: Rate/Rhythm: regular rate and regular rhythm Gastrointestinal (Abdomen): Inspection/Auscultation: normal bowel sounds Percussion/Palpation: + abdomen tender and abdomen soft Psychiatric: A+Ox3, euthymic affect Results & Data ([facility]) Vital Signs (Past 12 Hours) Vital Signs Temp Pulse Pulse Resp BP Pulse Ox 06/13/20 08:24 36.7 C 70 16 115/73 94 06/13/20 07:00 72 06/13/20 04:12 36.8 C 82 20 112/86 94 06/13/20 03:25 74 18 95 06/13/20 01:24 91 H 06/13/20 01:22 67 95 H 2 L Laboratory Results Abnormal lab results 06/12/20 06/13/20 06/13/20 Range/Units 17:58 00:11 05:26 WBC 34.48 H* (4.8-10.8) K/uL RBC 3.84 L (4.2-5.4) M/uL RDW Std Deviation 46.7 H (36.4-46.3) fL MPV 11.2 H (7.4-10.4) fL Neut # (Auto) 30.38 H (1.4-6.5) K/uL [place] # (Auto) 2.50 H (0.11-0.59) K/uL Immature Gran # (Auto) 0.17 H (0.00-0.02) K/uL Potassium (3.5-5.1) mmol/L Glucose (70-99) mg/dl POC Glucose 212 H 182 H (70-99) mg/dl AST (15-37) U/L Total Protein (6.4-8.2) gm/dl Albumin (3.4-5.0) gm/dl Albumin/Globulin Ratio (0.9-2) 06/13/20 06/13/20 06/13/20 Range/Units 05:26 05:55 11:15 WBC (4.8-10.8) K/uL RBC (4.2-5.4) M/uL RDW Std Deviation (36.4-46.3) fL MPV (7.4-10.4) fL Neut # (Auto) (1.4-6.5) K/uL [place] # (Auto) (0.11-0.59) K/uL Immature Gran # (Auto) (0.00-0.02) K/uL Potassium 3.1 L (3.5-5.1) mmol/L Glucose 182 H (70-99) mg/dl POC Glucose 196 H 144 H (70-99) mg/dl AST 13 L (15-37) U/L Total Protein 5.3 L (6.4-8.2) gm/dl Albumin 1.8 L (3.4-5.0) gm/dl Albumin/Globulin Ratio 0.5 L (0.9-2) PG Care Time/CCT Total # of Minutes Spent Total Time Spent with Patient: Total time spent is greater than 50% in coordination of care (as documented) at patient's floor/unit and/or counseling patient: Coding Level of Care Code 57879 Initial Inpt Care Lvl 3 Diagnoses Clostridium difficile infection A49.8 Diverticulitis K57.92
[2020-06-13] MEDS ORDERED: Nursing to Pharmacy Communication SCH (14:15)
--- NOTE | 2020-06-13 14:35 | Surgery Consultation ---
Date of Consultation June 13, 2020 Assessment & Plan (1) Diverticulitis of large intestine with complication: 84 year-old female with c. 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 Leukocytosis remains high at 34K despite vancomycin, Dificid, and Zosyn IV Antibiotics. Abdominal pain persists. Recent right nephrolithiasis with right ureteral stent placement at beginning of month. Plan: Given the evidence of increased inflammation on repeat CT scan from 06/10/2020 and concurrent c. 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 Majano feels patient would be better managed at tertiary center. If patient becomes unstable and requires surgery, she would need colorectal surgery As GI recommended, would recommend ID consultation given persistent leukocytosis despite aggressive antibiotics continue npo for bowel rest, pain management, zofran as needed for nausea Discussed Dr. Majanos recommendations with medical service. (2) Clostridium difficile infection: plan as above Dr. Majano has seen patient and was present during my examination. Agrees with above. History of Present Illness Reason for Consultation: Complicated diverticulitis Requesting Physician: MAYE Levine Attending Physician: Khoa Jeter DO History of Present Illness Lorna is a 84 year-old female with recent hospitalization for kidney stones s/p right ureteral stent placement at the beginning of the month presented to hospital with increasing abdominal pain. Pain increased in nature which was why she presented to the hospital. States pain is mostly in the right side but gen eralized and all over. Despite Zosyn, Dificid and oral vancomycin she remains with a significantly elevated WBC of 34.48. No fevers or chills. Denies any nausea at present. Continues with small, very loose and frequent bms. Per nursing, she has had 3 loose bowel movements. Lorna has history of c.diff infection about 6 years ago. Has diverticulosis. Lorna states she has never had any complications due to the diverticulosis just has to watch what she eats. Denies of any history of stool vaginal discharge. 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 WBC remains persistently elevated at 34K. Allergies Allergy/AdvReac Type Severity Reaction Status Date / Time acetaminophen Allergy Unknown NAUSEA/DIZZ Verified 06/10/20 10:32 INESS budesonide Allergy Unknown PT UNSURE Verified 06/10/20 10:32 OF RXN formoterol Allergy Unknown PT UNSURE Verified 06/10/20 10:32 OF RXN Iodinated Contrast Media Allergy Unknown RASH,HIVES Verified 06/10/20 10:32 FROM IVP DYE metronidazole Allergy Unknown SEVERE GI Verified 06/10/20 10:32 SYMPTOMS oxycodone Allergy Unknown NAUSEA/DIZZ Verified 06/10/20 10:32 INESS tramadol Allergy Unknown NAUSEA/DIZZ Verified 06/10/20 10:32 INESS KEENA Inhibitors AdvReac Intermediate COUGH Verified 06/10/20 10:32 Home Medications Medication Instructions Recorded Confirmed Type amlodipine 5 mg tablet 5 mg PO QAM 12/29/18 06/10/20 History apixaban 5 mg tablet 5 mg PO BID #180 tab 12/29/18 06/10/20 History ezetimibe 10 mg tablet 10 mg PO HS tab 12/29/18 06/10/20 History furosemide 20 mg tablet 20 mg PO QAM tab 12/29/18 06/10/20 History losartan 100 mg tablet 100 mg PO QAM tab 12/29/18 06/10/20 History multivitamin 1 tab PO QAM 12/29/18 06/10/20 History potassium chloride 20 mEq 20 meq PO QAM tab 12/29/18 06/10/20 History tablet,extended release pravastatin 80 mg tablet 80 mg PO HS tab 12/29/18 06/10/20 History psyllium husk 3.4 gram/5.4 gram 1 tbs PO QAM 12/29/18 06/10/20 History oral powder lutein 10 mg tablet 10 mg PO BID tab 12/30/18 06/10/20 History dicyclomine 10 mg capsule 10 mg PO TID PRN #270 cap 10/13/19 06/10/20 Rx albuterol sulfate 90 mcg/actuation 2 puffs INHALATION Q4H PRN #3 10/19/19 06/10/20 Rx aerosol inhaler inhaler fluticasone propion-salmeterol 1 inh INHALATION BID 06/01/20 06/10/20 History [Advair Diskus] montelukast 10 mg PO HS 06/01/20 06/10/20 History cephalexin 500 mg PO BID 7 Days #14 cap 06/08/20 06/10/20 Rx hydrocodone-acetaminophen 0.5 tab PO Q8H PRN #7 tab 06/08/20 06/10/20 Rx tamsulosin 0.4 mg PO QAM #14 cap 06/08/20 06/10/20 Rx Patient History Medical History Acid reflux disease Allergic rhinitis due to pollen Atrial flutter Basal cell carcinoma of skin of face Current use of senior living anticoagulation Depression Diverticulosis Extrinsic asthma History of Clostridium difficile infection HTN (hypertension), benign Hydronephrosis with renal and ureteral calculous obstruction Hyperlipidemia Internal hemorrhoids Irritable bowel syndrome Macular degeneration Nephrolithiasis Osteoarthritis Pacemaker Urinary retention Zenker diverticulum Surgical History H/O rectocele repair H/O: hysterectomy History of bladder surgery bladder sling History of total knee arthroplasty bilateral Hx of repair of right rotator cuff S/P carpal tunnel release S/P cataract surgery b/l eyes S/P cholecystectomy S/P cystoscopy with ureteral stent placement 06/02/20 Dr. Rolando Friedman- Cystoscopy, Right retrograde pyelogram, Right ureteral dilation, Right ureteral sent placement, Right ureteroscopy, Laser lithotripsy, Stone basket extraction S/P Mohs surgery for basal cell carcinoma Status post placement of cardiac pacemaker (08/2011) Family History Father Cerebral artery occlusion Coronary heart disease Hypertension Myocardial infarction Mother Cerebral artery occlusion Diabetes Hypertension Denies family history of Ovarian cancer Prostate cancer Breast cancer Colorectal cancer Social History Smoking Status: Never smoker Second Hand Exposure: No; Hx Alcohol Use: Yes Alcohol type: beer Hx Substance Use: No Preferred Language: Jordanian Communication Ability: Effective Visual Impairment: Limited Hearing Ability: Use of Hearing Aid Vehicle Window Tinter Required: No Beliefs That Will Affect Care: None marital status: / Current Living Situation: Alone current occupational status: retired Other Information That Helps Us Care for You: No Feels Safe at Home: Yes Safety Concerns: Feels Safe At This Time Childhood Exposure to Second-Hand Smoke: Yes during the past year weight has: remained stable Dental Care, Regularly: Yes Physical Activity Frequency: Does not Exercise Seatbelt Use: always Assistive Devices: Oxygen - Continuous Physical Exam Constitutional: + obese; no acute distress and not ill appearing Respiratory: normal respiratory effort; no respiratory distress and no labored breathing Gastrointestinal (Abdomen): Inspection/Auscultation: abdomen normal to inspection; abdomen not distended Percussion/Palpation: + abdomen tender (generalized however more so on the right abdomen), + guarding (voluntary guarding during palpation) and abdomen soft; abdomen not rigid Skin: no rashes, warm and dry Psychiatric: Orientation: alert and oriented x 3 Results & Data ([facility]) Vital Signs (Past 12 Hours) Vital Signs Temp Pulse Pulse Resp BP Pulse Ox 06/13/20 11:24 36.1 C L 71 16 122/68 96 06/13/20 08:24 36.7 C 70 16 115/73 94 06/13/20 07:00 72 06/13/20 04:12 36.8 C 82 20 112/86 94 06/13/20 03:25 74 18 95 Laboratory Results 06/13/20 06/13/20 06/13/20 Range/Units 11:15 05:55 05:26 WBC (4.8-10.8) K/uL RBC (4.2-5.4) M/uL Hgb (12.0-16.0) g/dL Hct (37-47) % MCV (80-100) fL MCH (25-34) pg MCHC (32-36) g/dL RDW Std Deviation (36.4-46.3) fL RDW Coeff of Nasim (11.5-14.5) % Plt Count (130-400) K/uL MPV (7.4-10.4) fL Immature Gran % (Auto) % Neut % (Auto) % Lymph % (Auto) % [place] % (Auto) % Eos % (Auto) % Baso % (Auto) % Neut # (Auto) (1.4-6.5) K/uL Lymph # (Auto) (1.2-3.4) K/uL [place] # (Auto) (0.11-0.59) K/uL Eos # (Auto) (0-0.5) K/uL Baso # (Auto) (0-0.2) K/uL Immature Gran # (Auto) (0.00-0.02) K/uL Toxic Vacuolation Sodium (136-145) mmol/L Potassium (3.5-5.1) mmol/L Chloride (98-107) mmol/L Carbon Dioxide (21-32) mmol/L Anion Gap (3-11) BUN (7-18) mg/dl Creatinine (0.6-1.2) mg/dl Est Cr Clr Drug Dosing ml/min Est GFR ( Amer) Est GFR (Non-Af Amer) BUN/Creatinine Ratio (10-20) Glucose (70-99) mg/dl POC Glucose 144 H 196 H (70-99) mg/dl Calcium (8.5-10.1) mg/dl Magnesium 1.9 (1.8-2.4) mg/dl Total Bilirubin (0.2-1) mg/dl AST (15-37) U/L ALT (12-78) U/L Alkaline Phosphatase (45-117) U/L Total Protein (6.4-8.2) gm/dl Albumin (3.4-5.0) gm/dl Globulin (2.5-4.0) gm/dl Albumin/Globulin Ratio (0.9-2) 06/13/20 06/13/20 06/13/20 Range/Units 05:26 05:26 00:11 WBC 34.48 H* (4.8-10.8) K/uL RBC 3.84 L (4.2-5.4) M/uL Hgb 12.4 (12.0-16.0) g/dL Hct 37.1 (37-47) % MCV 96.6 (80-100) fL MCH 32.3 (25-34) pg MCHC 33.4 (32-36) g/dL RDW Std Deviation 46.7 H (36.4-46.3) fL RDW Coeff of Nasim 13.3 (11.5-14.5) % Plt Count 250 (130-400) K/uL MPV 11.2 H (7.4-10.4) fL Immature Gran % (Auto) 0.5 % Neut % (Auto) 88.1 % Lymph % (Auto) 3.6 % [place] % (Auto) 7.3 % Eos % (Auto) 0.4 % Baso % (Auto) 0.1 % Neut # (Auto) 30.38 H (1.4-6.5) K/uL Lymph # (Auto) 1.25 (1.2-3.4) K/uL [place] # (Auto) 2.50 H (0.11-0.59) K/uL Eos # (Auto) 0.15 (0-0.5) K/uL Baso # (Auto) 0.03 (0-0.2) K/uL Immature Gran # (Auto) 0.17 H (0.00-0.02) K/uL Toxic Vacuolation 1+ Sodium 136 (136-145) mmol/L Potassium 3.1 L (3.5-5.1) mmol/L Chloride 102 (98-107) mmol/L Carbon Dioxide 28 (21-32) mmol/L Anion Gap 6.0 (3-11) BUN 10 (7-18) mg/dl Creatinine 0.61 (0.6-1.2) mg/dl Est Cr Clr Drug Dosing 69.9 ml/min Est GFR ( Amer) 95.1 Est GFR (Non-Af Amer) 82.1 BUN/Creatinine Ratio 16.7 (10-20) Glucose 182 H (70-99) mg/dl POC Glucose 182 H (70-99) mg/dl Calcium 8.5 (8.5-10.1) mg/dl Magnesium (1.8-2.4) mg/dl Total Bilirubin 0.6 (0.2-1) mg/dl AST 13 L (15-37) U/L ALT 30 (12-78) U/L Alkaline Phosphatase 89 (45-117) U/L Total Protein 5.3 L (6.4-8.2) gm/dl Albumin 1.8 L (3.4-5.0) gm/dl Globulin 3.5 (2.5-4.0) gm/dl Albumin/Globulin Ratio 0.5 L (0.9-2) 06/12/20 Range/Units 17:58 WBC (4.8-10.8) K/uL RBC (4.2-5.4) M/uL Hgb (12.0-16.0) g/dL Hct (37-47) % MCV (80-100) fL MCH (25-34) pg MCHC (32-36) g/dL RDW Std Deviation (36.4-46.3) fL RDW Coeff of Nasim (11.5-14.5) % Plt Count (130-400) K/uL MPV (7.4-10.4) fL Immature Gran % (Auto) % Neut % (Auto) % Lymph % (Auto) % [place] % (Auto) % Eos % (Auto) % Baso % (Auto) % Neut # (Auto) (1.4-6.5) K/uL Lymph # (Auto) (1.2-3.4) K/uL [place] # (Auto) (0.11-0.59) K/uL Eos # (Auto) (0-0.5) K/uL Baso # (Auto) (0-0.2) K/uL Immature Gran # (Auto) (0.00-0.02) K/uL Toxic Vacuolation Sodium (136-145) mmol/L Potassium (3.5-5.1) mmol/L Chloride (98-107) mmol/L Carbon Dioxide (21-32) mmol/L Anion Gap (3-11) BUN (7-18) mg/dl Creatinine (0.6-1.2) mg/dl Est Cr Clr Drug Dosing ml/min Est GFR ( Amer) Est GFR (Non-Af Amer) BUN/Creatinine Ratio (10-20) Glucose (70-99) mg/dl POC Glucose 212 H (70-99) mg/dl Calcium (8.5-10.1) mg/dl Magnesium (1.8-2.4) mg/dl Total Bilirubin (0.2-1) mg/dl AST (15-37) U/L ALT (12-78) U/L Alkaline Phosphatase (45-117) U/L Total Protein (6.4-8.2) gm/dl Albumin (3.4-5.0) gm/dl Globulin (2.5-4.0) gm/dl Albumin/Globulin Ratio (0.9-2) Diagnostic Findings CT SCAN OF THE ABDOMEN AND PELVIS WITHOUT IV CONTRAST 06/13/2020 CLINICAL HISTORY: Generalized abdominal pain. COMPARISON STUDY: Abdominal CT dated 06/10/2020. TECHNIQUE: CT scan of the abdomen and pelvis is performed from the lung bases to the proximal femora. Images are reviewed in the axial, sagittal, and coronal planes. IV contrast was not administered for this examination due to a reported history of contrast allergy. Oral contrast was utilized. A dose lowering technique was utilized adhering to the principles of ALARA. CT DOSE: 1179.45 mGy.cm FINDINGS: Lung bases: The heart is enlarged and noting trace pericardial effusion. The coronary arteries are densely calcified. Pacemaker leads are noted. There are small pleural effusions with bibasilar consolidation. There is a small hiatal hernia. Liver: The unenhanced liver is normal in size, contour, and attenuation. There is no intrahepatic biliary ductal dilatation. Gallbladder: Surgically absent noting clips in the gallbladder fossa. Spleen: Normal in size and attenuation. Pancreas: The unenhanced pancreas is moderately atrophic and grossly unremarkable. Adrenal glands: Unremarkable. Kidneys: The unenhanced kidneys demonstrate mild cortical atrophy and are without hydronephrosis. A right ureteral stent is unchanged in position. There are 2 tiny calculi identified in the mid right ureter along the course of the stent seen on image #214. These measure up to 2 mm. There is an additional punctate nonobstructing right renal calculus. Punctate calculus is also seen in the left kidney. There is no evidence of contour deforming renal mass lesion. Abdominal vasculature: The abdominal aorta is normal in course and caliber noting advanced atherosclerotic calcification. Bowel: There is no bowel obstruction. Enteric contrast reaches the left colon. There is mild to moderate colonic diverticulosis. There is significant wall thickening with pericolic inflammation and fluid involving the sigmoid colon. This is consistent with acute diverticulitis. No organized fluid collection is identified on this unenhanced examination to suggest abscess. Findings suggest a fistulous tract between the sigmoid colon extending towards the vaginal cuff, best seen on axial image #320. Question mild wall thickening and pericolonic inflammation throughout the remainder of the colon. Duodenal diverticula are noted. The appendix is not identified and reported surgically absent. Peritoneum: No retroperitoneal free air is identified. There is trace pelvic ascites. Lymphadenopathy: None. Pelvic viscera: The bladder is decompressed and contains the distal end of a right ureteral stent. Intraluminal gas is nonspecific. The uterus is surgically absent. No adnexal lesion is identified. Skeletal structures: The skeletal structures are osteopenic. There is moderate lumbosacral spondylosis. No lytic or blastic lesions are seen. IMPRESSION: 1. There is mild to moderate colonic diverticulosis with evidence of acute sigmoid diverticulitis. The degree of inflammation has increased from 06/10/2020. 2. No intraperitoneal free air is identified and there evidence of organized fluid collection on this unenhanced examination to suggest abscess. 3. 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 4. Question a mild superimposed colitis. 5. A right ureteral stent is in appropriate position. There is no right-sided hydronephrosis. 6. There are least 2 small calculi identified in the mid right ureter along the course of the stent measuring up to 2 mm. 7. Additional punctate nonobstructing stones are present in both kidneys. 8. Small pleural effusions with bibasilar consolidation. 9. Cardiomegaly and cardiac pacemaker. 10. Additional findings as above. CT SCAN OF THE ABDOMEN AND PELVIS WITHOUT CONTRAST 06/10/2020 CLINICAL HISTORY: R sided back/flank pain; WBC 29, recent urostent COMPARISON STUDY: 06/01/2020 TECHNIQUE: CT scan of the abdomen and pelvis was performed from the lung bases to the proximal femurs. Images are reviewed in the axial, sagittal, and coronal planes. IV contrast was not administered for this examination. A dose lowering technique was utilized adhering to the principles of ALARA. CT DOSE: 1122.38 mGy.cm FINDINGS: Lower chest: There is a trace right pleural effusion. There is mild basilar atelectasis. Liver: There is mild hepatic steatosis. No focal masses are visualized in this noncontrast study Gallbladder: Surgically absent Spleen: Normal in size and attenuation. Pancreas: Unremarkable. Adrenal glands: Unremarkable. Kidneys: There is been interval placement of a right-sided nephroureteral stent. There has been resolution of previously identified hydronephrosis. There are punctate nonobstructing renal calculi. No calculi are visualized along the course of the right-sided nephroureteral stent. Bowel: There are no transition zones to indicate bowel obstruction. There are scattered colonic air-fluid levels. There is colonic diverticulosis. There is bowel wall thickening and infiltration of pericolonic fat at the level the sigmoid colon consistent with acute sigmoid diverticulitis. There is no evidence of abscess. A small colocolonic fistula cannot be excluded. There are no findings to indicate acute appendicitis. Peritoneum: There is no intraperitoneal free air or abdominal ascites. Vasculature: The abdominal aorta is normal in course and caliber. Adenopathy: None. Pelvic viscera: There is a joint Huerta catheter. There is gas within the bladder likely iatrogenic. The uterus appears surgically absent. Skeletal structures: No destructive osseous lesions are seen. IMPRESSION: 1. Interval development of acute sigmoid diverticulitis 2. No evidence of bowel obstruction. No evidence of free air 3. Punctate bilateral nonobstructing renal calculi 4. Interval placement of a right-sided nephroureteral stent. 5. Interval resolution of the previously described right-sided hydronephrosis
[2020-06-13] MEDS: ACETAMINOPHEN 325 MG TAB PO SCH ×3 (14:51→21:46)
--- NOTE | 2020-06-13 18:38 | Hospitalist Progress Note ---
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 diff colitis who presented with sudden onset RLQ pain and explosive diarrhea with subsequent eval. suspicious for c. diff colitis along with diverticulitis. Sepsis 2/2 C. 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 - C. diff as below - Continue empiric Zosyn for diverticulitis - IVFM D5LR 100cc/hr - NPO + meds & sips - Blood cultures NGTD - Pain control hydromorphone 0.25mg q2 prn - started Tylenol scheduled for pain Severe C. difficile colitis. - Gene & Toxin positive. 1x prior C. diff episode 2 years ago. - WBC 34, uptrending Vancomycin 125 every 6 hours Cholestyramine added -Given worsening abdominal tenderness, high leukocytosis, and poor clinical appearance adjunct fidaxomicin 200 mg BID ordered -CTA/P with oral for worsening exam with complicating potential underlying diverticulitis and above noted exam. Patient with severe hives allergy to IV contrast per patient and family, and told she should not receive IV contrast. GI consulted. Pt has had outpt colonoscopies with [facility] previously. Per family has not seen [facility] or [facility] previously. R Sided Flank Pain with history of stent placement - Suspect 2/2 infection as above - DDx includes post uretal stent pain - FLomax, oxybutynin for spasm - Analgesics as above - Urology consulted. Recommend waiting for clinical improvement prior to stent removal. 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 Still having a decent amount of abdominal pain and diarrhea. Daughter present, answered all of patient and daughter's questions to the best of my ability and to their satisfaction. Patient seen at the same time as Dr. Guan from gastroenterology, input greatly appreciated. Vitals noted, in general she is lying in bed fairly still but otherwise does not appear to be in much distress except for whenever anybody pushes on her belly. HEENT normocephalic atraumatic mucous membranes moist. Breathing unlabored no accessory muscle use good effort. Skin shows no rashes no pallor or icterus. Neuro shows no focal deficits. Abdomen is soft moderately distended voluntary, but no involuntary guarding, no rebound or rigidity. Abdominal sepsisafter review, after discussion of case with the team who cared for her for the first few days of her hospital stay, and after discussion with gastroenterology, it seems most consistent with diverticulitis and superimposed C. difficile colitis. Continue treatment for both. She does show small improvement in her white count, and her exam, while concerning, does not seem to be deteriorating. Discussed lack of viable surgical backup here, should her condition deteriorate, but discussed that at this point in time it seems unlikely. We discussed that most of the time when situations do deteriorate they do so over a few days not rapidly, but that that could be possible. Given all of this, I offered transfer to a facility with colorectal for backup, but discussed that should she not show any deterioration, the ongoing course with antibiotics, vigilance, and supportive care, would likely suffice. After extensive discussions with her and her daughter, they feel comfortable staying here. Ongoing vigilance and serial exams. Fistulasloan shows no symptoms consistent with this, and I certainly do not suspect that it is part of what is making her sick in her acute situation, given that the diverticulitis and C. difficile colitis picture fit without far more. We discussed that at some point in the future this likely should be remedied by a surgeon at a facility with colorectal capabilities, but that it really does not appear consistent with her acute illness, and that because of that repair really would not be undertaken at this time anyway. DVT prophylaxisapixaban Otherwise as above Time in approximately 4:20 PM, time out approximately 5 PM. Greater than 30 minutes [id number]. Subjective Lorna Perkins was doing okay this morning and again when we saw her in the a fternoon. She was having 8/10 abdominal pain worse on the RLQ. She was having some shortness of breath overnight that improved with CPAP. We discussed her options to continue treatment with antibiotics and monitor clinically vs. transfer to a facility that has colorectal surgery and she opted to stay. Review of Systems Constitutional: no fever and no chills Respiratory: no cough Cardiovascular: no chest pain and no palpitations Gastrointestinal: no nausea Physical Exam Constitutional: WD/WN, vitals as above Eyes: PERRL, conjunctivae normal, anicteric sclerae ENMT: external ear and nose normal, oropharynx normal Neck: normal visual inspection Respiratory: normal respiratory effort, lungs clear to auscultation Cardiovascular: RRR, no murmur, no edema Gastrointestinal (Abdomen): - abdomen distended, tender to palpation point of maximal pain in the RLQ - guarding, not rigid Skin: no rashes, warm and dry Neurologic: no focal motor deficits Results & Data Results & Data ([facility]) Vital Signs (Past 12 Hours) Vital Signs Temp Pulse Pulse Resp BP Pulse Ox 06/13/20 16:45 70 06/13/20 15:21 36.8 C 70 16 113/66 96 06/13/20 11:24 36.1 C L 71 16 122/68 96 06/13/20 08:24 36.7 C 70 16 115/73 94 06/13/20 07:00 72 CBC Results Results Complete Blood Count Results: RBC 3.84 M/uL (4.2-5.4) L 06/13/20 WBC 34.48 K/uL (4.8-10.8) H* 06/13/20 Hgb 12.4 g/dL (12.0-16.0) 06/13/20 Hct 37.1 % (37-47) 06/13/20 Plt Count 250 K/uL (130-400) 06/13/20 Chemistry (BMP) Results [facility] Results: Sodium 136 mmol/L (136-145) 06/13/20 Potassium 3.1 mmol/L (3.5-5.1) L 06/13/20 Chloride 102 mmol/L (98-107) 06/13/20 BUN 10 mg/dl (7-18) 06/13/20 Creatinine 0.61 mg/dl (0.6-1.2) 06/13/20 Glucose 182 mg/dl (70-99) H 06/13/20 Resident Activity Tracking Resident Involvement: Resident Care Provided Care Provided: Adult Hospital Medicine (1) Diarrhea Diarrhea type: unspecified type Qualified Code(s): R19.7 - Diarrhea, unspecified
--- NOTE | 2020-06-13 18:57 | Billing Data ---
Date of Service June 13, 2020 Coding Level of Care Code 17423 Prolonged Care (int'l)
--- NOTE | 2020-06-13 18:57 | Billing Data ---
Date of Service June 13, 2020 Coding Level of Care Code 49033 Subseq Hosp Care Lvl 3
[2020-06-13] MEDS: MONTELUKAST SODIUM 10 MG TABLET PO SCH (21:46)
[2020-06-13] MEDS: PRAVASTATIN SOD 40 MG TAB PO SCH (21:48)
[2020-06-14] MEDS: INSULIN ASPART 100 UNITS/ML 3 ML PEN SC SCH ×6 (00:18→21:17)
[2020-06-14] MEDS: D5W AND LACTATED RINGERS 1,000 ML IV SCH ×3 (00:18→21:23)
[2020-06-14] MEDS: RASPBERRY SYRUP 5 ML UDP PO SCH ×4 (00:21→17:27)
[2020-06-14] MEDS: VANCOMYCIN HCL 125 MG/2.5ML SOLN PO SCH ×4 (00:21→17:27)
[2020-06-14] MEDS: ACETAMINOPHEN 325 MG TAB PO SCH ×6 (00:34→21:22)
[2020-06-14] MEDS: HYDROmorphone INJ 0.5 MG/0.5 ML SYR IV PRN ×4 (00:34→17:40)
[2020-06-14] MEDS: PIPERACILLIN/TAZOBACTAM 4.5 GM in DEXTROSE 5% 100 ML IV SCH ×3 (02:03→17:31)
[2020-06-14] MEDS: FIDAXOMICIN 200 MG TAB PO SCH ×2 (08:13→21:22)
[2020-06-14] MEDS: APIXABAN 5 MG TABLET PO SCH ×2 (08:14→21:12)
[2020-06-14] MEDS: TAMSULOSIN HCL 0.4 MG CAP PO SCH (08:14)
[2020-06-14] MEDS: amLODIPine BESYLATE 5 MG TAB PO SCH (08:15)
[2020-06-14] MEDS: LOSARTAN POTASSIUM 50 MG TAB PO SCH (08:15)
[2020-06-14] MEDS: FLUTICASONE/VILANTEROL 200/25MCG 14 PUFFS/INHALER INH SCH (08:16)
--- NOTE | 2020-06-14 08:23 | Hospitalist Progress Note ---
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 diff colitis who presented with sudden onset RLQ pain and explosive diarrhea with subsequent eval. suspicious for c. diff colitis along with diverticulitis. Sepsis 2/2 C. 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 - C. diff. as below - Continue empiric Zosyn for diverticulitis - IVFM D5LR 100cc/hr - advancing diet slowly - Blood cultures NGTD - Pain control hydromorphone 0.25mg q2H prn - started Tylenol scheduled for pain Severe C. difficile colitis. - Gene & Toxin positive. 1x prior C. diff episode 2 years ago. - WBC 34, uptrending Vancomycin 125 every 6 hours Cholestyramine added -Given worsening abdominal tenderness, high leukocytosis, and poor clinical appearance adjunct fidaxomicin 200 mg BID ordered -CTA/P with oral for worsening exam with complicating potential underlying diverticulitis and above noted exam. Patient with severe hives allergy to IV contrast per patient and family, and told she should not receive IV contrast. GI consulted. Pt has had outpt colonoscopies with [facility] previously. Per family has not seen [facility] or [facility] previously. R Sided Flank Pain with history of stent placement - Suspect 2/2 infection as above - DDx includes post uretal stent pain - Flomax, oxybutynin for spasm - Analgesics as above - Urology consulted. Recommend waiting for clinical improvement prior to stent removal. 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 Pain and diarrhea about the same. No appetite. Later when revisiting she feels about the same but was able to eat a little. Daughter updated at the bedside. Vitals noted, in general she is lying in bed and in no acute distress. HEENT normocephalic atraumatic mucous membranes moist. Breathing unlabored no accessory muscle use good effort. Skin shows no rashes no pallor or icterus. Neuro shows no focal deficits. Abdomen is soft moderately distended voluntary, but no involuntary guarding, no rebound or rigidityprobably mildly softer than yesterday. Abdominal sepsisrelated to C. difficile colitis and diverticulitisappears to be improving, white count improved dramatically, exam improving a little, symptoms about the same, but she looks a little bit brighter than yesterday. I suspect that she is slowly improving. She really does not want transfer to another facility unless it is absolutely necessary, and without any acute need for surgical intervention, as well as the fact that she appears to be improving on antibiotics, it seems reasonable to fulfill her request of ongoing medical care here. If she were to plateau and not improve, or if she were to worsen, we would then of course move quickly to try to transfer, and she is aware that we do not have an immediate "safety net" at this facilityand is okay with this, as are both of her daughters. Continue antibiotics and supportive care, she is showing improvement "on paper" with suspect improvement in person will follow Fistulasloan shows no symptoms consistent with this, and I certainly do not suspect that it is part of what is making her sick in her acute situation, given that the diverticulitis and C. difficile colitis picture fit without far more. We discussed that at some point in the future this likely should be remedied by a surgeon at a facility with colorectal capabilities, but that it really does not appear consistent with her acute illness, and that because of that repair really would not be undertaken at this time anyway. DVT prophylaxisapixaban Otherwise as above Subjective She continues to have abdominal pain and diarrhea overnight. She did not have an appetite but was willing to try something small and bland today. Physical Exam Constitutional: WD/WN, vitals as above Eyes: PERRL, conjunctivae normal, anicteric sclerae ENMT: external ear and nose normal, oropharynx normal Neck: normal visual inspection Respiratory: normal respiratory effort, lungs clear to auscultation Cardiovascular: RRR, no murmur, no edema Gastrointestinal (Abdomen): bloated, tender to palpation most in the RLQ (improved from one day prior) Skin: no rashes, warm and dry Neurologic: no focal motor deficits Results & Data Results & Data ([facility]) Vital Signs (Past 12 Hours) Vital Signs Temp Pulse Pulse Resp BP BP Pulse Ox 06/14/20 07:19 36.7 C 73 70 18 133/72 96 06/14/20 03:47 18 93 06/14/20 03:01 36.6 C 70 18 118/70 90 06/14/20 01:37 70 06/14/20 00:04 36.5 C 70 19 115/64 90 CBC Results Results Complete Blood Count Results: RBC 4.14 M/uL (4.2-5.4) L 06/14/20 WBC 21.46 K/uL (4.8-10.8) H 06/14/20 Hgb 13.2 g/dL (12.0-16.0) 06/14/20 Hct 40.4 % (37-47) 06/14/20 Plt Count 289 K/uL (130-400) 06/14/20 Chemistry (BMP) Results BMP Results: Sodium 138 mmol/L (136-145) 06/14/20 Potassium 3.2 mmol/L (3.5-5.1) L 06/14/20 Chloride 105 mmol/L (98-107) 06/14/20 BUN 7 mg/dl (7-18) 06/14/20 Creatinine 0.60 mg/dl (0.6-1.2) 06/14/20 Glucose 145 mg/dl (70-99) H 06/14/20 Resident Activity Tracking Resident Involvement: Resident Care Provided Care Provided: Adult Hospital Medicine (1) Diarrhea Diarrhea type: unspecified type Qualified Code(s): R19.7 - Diarrhea, unspecified
[2020-06-14 08:57] LABS: Basophils # (auto) 0.05 K/uL (0-0.2); Basophils % (auto) 0.2 %; Eosinophils # (auto) 0.19 K/uL (0-0.5); Eosinophils % (auto) 0.9 %; Hematocrit (blood only) 40.4 % (37-47); Hemoglobin 13.2 g/dL (12.0-16.0); Immature Granulocytes % (auto) 0.5 %; Lymphocytes # (auto) 1.32 K/uL (1.2-3.4); Lymphocytes % (auto) 6.2 %; Mean Corpuscular Hemoglobin 31.9 pg (25-34); Mean Corpuscular Hgb Conc 32.7 g/dL (32-36); Mean Corpuscular Volume 97.6 fL (80-100); Mean Platelet Volume 10.9 fL (7.4-10.4); Monocytes # (auto) 1.56 K/uL (0.11-0.59); Monocytes % (auto) 7.3 %; Neutrophils # (auto) 18.24 K/uL (1.4-6.5); Neutrophils % (auto) 84.9 %; Platelet Count 289 K/uL (130-400); RDW Standard Deviation 46.6 fL (36.4-46.3); Red Blood Count 4.14 M/uL (4.2-5.4); White Blood Count 21.46 K/uL (4.8-10.8)
--- NOTE | 2020-06-14 09:29 | Gastroenterology Progress Note ---
Date of Service June 14, 2020 Assessment & Plan (1) Clostridium difficile infection: (2) Diverticulitis: 1. Appreciate surgery consultation. 2. Continue Vancomycin 125 mg QID and Dificid 200 mg BID. 3. Continue IV Zosyn. 4. Consider ID consultation due to persistently elevated WBC despite broad spectrum abx. 5. Supportive care per primary team. We will continue to follow her clinical course. Thank you for allowing us to participate in the care of this patient. If you have any questions or concerns, please do not hesitate to contact us. Admission and Anticipated Discharge Date Admission Date: June 10, 2020 Subjective Patient states she is not feeling well. No reduction in abdominal pain or bowel frequency. +FI. Rates pain 8/10. Slight improvement of leukocytosis. Review of Systems Constitutional: no fever and no chills Gastrointestinal: as per Subjective / HPI Physical Exam Constitutional: well developed and well nourished Eyes: EOM intact bilaterally Neck: normal visual inspection Respiratory: normal respiratory effort Gastrointestinal (Abdomen): Percussion/Palpation: + abdomen tender and abdomen soft Skin: normal color Psychiatric: A+Ox3, euthymic affect Results & Data Results & Data ([facility]) Vital Signs (Past 12 Hours) Vital Signs Temp Pulse Pulse Resp BP BP Pulse Ox 06/14/20 07:19 36.7 C 73 70 18 133/72 96 06/14/20 03:47 18 93 06/14/20 03:01 36.6 C 70 18 118/70 90 06/14/20 01:37 70 06/14/20 00:04 36.5 C 70 19 115/64 90 PG Care Time/CCT Total # of Minutes Spent Total Time Spent with Patient: Total time spent is greater than 50% in coordination of care (as documented) at patient's floor/unit and/or counseling patient: Coding Level of Care Code 72494 Subseq Hosp Care Lvl 3 Diagnoses Clostridium difficile infection A49.8 Diverticulitis K57.92
[2020-06-14 09:31] LABS: BUN Creatinine Ratio 11.2 (10-20); Calcium 9.7 mg/dl (8.5-10.1); Creatinine Clr Calc Pharmacy 71.3 ml/min; Est GFR (African American) 95.7; Est GFR (Non-African American) 82.5; Magnesium 1.9 mg/dl (1.8-2.4); Potassium 3.2 mmol/L (3.5-5.1)
--- NOTE | 2020-06-14 10:29 | Surgery Progress Note ---
Date of Service June 14, 2020 Assessment & Plan (1) Diverticulitis of large intestine with complication: 84 year-old female with c. 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 Leukocytosis remains high but improved 21K (34k yesterday) despite vancomycin, Dificid, and Zosyn IV Antibiotics. Abdominal pain persists. Recent right nephrolithiasis with right ureteral stent placement at beginning of month. Plan: Given the evidence of increased inflammation on repeat CT scan from 06/10/2020 and concurrent c. 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 Majano feels patient would be better managed at tertiary center. If patient becomes unstable and requires surgery, she would need colorectal surgery. As GI recommended, would recommend ID consultation given persistent leukocytosis despite aggressive antibiotics continue npo for bowel rest, pain management, zofran as needed for nausea (2) Clostridium difficile infection: plan as above Dr. Majano has seen patient and examined patient. Admission and Anticipated Discharge Date Admission Date: June 10, 2020 Subjective still having abdominal pain, about the same as yesterday still having multiple loose stools Nurse gave pain medication with little affect Physical Exam Constitutional: + obese; no acute distress and not ill appearing Respiratory: normal respiratory effort; no respiratory distress and no labored breathing Gastrointestinal (Abdomen): Inspection/Auscultation: abdomen normal to inspection and + abdomen distended Percussion/Palpation: + abdomen tender and abdomen soft; no guarding and abdomen not rigid Skin: no rashes, warm and dry Psychiatric: Orientation: alert and oriented x 3 Results & Data ([facility]) Vital Signs (Past 12 Hours) Vital Signs Temp Pulse Pulse Resp BP BP Pulse Ox 06/14/20 07:19 36.7 C 73 70 18 133/72 96 06/14/20 03:47 18 93 06/14/20 03:01 36.6 C 70 18 118/70 90 06/14/20 01:37 70 06/14/20 00:04 36.5 C 70 19 115/64 90 Laboratory Results 06/14/20 06/14/20 06/14/20 Range/Units 12:06 08:34 08:34 WBC 21.46 H (4.8-10.8) K/uL RBC 4.14 L (4.2-5.4) M/uL Hgb 13.2 (12.0-16.0) g/dL Hct 40.4 (37-47) % MCV 97.6 (80-100) fL MCH 31.9 (25-34) pg MCHC 32.7 (32-36) g/dL RDW Std Deviation 46.6 H (36.4-46.3) fL RDW Coeff of Nasim 13.0 (11.5-14.5) % Plt Count 289 (130-400) K/uL MPV 10.9 H (7.4-10.4) fL Immature Gran % (Auto) 0.5 % Neut % (Auto) 84.9 % Lymph % (Auto) 6.2 % [place] % (Auto) 7.3 % Eos % (Auto) 0.9 % Baso % (Auto) 0.2 % Neut # (Auto) 18.24 H (1.4-6.5) K/uL Lymph # (Auto) 1.32 (1.2-3.4) K/uL [place] # (Auto) 1.56 H (0.11-0.59) K/uL Eos # (Auto) 0.19 (0-0.5) K/uL Baso # (Auto) 0.05 (0-0.2) K/uL Immature Gran # (Auto) 0.10 H (0.00-0.02) K/uL Sodium 138 (136-145) mmol/L Potassium 3.2 L (3.5-5.1) mmol/L Chloride 105 (98-107) mmol/L Carbon Dioxide 29 (21-32) mmol/L Anion Gap 4.0 (3-11) BUN 7 (7-18) mg/dl Creatinine 0.60 (0.6-1.2) mg/dl Est Cr Clr Drug Dosing 71.3 ml/min Est GFR ( Amer) 95.7 Est GFR (Non-Af Amer) 82.5 BUN/Creatinine Ratio 11.2 (10-20) Glucose 145 H (70-99) mg/dl POC Glucose 163 H (70-99) mg/dl Calcium 9.7 (8.5-10.1) mg/dl Magnesium 1.9 (1.8-2.4) mg/dl 06/14/20 06/14/20 06/13/20 Range/Units 05:36 00:03 18:43 WBC (4.8-10.8) K/uL RBC (4.2-5.4) M/uL Hgb (12.0-16.0) g/dL Hct (37-47) % MCV (80-100) fL MCH (25-34) pg MCHC (32-36) g/dL RDW Std Deviation (36.4-46.3) fL RDW Coeff of Nasim (11.5-14.5) % Plt Count (130-400) K/uL MPV (7.4-10.4) fL Immature Gran % (Auto) % Neut % (Auto) % Lymph % (Auto) % [place] % (Auto) % Eos % (Auto) % Baso % (Auto) % Neut # (Auto) (1.4-6.5) K/uL Lymph # (Auto) (1.2-3.4) K/uL [place] # (Auto) (0.11-0.59) K/uL Eos # (Auto) (0-0.5) K/uL Baso # (Auto) (0-0.2) K/uL Immature Gran # (Auto) (0.00-0.02) K/uL Sodium (136-145) mmol/L Potassium (3.5-5.1) mmol/L Chloride (98-107) mmol/L Carbon Dioxide (21-32) mmol/L Anion Gap (3-11) BUN (7-18) mg/dl Creatinine (0.6-1.2) mg/dl Est Cr Clr Drug Dosing ml/min Est GFR ( Amer) Est GFR (Non-Af Amer) BUN/Creatinine Ratio (10-20) Glucose (70-99) mg/dl POC Glucose 147 H 136 H 127 H (70-99) mg/dl Calcium (8.5-10.1) mg/dl Magnesium (1.8-2.4) mg/dl
[2020-06-14] MEDS: POTASSIUM CHLORIDE / WTR 10 MEQ/100 ML PLCT IV SCH ×4 (11:02→16:06)
[2020-06-14] MEDS: CHOLESTYRAMINE LIGHT 4 GM PKT PO SCH ×2 (11:27→21:13)
[2020-06-14] MEDS: LACTOBACILLUS ACIDOPHILUS 1 GM PACK PO SCH ×2 (12:10→17:27)
--- NOTE | 2020-06-14 18:31 | Billing Data ---
Date of Service June 14, 2020 Coding Level of Care Code 16091 Subseq Hosp Care Lvl 3
[2020-06-14] MEDS: PRAVASTATIN SOD 40 MG TAB PO SCH (21:12)
[2020-06-14] MEDS: MONTELUKAST SODIUM 10 MG TABLET PO SCH (21:14)
[2020-06-14] MEDS: MELATONIN 3 MG TAB PO PRN (21:22)
[2020-06-15] MEDS: RASPBERRY SYRUP 5 ML UDP PO SCH ×4 (00:19→17:47)
[2020-06-15] MEDS: VANCOMYCIN HCL 125 MG/2.5ML SOLN PO SCH ×4 (00:19→17:47)
[2020-06-15] MEDS: HYDROmorphone INJ 0.5 MG/0.5 ML SYR IV PRN ×4 (00:35→20:41)
[2020-06-15] MEDS: ACETAMINOPHEN 325 MG TAB PO SCH ×6 (03:24→21:06)
[2020-06-15] MEDS: PIPERACILLIN/TAZOBACTAM 4.5 GM in DEXTROSE 5% 100 ML IV SCH ×3 (03:24→17:53)
[2020-06-15] MEDS: D5W AND LACTATED RINGERS 1,000 ML IV SCH (06:18)
[2020-06-15 07:18] LABS: Basophils # (auto) 0.05 K/uL (0-0.2); Basophils % (auto) 0.5 %; Eosinophils # (auto) 0.24 K/uL (0-0.5); Eosinophils % (auto) 2.5 %; Hematocrit (blood only) 37.1 % (37-47); Hemoglobin 12.3 g/dL (12.0-16.0); Immature Granulocytes # (auto) 0.06 K/uL (0.00-0.02); Immature Granulocytes % (auto) 0.6 %; Lymphocytes # (auto) 1.23 K/uL (1.2-3.4); Mean Corpuscular Hemoglobin 32.2 pg (25-34); Mean Corpuscular Hgb Conc 33.2 g/dL (32-36); Mean Corpuscular Volume 97.1 fL (80-100); Monocytes # (auto) 1.13 K/uL (0.11-0.59); Monocytes % (auto) 11.9 %; Neutrophils # (auto) 6.75 K/uL (1.4-6.5); Neutrophils % (auto) 71.5 %; Platelet Count 327 K/uL (130-400); RDW Coefficient of Variation 13.1 % (11.5-14.5); RDW Standard Deviation 46.9 fL (36.4-46.3); Red Blood Count 3.82 M/uL (4.2-5.4); White Blood Count 9.46 K/uL (4.8-10.8)
[2020-06-15 07:32] LABS: BUN Creatinine Ratio 11.8 (10-20); Calcium 8.8 mg/dl (8.5-10.1); Creatinine Clr Calc Pharmacy 102.8 ml/min; Est GFR (African American) 106.7; Est GFR (Non-African American) 92.1; Potassium 3.3 mmol/L (3.5-5.1)
[2020-06-15] MEDS: TAMSULOSIN HCL 0.4 MG CAP PO SCH (08:09)
[2020-06-15] MEDS: APIXABAN 5 MG TABLET PO SCH ×2 (08:09→20:44)
[2020-06-15] MEDS: LOSARTAN POTASSIUM 50 MG TAB PO SCH (08:09)
[2020-06-15] MEDS: LACTOBACILLUS ACIDOPHILUS 1 GM PACK PO SCH ×3 (08:10→17:47)
[2020-06-15] MEDS: amLODIPine BESYLATE 5 MG TAB PO SCH (08:10)
[2020-06-15] MEDS: FLUTICASONE/VILANTEROL 200/25MCG 14 PUFFS/INHALER INH SCH (08:10)
[2020-06-15] MEDS: INSULIN ASPART 100 UNITS/ML 3 ML PEN SC SCH ×4 (08:16→20:43)
[2020-06-15] MEDS: FIDAXOMICIN 200 MG TAB PO SCH ×2 (09:32→20:42)
[2020-06-15] MEDS: POTASSIUM CHLORIDE / WTR 10 MEQ/100 ML PLCT IV SCH ×4 (10:34→16:05)
--- NOTE | 2020-06-15 11:16 | Gastroenterology Progress Note ---
Date of Service June 15, 2020 Assessment & Plan (1) Clostridium difficile infection: (2) Diverticulitis: 1. Continue Vancomycin 125 mg QID and Dificid 200 mg BID. 2. Continue IV Zosyn. 3. Supportive care per primary team. Thank you for allowing us to participate in the care of this patient. If you have any questions or concerns, please do not hesitate to contact us. Admission and Anticipated Discharge Date Admission Date: June 10, 2020 Subjective Patient was sleeping at the time of evaluation. Nursing requested to let the patient rest. Therefore, chart review was done and spoke with nurse about patient's clinical status. She has passed 2-3 bms this morning. Reporting less abdominal pain. WBC has normalized over the past 24 hours. Continues antibiotics. Review of Systems Review of Systems: Unable to obtain as patient was sleeping. Physical Exam Constitutional: WD/WN, vitals as above Results & Data Results & Data ([facility]) Vital Signs (Past 12 Hours) Vital Signs Temp Pulse Pulse Resp BP Pulse Ox 06/15/20 07:20 36.5 C 70 20 114/69 97 06/15/20 04:00 36.7 C 72 18 139/79 96 06/15/20 02:57 76 15 90 06/15/20 01:09 70 Laboratory Results Abnormal lab results 06/14/20 06/14/20 06/14/20 Range/Units 12:06 16:24 20:23 RBC (4.2-5.4) M/uL RDW Std Deviation (36.4-46.3) fL MPV (7.4-10.4) fL Neut # (Auto) (1.4-6.5) K/uL Sac # (Auto) (0.11-0.59) K/uL Immature Gran # (Auto) (0.00-0.02) K/uL Potassium (3.5-5.1) mmol/L Chloride (98-107) mmol/L BUN (7-18) mg/dl Creatinine (0.6-1.2) mg/dl Glucose (70-99) mg/dl POC Glucose 163 H 163 H 189 H (70-99) mg/dl 06/15/20 06/15/20 06/15/20 Range/Units 05:59 05:59 07:36 RBC 3.82 L (4.2-5.4) M/uL RDW Std Deviation 46.9 H (36.4-46.3) fL MPV 11.0 H (7.4-10.4) fL Neut # (Auto) 6.75 H (1.4-6.5) K/uL Sac # (Auto) 1.13 H (0.11-0.59) K/uL Immature Gran # (Auto) 0.06 H (0.00-0.02) K/uL Potassium 3.3 L (3.5-5.1) mmol/L Chloride 110 H (98-107) mmol/L BUN 5 L (7-18) mg/dl Creatinine 0.43 L (0.6-1.2) mg/dl Glucose 122 H (70-99) mg/dl POC Glucose 136 H (70-99) mg/dl PG Care Time/CCT Total # of Minutes Spent Total Time Spent with Patient: Total time spent is greater than 50% in coordination of care (as documented) at patient's floor/unit and/or counseling patient: Coding Level of Care Code 22215 Subseq Hosp Care Lvl 2 Diagnoses Clostridium difficile infection A49.8 Diverticulitis K57.92
[2020-06-15] MEDS: CHOLESTYRAMINE LIGHT 4 GM PKT PO SCH ×2 (11:45→22:06)
--- NOTE | 2020-06-15 12:47 | Hospitalist Progress Note ---
Date of Service June 15, 2020 Assessment & Plan (1) Sepsis: Lorna Perkins is an 84yo w/ a PMHx of afib on Eliquis, HTN, DM2, recent kidney stone w/ pyelo and abx tx and dc from [facility] 2 days prior to arrival, and C. diff. colitis who presented with sudden onset RLQ pain and explosive diarrhea with subsequent eval. suspicious for c. diff colitis along with diverticulitis. Sepsis 2/2 C. diff colitis with evidence of additional diverticulitis and fistula - Febrile, tachycardic, leukocytosis on admit - Hemodynamically stable; BP 149/81 pulse 70, Resp 20 on assessment - CT-A/P 06/13: mild to moderate colonic diverticulosis with evidence of acute sigmoid diverticulitis with increased inflammation from 06/10/20, no evidence of abscess - consider rescan on 06/16 to evaluate for improvement and rule out any abscess formation - C. diff. as below - Continue empiric Zosyn for diverticulitis - IVF decreased to D5LR 50 cc/hr - advancing diet slowly - Blood cultures NGTD at 48H - Pain control hydromorphone 0.25mg q2H prn - started Tylenol scheduled for pain - started Thiamine 100 mg for 7 days for concern of refeeding syndrome Severe C. difficile colitis. - Gene & Toxin positive. 1x prior C. diff episode 2 years ago. - WBC 34, up trending Vancomycin 125 every 6 hours Cholestyramine added -Given initially severe abdominal tenderness, high leukocytosis, and poor clinical appearance adjunct fidaxomicin 200 mg BID ordered -CTA/P with oral for worsening exam with complicating potential underlying diverticulitis and above noted exam. Patient with severe hives allergy to IV contrast per patient and family, and told she should not receive IV contrast. GI consulted. Pt has had outpt colonoscopies with [facility] previously. Per family has not seen [facility] or [facility] previously. 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 stent - DDx includes post uretal stent pain - Flomax, oxybutynin for spasm - Analgesics as above - Urology consulted. Recommend waiting for clinical improvement prior to stent removal. Hx Extrinsic Asthma - Albuterol PRN - Continue fluticasone.vilanterol daily 1 puff IBS-D - Bentyl held HLD - Continue pravastatin 80mg qHS - Zetia held, resume @ d/c Atrial Flutter - Pacer in place - Continue Eliquis - No rate control [place] Hypokalemia - Improved with repletion - BMP daily, replete as indicated HTN - continue home Amlodipine and Losartan DVT PPx: Eliquis Dispo: Med Tele Diet: NPO Code: DNR/DNI (2) Diarrhea: (3) Hyperlipidemia: (4) Diverticulitis: (5) Flank pain: (6) Depression: (7) Diverticulosis: (8) History of Clostridium difficile infection: (9) Osteoarthritis: Admission and Anticipated Discharge Date Admission Date: June 10, 2020 Supervising Physician Co-Signing Physician Notes I personally examined the patient and verified all palacios points of history and exam, discussed case, and agree with decision making with Dr Jaime. pain ipmroved some, feeling a little better, diarrhea maybe slowing some. Daughter updated at the bedside. Vitals noted, in general she is lying in bed and in no acute distress. HEENT normocephalic atraumatic mucous membranes moist. Breathing unlabored no accessory muscle use good effort. Skin shows no rashes no pallor or icterus. Neuro shows no focal deficits. Abdomen is soft diffuse tender but much softer now no guarding no rebound no rigidty - definitely improved from prior exam. Abdominal sepsisrelated to C. difficile colitis and diverticulitisappears to be improving, white count improved dramatically (now normal), exam improving a lot, symptoms improving - clearly slowly improving. She really does not want transfer to another facility unless it is absolutely necessary, and without any acute need for surgical intervention, as well as the fact that she appears to be improving on antibiotics, it seems reasonable to fulfill her request of ongoing medical care here. will repeat CT abd/pelvis to follow due to surgery's concerns - but for now it appears antibiotics and medical care likely to be the main/entire course of care barring surprising findings or change in progress. Fistulashe shows no symptoms consistent with this, and I certainly do not judith pect that it is part of what is making her sick in her acute situation, given that the diverticulitis and C. difficile colitis picture fit without far more. We discussed that at some point in the future this likely should be remedied by a surgeon at a facility with colorectal capabilities, but that it really does not appear consistent with her acute illness, and that because of that repair really would not be undertaken at this time anyway. repeat CT tomorrow ureterolithiasis/stent - if possible she would prefer to have stent removed prior to discharge given that she'll likely be going ot a rehab facility/etc weakness - encouraged PO intake and participation with therapy DVT prophylaxisapixaban Otherwise as above Chel Perkins is doing better today overall. She was having continued pain in her RLQ, but was having improvement in her diarrhea. Daughter was updated today. Review of Systems Review of Systems: Constitutional: denies fevers, chills Cardiac: denies cough, shortness of breath Physical Exam Constitutional: WD/WN, vitals as above Eyes: PERRL, conjunctivae normal, anicteric sclerae ENMT: external ear and nose normal, oropharynx normal Neck: normal visual inspection Respiratory: normal respiratory effort, lungs clear to auscultation Cardiovascular: RRR, no murmur, no edema Gastrointestinal (Abdomen): - soft, tender to palpation of the RLQ (improved from day prior) - no guarding Skin: no rashes, warm and dry Neurologic: no focal motor deficits Results & Data Results & Data ([facility]) Vital Signs (Past 12 Hours) Vital Signs Temp Pulse Pulse Resp BP Pulse Ox 06/15/20 12:03 70 06/15/20 11:56 36.4 C L 71 20 149/81 H 93 06/15/20 07:20 36.5 C 70 20 114/69 97 06/15/20 04:00 36.7 C 72 18 139/79 96 06/15/20 02:57 76 15 90 06/15/20 01:09 70 CBC Results Results Complete Blood Count Results: RBC 3.82 M/uL (4.2-5.4) L 06/15/20 WBC 9.46 K/uL (4.8-10.8) 06/15/20 Hgb 12.3 g/dL (12.0-16.0) 06/15/20 Hct 37.1 % (37-47) 06/15/20 Plt Count 327 K/uL (130-400) 06/15/20 Chemistry (BMP) Results BMP Results: Sodium 143 mmol/L (136-145) 06/15/20 Potassium 3.3 mmol/L (3.5-5.1) L 06/15/20 Chloride 110 mmol/L (98-107) H 06/15/20 BUN 5 mg/dl (7-18) L 06/15/20 Creatinine 0.43 mg/dl (0.6-1.2) L 06/15/20 Glucose 122 mg/dl (70-99) H 06/15/20 Resident Activity Tracking Resident Involvement: Resident Care Provided Care Provided: Adult Hospital Medicine (1) Diarrhea Diarrhea type: unspecified type Qualified Code(s): R19.7 - Diarrhea, un specified
[2020-06-15] MEDS: THIAMINE HCL 100 MG in SYRINGE 9 ML IV SCH (16:34)
--- NOTE | 2020-06-15 16:38 | Billing Data ---
Date of Service June 15, 2020 Coding Level of Care Code 00487 Subseq Hosp Care Lvl 3
[2020-06-15] MEDS: PRAVASTATIN SOD 40 MG TAB PO SCH (20:44)
[2020-06-15] MEDS: MONTELUKAST SODIUM 10 MG TABLET PO SCH (20:44)
[2020-06-15] MEDS: MELATONIN 3 MG TAB PO PRN (21:06)
[2020-06-16] MEDS: VANCOMYCIN HCL 125 MG/2.5ML SOLN PO SCH ×4 (00:54→17:22)
[2020-06-16] MEDS: RASPBERRY SYRUP 5 ML UDP PO SCH ×4 (00:54→17:22)
[2020-06-16] MEDS: HYDROmorphone INJ 0.5 MG/0.5 ML SYR IV PRN ×8 (01:09→22:12)
[2020-06-16] MEDS: PIPERACILLIN/TAZOBACTAM 4.5 GM in DEXTROSE 5% 100 ML IV SCH ×3 (01:22→18:03)
[2020-06-16] MEDS: ACETAMINOPHEN 325 MG TAB PO SCH ×6 (01:39→21:09)
[2020-06-16 06:28] LABS: Basophils # (auto) 0.06 K/uL (0-0.2); Eosinophils # (auto) 0.29 K/uL (0-0.5); Eosinophils % (auto) 4.6 %; Hematocrit (blood only) 36.8 % (37-47); Hemoglobin 11.9 g/dL (12.0-16.0); Immature Granulocytes # (auto) 0.05 K/uL (0.00-0.02); Immature Granulocytes % (auto) 0.8 %; Lymphocytes # (auto) 1.72 K/uL (1.2-3.4); Lymphocytes % (auto) 27.3 %; Mean Corpuscular Hemoglobin 31.4 pg (25-34); Mean Corpuscular Hgb Conc 32.3 g/dL (32-36); Mean Corpuscular Volume 97.1 fL (80-100); Mean Platelet Volume 10.4 fL (7.4-10.4); Monocytes # (auto) 0.91 K/uL (0.11-0.59); Monocytes % (auto) 14.5 %; Neutrophils # (auto) 3.26 K/uL (1.4-6.5); Neutrophils % (auto) 51.8 %; Platelet Count 378 K/uL (130-400); RDW Standard Deviation 45.8 fL (36.4-46.3); Red Blood Count 3.79 M/uL (4.2-5.4); White Blood Count 6.29 K/uL (4.8-10.8)
[2020-06-16 07:00] LABS: BUN Creatinine Ratio 10.5 (10-20); Calcium 9.3 mg/dl (8.5-10.1); Creatinine Clr Calc Pharmacy 105.1 ml/min; Est GFR (African American) 106.7; Est GFR (Non-African American) 92.1; Potassium 3.4 mmol/L (3.5-5.1)
[2020-06-16] MEDS: D5W AND LACTATED RINGERS 1,000 ML IV SCH (07:12)
[2020-06-16] MEDS: INSULIN ASPART 100 UNITS/ML 3 ML PEN SC SCH ×4 (07:50→21:17)
--- NOTE | 2020-06-16 07:57 | Hospitalist Progress Note ---
Date of Service June 16, 2020 Assessment & Plan (1) Sepsis: Lorna Perkins is an 84yo w/ a PMHx of afib on Eliquis, HTN, DM2, recent kidney stone w/ pyelo and abx tx and dc from [facility] 2 days prior to arrival, and C. diff. colitis who presented with sudden onset RLQ pain and explosive diarrhea with subsequent eval. suspicious for c. diff colitis along with diverticulitis. Sepsis 2/2 C. diff colitis with evidence of additional diverticulitis and fistula - Febrile, tachycardic, leukocytosis on admit - Hemodynamically stable; BP 149/81 pulse 70, Resp 20 on assessment - CT-A/P 06/13: mild to moderate colonic diverticulosis with evidence of acute sigmoid diverticulitis with increased inflammation from 06/10/20, no evidence of abscess - CT-A/P today with improvement in inflammation and no mention of fistula - C. diff. as below - Continue empiric Zosyn for diverticulitis, consider switching to orals - IVF decreased to D5LR 50 cc/hr - advancing diet slowly - Blood cultures NGTD at 48H - Pain control hydromorphone 0.25mg q2H prn - started Tylenol scheduled for pain - started Thiamine 100 mg for 7 days for concern of refeeding syndrome Severe C. difficile colitis. - Gene & Toxin positive. 1x prior C. diff episode 2 years ago. - WBC 34, up trending Vancomycin 125 every 6 hours Cholestyramine added -Given initially severe abdominal tenderness, high leukocytosis, and poor clinical appearance adjunct fidaxomicin 200 mg BID ordered -CTA/P with oral for worsening exam with complicating potential underlying diverticulitis and above noted exam. Patient with severe hives allergy to IV contrast per patient and family, and told she should not receive IV contrast. GI consulted. Pt has had outpt colonoscopies with [facility] previously. Per family has not seen [facility] or [facility] previously. 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 stent - DDx includes post uretal stent pain - Flomax, oxybutynin for spasm - Analgesics as above - Urology consulted. Recommend waiting for clinical improvement prior to stent removal. Hx Extrinsic Asthma - Albuterol PRN - Continue fluticasone.vilanterol daily 1 puff IBS-D - Bentyl held HLD - Continue pravastatin 80mg qHS - Zetia held, resume @ d/c Atrial Flutter - Pacer in place - Continue Eliquis - No rate control prior to arrival Hypokalemia - Improved with repletion - BMP daily, replete as indicated HTN - continue home Amlodipine and Losartan DVT PPx: Eliquis Dispo: Med Tele Diet: NPO Code: DNR/DNI (2) Diarrhea: (3) Hyperlipidemia: (4) Diverticulitis: (5) Flank pain: (6) Depression: (7) Diverticulosis: (8) History of Clostridium difficile infection: (9) Osteoarthritis: Admission and Anticipated Discharge Date Admission Date: June 10, 2020 Supervising Physician Co-Signing Physician Notes I personally examined the patient and verified all palacios points of history and exam, discussed case, and agree with decision making with Dr Jaime. Seems to overall be improving, smiling some, pain seems overall better. Diarrhea did not bother her much through the night, it is bothering her a lot now, but she did have p.o. contrast for CT Vitals noted, in general she is lying in bed and in no acute distress. HEENT normocephalic atraumatic mucous membranes moist. Breathing unlabored no accessory muscle use good effort. Skin shows no rashes no pallor or icterus. Neuro shows no focal deficits. Abdomen soft mildly distended mild diffuse tenderness but I can palpate very deeply and there is no guarding rebound or rigidity Abdominal sepsisrelated to C. difficile colitis and diverticulitisimproving, exam much improved, CBC much improved, CT scan showing ongoing improvement Fistulashe shows no symptoms consistent with this, and repeat CT does not mention this is a findingcertainly she will still need outpatient follow-up, but we question whether or not the possible evolving fistula may have just been inflammatory findings masquerading as a fistula-like appearance ureterolithiasis/stent -discussed with urology, and they felt it more prudent to leave the stent in and not to take it out at this time given her other acute illnesses/infection. will follow-up in the office in 2 to 3 weeks, KUB prior weakness -encouraging PO intake and participation with therapy, appears she will almost certainly need SNF for a while after discharge and prior to return home DVT prophylaxisapixaban Otherwise as above Subjective Lorna Perkins was doing well this morning with improvement in her pain and the number of bowel movements that she had overnight. After getting contrast for the CT A/P she had worsening of her diarrhea. Her pain continues to be in her right lower quadrant. Daughter was updated today. Review of Systems Constitutional: no fever and no chills Physical Exam Constitutional: WD/WN, vitals as above Eyes: PERRL, conjunctivae normal, anicteric sclerae ENMT: external ear and nose normal, oropharynx normal Neck: normal visual inspection Respiratory: normal respiratory effort, lungs clear to auscultation Cardiovascular: RRR, no murmur, no edema Gastrointestinal (Abdomen): - soft, tender in the right lower quadrant Skin: no rashes, warm and dry Neurologic: no focal motor deficits Results & Data Results & Data ([facility]) Vital Signs (Past 12 Hours) Vital Signs Temp Pulse Pulse Resp BP BP Pulse Ox 06/16/20 06:54 36.5 C 68 17 126/75 96 06/16/20 04:15 36.8 C 73 18 138/60 98 06/16/20 03:18 70 14 93 06/16/20 00:44 70 06/15/20 23:55 36.5 C 71 18 148/89 H 96 06/15/20 21:44 70 16 94 CBC Results Results Complete Blood Count Results: RBC 3.79 M/uL (4.2-5.4) L 06/16/20 WBC 6.29 K/uL (4.8-10.8) 06/16/20 Hgb 11.9 g/dL (12.0-16.0) L 06/16/20 Hct 36.8 % (37-47) L 06/16/20 Plt Count 378 K/uL (130-400) 06/16/20 Chemistry (BMP) Results BMP Results: Sodium 142 mmol/L (136-145) 06/16/20 Potassium 3.4 mmol/L (3.5-5.1) L 06/16/20 Chloride 109 mmol/L (98-107) H 06/16/20 BUN 5 mg/dl (7-18) L 06/16/20 Creatinine 0.43 mg/dl (0.6-1.2) L 06/16/20 Glucose 98 mg/dl (70-99) 06/16/20 Resident Activity Tracking Resident Involvement: Resident Care Provided Care Provided: Adult Hospital Medicine (1) Diarrhea Diarrhea type: unspecified type Qualified Code(s): R19.7 - Diarrhea, unspecified
[2020-06-16] MEDS: LACTOBACILLUS ACIDOPHILUS 1 GM PACK PO SCH ×3 (08:37→17:22)
[2020-06-16] MEDS: FLUTICASONE/VILANTEROL 200/25MCG 14 PUFFS/INHALER INH SCH (08:38)
[2020-06-16] MEDS: FIDAXOMICIN 200 MG TAB PO SCH ×2 (08:39→21:07)
[2020-06-16] MEDS: LOSARTAN POTASSIUM 50 MG TAB PO SCH (08:39)
[2020-06-16] MEDS: APIXABAN 5 MG TABLET PO SCH ×2 (08:39→21:07)
[2020-06-16] MEDS: TAMSULOSIN HCL 0.4 MG CAP PO SCH (08:39)
[2020-06-16] MEDS: amLODIPine BESYLATE 5 MG TAB PO SCH (08:39)
[2020-06-16] MEDS: THIAMINE HCL 100 MG in SYRINGE 9 ML IV SCH (08:40)
--- NOTE | 2020-06-16 11:25 | CT Scan Report ---
CT OF THE ABDOMEN AND PELVIS WITH ORAL CONTRAST CLINICAL HISTORY: Evaluate for abscess formation. COMPARISON STUDY: CT of the abdomen and pelvis June 12, 2020. TECHNIQUE: Axial images of the abdomen and pelvis were obtained without IV contrast. Oral contrast wa s administered. Automated exposure control was utilized for the study. A dose lowering technique was utilized adhering to the principles of ALARA. FINDINGS: Visualized portions of the lower chest demonstrate cardiomegaly and partially visualized pa cer leads. Small bilateral pleural effusions slightly increased since prior CT. Associated bibasilar opacities are noted. These favor atelectasis. No pneumatosis, free air or portal venous gas is present. Evaluation of the abdomen and the pelvis is suboptimal on this unenhanced examination. There is no biliary ductal dilatation status post cholecy stectomy. The liver, spleen, adrenal glands and pancreas are unremarkable. There is no pancreatic trinidad agustin dilatation or peripancreatic infiltration. There is no hydronephrosis. A 2 mm right renal calculu s is noted. A right ureteral stent remains in place. A few right ureteral calculi are noted, the larg est of which is a 4 mm proximal right ureteral calculus. There are no left ureteral calculi. There is gas and a Huerta balloon within the bladder. Colonic diverticulosis is again noted. There is infiltra tion adjacent to the sigmoid colon with sigmoid colon wall thickening. These findings have decreased since CT of June 12, 2020. There is no free air or abscess. There is apparent rectal wall thickening . A small amount of ascites within the abdomen and pelvis is noted. This has increased. There is no e vidence for a bowel obstruction. The appendix is not visualized. No acute fracture or suspicious lesi on is noted. There is body wall edema. IMPRESSION: 1. Findings consistent with sigmoid diverticulitis. Interval decrease in sigmoid colon wall thickenin g and adjacent infiltration since CT of June 12, 2020. No free air or abscess. 2. Increase in a small amount of abdominal and pelvic ascites. Slight increase in bilateral pleural e ffusions. 3. Right ureteral stent in place. Several right ureteral calculi that measure up to 4 mm. No hydronep hrosis. 4. No bowel obstruction. 5. Mild nonspecific rectal wall thickening. ACT 112: Negative or not required by law. Electronically signed by: Constantino Crandall M.D. 06/16/2020 11:24 AM
[2020-06-16] MEDS: CHOLESTYRAMINE LIGHT 4 GM PKT PO SCH ×3 (11:40→22:12)
[2020-06-16] MEDS ORDERED: HYDROmorphone INJ 0.5 MG/0.5 ML SYR IV STA (12:01)
--- NOTE | 2020-06-16 18:06 | Billing Data ---
Date of Service June 16, 2020 Coding Level of Care Code 90399 Subseq Hosp Care Lvl 3
[2020-06-16] MEDS: PRAVASTATIN SOD 40 MG TAB PO SCH (21:08)
[2020-06-16] MEDS: MONTELUKAST SODIUM 10 MG TABLET PO SCH (21:08)
[2020-06-16] MEDS: MELATONIN 3 MG TAB PO PRN (22:12)
[2020-06-17] MEDS: HYDROmorphone INJ 0.5 MG/0.5 ML SYR IV PRN ×6 (00:19→14:48)
[2020-06-17] MEDS: RASPBERRY SYRUP 5 ML UDP PO SCH ×5 (00:19→23:19)
[2020-06-17] MEDS: VANCOMYCIN HCL 125 MG/2.5ML SOLN PO SCH ×5 (00:19→23:18)
[2020-06-17] MEDS: ACETAMINOPHEN 325 MG TAB PO SCH ×6 (02:07→22:30)
[2020-06-17] MEDS: PIPERACILLIN/TAZOBACTAM 4.5 GM in DEXTROSE 5% 100 ML IV SCH ×2 (02:07→10:12)
[2020-06-17 07:03] LABS: Basophils # (auto) 0.13 K/uL (0-0.2); Basophils % (auto) 1.9 %; Eosinophils # (auto) 0.23 K/uL (0-0.5); Eosinophils % (auto) 3.4 %; Hematocrit (blood only) 40.3 % (37-47); Hemoglobin 13.6 g/dL (12.0-16.0); Immature Granulocytes # (auto) 0.09 K/uL (0.00-0.02); Immature Granulocytes % (auto) 1.3 %; Mean Corpuscular Hemoglobin 31.9 pg (25-34); Mean Corpuscular Hgb Conc 33.7 g/dL (32-36); Mean Corpuscular Volume 94.6 fL (80-100); Monocytes # (auto) 0.84 K/uL (0.11-0.59); Monocytes % (auto) 12.4 %; Neutrophils # (auto) 3.59 K/uL (1.4-6.5); Platelet Count 473 K/uL (130-400); RDW Standard Deviation 45.2 fL (36.4-46.3); Red Blood Count 4.26 M/uL (4.2-5.4); White Blood Count 6.78 K/uL (4.8-10.8)
[2020-06-17 07:38] LABS: BUN Creatinine Ratio 7.5 (10-20); Creatinine Clr Calc Pharmacy 93.4 ml/min; Est GFR (African American) 103.7; Est GFR (Non-African American) 89.4; Potassium 3.1 mmol/L (3.5-5.1)
[2020-06-17] MEDS: FIDAXOMICIN 200 MG TAB PO SCH (07:59)
[2020-06-17] MEDS: LACTOBACILLUS ACIDOPHILUS 1 GM PACK PO SCH ×3 (08:00→16:44)
[2020-06-17] MEDS: LOSARTAN POTASSIUM 50 MG TAB PO SCH (08:00)
[2020-06-17] MEDS: TAMSULOSIN HCL 0.4 MG CAP PO SCH (08:00)
[2020-06-17] MEDS: amLODIPine BESYLATE 5 MG TAB PO SCH (08:01)
[2020-06-17] MEDS: APIXABAN 5 MG TABLET PO SCH ×2 (08:02→19:58)
[2020-06-17] MEDS: FLUTICASONE/VILANTEROL 200/25MCG 14 PUFFS/INHALER INH SCH (08:03)
[2020-06-17] MEDS: INSULIN ASPART 100 UNITS/ML 3 ML PEN SC SCH ×4 (10:01→20:46)
[2020-06-17] MEDS: THIAMINE HCL 100 MG in SYRINGE 9 ML IV SCH (10:11)
[2020-06-17] MEDS: POTASSIUM CHLORIDE CRTAB 20 MEQ TABCR PO SCH ×3 (10:11→20:00)
[2020-06-17] MEDS: CHOLESTYRAMINE LIGHT 4 GM PKT PO SCH ×2 (10:12→23:09)
[2020-06-17] MEDS: OXYBUTYNIN CHLORIDE 5 MG TAB PO PRN (10:21)
[2020-06-17] MEDS: POTASSIUM CHLORIDE / WTR 10 MEQ/100 ML PLCT IV SCH ×3 (10:24→14:47)
--- NOTE | 2020-06-17 10:53 | Hospitalist Progress Note ---
Date of Service June 17, 2020 Assessment & Plan (1) Sepsis: Lorna Perkins is an 84yo w/ a PMHx of afib on Eliquis, HTN, DM2, recent kidney stone w/ pyelo and abx tx and dc from [facility] 2 days prior to arrival, and C. diff. colitis who presented with sudden onset RLQ pain and explosive diarrhea with subsequent eval. suspicious for c. diff colitis along with diverticulitis. Sepsis 2/2 C. diff colitis with evidence of additional diverticulitis and fistula - Febrile, tachycardic, leukocytosis on admit - Hemodynamically stable - CT-A/P 06/13: mild to moderate colonic diverticulosis with evidence of acute sigmoid diverticulitis with increased inflammation from 06/10/20, no evidence of abscess - CT-A/P today with improvement in inflammation and no mention of fistula - C. diff. as below -On empiric Zosyn for diverticulitis, d/fernie and narrowed - Continue Cefdinir/Flagyl PO - IVF decreased to D5LR 50 cc/hr - advancing diet slowly - Blood cultures NGTD - Oxycodone 5mg PO q6H PRN for pain, breakthrough Pain control hydromorphone 0.25mg q2H prn. Pt with nausea to oxycodone in the past, tolerated hydromorphone/hydrocodone well. Monitor for SEs and d/c if needed - started Tylenol scheduled for pain -Continue thiamine 100 mg for 7 days for concern of refeeding syndrome Severe C. difficile colitis. - Gene & Toxin positive. 1x prior C. diff episode 2 years ago. - WBC 34, up trending Vancomycin 125 every 6 hours Adjunct fidaxomycin 200 mg twice daily added 06/12 for poor clinical appearance. Discontinued due to improvement, continue vanc Cholestyramine continue for now d/c if continued improvement in BMs tomorrow -CTA/P as above - Recommend continuing vancomycin 125mg PO q6H for 10 days (or at minimum 7 days after Cefdinir/Flagyl is completed above) followed by pulse taper (125mg PO q12h x1 week, 125mg PO daily x1 week, 125mg PO q48h x2 weeks) - Do not recommend bezlotoxumab therapy to prevent recurrence after risk/benefit consideration, pt at increased risk for AEs due to underlying CHF and risk for exacerbating/inducing heart failure. GI consulted. Previously known to [facility]. 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 stent - DDx includes post uretal stent pain - Flomax, oxybutynin for spasm - Analgesics as above - Urology consulted. Anticipate removal at 2-3-week follow-up once patient clinically improved Hx Extrinsic Asthma - Albuterol PRN - Continue fluticasone.vilanterol daily 1 puff IBS-D - Bentyl held HLD - Continue pravastatin 80mg qHS - Zetia held, resume @ d/c Atrial Flutter - Pacer in place - Continue Eliquis - No rate control prior to arrival Hypokalemia - Improved with repletion - BMP daily, replete as indicated HTN - continue home Amlodipine and Losartan DVT PPx: Eliquis Dispo: Med Tele Diet: NPO (2) Diarrhea: (3) Hyperlipidemia: (4) Diverticulitis: (5) Flank pain: (6) Depression: (7) Diverticulosis: (8) History of Clostridium difficile infection: (9) Osteoarthritis: Admission and Anticipated Discharge Date Admission Date: June 10, 2020 Supervising Physician Co-Signing Physician Notes I personally examined the patient and verified all palacios points of history and exam, discussed case, and agree with decision making with Dr Norton. Improving overall, less pain, she still has some pain, and that is her biggest complaint which is also getting in the way of her sleeping, but notes that she does feel better, is eating a little bit better. She feels that she probably is about the same amount of diarrhea, although nursing notes that it has slowed a good bit Vitals noted, in general she is lying in bed and in no acute distress. HEENT normocephalic atraumatic mucous membranes moist. Breathing unlabored no accessory muscle use good effort. Skin shows no rashes no pallor or icterus. Neuro shows no focal deficits. Abdomen soft nondistended nontender no masses organomegaly Abdominal sepsisrelated to C. difficile colitis and diverticulitisimproving, exam much improved, CBC much improved, CT scan showing ongoing improvementtransition diverticulitis antibiotics to cefdinir and Flagyl, downgrade C. difficile antibiotics to just vancomycin Fistulashe shows no symptoms consistent with this, and repeat CT does not mention this is a findingcertainly she will still need outpatient follow-up, but we question whether or not the possible evolving fistula may have just been inflammatory findings masquerading as a fistula-like appearance ureterolithiasis/stent -discussed with urology, and they felt it more prudent to leave the stent in and not to take it out at this time given her other acute illnesses/infection. will follow-up in the office in 2 to 3 weeks, KUB prior weakness -continue encouraging PO intake and participation with therapy, appears she will almost certainly need SNF for a while after discharge and prior to return home DVT prophylaxisapixaban Otherwise as above, showing good improvement Subjective She was seen at the bedside this morning. She reports that she had a lot of diarrhea after having a repeat CT scan due to the contrast, but her diarrhea today seems improved. She reports she has not had any bowel movements overnight "had a fart without any diarrhea for the first time". Her abdomen still feels very sore all over, but notes feels better than 2 days ago. She denies fever and chills last night, but reports she feels very tired and "totally wiped out ". Denies shortness of breath and chest pain. Otherwise concerned about the plan moving forward, but no additional questions or concerns. Review of Systems Review of Systems: All systems reviewed & are unremarkable except as noted in Subjective Physical Exam Physical Exam: General: A&Ox3. Appears fatigued. Cooperative. HEENT: Atraumatic, normocephalic. Visual acuity grossly decreased at baseline. No acute change in visual acuity. Pulm: CTAB A&P. -wheezes, -rales, -rhonchi. Symmetrical chest rise. No increase work of breathing. No respiratory distress. Cardiac: RRR, -mrg. Radial pulses intact and symmetrical. Abdominal: No guarding on exam today. Mild diffuse tender, improved from prior. No rebound tenderness. Results & Data Results & Data ([facility]) Vital Signs (Past 12 Hours) Vital Signs Temp Pulse Pulse Resp BP Pulse Ox 06/17/20 07:10 36.6 C 72 18 143/84 H 95 03/19/21 03:12 36.6 C 69 18 144/76 H 95 06/17/20 02:28 72 18 95 06/17/20 01:07 70 06/16/20 23:36 36.5 C 69 20 137/81 97 Resident Activity Tracking Resident Involvement: Resident Care Provided Care Provided: Adult Hospital Medicine (1) Diarrhea Diarrhea type: unspecified type Qualified Code(s): R19.7 - Diarrhea, unspecified
--- NOTE | 2020-06-17 19:01 | Billing Data ---
Date of Service June 17, 2020 Coding Level of Care Code 95923 Subseq Hosp Care Lvl 3
[2020-06-17] MEDS: oxyCODONE HCL IR 5 MG TAB (IMMEDIATE RELEASE) PO PRN (19:57)
[2020-06-17] MEDS: CEFDINIR 300 MG CAP PO SCH (19:58)
[2020-06-17] MEDS: metroNIDAZOLE 500 MG TAB PO SCH (19:58)
[2020-06-17] MEDS: MONTELUKAST SODIUM 10 MG TABLET PO SCH (19:59)
[2020-06-17] MEDS: PRAVASTATIN SOD 40 MG TAB PO SCH (19:59)
[2020-06-17] MEDS: ONDANSETRON INJ 2 MG/ML 2 ML VIAL IV PRN (20:17)
[2020-06-17] MEDS: MELATONIN 3 MG TAB PO PRN (22:30)
[2020-06-18] MEDS: HYDROmorphone INJ 0.5 MG/0.5 ML SYR IV PRN ×4 (00:21→18:09)
[2020-06-18] MEDS: oxyCODONE HCL IR 5 MG TAB (IMMEDIATE RELEASE) PO PRN ×3 (01:56→15:17)
[2020-06-18] MEDS: ACETAMINOPHEN 325 MG TAB PO SCH ×6 (01:57→20:14)
[2020-06-18] MEDS: RASPBERRY SYRUP 5 ML UDP PO SCH ×4 (06:12→23:45)
[2020-06-18] MEDS: VANCOMYCIN HCL 125 MG/2.5ML SOLN PO SCH ×4 (06:12→23:45)
[2020-06-18 06:57] LABS: Basophils % (auto) 1.4 %; Eosinophils # (auto) 0.24 K/uL (0-0.5); Eosinophils % (auto) 3.3 %; Hematocrit (blood only) 39.7 % (37-47); Hemoglobin 12.9 g/dL (12.0-16.0); Immature Granulocytes # (auto) 0.14 K/uL (0.00-0.02); Immature Granulocytes % (auto) 1.9 %; Lymphocytes # (auto) 2.56 K/uL (1.2-3.4); Lymphocytes % (auto) 35.2 %; Mean Corpuscular Hemoglobin 31.4 pg (25-34); Mean Corpuscular Hgb Conc 32.5 g/dL (32-36); Mean Corpuscular Volume 96.6 fL (80-100); Mean Platelet Volume 9.8 fL (7.4-10.4); Monocytes # (auto) 0.78 K/uL (0.11-0.59); Monocytes % (auto) 10.7 %; Neutrophils # (auto) 3.46 K/uL (1.4-6.5); Neutrophils % (auto) 47.5 %; Platelet Count 447 K/uL (130-400); RDW Coefficient of Variation 13.1 % (11.5-14.5); RDW Standard Deviation 45.7 fL (36.4-46.3); Red Blood Count 4.11 M/uL (4.2-5.4); White Blood Count 7.28 K/uL (4.8-10.8)
[2020-06-18 07:39] LABS: BUN Creatinine Ratio 5.3 (10-20); Calcium 9.1 mg/dl (8.5-10.1); Creatinine Clr Calc Pharmacy 106.2 ml/min; Est GFR (African American) 107.6; Est GFR (Non-African American) 92.8; Potassium 3.9 mmol/L (3.5-5.1)
[2020-06-18] MEDS: THIAMINE HCL 100 MG in SYRINGE 9 ML IV SCH (08:00)
[2020-06-18] MEDS: LOSARTAN POTASSIUM 50 MG TAB PO SCH (08:00)
[2020-06-18] MEDS: CEFDINIR 300 MG CAP PO SCH ×2 (08:00→20:10)
[2020-06-18] MEDS: POTASSIUM CHLORIDE CRTAB 20 MEQ TABCR PO SCH ×3 (08:01→20:03)
[2020-06-18] MEDS: APIXABAN 5 MG TABLET PO SCH (08:01)
[2020-06-18] MEDS: amLODIPine BESYLATE 5 MG TAB PO SCH (08:01)
[2020-06-18] MEDS: metroNIDAZOLE 500 MG TAB PO SCH ×3 (08:02→20:08)
[2020-06-18] MEDS: FLUTICASONE/VILANTEROL 200/25MCG 14 PUFFS/INHALER INH SCH (08:03)
[2020-06-18] MEDS: LACTOBACILLUS ACIDOPHILUS 1 GM PACK PO SCH ×3 (08:03→18:12)
[2020-06-18] MEDS: OXYBUTYNIN CHLORIDE 5 MG TAB PO PRN ×2 (08:06→20:09)
[2020-06-18] MEDS: TAMSULOSIN HCL 0.4 MG CAP PO SCH (08:06)
[2020-06-18] MEDS: INSULIN ASPART 100 UNITS/ML 3 ML PEN SC SCH ×4 (08:08→20:30)
--- NOTE | 2020-06-18 10:10 | Hospitalist Progress Note ---
Date of Service June 18, 2020 Assessment & Plan (1) Sepsis: Lorna Perkins is an 84yo w/ a PMHx of afib on Eliquis, HTN, DM2, recent kidney stone w/ pyelo and abx tx and dc from [facility] 2 days prior to arrival, and C. diff. colitis who presented with sudden onset RLQ pain and explosive diarrhea with subsequent eval. suspicious for c. diff colitis along with diverticulitis. Sepsis 2/2 C. diff colitis with evidence of additional diverticulitis and fistula - Febrile, tachycardic, leukocytosis on admit - Hemodynamically stable - CT-A/P 06/13: mild to moderate colonic diverticulosis with evidence of acute sigmoid diverticulitis with increased inflammation from 06/10/20, no evidence of abscess - CT-A/P 06/17 with improvement in inflammation and no mention of fistula - C. diff. as below -On empiric Zosyn for diverticulitis, d/fernie and narrowed - Continue Cefdinir/Flagyl PO - Not currently requiring IV fluids with adequate PO fluid intake. - advancing diet slowly, appears to tolerated breakfast intake well and encouraging that she is aware of need for nutrition to help with healing. - Blood cultures NGTD - She was inquiring about increasing frequency of Oxycodone q12 dosing, however current orders do not reflect BID but are Oxycodone 5mg PO q6H PRN for pain, breakthrough Pain control hydromorphone 0.25mg q2H prn. Pt with nausea to oxycodone in the past, tolerated hydromorphone/hydrocodone well. Monitor for SEs and d/c if needed - started Tylenol scheduled for pain -Continue thiamine 100 mg for 7 days for concern of refeeding syndrome Severe C. difficile colitis. - Gene & Toxin positive. 1x prior C. diff episode 2 years ago. - WBC 38.8 peak on 06/14; has been WNL for the past 4 days. Leukocytosis resolved most likely suggesting adequate current treatment. Vancomycin 125 every 6 hours Adjunct fidaxomycin 200 mg twice daily added 06/12 for poor clinical appearance. Discontinued due to improvement, continue vanc Cholestyramine to help decrease toxin load continue for now d/c if continued improvement in BMs tomorrow -CTA/P as above - Recommend continuing vancomycin 125mg PO q6H for 10 days (or at minimum 7 days after Cefdinir/Flagyl is completed above) followed by pulse taper (125mg PO q12h x1 week, 125mg PO daily x1 week, 125mg PO q48h x2 weeks) - Do not recommend bezlotoxumab therapy to prevent recurrence after risk/benefit consideration, pt at increased risk for AEs due to underlying CHF and risk for exacerbating/inducing heart failure. GI consulted. Previously known to [facility]. - Noted that diarrhea is still present but is improving which supports clinical improvement with current treatment. [place] Tinged Urine - Noted by nursing with onset this morning of pink tinged urine and then a small clot visualized. - suspect from localized trauma from lopez cath placement in the setting of being on anti-coag eliquis and also aged tissue with poor collagen that is more easily damaged with minor trauma ; is hemodynamically stable; Hgb this AM was WNL; discussed with nursing to inform if any tachycardia/concerning changes in BP/or continued bleed. 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 stent - DDx includes post uretal stent pain - Flomax, oxybutynin for spasm - Analgesics as above - Urology consulted. Anticipate removal at 2-3-week follow-up once patient clinically improved Hx Extrinsic Asthma - Albuterol PRN - Continue fluticasone.vilanterol daily 1 puff IBS-D - Bentyl held HLD - Continue pravastatin 80mg qHS - Zetia held, resume @ d/c Atrial Flutter - Pacer in place - Continue Eliquis - No rate control prior to arrival Hypokalemia - Improved with repletion - BMP daily, replete as indicated HTN - continue home Amlodipine and Losartan DVT PPx: Eliquis Dispo: Med Tele Diet: DM2 (2) Diarrhea: (3) Hyperlipidemia: (4) Diverticulitis: (5) Flank pain: (6) Depression: (7) Diverticulosis: (8) History of Clostridium difficile infection: (9) Osteoarthritis: Admission and Anticipated Discharge Date Admission Date: June 10, 2020 Supervising Physician Co-Signing Physician Notes I personally examined the patient and verified all palacios points of history and exam, discussed case, and agree with decision making with Dr Armas. Generally feeling better. Less abdominal pain, less diarrhea. was worried about flagyl - but tolerating well and hx did not soudn like true allergy Vitals noted, in general she is lying in bed and in no acute distress. HEENT normocephalic atraumatic mucous membranes moist. Breathing unlabored no accessory muscle use good effort. Skin shows no rashes no pallor or icterus. Neuro shows no focal deficits. Abdomen soft nondistended nontender no masses organomegaly Abdominal sepsisrelated to C. difficile colitis and diverticulitisimproving. changed to PO abx. tolerating well Fistulashe shows no symptoms consistent with this, and repeat CT does not mention this is a findingcertainly she will still need outpatient follow-up, but we question whether or not the possible evolving fistula may have just been inflammatory findings masquerading as a fistula-like appearance ureterolithiasis/stent -discussed with urology, and they felt it more prudent to leave the stent in and not to take it out at this time given her other acute illnesses/infection. will follow-up in the office in 2 to 3 weeks, KUB prior weakness -continue encouraging PO intake and participation with therapy, appears she will almost certainly need SNF for a while after discharge and prior to return home, awaiting referral process DVT prophylaxisapixaban Otherwise as above, showing good improvement, next step SNF for subacute rehab Subjective Lorna notes that she was able to get some needed sleep last night which has her feeling mildly improved this morning. She notes that diarrhea is still present but appears to be improving with less frequency. She notes that she has had RLQ pressure from gas that is relieved with BMs and is intermittent. She notes she has tried to provide adequate nutrition by making sure she eats meals and did eat some breakfast this morning. She notes that the Roxicodone provides transient pain relief but does not provide adequate relief until next dose 12 hours later. Physical Exam Constitutional: + obese, cooperative and comfortable; no acute distress appears fatigued Eyes: PERRL, conjunctivae normal, anicteric sclerae ENMT: external ear and nose normal, oropharynx normal Neck: trachea midline, no thyromegaly Respiratory: normal respiratory effort, lungs clear to auscultation Cardiovascular: Rate/Rhythm: regular rate and regular rhythm Gastrointestinal (Abdomen): Percussion/Palpation: abdomen soft; no guarding and abdomen not rigid RLQ and lower quandrant mild tenderness to palpation without rebound or guarding Musculoskeletal: Head/Neck/Chest: normocephalic and head atraumatic Skin: no rashes, warm and dry Neurologic: CN's II-XI intact bilaterally, moves all extremities and awake; no focal motor deficits and not confused Psychiatric: Orientation: alert and oriented x 3 Affect: + depressed affect Mood: + depressed mood Results & Data Results & Data ([facility]) Vital Signs (Past 12 Hours) Vital Signs Temp Pulse Pulse Resp BP Pulse Ox 06/18/20 07:47 36.6 C 70 16 130/80 96 06/18/20 07:00 70 06/18/20 03:18 70 20 95 06/18/20 03:08 36.4 C L 70 18 129/69 96 06/18/20 00:26 76 18 94 06/17/20 23:00 36.5 C 73 18 137/79 94 06/17/20 22:19 70 Resident Activity Tracking Resident Involvement: Resident Care Provided Care Provided: Adult Hospital Medicine (1) Diarrhea Diarrhea type: unspecified type Qualified Code(s): R19.7 - Diarrhea, unspecified
[2020-06-18] MEDS: CHOLESTYRAMINE LIGHT 4 GM PKT PO SCH ×2 (10:46→23:45)
--- NOTE | 2020-06-18 16:06 | Billing Data ---
Date of Service June 18, 2020 Coding Level of Care Code 21101 Subseq Hosp Care Lvl 3
[2020-06-18] MEDS ORDERED: Nursing to Pharmacy Communication SCH (18:45)
[2020-06-18] MEDS: MONTELUKAST SODIUM 10 MG TABLET PO SCH (20:10)
[2020-06-18] MEDS: PRAVASTATIN SOD 40 MG TAB PO SCH (20:11)
[2020-06-19] MEDS: ACETAMINOPHEN 325 MG TAB PO SCH ×6 (03:26→23:14)
[2020-06-19] MEDS: HYDROmorphone INJ 0.5 MG/0.5 ML SYR IV PRN (03:27)
[2020-06-19] MEDS: RASPBERRY SYRUP 5 ML UDP PO SCH ×4 (06:22→23:16)
[2020-06-19] MEDS: VANCOMYCIN HCL 125 MG/2.5ML SOLN PO SCH ×4 (06:22→23:15)
[2020-06-19 07:05] LABS: Hematocrit (blood only) 38.9 % (37-47); Hemoglobin 12.6 g/dL (12.0-16.0); Mean Corpuscular Hemoglobin 31.7 pg (25-34); Mean Corpuscular Hgb Conc 32.4 g/dL (32-36); Mean Corpuscular Volume 97.7 fL (80-100); Mean Platelet Volume 9.9 fL (7.4-10.4); Platelet Count 438 K/uL (130-400); RDW Coefficient of Variation 13.2 % (11.5-14.5); RDW Standard Deviation 46.9 fL (36.4-46.3); Red Blood Count 3.98 M/uL (4.2-5.4); White Blood Count 8.96 K/uL (4.8-10.8)
[2020-06-19 07:23] LABS: BUN Creatinine Ratio 11.9 (10-20); Calcium 8.7 mg/dl (8.5-10.1); Creatinine Clr Calc Pharmacy 96.8 ml/min; Est GFR (African American) 104.4; Est GFR (Non-African American) 90.1; Potassium 4.4 mmol/L (3.5-5.1)
--- NOTE | 2020-06-19 07:32 | Hospitalist Progress Note ---
Date of Service June 19, 2020 Assessment & Plan (1) Sepsis: Lorna Perkins is an 84yo w/ a PMHx of afib on Eliquis, HTN, DM2, recent kidney stone w/ pyelo and abx tx and dc from [facility] 2 days prior to arrival, and C. diff. colitis who presented with sudden onset RLQ pain and explosive diarrhea with subsequent eval. suspicious for c. diff colitis along with diverticulitis. Sepsis 2/2 C. diff colitis with evidence of additional diverticulitis and fistula - Febrile, tachycardic, leukocytosis on admit - Hemodynamically stable - CT-A/P 06/13: mild to moderate colonic diverticulosis with evidence of acute sigmoid diverticulitis with increased inflammation from 06/10/20, no evidence of abscess - CT-A/P 06/17 with improvement in inflammation and no mention of fistula - C. diff. as below -On empiric Zosyn for diverticulitis, d/fernie and narrowed - Continue Cefdinir/Flagyl PO - Appears to be tolerating oral intake without worsening of symptoms and encouraging that she is aware of need for nutrition to help with healing. - Blood cultures Negative - C/w Oxycodone 5mg PO q6H PRN for pain, breakthrough Pain control hydromorphone 0.25mg q2H prn. If having uncontrolled pain overnight, would recommend one time dose of Dilaudid 0.5mg IV as thhis has helped with pain this morning. - started Tylenol scheduled for pain -Continue thiamine 100 mg for 7 days for concern of refeeding syndrome Severe C. difficile colitis. - Gene & Toxin positive. 1x prior C. diff episode 2 years ago. - WBC 38.8 peak on 06/14; has been WNL for the past 5 days. Leukocytosis resolved most likely suggesting adequate current treatment. Lab work today along with examine is reassurring that she improving; also BMs have decreased. She does appear fatigued which is understandable from dealing with current stress of acute illness with diminished physiologic reserve with advanced age. Discussed to let us know if she is hurting as we want to keep her comfortable to aid in recovery. Vancomycin 125 every 6 hours Adjunct fidaxomycin 200 mg twice daily added 06/12 for poor clinical appearance. Discontinued due to improvement, continue vanc Cholestyramine to help decrease toxin load continue for now d/c if continued improvement in BMs tomorrow -Sounds like there might be underlying chronic irritable bowel picture which could also be contributing as could be triggered by bowel infection from Cdiff. - Recommend continuing vancomycin 125mg PO q6H for 10 days (or at minimum 7 days after Cefdinir/Flagyl is completed above) followed by pulse taper (125mg PO q12h x1 week, 125mg PO daily x1 week, 125mg PO q48h x2 weeks) - Do not recommend bezlotoxumab therapy to prevent recurrence after risk/benefit consideration, pt at increased risk for AEs due to underlying CHF and risk for exacerbating/inducing heart failure. GI consulted. Previously known to [facility]. - Noted that diarrhea is still present but is improving which supports clinical improvement with current treatment. Lab work this morning also supports that current treatment is appropriate. Abdominal Pain - RLQ - same pain of RLQ, notes worsening, no signs of acute abdomen, labs today were unremarkable. Suspect still having intermittent cramping with diarrhea from toxin effect while this cdiff infection resolves. Her abdominal exam was re assuring as without appreciated tenderness to palpation which was noted to have been significantly present on exam. - Also history supports an underlying irritable bowel picture and notes prior treatment with dicyclomine that worked. She notes she has had fecal incontience in the past with history that supports possible underlying irritable bowel. - Will order Simethicone, will make scheduled but consider DC'ing if no improvement, Simethicone with appropriately safe/benign adverse effect profile, okay to try, orders placed. Encouraged to try added ambulation today to try to help move gas. - She noted trying to cut back on pain meds today, explained to help us keep her comfortable so she can rest appropriately which will help with healing and recovery. - Will order Dilaudid 0.5mg IV x 1 this morning as she did appear uncomfortable this morning as compared to yesterday. S/p Dilaudid 0.5mg IV she appeared comfortable. Suspect there is a component of fatigue from battling current il lnesses, which is understandable. If return of pain overnight, consider one time dose of Dilaudid 0.5mg IV to ensure comfort. Dark Urine - Notes feeling worse today generally, with dark urine in lopez urine bag, patient notes drinking PO fluids but nursing endorses not significant PO fluid in take. - Urine looks concentrated in lopez bag, she has dry mucous membranes. Although diarrhea did stop yesterday evening she had numerous BMs prior from Cdi. - Suspect she could benefit with IVF, she recently had these discontinued on Saturday after received LR at 150/hr. I think this will improve how she feels. No prior echo to view for EF, noted CHF, but with good urine output here will go ahead with a NSS bolus of 500cc. NSS chosen as suspect salt loss from stool. Placedo Tinged Urine - 06/18 - resolved - Noted by nursing on morning of 06/18 of pink tinged urine and then a small clot visualized. - suspect from localized trauma from lopez cath placement in the setting of being on anti-coag eliquis and also aged tissue with poor collagen that is more easily damaged with minor trauma ; is hemodynamically stable; Hgb this AM was WNL; discussed with nursing to inform if any tachycardia/concerning changes in BP/or continued bleed. Do not recommend discontinuing Eliquis because of this as risk of clot greatly outweighs current risk of life threatening bleed. 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 stent - DDx includes post uretal stent pain - Flomax, oxybutynin for spasm - Analgesics as above - Urology consulted. Anticipate removal at 2-3-week follow-up once patient clinically improved was noted prior. - Daughter was requesting if stent could be removed prior to discharge to SNF. However, with current C diff infection, will need to be treated for this first prior to procedure for removal. Hx Extrinsic Asthma - Albuterol PRN - Continue fluticasone.vilanterol daily 1 puff IBS-D - Bentyl held HLD - Continue pravastatin 80mg qHS - Zetia held, resume @ d/c Atrial Flutter - Pacer in place - Continue Eliquis - No rate control prior to arrival Hypokalemia - Improved with repletion - BMP daily, replete as indicated HTN - continue home Amlodipine and Losartan DVT PPx: Eliquis Dispo: Med Tele Diet: DM2 (2) Diarrhea: (3) Hyperlipidemia: (4) Diverticulitis: (5) Flank pain: (6) Depression: (7) Diverticulosis: (8) History of Clostridium difficile infection: (9) Osteoarthritis: Admission and Anticipated Discharge Date Admission Date: June 10, 2020 Supervising Physician Co-Signing Physician Notes I personally examined the patient and verified all palacios points of history and exam, discussed case, and agree with decision making with Dr Armas. Feels worse today than yesterdaynotes it is predominantly due to lower abdominal pain and pressure. This builds to a very intense pressure and probably at times cramping pain, and then if she has gas or a bowel movement the pain gets alleviated for a bit. She notes that yesterday she was feeling fairly good and now seems to be worse, the worsening seems to have started around 4 or 5 AM, and really is to almost entirely to this lower abdominal pain/pressure. She notes at baseline she has had longstanding fairly severe irritable bowel, she used to see gastroenterology for this actively, she notes at one point dicyclomine helped quite a bit. She notes that her IBS symptoms at home are severe enough that she will actually have urgency and fecal incontinence sometimes even just getting up to do something. Vitals noted, in general she is lying in bed and in no acute distress. HEENT normocephalic atraumatic mucous membranes moist. Breathing unlabored no accessory muscle use good effort. Skin shows no rashes no pallor or icterus. Neuro shows no focal deficits. Abdomen soft nondistended she is tender suprapubic and right lower to mid abdomen, absolutely soft with no guarding rebound or rigidity, no masses. Abdominal sepsisrelated to C. difficile colitis and diverticulitis changed to entirely PO abx in the evening on 06/17. Clinically overall seems to be showing ongoing improvement. Her pain is worse today, but it really does seem to be more of a gassy crampy pain. Her white count is normal her vitals are good and her abdominal exam is markedly improved from the beginning of the week. Given her baseline a very severe irritable bowel, I suspect that that, combined with the inflammatory insult of having had C. difficile and diverticulitis, is enough to have her very symptomatic even if she is no longer clinically ill. Certainly given the change from IV to p.o. antibiotics will want to follow this another day to ensure there is no worsening clinically, as far as symptom managementcontinue current pain meds, as well as add simethicone to see if it helps some with the gassy pain. As it relates to the dicyclomine, I do suspect this would probably help as well, but until we are further head of the C. difficile I would hesitate to give her something that may relax her colon and slow transit altogether. Fistulashe shows no symptoms consistent with this, and repeat CT does not mention this is a findingcertainly she will still need outpatient follow-up, but we question whether or not the possible evolving fistula may have just been inflammatory findings masquerading as a fistula-like appearance ureterolithiasis/stent -discussed with urology, and they felt it more prudent to leave the stent in and not to take it out at this time given her other acute illnesses/infection. will follow-up in the office in 2 to 3 weeks, KUB prior weakness -continue encouraging PO intake and participation with therapy, for SNF possibly as soon as tomorrow as long as she shows ongoing clinical stability/improvement DVT prophylaxisapixaban Otherwise as above, next step SNF for subacute rehab Subjective No acute events were reported overnight. She notes feeling worse this morning with worsening same RLQ and rectal pressure. She notes that diarrhea stopped from yesterday morning throughout the whole day and she was feeling improved. She notes that prior to breakfast this morning she had return of worsening pain. She notes she does feel mildly dry. She notes she has been drinking PO fluids without difficulty. She notes she was trying to go yesterday without asking for pain analgesics and tried to push through pain to try to limit need for analgesic. She notes she has been having gas pressure as well, she is open to try Simethicone. Physical Exam Constitutional: + obese and cooperative; no acute distress appears uncomfortable, appears fatigued but appears non-toxic Eyes: PERRL, conjunctivae normal, anicteric sclerae ENMT: external ear and nose normal, oropharynx normal Neck: trachea midline, no thyromegaly Respiratory: normal respiratory effort, lungs clear to auscultation Cardiovascular: Rate/Rhythm: regular rate and regular rhythm Gastrointestinal (Abdomen): Percussion/Palpation: abdomen soft; abdomen nontender, no guarding and abdomen not rigid no appreciable abdominal tenderness on exam with deep palpation, appears to comfortably tolerated abdominal palpation in all quadrants. Musculoskeletal: Head/Neck/Chest: normocephalic and head atraumatic Skin: no rashes, warm and dry Neurologic: CN's II-XI intact bilaterally, moves all extremities and awake; no focal motor deficits and not confused Psychiatric: Orientation: alert and oriented x 3 Affect: + depressed affect Mood: + depressed mood Results & Data Results & Data ([facility]) Vital Signs (Past 12 Hours) Vital Signs Temp Pulse Pulse Resp BP Pulse Ox 06/19/20 07:00 70 06/19/20 03:39 70 18 94 06/19/20 03:23 36.6 C 69 18 139/85 95 06/19/20 00:13 70 06/18/20 23:03 74 20 97 06/18/20 22:47 36.9 C 69 18 140/80 94 Laboratory Results Laboratory Results - last 24 hr 06/18/20 06/18/20 06/18/20 11:36 16:25 20:20 WBC RBC Hgb Hct MCV MCH MCHC RDW Std Deviation RDW Coeff of Nasim Plt Count MPV Sodium Potassium Chloride Carbon Dioxide Anion Gap BUN Creatinine Est Cr Clr Drug Dosing Est GFR ( Amer) Est GFR (Non-Af Amer) BUN/Creatinine Ratio Glucose POC Glucose 85 159 H 138 H Calcium 06/19/20 06/19/20 06/19/20 06:34 06:34 07:28 WBC 8.96 RBC 3.98 L Hgb 12.6 Hct 38.9 MCV 97.7 MCH 31.7 MCHC 32.4 RDW Std Deviation 46.9 H RDW Coeff of Nasim 13.2 Plt Count 438 H MPV 9.9 Sodium 140 Potassium 4.4 Chloride 105 Carbon Dioxide 35 H Anion Gap 0 L BUN 5 L Creatinine 0.46 L Est Cr Clr Drug Dosing 96.8 Est GFR ( Amer) 104.4 Est GFR (Non-Af Amer) 90.1 BUN/Creatinine Ratio 11.9 Glucose 104 H POC Glucose 118 H Calcium 8.7 Medications Administered Acetaminophen (Acetaminophen 325 Mg Tab) 650 mg PO Q4H SHASHA Stop: 07/13/20 13:59 Last Admin: 06/19/20 06:22 Dose: Not Given Documented by: [id number] Admin: 06/19/20 03:26 Dose: 650 mg Documented by: [id number] Admin: 06/18/20 20:14 Dose: 650 mg Documented by: [id number] Admin: 06/18/20 18:22 Dose: Not Given Documented by: [id number] Admin: 06/18/20 15:17 Dose: 650 mg Documented by: [id number] Admin: 06/18/20 11:51 Dose: 650 mg Documented by: [id number] Admin: 06/18/20 06:17 Dose: 650 mg Documented by: [id number] Admin: 06/18/20 01:57 Dose: 650 mg Documented by: [id number] Admin: 06/17/20 22:30 Dose: 650 mg Documented by: [id number] Admin: 06/17/20 17:27 Dose: 650 mg Documented by: [id number] Admin: 06/17/20 15:05 Dose: 650 mg Documented by: [id number] Admin: 06/17/20 10:16 Dose: 650 mg Documented by: [id number] Admin: 06/17/20 06:13 Dose: Not Given Documented by: [id number] Admin: 06/17/20 02:07 Dose: 650 mg Documented by: [id number] Admin: 06/16/20 21:09 Dose: 650 mg Documented by: [id number] Admin: 06/16/20 17:26 Dose: 650 mg Documented by: [id number] Admin: 06/16/20 15:51 Dose: Not Given Documented by: [id number] Admin: 06/16/20 11:40 Dose: 650 mg Documented by: [id number] Admin: 06/16/20 05:45 Dose: 650 mg Documented by: [id number] Admin: 06/16/20 01:39 Dose: 650 mg Documented by: [id number] Admin: 06/15/20 21:06 Dose: 650 mg Documented by: [id number] Admin: 06/15/20 17:47 Dose: 650 mg Documented by: [id number] Admin: 06/15/20 14:00 Dose: Not Given Documented by: [id number] Admin: 06/15/20 10:34 Dose: 650 mg Documented by: [id number] Admin: 06/15/20 06:10 Dose: 650 mg Documented by: [id number] Admin: 06/15/20 03:24 Dose: 650 mg Documented by: [id number] Admin: 06/14/20 21:22 Dose: 650 mg Documented by: [id number] Admin: 06/14/20 17:40 Dose: 650 mg Documented by: [id number] Admin: 06/14/20 14:01 Dose: 650 mg Documented by: [id number] Admin: 06/14/20 09:57 Dose: 650 mg Documented by: [id number] Admin: 06/14/20 05:32 Dose: 650 mg Documented by: [id number] Admin: 06/14/20 00:34 Dose: Not Given Documented by: [id number] Admin: 06/13/20 21:46 Dose: 650 mg Documented by: [id number] Admin: 06/13/20 17:29 Dose: 650 mg Documented by: [id number] Admin: 06/13/20 14:51 Dose: Not Given Documented by: [id number] Amlodipine Besylate (Amlodipine Besylate 5 Mg Tab) 5 mg PO QAM SHASHA Stop: 07/11/20 08:59 Last Admin: 06/19/20 08:46 Dose: 5 mg Documented by: [id number] Admin: 06/18/20 08:01 Dose: 5 mg Documented by: [id number] Admin: 06/17/20 08:01 Dose: 5 mg Documented by: [id number] Admin: 06/16/20 08:39 Dose: Not Given Documented by: [id number] Admin: 06/15/20 08:10 Dose: 5 mg Documented by: [id number] Admin: 06/14/20 08:15 Dose: 5 mg Documented by: [id number] Admin: 06/13/20 09:02 Dose: 5 mg Documented by: [id number] Admin: 06/12/20 08:00 Dose: 5 mg Documented by: [id number] Admin: 06/11/20 08:39 Dose: 5 mg Documented by: [id number] Apixaban (Apixaban 5 Mg Tablet) 5 mg PO BID SHASHA Stop: 07/10/20 20:59 Last Admin: 06/19/20 08:47 Dose: 5 mg Documented by: [id number] Admin: 06/18/20 08:01 Dose: 5 mg Documented by: [id number] Admin: 06/17/20 19:58 Dose: 5 mg Documented by: [id number] Admin: 06/17/20 08:02 Dose: 5 mg Documented by: [id number] Admin: 06/16/20 21:07 Dose: 5 mg Documented by: [id number] Admin: 06/16/20 08:39 Dose: Not Given Documented by: [id number] Admin: 06/15/20 20:44 Dose: 5 mg Documented by: [id number] Admin: 06/15/20 08:09 Dose: 5 mg Documented by: [id number] Admin: 06/14/20 21:12 Dose: 5 mg Documented by: [id number] Admin: 06/14/20 08:14 Dose: 5 mg Documented by: [id number] Admin: 06/13/20 21:46 Dose: 5 mg Documented by: [id number] Admin: 06/13/20 09:03 Dose: 5 mg Documented by: [id number] Admin: 06/12/20 20:56 Dose: 5 mg Documented by: [id number] Admin: 06/12/20 08:00 Dose: 5 mg Documented by: [id number] Admin: 06/11/20 20:25 Dose: 5 mg Documented by: [id number] Admin: 06/11/20 08:39 Dose: 5 mg Documented by: [id number] Admin: 06/10/20 20:11 Dose: 5 mg Documented by: [id number] Cefdinir (Cefdinir 300 Mg Cap) 300 mg PO BID SHASHA Stop: 06/27/20 20:59 Last Admin: 06/19/20 08:49 Dose: 300 mg Documented by: [id number] Admin: 06/18/20 20:10 Dose: 300 mg Documented by: [id number] Admin: 06/18/20 08:00 Dose: 300 mg Documented by: [id number] Admin: 06/17/20 19:58 Dose: 300 mg Documented by: [id number] Cholestyramine Resin (Cholestyramine Light 4 Gm Pkt) 4 gm PO BID@1100,2300 [facility] Stop: 07/12/20 10:59 Last Admin: 06/18/20 23:45 Dose: 4 gm Documented by: [id number] Admin: 06/18/20 10:46 Dose: 4 gm Documented by: [id number] Admin: 06/17/20 23:09 Dose: 4 gm Documented by: [id number] Admin: 06/17/20 10:12 Dose: 4 gm Documented by: [id number] Admin: 06/16/20 22:12 Dose: 4 gm Documented by: [id number] Admin: 06/16/20 11:40 Dose: 4 gm Documented by: [id number] Admin: 06/15/20 22:06 Dose: 4 gm Documented by: [id number] Admin: 06/15/20 11:45 Dose: 4 gm Documented by: [id number] Admin: 06/14/20 21:13 Dose: 4 gm Documented by: [id number] Admin: 06/14/20 11:27 Dose: 4 gm Documented by: [id number] Admin: 06/13/20 22:20 Dose: 4 gm Documented by: [id number] Admin: 06/13/20 11:08 Dose: 4 gm Documented by: [id number] Admin: 06/12/20 22:19 Dose: 4 gm Documented by: [id number] Admin: 06/12/20 12:11 Dose: 4 gm Documented by: [id number] Fluticasone/Vilanterol (Fluticasone/Vilanterol 200/25mcg 14 Puffs/Inhaler) 1 puffs INH DAILY SHASHA Stop: 07/11/20 08:59 Last Admin: 06/19/20 08:51 Dose: 1 puffs Documented by: [id number] Admin: 06/18/20 08:03 Dose: 1 puffs Documented by: [id number] Admin: 06/17/20 08:03 Dose: 1 puffs Documented by: [id number] Admin: 06/16/20 08:38 Dose: Not Given Documented by: [id number] Admin: 06/15/20 08:10 Dose: 1 puffs Documented by: [id number] Admin: 06/14/20 08:16 Dose: 1 puffs Documented by: [id number] Admin: 06/13/20 09:01 Dose: 1 puffs Documented by: [id number] Admin: 06/12/20 07:59 Dose: 1 puffs Documented by: [id number] Admin: 06/11/20 09:57 Dose: 1 puffs Documented by: [id number] Hydromorphone HCl (Hydromorphone Inj 0.5 Mg/0.5 Ml Syr) 0.25 mg IV Q2H PRN PRN Reason: Pain Stop: 06/24/20 13:34 Last Admin: 06/19/20 03:27 Dose: 0.25 mg Documented by: [id number] Admin: 06/18/20 18:09 Dose: 0.25 mg Documented by: [id number] Admin: 06/18/20 11:44 Dose: 0.25 mg Documented by: [id number] Admin: 06/18/20 06:13 Dose: 0.25 mg Documented by: [id number] Admin: 06/18/20 00:21 Dose: 0.25 mg Documented by: [id number] Admin: 06/17/20 14:48 Dose: 0.25 mg Documented by: [id number] Admin: 06/17/20 11:43 Dose: 0.25 mg Documented by: [id number] Admin: 06/17/20 08:14 Dose: 0.25 mg Documented by: [id number] Admin: 06/17/20 06:14 Dose: 0.25 mg Documented by: [id number] Admin: 06/17/20 03:37 Dose: 0.25 mg Documented by: [id number] Admin: 06/17/20 00:19 Dose: 0.25 mg Documented by: [id number] Admin: 06/16/20 22:12 Dose: 0.25 mg Documented by: [id number] Admin: 06/16/20 19:21 Dose: 0.25 mg Documented by: [id number] Admin: 06/16/20 16:24 Dose: 0.25 mg Documented by: [id number] Admin: 06/16/20 11:41 Dose: 0.25 mg Documented by: [id number] Admin: 06/16/20 09:43 Dose: 0.25 mg Documented by: [id number] Admin: 06/16/20 06:00 Dose: 0.25 mg Documented by: [id number] Admin: 06/16/20 01:09 Dose: 0.25 mg Documented by: [id number] Admin: 06/15/20 20:41 Dose: 0.25 mg Documented by: [id number] Admin: 06/15/20 15:17 Dose: 0.25 mg Documented by: [id number] Admin: 06/15/20 06:10 Dose: 0.25 mg Documented by: [id number] Admin: 06/15/20 00:35 Dose: 0.25 mg Documented by: [id number] Admin: 06/14/20 17:40 Dose: 0.25 mg Documented by: [id number] Admin: 06/14/20 09:20 Dose: 0.25 mg Documented by: [id number] Admin: 06/14/20 04:42 Dose: 0.25 mg Documented by: [id number] Admin: 06/14/20 00:34 Dose: 0.25 mg Documented by: [id number] Admin: 06/13/20 22:19 Dose: 0.25 mg Documented by: [id number] Admin: 06/13/20 17:26 Dose: 0.25 mg Documented by: [id number] Thiamine HCl 100 mg/ Syringe 10 mls @ 2 mls/min IV QAM SHASHA Stop: 06/22/20 15:29 Last Admin: 06/18/20 08:00 Dose: 2 mls/min Documented by: [id number] Admin: 06/17/20 10:11 Dose: 2 mls/min Documented by: [id number] Admin: 06/16/20 08:40 Dose: 2 mls/min Documented by: [id number] Admin: 06/15/20 16:34 Dose: 2 mls/min Documented by: [id number] Insulin Aspart (Insulin Aspart 100 Units/Ml 3 Ml Pen) 0 units SC ACHS SHASHA Stop: 07/14/20 12:14 Last Admin: 06/18/20 20:30 Dose: Not Given Documented by: [id number] Cosigned by: [id number] Admin: 06/18/20 18:11 Dose: 1 units Documented by: [id number] Cosigned by: [id number] Admin: 06/18/20 11:53 Dose: Not Given Documented by: [id number] Admin: 06/18/20 08:08 Dose: Not Given Documented by: [id number] Admin: 06/17/20 20:46 Dose: Not Given Documented by: [id number] Admin: 06/17/20 17:35 Dose: Not Given Documented by: [id number] Admin: 06/17/20 11:47 Dose: Not Given Documented by: [id number] Cosigned by: [id number] Admin: 06/17/20 10:01 Dose: Not Given Documented by: [id number] Cosigned by: [id number] Admin: 06/16/20 21:17 Dose: Not Given Documented by: [id number] Cosigned by: [id number] Admin: 06/16/20 17:06 Dose: Not Given Documented by: [id number] Cosigned by: [id number] Admin: 06/16/20 12:41 Dose: Not Given Documented by: [id number] Cosigned by: [id number] Admin: 06/16/20 07:50 Dose: Not Given Documented by: [id number] Cosigned by: [id number] Admin: 06/15/20 20:43 Dose: Not Given Documented by: [id number] Cosigned by: [id number] Admin: 06/15/20 17:01 Dose: Not Given Documented by: [id number] Cosigned by: [id number] Admin: 06/15/20 12:38 Dose: Not Given Documented by: [id number] Admin: 06/15/20 08:16 Dose: Not Given Documented by: [id number] Admin: 06/14/20 21:17 Dose: 2 units Documented by: [id number] Cosigned by: [id number] Admin: 06/14/20 17:29 Dose: 1 units Documented by: [id number] Cosigned by: [id number] Admin: 06/14/20 13:23 Dose: 1 units Documented by: [id number] Cosigned by: [id number] Lactobacillus Acidophilus (Lactobacillus Acidophilus 1 Gm Pack) 1 gm PO TIDM SHASHA Stop: 07/14/20 11:59 Last Admin: 06/19/20 08:50 Dose: 1 gm Documented by: [id number] Admin: 06/18/20 18:12 Dose: 1 gm Documented by: [id number] Admin: 06/18/20 11:44 Dose: 1 gm Documented by: [id number] Admin: 06/18/20 08:03 Dose: 1 gm Documented by: [id number] Admin: 06/17/20 16:44 Dose: 1 gm Documented by: [id number] Admin: 06/17/20 14:46 Dose: 1 gm Documented by: [id number] Admin: 06/17/20 08:00 Dose: 1 gm Documented by: [id number] Admin: 06/16/20 17:22 Dose: 1 gm Documented by: [id number] Admin: 06/16/20 11:40 Dose: 1 gm Documented by: [id number] Admin: 06/16/20 08:37 Dose: Not Given Documented by: [id number] Admin: 06/15/20 17:47 Dose: 1 gm Documented by: [id number] Admin: 06/15/20 12:22 Dose: Not Given Documented by: [id number] Admin: 06/15/20 08:10 Dose: 1 gm Documented by: [id number] Admin: 06/14/20 17:27 Dose: 1 gm Documented by: [id number] Admin: 06/14/20 12:10 Dose: 1 gm Documented by: [id number] Losartan Potassium (Losartan Potassium 50 Mg Tab) 100 mg PO QAM SHASHA Stop: 07/11/20 08:59 Last Admin: 06/19/20 08:47 Dose: 100 mg Documented by: [id number] Admin: 06/18/20 08:00 Dose: 100 mg Documented by: [id number] Admin: 06/17/20 08:00 Dose: 100 mg Documented by: [id number] Admin: 06/16/20 08:39 Dose: Not Given Documented by: [id number] Admin: 06/15/20 08:09 Dose: 100 mg Documented by: [id number] Admin: 06/14/20 08:15 Dose: 100 mg Documented by: [id number] Admin: 06/13/20 09:03 Dose: 100 mg Documented by: [id number] Admin: 06/12/20 07:59 Dose: 100 mg Documented by: [id number] Admin: 06/11/20 08:39 Dose: 100 mg Documented by: [id number] Melatonin (Melatonin 3 Mg Tab) 3 mg PO HS PRN PRN Reason: Sleep Stop: 07/14/20 16:42 Last Admin: 06/17/20 22:30 Dose: 3 mg Documented by: [id number] Admin: 06/16/20 22:12 Dose: 3 mg Documented by: [id number] Admin: 06/15/20 21:06 Dose: 3 mg Documented by: [id number] Admin: 06/14/20 21:22 Dose: 3 mg Documented by: [id number] Metronidazole (Metronidazole 500 Mg Tab) 500 mg PO TID SHASHA Stop: 06/27/20 20:59 Last Admin: 06/19/20 08:48 Dose: 500 mg Documented by: [id number] Admin: 06/18/20 20:08 Dose: 500 mg Documented by: [id number] Admin: 06/18/20 15:18 Dose: 500 mg Documented by: [id number] Admin: 06/18/20 08:02 Dose: 500 mg Documented by: [id number] Admin: 06/17/20 19:58 Dose: 500 mg Documented by: [id number] Montelukast Sodium (Montelukast Sodium 10 Mg Tablet) 10 mg PO HS SHASHA Stop: 07/10/20 20:59 Last Admin: 06/18/20 20:10 Dose: 10 mg Documented by: [id number] Admin: 06/17/20 19:59 Dose: 10 mg Documented by: [id number] Admin: 06/16/20 21:08 Dose: 10 mg Documented by: [id number] Admin: 06/15/20 20:44 Dose: 10 mg Documented by: [id number] Admin: 06/14/20 21:14 Dose: 10 mg Documented by: [id number] Admin: 06/13/20 21:46 Dose: 10 mg Documented by: [id number] Admin: 06/12/20 20:56 Dose: 10 mg Documented by: [id number] Admin: 06/11/20 20:26 Dose: 10 mg Documented by: [id number] Admin: 06/10/20 20:11 Dose: 10 mg Documented by: [id number] Ondansetron HCl (Ondansetron Inj 2 Mg/Ml 2 Ml Vial) 4 mg IV Q6H PRN PRN Reason: Nausea Stop: 07/10/20 15:23 Last Admin: 06/17/20 20:17 Dose: 4 mg Documented by: [id number] Admin: 06/12/20 10:23 Dose: 4 mg Documented by: [id number] Admin: 06/11/20 20:23 Dose: 4 mg Documented by: [id number] Oxybutynin Chloride (Oxybutynin Chloride 5 Mg Tab) 5 mg PO BID PRN PRN Reason: right flank pain Stop: 07/10/20 20:59 Last Admin: 06/19/20 08:45 Dose: 5 mg Documented by: [id number] Admin: 06/18/20 20:09 Dose: 5 mg Documented by: [id number] Admin: 06/18/20 08:06 Dose: 5 mg Documented by: [id number] Admin: 06/17/20 10:21 Dose: 5 mg Documented by: [id number] Admin: 06/12/20 00:05 Dose: 5 mg Documented by: [id number] Admin: 06/11/20 08:38 Dose: 5 mg Documented by: [id number] Oxycodone HCl (Oxycodone Hcl Ir 5 Mg Tab (Immediate Release)) 5 mg PO Q6H PRN PRN Reason: Pain Stop: 07/01/20 16:23 Last Admin: 06/18/20 15:17 Dose: 5 mg Documented by: [id number] Admin: 06/18/20 07:59 Dose: 5 mg Documented by: [id number] Admin: 06/18/20 01:56 Dose: 5 mg Documented by: [id number] Admin: 06/17/20 19:57 Dose: 5 mg Documented by: [id number] Potassium Chloride (Potassium Chloride Crtab 20 Meq Tabcr) 20 meq PO TID SHASHA Stop: 07/17/20 08:59 Last Admin: 06/19/20 08:50 Dose: 20 meq Documented by: [id number] Admin: 06/18/20 20:03 Dose: 20 meq Documented by: [id number] Admin: 06/18/20 15:18 Dose: 20 meq Documented by: [id number] Admin: 06/18/20 08:01 Dose: 20 meq Documented by: [id number] Admin: 06/17/20 20:00 Dose: 20 meq Documented by: [id number] Admin: 06/17/20 15:05 Dose: 20 meq Documented by: [id number] Admin: 06/17/20 10:11 Dose: 20 meq Documented by: [id number] Pravastatin Sodium (Pravastatin Sod 40 Mg Tab) 80 mg PO HS SHASHA Stop: 07/10/20 20:59 Last Admin: 06/18/20 20:11 Dose: 80 mg Documented by: [id number] Admin: 06/17/20 19:59 Dose: 80 mg Documented by: [id number] Admin: 06/16/20 21:08 Dose: 80 mg Documented by: [id number] Admin: 06/15/20 20:44 Dose: 80 mg Documented by: [id number] Admin: 06/14/20 21:12 Dose: 80 mg Documented by: [id number] Admin: 06/13/20 21:48 Dose: 80 mg Documented by: [id number] Admin: 06/12/20 20:56 Dose: 80 mg Documented by: [id number] Admin: 06/11/20 20:26 Dose: 80 mg Documented by: [id number] Admin: 06/10/20 20:11 Dose: 80 mg Documented by: [id number] Raspberry (Raspberry Syrup 5 Ml Udp) 5 ml PO Q6 SHASHA Stop: 06/26/20 00:00 Last Admin: 06/19/20 06:22 Dose: Not Given Documented by: [id number] Admin: 06/18/20 23:45 Dose: 5 ml Documented by: [id number] Admin: 06/18/20 18:10 Dose: 5 ml Documented by: [id number] Admin: 06/18/20 11:43 Dose: 5 ml Documented by: [id number] Admin: 06/18/20 06:12 Dose: 5 ml Documented by: [id number] Admin: 06/17/20 23:19 Dose: 5 ml Documented by: [id number] Admin: 06/17/20 17:24 Dose: 5 ml Documented by: [id number] Admin: 06/17/20 14:46 Dose: 5 ml Documented by: [id number] Admin: 06/17/20 06:12 Dose: 5 ml Documented by: [id number] Admin: 06/17/20 00:19 Dose: 5 ml Documented by: [id number] Admin: 06/16/20 17:22 Dose: 5 ml Documented by: [id number] Admin: 06/16/20 11:40 Dose: 5 ml Documented by: [id number] Admin: 06/16/20 05:45 Dose: 5 ml Documented by: [id number] Admin: 06/16/20 00:54 Dose: 5 ml Documented by: [id number] Admin: 06/15/20 17:47 Dose: 5 ml Documented by: [id number] Admin: 06/15/20 12:22 Dose: 5 ml Documented by: [id number] Admin: 06/15/20 06:10 Dose: 5 ml Documented by: [id number] Admin: 06/15/20 00:19 Dose: 5 ml Documented by: [id number] Admin: 06/14/20 17:27 Dose: 5 ml Documented by: [id number] Admin: 06/14/20 12:09 Dose: 5 ml Documented by: [id number] Admin: 06/14/20 05:30 Dose: 5 ml Documented by: [id number] Admin: 06/14/20 00:21 Dose: 5 ml Documented by: [id number] Admin: 06/13/20 17:25 Dose: 5 ml Documented by: [id number] Admin: 06/13/20 11:18 Dose: 5 ml Documented by: [id number] Admin: 06/13/20 05:55 Dose: 5 ml Documented by: [id number] Admin: 06/13/20 00:55 Dose: 5 ml Documented by: [id number] Admin: 06/12/20 17:43 Dose: 5 ml Documented by: [id number] Admin: 06/12/20 12:10 Dose: 5 ml Documented by: [id number] Admin: 06/12/20 06:25 Dose: 5 ml Documented by: [id number] Admin: 06/11/20 23:53 Dose: 5 ml Documented by: [id number] Tamsulosin HCl (Tamsulosin Hcl 0.4 Mg Cap) [facility] [place]: 07/11/20 08:59 Last Admin: 06/19/20 08:46 Dose: 0.4 mg Documented by: [id number] Admin: 06/18/20 08:06 Dose: 0.4 mg Documented by: [id number] Admin: 06/17/20 08:00 Dose: 0.4 mg Documented by: [id number] Admin: 06/16/20 08:39 Dose: Not Given Documented by: [id number] Admin: 06/15/20 08:09 Dose: 0.4 mg Documented by: [id number] Admin: 06/14/20 08:14 Dose: 0.4 mg Documented by: [id number] Admin: 06/13/20 09:03 Dose: 0.4 mg Documented by: [id number] Admin: 06/12/20 08:00 Dose: 0.4 mg Documented by: [id number] Admin: 06/11/20 08:39 Dose: 0.4 mg Documented by: [id number] Vancomycin HCl (Vancomycin Hcl 125 Mg/2.5ml Soln) 125 mg PO Q6 SHASHA Stop: 06/22/20 00:00 Last Admin: 06/19/20 06:22 Dose: 125 mg Documented by: [id number] Admin: 06/18/20 23:45 Dose: 125 mg Documented by: [id number] Admin: 06/18/20 18:10 Dose: 125 mg Documented by: [id number] Admin: 06/18/20 11:43 Dose: 125 mg Documented by: [id number] Admin: 06/18/20 06:12 Dose: 125 mg Documented by: [id number] Admin: 06/17/20 23:18 Dose: 125 mg Documented by: [id number] Admin: 06/17/20 17:24 Dose: 125 mg Documented by: [id number] Admin: 06/17/20 14:46 Dose: 125 mg Documented by: [id number] Admin: 06/17/20 06:12 Dose: 125 mg Documented by: [id number] Admin: 06/17/20 00:19 Dose: 125 mg Documented by: [id number] Admin: 06/16/20 17:22 Dose: 125 mg Documented by: [id number] Admin: 06/16/20 11:40 Dose: 125 mg Documented by: [id number] Admin: 06/16/20 05:45 Dose: 125 mg Documented by: [id number] Admin: 06/16/20 00:54 Dose: 125 mg Documented by: [id number] Admin: 06/15/20 17:47 Dose: 125 mg Documented by: [id number] Admin: 06/15/20 12:21 Dose: 125 mg Documented by: [id number] Admin: 06/15/20 06:10 Dose: 125 mg Documented by: [id number] Admin: 06/15/20 00:19 Dose: 125 mg Documented by: [id number] Admin: 06/14/20 17:27 Dose: 125 mg Documented by: [id number] Admin: 06/14/20 12:10 Dose: 125 mg Documented by: [id number] Admin: 06/14/20 05:29 Dose: 125 mg Documented by: [id number] Admin: 06/14/20 00:21 Dose: 125 mg Documented by: [id number] Admin: 06/13/20 17:25 Dose: 125 mg Documented by: [id number] Admin: 06/13/20 11:18 Dose: 125 mg Documented by: [id number] Admin: 06/13/20 05:55 Dose: 125 mg Documented by: [id number] Admin: 06/13/20 00:55 Dose: 125 mg Documented by: [id number] Admin: 06/12/20 17:43 Dose: 125 mg Documented by: [id number] Admin: 06/12/20 12:10 Dose: 125 mg Documented by: [id number] Admin: 06/12/20 06:25 Dose: 125 mg Documented by: [id number] Admin: 06/11/20 23:52 Dose: 125 mg Documented by: [id number] Resident Activity Tracking Resident Involvement: Resident Care Provided Care Provided: Adult Hospital Medicine (1) Diarrhea Diarrhea type: unspecified type Qualified Code(s): R19.7 - Diarrhea, unspecified
[2020-06-19] MEDS: OXYBUTYNIN CHLORIDE 5 MG TAB PO PRN (08:45)
[2020-06-19] MEDS: amLODIPine BESYLATE 5 MG TAB PO SCH (08:46)
[2020-06-19] MEDS: TAMSULOSIN HCL 0.4 MG CAP PO SCH (08:46)
[2020-06-19] MEDS: APIXABAN 5 MG TABLET PO SCH ×2 (08:47→20:17)
[2020-06-19] MEDS: LOSARTAN POTASSIUM 50 MG TAB PO SCH (08:47)
[2020-06-19] MEDS: metroNIDAZOLE 500 MG TAB PO SCH ×3 (08:48→20:16)
[2020-06-19] MEDS: CEFDINIR 300 MG CAP PO SCH ×2 (08:49→20:17)
[2020-06-19] MEDS: POTASSIUM CHLORIDE CRTAB 20 MEQ TABCR PO SCH ×3 (08:50→20:14)
[2020-06-19] MEDS: LACTOBACILLUS ACIDOPHILUS 1 GM PACK PO SCH ×3 (08:50→17:22)
[2020-06-19] MEDS: FLUTICASONE/VILANTEROL 200/25MCG 14 PUFFS/INHALER INH SCH (08:51)
[2020-06-19] MEDS ORDERED: HYDROmorphone INJ 0.5 MG/0.5 ML SYR IV STA (09:15)
[2020-06-19] MEDS ORDERED: SODIUM CHLORIDE 0.9% 1000ML 500 ML IV ONE (09:15)
[2020-06-19] MEDS: oxyCODONE HCL IR 5 MG TAB (IMMEDIATE RELEASE) PO PRN ×3 (09:17→20:14)
[2020-06-19] MEDS: THIAMINE HCL 100 MG in SYRINGE 9 ML IV SCH (09:18)
[2020-06-19] MEDS: INSULIN ASPART 100 UNITS/ML 3 ML PEN SC SCH ×4 (09:22→20:24)
[2020-06-19] MEDS: SIMETHICONE 80 MG CHEW PO SCH ×3 (12:23→23:14)
[2020-06-19] MEDS: CHOLESTYRAMINE LIGHT 4 GM PKT PO SCH ×2 (12:24→23:14)
--- NOTE | 2020-06-19 17:21 | Billing Data ---
Date of Service June 19, 2020 Coding Level of Care Code 26417 Subseq Hosp Care Lvl 3
[2020-06-19] MEDS: MONTELUKAST SODIUM 10 MG TABLET PO SCH (20:15)
[2020-06-19] MEDS: MELATONIN 3 MG TAB PO PRN (20:16)
[2020-06-19] MEDS: PRAVASTATIN SOD 40 MG TAB PO SCH (20:18)
[2020-06-20] MEDS: ACETAMINOPHEN 325 MG TAB PO SCH ×6 (03:05→21:20)
--- NOTE | 2020-06-20 04:48 | Hospitalist Progress Note ---
Date of Service June 20, 2020 Assessment & Plan (1) Sepsis: Sepsis: Lorna Perkins is an 84yo w/ a PMHx of afib on Eliquis, HTN, DM2, recent kidney stone w/ pyelo and abx tx and dc from [facility] 2 days prior to arrival, and C. diff. colitis who presented with sudden onset RLQ pain and explosive diarrhea with subsequent eval. suspicious for c. diff colitis along with diverticulitis. Sepsis 2/2 C. diff colitis with evidence of additional diverticulitis and fistula - Febrile, tachycardic, leukocytosis on admit - Hemodynamically stable - CT-A/P 06/13: mild to moderate colonic diverticulosis with evidence of acute sigmoid diverticulitis with increased inflammation from 06/10/20, no evidence of abscess - CT-A/P 06/17 with improvement in inflammation and no mention of fistula - C. diff. as below -On empiric Zosyn for diverticulitis, d/fernie and narrowed - Continue Cefdinir/Flagyl PO - Appears to be tolerating oral intake without worsening of symptoms and encouraging that she is aware of need for nutrition to help with healing. - Blood cultures Negative - C/w Oxycodone 5mg PO q6H PRN for pain, breakthrough Pain control hydromorphone 0.25mg q2H prn. If having uncontrolled pain overnight, would recommend one time dose of Dilaudid 0.5mg IV as this has helped with pain this morning. - started Tylenol scheduled for pain -Continue thiamine 100 mg for 7 days for concern of refeeding syndrome Severe C. difficile colitis. - Gene & Toxin positive. 1x prior C. diff episode 2 years ago. - WBC 38.8 peak on 06/14; has been WNL for the past 5 days. Leukocytosis resolved most likely suggesting adequate current treatment. Lab work today along with examine is reassuring that she improving; also BMs have decreased. She does appear fatigued which is understandable from dealing with current stress of acute illness with diminished physiologic reserve with advanced age. Discussed to let us know if she is hurting as we want to keep her comfortable to aid in recovery. Vancomycin 125 every 6 hours Adjunct fidaxomicin 200 mg twice daily added 06/12 for poor clinical appearance. Discontinued due to improvement, continue vanc Cholestyramine to help decrease toxin load continue for now d/c if continued improvement in BMs tomorrow -Sounds like there might be underlying chronic irritable bowel picture which could also be contributing as could be triggered by bowel infection from Cdiff. - Recommend continuing vancomycin 125mg PO q6H for 10 days (or at minimum 7 days after Cefdinir/Flagyl is completed above) followed by pulse taper (125mg PO q12h x1 week, 125mg PO daily x1 week, 125mg PO q48h x2 weeks) - Do not recommend bezlotoxumab therapy to prevent recurrence after risk/benefit consideration, pt at increased risk for AEs due to underlying CHF and risk for exacerbating/inducing heart failure. GI consulted. Previously known to [facility]. - Noted that diarrhea is still present but is improving which supports clinical improvement with current treatment. Lab work this morning also supports that current treatment is appropriate. Abdominal Pain - RLQ - same pain of RLQ, notes worsening, no signs of acute abdomen, labs today were unremarkable. Suspect still having intermittent cramping with diarrhea from toxin effect while this cdiff infection resolves. Her abdominal exam was reassuring as without appreciated tenderness to palpation which was noted to have been significantly present on exam. - Also history supports an underlying irritable bowel picture and notes prior treatment with dicyclomine that worked. She notes she has had fecal incontinences in the past with history that supports possible underlying irritable bowel. - continue Simethicone, will make scheduled but consider DC'ing if no improvement, Simethicone with appropriately safe/benign adverse effect profile, okay to try, orders placed. Encouraged to try added ambulation today to try to help move gas. Dark Urine - Notes feeling worse today generally, with dark urine in lopez urine bag, patient notes drinking PO fluids but nursing endorses not significant PO fluid in take. - Urine looks concentrated in lopez bag, she has dry mucous membranes. Although diarrhea did stop yesterday evening she had numerous BMs prior from Cdiff. - Suspect she could benefit with IVF, she recently had these discontinued on Saturday after received LR at 150/hr. I think this will improve how she feels. No prior echo to view for EF, noted CHF, but with good urine output here will go ahead with a NSS bolus of 500cc. NSS chosen as suspect salt loss from stool. The [place] Tinged Urine - 06/18 - resolved - Noted by nursing on morning of 06/18 of pink tinged urine and then a small clot visualized. - suspect from localized trauma from Lopez cath placement in the setting of being on anti-coag Eliquis and also aged tissue with poor collagen that is more easily damaged with minor trauma ; is hemodynamically stable; Hgb this AM was WNL; discussed with nursing to inform if any tachycardia/concerning changes in BP/or continued bleed. Do not recommend discontinuing Eliquis because of this as risk of clot greatly outweighs current risk of life threatening bleed. 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 stent - DDx includes post uretal stent pain - Flomax, oxybutynin for spasm - Analgesics as above - Urology consulted. Anticipate removal at 2-3-week follow-up once patient clinically improved was noted prior. - Daughter was requesting if stent could be removed prior to discharge to SNF. However, with current C diff infection, will need to be treated for this first prior to procedure for removal. Hx Extrinsic Asthma - Albuterol PRN - Continue fluticasone.vilanterol daily 1 puff IBS-D - Bentyl held HLD - Continue pravastatin 80mg qHS - Zetia held, resume @ d/c Atrial Flutter - Pacer in place - Continue Eliquis - No rate control prior to arrival Hypokalemia, resolved - Improved with repletion - BMP daily, replete as indicated HTN - continue home Amlodipine and Losartan DVT PPx: Eliquis Dispo: Med Tele Diet: DM2 (2) Diarrhea: (3) Hyperlipidemia: (4) Diverticulitis: (5) Flank pain: (6) Depression: (7) Diverticulosis: (8) History of Clostridium difficile infection: (9) Osteoarthritis: Admission and Anticipated Discharge Date Admission Date: June 10, 2020 Supervising Physician Co-Signing Physician Notes I saw the patient confirmed palacios portions of the history and physical examination. Agree with impression plan as noted in the resident documentation. Upon our examination this morning, the patient noted some right sided abdominal pain; this also had been in her right low back yesterday although she tells us its more abdominal today. The intensity is less today compared to yesterday. 129/78, 78, 18, 36.6, 92% on 2 L via nasal cannula regular rate and rhythm Lungs are clear With firm palpation of the right lower quadrant, I cannot elicit any tenderness, rebound, or guarding. Data Reports of count 9.78, hemoglobin 12.2, platelet count 403 BUN 6, creatinine 0.43 Glucose 105 Impression and plan Sepsis, present upon arrival. C. difficile colitis Sigmoid diverticulitis History of irritable bowel syndrome Ureterolithiasis with stent Generalized weakness secondary to acute illness. 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 Upon exam, this area is nontender without rebound or guarding. Additionally, she remains afebrile and her lab work today looks good -so there is no other indication of worsening infection. We will continue current medications. We will try to favor oral pain medications over IV. If her pain improves, she may be ready for rehabilitation hospital tomorrow. Subjective Lorna Perkins was doing okay today. She was having continued pain in her RLQ that she explained was a 10/10 this morning but has improved to a 3/10 after medication. She was also somewhat down. Talking to her daughter Arcelia she brought up that her mother was also somewhat down when talking to her. Review of Systems Review of Systems: Constitutional: denies fevers, chills Cardiac: denies cough, shortness of breath Physical Exam Constitutional: WD/WN, vitals as above Eyes: PERRL, conjunctivae normal, anicteric sclerae ENMT: external ear and nose normal, oropharynx normal Neck: normal visual inspection Respiratory: normal respiratory effort, lungs clear to auscultation Cardiovascular: RRR, no murmur, no edema Gastrointestinal (Abdomen): - soft, tender in the right lower quadrant Skin: no rashes, warm and dry Neurologic: no focal motor deficits Psychiatric: Affect: + depressed affect Results & Data Results & Data ([facility]) Vital Signs (Past 12 Hours) Vital Signs Temp Pulse Pulse Resp BP Pulse Ox 06/20/20 03:28 36.7 C 71 18 126/79 94 06/19/20 23:49 71 06/19/20 23:16 69 16 94 06/19/20 23:05 36.7 C 69 18 110/68 94 06/19/20 19:06 36.9 C 69 18 134/73 95 06/19/20 18:34 70 CBC Results Results Complete Blood Count Results: RBC 3.86 M/uL (4.2-5.4) L 06/20/20 WBC 9.78 K/uL (4.8-10.8) 06/20/20 Hgb 12.2 g/dL (12.0-16.0) 06/20/20 Hct 37.7 % (37-47) 06/20/20 Plt Count 403 K/uL (130-400) H 06/20/20 Chemistry (BMP) Results BMP Results: Sodium 140 mmol/L (136-145) 06/20/20 Potassium 4.4 mmol/L (3.5-5.1) 06/20/20 Chloride 105 mmol/L (98-107) 06/20/20 BUN 6 mg/dl (7-18) L 06/20/20 Creatinine 0.43 mg/dl (0.6-1.2) L 06/20/20 Glucose 105 mg/dl (70-99) H 06/20/20 Resident Activity Tracking Resident Involvement: Resident Care Provided Care Provided: Adult Hospital Medicine (1) Diarrhea Diarrhea type: unspecified type Qualified Code(s): R19.7 - Diarrhea, unspecified
[2020-06-20] MEDS: SIMETHICONE 80 MG CHEW PO SCH ×4 (05:08→23:52)
[2020-06-20] MEDS: VANCOMYCIN HCL 125 MG/2.5ML SOLN PO SCH ×4 (05:09→23:52)
[2020-06-20] MEDS: oxyCODONE HCL IR 5 MG TAB (IMMEDIATE RELEASE) PO PRN ×3 (05:09→23:53)
[2020-06-20] MEDS: RASPBERRY SYRUP 5 ML UDP PO SCH ×4 (05:09→23:52)
[2020-06-20 06:54] LABS: Hematocrit (blood only) 37.7 % (37-47); Hemoglobin 12.2 g/dL (12.0-16.0); Mean Corpuscular Hemoglobin 31.6 pg (25-34); Mean Corpuscular Hgb Conc 32.4 g/dL (32-36); Mean Corpuscular Volume 97.7 fL (80-100); Mean Platelet Volume 9.8 fL (7.4-10.4); Platelet Count 403 K/uL (130-400); RDW Coefficient of Variation 13.4 % (11.5-14.5); RDW Standard Deviation 47.7 fL (36.4-46.3); Red Blood Count 3.86 M/uL (4.2-5.4); White Blood Count 9.78 K/uL (4.8-10.8)
[2020-06-20 07:22] LABS: BUN Creatinine Ratio 13.5 (10-20); Creatinine Clr Calc Pharmacy 103.5 ml/min; Est GFR (African American) 106.7; Est GFR (Non-African American) 92.1; Potassium 4.4 mmol/L (3.5-5.1)
[2020-06-20] MEDS: LACTOBACILLUS ACIDOPHILUS 1 GM PACK PO SCH ×3 (08:49→17:53)
[2020-06-20] MEDS: FLUTICASONE/VILANTEROL 200/25MCG 14 PUFFS/INHALER INH SCH (08:50)
[2020-06-20] MEDS: LOSARTAN POTASSIUM 50 MG TAB PO SCH (08:50)
[2020-06-20] MEDS: metroNIDAZOLE 500 MG TAB PO SCH ×3 (08:50→21:20)
[2020-06-20] MEDS: APIXABAN 5 MG TABLET PO SCH ×2 (08:50→21:20)
[2020-06-20] MEDS: CEFDINIR 300 MG CAP PO SCH ×2 (08:51→21:20)
[2020-06-20] MEDS: POTASSIUM CHLORIDE CRTAB 20 MEQ TABCR PO SCH ×3 (08:51→21:20)
[2020-06-20] MEDS: amLODIPine BESYLATE 5 MG TAB PO SCH (08:51)
[2020-06-20] MEDS: TAMSULOSIN HCL 0.4 MG CAP PO SCH (08:51)
[2020-06-20] MEDS: THIAMINE HCL 100 MG in SYRINGE 9 ML IV SCH (08:52)
[2020-06-20] MEDS: INSULIN ASPART 100 UNITS/ML 3 ML PEN SC SCH ×4 (08:53→21:21)
[2020-06-20] MEDS: CHOLESTYRAMINE LIGHT 4 GM PKT PO SCH ×2 (11:00→23:52)
[2020-06-20] MEDS: OXYBUTYNIN CHLORIDE 5 MG TAB PO PRN (12:28)
[2020-06-20] MEDS: MONTELUKAST SODIUM 10 MG TABLET PO SCH (21:20)
[2020-06-20] MEDS: PRAVASTATIN SOD 40 MG TAB PO SCH (21:20)
[2020-06-21] MEDS: ACETAMINOPHEN 325 MG TAB PO SCH ×6 (03:15→21:01)
[2020-06-21] MEDS: SIMETHICONE 80 MG CHEW PO SCH ×4 (05:33→21:07)
[2020-06-21] MEDS: RASPBERRY SYRUP 5 ML UDP PO SCH ×3 (05:33→17:04)
[2020-06-21] MEDS: VANCOMYCIN HCL 125 MG/2.5ML SOLN PO SCH ×3 (05:34→17:05)
[2020-06-21 06:43] LABS: Basophils # (auto) 0.11 K/uL (0-0.2); Basophils % (auto) 0.9 %; Eosinophils # (auto) 0.45 K/uL (0-0.5); Eosinophils % (auto) 3.7 %; Hematocrit (blood only) 39.1 % (37-47); Hemoglobin 12.7 g/dL (12.0-16.0); Immature Granulocytes # (auto) 0.23 K/uL (0.00-0.02); Immature Granulocytes % (auto) 1.9 %; Lymphocytes # (auto) 2.06 K/uL (1.2-3.4); Lymphocytes % (auto) 16.9 %; Mean Corpuscular Hemoglobin 31.8 pg (25-34); Mean Corpuscular Hgb Conc 32.5 g/dL (32-36); Mean Platelet Volume 9.8 fL (7.4-10.4); Monocytes # (auto) 1.24 K/uL (0.11-0.59); Monocytes % (auto) 10.2 %; Neutrophils # (auto) 8.07 K/uL (1.4-6.5); Neutrophils % (auto) 66.4 %; Platelet Count 347 K/uL (130-400); RDW Coefficient of Variation 13.6 % (11.5-14.5); RDW Standard Deviation 48.4 fL (36.4-46.3); Red Blood Count 3.99 M/uL (4.2-5.4); White Blood Count 12.16 K/uL (4.8-10.8)
[2020-06-21] MEDS: oxyCODONE HCL IR 5 MG TAB (IMMEDIATE RELEASE) PO PRN ×3 (07:07→21:00)
[2020-06-21 07:31] LABS: BUN Creatinine Ratio 10.3 (10-20); Calcium 8.7 mg/dl (8.5-10.1); Creatinine Clr Calc Pharmacy 86.8 ml/min; Est GFR (African American) 100.9; Potassium 4.4 mmol/L (3.5-5.1)
[2020-06-21] MEDS: LACTOBACILLUS ACIDOPHILUS 1 GM PACK PO SCH ×3 (09:17→17:04)
[2020-06-21] MEDS: FLUTICASONE/VILANTEROL 200/25MCG 14 PUFFS/INHALER INH SCH (09:17)
[2020-06-21] MEDS: LOSARTAN POTASSIUM 50 MG TAB PO SCH (09:18)
[2020-06-21] MEDS: TAMSULOSIN HCL 0.4 MG CAP PO SCH (09:19)
[2020-06-21] MEDS: metroNIDAZOLE 500 MG TAB PO SCH ×3 (09:19→21:00)
[2020-06-21] MEDS: APIXABAN 5 MG TABLET PO SCH ×2 (09:19→21:06)
[2020-06-21] MEDS: POTASSIUM CHLORIDE CRTAB 20 MEQ TABCR PO SCH ×3 (09:20→21:00)
[2020-06-21] MEDS: amLODIPine BESYLATE 5 MG TAB PO SCH (09:21)
[2020-06-21] MEDS: CEFDINIR 300 MG CAP PO SCH ×2 (09:21→21:01)
[2020-06-21] MEDS: THIAMINE HCL 100 MG in SYRINGE 9 ML IV SCH (09:22)
[2020-06-21] MEDS ORDERED: FUROSEMIDE 20 MG in SYRINGE 0 ML IV ONE (09:45)
[2020-06-21] MEDS: INSULIN ASPART 100 UNITS/ML 3 ML PEN SC SCH ×4 (09:56→21:02)
[2020-06-21] MEDS: CHOLESTYRAMINE LIGHT 4 GM PKT PO SCH ×2 (11:43→22:20)
[2020-06-21] MEDS: OXYBUTYNIN CHLORIDE 5 MG TAB PO PRN (12:18)
--- NOTE | 2020-06-21 17:42 | Hospitalist Progress Note ---
Date of Service June 21, 2020 Assessment & Plan (1) Sepsis: Sepsis: Lorna Perknis is an 84yo w/ a PMHx of afib on Eliquis, HTN, DM2, recent kidney stone w/ pyelo and abx tx and dc from [facility] 2 days prior to arrival, and C. diff. colitis who presented with sudden onset RLQ pain and explosive diarrhea with subsequent eval. suspicious for c. diff colitis along with diverticulitis. Sepsis 2/2 C. diff colitis with evidence of additional diverticulitis and fistula - Febrile, tachycardic, leukocytosis on admit - Hemodynamically stable - CT-A/P 06/13: mild to moderate colonic diverticulosis with evidence of acute sigmoid diverticulitis with increased inflammation from 06/10/20, no evidence of abscess - CT-A/P 06/17 with improvement in inflammation and no mention of fistula - C. diff. as below -On empiric Zosyn for diverticulitis, d/fernie and narrowed - Continue Cefdinir/Flagyl PO - Appears to be tolerating oral intake without worsening of symptoms and encouraging that she is aware of need for nutrition to help with healing. - Blood cultures Negative - C/w Oxycodone 5mg PO q6H PRN for pain, breakthrough Pain control hydromorphone 0.25mg q2H prn. If having uncontrolled pain overnight, would recommend one time dose of Dilaudid 0.5mg IV as this has helped with pain this morning. - started Tylenol scheduled for pain -Continue thiamine 100 mg for 7 days for concern of refeeding syndrome Severe C. difficile colitis. - Gene & Toxin positive. 1x prior C. diff episode 2 years ago. - WBC 38.8 peak on 06/14; has been WNL for the past 5 days. Leukocytosis resolved most likely suggesting adequate current treatment. Lab work today along with examine is reassuring that she improving; also BMs have decreased. She does appear fatigued which is understandable from dealing with current stress of acute illness with diminished physiologic reserve with advanced age. Discussed to let us know if she is hurting as we want to keep her comfortable to aid in recovery. Vancomycin 125 every 6 hours Adjunct fidaxomicin 200 mg twice daily added 06/12 for poor clinical appearance. Discontinued due to improvement, continue vanc Cholestyramine to help decrease toxin load continue for now d/c if continued improvement in BMs tomorrow -Sounds like there might be underlying chronic irritable bowel picture which could also be contributing as could be triggered by bowel infection from Cdiff. - Recommend continuing vancomycin 125mg PO q6H for 10 days (or at minimum 7 days after Cefdinir/Flagyl is completed above) followed by pulse taper (125mg PO q12h x1 week, 125mg PO daily x1 week, 125mg PO q48h x2 weeks) - Do not recommend bezlotoxumab therapy to prevent recurrence after risk/benefit consideration, pt at increased risk for AEs due to underlying CHF and risk for exacerbating/inducing heart failure. GI consulted. Previously known to [facility]. - Noted that diarrhea is still present but is improving which supports clinical improvement with current treatment. Lab work this morning also supports that current treatment is appropriate. - increased white count this morning will follow up tomorrow Abdominal Pain - RLQ - same pain of RLQ, notes worsening, no signs of acute abdomen, labs today were unremarkable. Suspect still having intermittent cramping with diarrhea from toxin effect while this cdiff infection resolves. Her abdominal exam was reassuring as without appreciated tenderness to palpation which was noted to have been significantly present on exam. - Also history supports an underlying irritable bowel picture and notes prior treatment with dicyclomine that worked. She notes she has had fecal incontinences in the past with history that supports possible underlying irritable bowel. - continue Simethicone, will make scheduled but consider DC'ing if no improvement, Simethicone with appropriately safe/benign adverse effect profile, okay to try, orders placed. Encouraged to try added ambulation today to try to help move gas. Lower extremity edema - prior Lasix dose had been held initially - restarted home dose and given 20 of IV lasix one time [place] Tinged Urine - 06/18 - resolved - Noted by nursing on morning of 06/18 of pink tinged urine and then a small clot visualized. - suspect from localized trauma from Huerta cath placement in the setting of be ing on anti-coag Eliquis and also aged tissue with poor collagen that is more easily damaged with minor trauma ; is hemodynamically stable; Hgb this AM was WNL; discussed with nursing to inform if any tachycardia/concerning changes in BP/or continued bleed. Do not recommend discontinuing Eliquis because of this as risk of clot greatly outweighs current risk of life threatening bleed. 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 Not present on follow up imaging - not noted on CT rescan, initial appearance may have been due to to severe acute inflammation R Sided Flank Pain with history of stent placement - Suspect 2/2 infection as above vs. stent - DDx includes post uretal stent pain - Flomax, oxybutynin for spasm - Analgesics as above - Urology consulted. Anticipate removal at 2-3-week follow-up once patient clinically improved was noted prior. - Daughter was requesting if stent could be removed prior to discharge to SNF. However, with current C diff infection, will need to be treated for this first prior to procedure for removal. Hx Extrinsic Asthma - Albuterol PRN - Continue fluticasone.vilanterol daily 1 puff IBS-D - Bentyl held HLD - Continue pravastatin 80mg qHS - Zetia held, resume @ d/c Atrial Flutter - Pacer in place - Continue Eliquis - No rate control prior to arrival Hypokalemia, resolved - Improved with repletion - BMP daily, replete as indicated HTN - continue home Amlodipine and Losartan DVT PPx: Eliquis Dispo: Med Tele Diet: DM2 (2) Diarrhea: (3) Hyperlipidemia: (4) Diverticulitis: (5) Flank pain: (6) Depression: (7) Diverticulosis: (8) History of Clostridium difficile infection: (9) Osteoarthritis: Admission and Anticipated Discharge Date Admission Date: June 10, 2020 Supervising Physician Co-Signing Physician Notes Attending attestation I also saw the patient with the resident physician and confirmed palacios portions of the history and physical examination. Agree with impression and plan as noted in the resident documentation. Upon our morning examination, the patient is seated in the bedside chair. She complains of both right-sided and rectal pressure, relieved with defecation. It sounds as if this is somewhat better than yesterday. She also notes some increased swelling of her hands; she actually removed her rings last night when they began to feel tight. She also notes that she feels some swelling in her legs, left knee particularly. Exam 128/72, 70, 18, 36.8 regular rate and rhythm Lungs are clear With firm palpation of the right lower quadrant, I cannot elicit any tenderness, rebound, or guarding. Data White blood cell count 12.16, this is up slightly compared to yesterday. Hemoglobin 12.7. Impression and plan Sepsis, present upon arrival. C. difficile colitis Sigmoid diverticulitis History of irritable bowel syndrome Ureterolithiasis with stent Generalized weakness secondary to acute illness. There is a couple of issues here. She has the intermittent rectal pressure which sounds distinctly different from the pain she had upon admission; this may reflect her IBS, as she tells me that she has a chronic history of such discomfort. Upon exam, she has no abdominal tenderness. The main issue is a slight bump in her white blood cell count -this does raise some question as to whether the pressure could represent worsening of her infection. She is remained afebrile, and otherwise looks better. The other issue is the swelling of her hands and lower extremities; she looks a little volume overloaded so will diurese her today. I think the most prudent thing to do here given the combination of the mild leukocytosis and the hypervolemia is to keep her in the hospital another day. We will diurese her today. Monitor her clinically. Recheck CBC in a.m. Subjective Doing okay this morning. She was having pain in her in her lower abdomen that was improved from prior. She noticed that she was having increased swelling in her fingers. Review of Systems Review of Systems: Constitutional: denies fevers, chills Cardiac: denies chest pain, palpitations Pulm.: denies shortness of breath Physical Exam Constitutional: WD/WN, vitals as above Eyes: PERRL, conjunctivae normal, anicteric sclerae ENMT: external ear and nose normal, oropharynx normal Neck: normal visual inspection Respiratory: normal respiratory effort, lungs clear to auscultation Cardiovascular: Rate/Rhythm: regular rate and regular rhythm Extremities: + pedal edema Gastrointestinal (Abdomen): - soft, tender in the right lower quadrant Skin: no rashes, warm and dry Neurologic: no focal motor deficits Psychiatric: Affect: + depressed affect Results & Data Results & Data ([facility]) Vital Signs (Past 12 Hours) Vital Signs Temp Pulse Pulse Resp BP Pulse Ox 06/21/20 15:56 36.8 C 70 18 128/72 90 06/21/20 14:23 71 06/21/20 11:00 36.7 C 76 20 114/70 92 06/21/20 07:00 36.4 C L 70 20 132/75 96 CBC Results Results Complete Blood Count Results: RBC 3.99 M/uL (4.2-5.4) L 06/21/20 WBC 12.16 K/uL (4.8-10.8) H 06/21/20 Hgb 12.7 g/dL (12.0-16.0) 06/21/20 Hct 39.1 % (37-47) 06/21/20 Plt Count 347 K/uL (130-400) 06/21/20 Chemistry (BMP) Results BMP Results: Sodium 140 mmol/L (136-145) 06/21/20 Potassium 4.4 mmol/L (3.5-5.1) 06/21/20 Chloride 105 mmol/L (98-107) 06/21/20 BUN 5 mg/dl (7-18) L 06/21/20 Creatinine 0.50 mg/dl (0.6-1.2) L 06/21/20 Glucose 98 mg/dl (70-99) 06/21/20 Resident Activity Tracking Resident Involvement: Resident Care Provided Care Provided: Adult Hospital Medicine (1) Diarrhea Diarrhea type: unspecified type Qualified Code(s): R19.7 - Diarrhea, unspecified
[2020-06-21] MEDS: PRAVASTATIN SOD 40 MG TAB PO SCH (21:01)
[2020-06-21] MEDS: MONTELUKAST SODIUM 10 MG TABLET PO SCH (21:01)
[2020-06-21 22:41] LABS: Bacteria Urine Automated Negative (Negative); Bilirubin Urine Negative (Negative); Blood Urine 3+ (Negative); Color Urine Orange; Epithelial Cell Urine Auto >30 /lpf (0-5); Glucose Urine UA Negative (Negative); Ketones Urine Negative (Negative); Leukocyte Esterase Urine 1+ (Negative); Nitrite Urine Negative (Negative); Protein Urine 1+ (Negative); RBC Urine Automated >30 /hpf (0-4); Specific Gravity Urine 1.014 (1.000-1.030); Urobilinogen Urine Negative (Negative); pH Urine 5.5 (4.5-7.5)
[2020-06-21 22:49] LABS: Appearance Urine Clear (Clear)
[2020-06-22] MEDS: VANCOMYCIN HCL 125 MG/2.5ML SOLN PO SCH ×3 (00:35→17:33)
[2020-06-22] MEDS: RASPBERRY SYRUP 5 ML UDP PO SCH ×4 (00:35→17:33)
[2020-06-22] MEDS: ACETAMINOPHEN 325 MG TAB PO SCH ×6 (01:46→21:25)
[2020-06-22] MEDS: oxyCODONE HCL IR 5 MG TAB (IMMEDIATE RELEASE) PO PRN ×3 (03:17→17:34)
[2020-06-22] MEDS: SIMETHICONE 80 MG CHEW PO SCH ×4 (06:00→21:25)
[2020-06-22 07:29] LABS: Basophils # (auto) 0.09 K/uL (0-0.2); Eosinophils # (auto) 0.44 K/uL (0-0.5); Eosinophils % (auto) 4.8 %; Hematocrit (blood only) 38.2 % (37-47); Hemoglobin 12.7 g/dL (12.0-16.0); Immature Granulocytes # (auto) 0.17 K/uL (0.00-0.02); Immature Granulocytes % (auto) 1.9 %; Lymphocytes # (auto) 2.29 K/uL (1.2-3.4); Mean Corpuscular Hemoglobin 32.3 pg (25-34); Mean Corpuscular Hgb Conc 33.2 g/dL (32-36); Mean Corpuscular Volume 97.2 fL (80-100); Mean Platelet Volume 10.3 fL (7.4-10.4); Monocytes # (auto) 0.98 K/uL (0.11-0.59); Monocytes % (auto) 10.7 %; Neutrophils # (auto) 5.19 K/uL (1.4-6.5); Neutrophils % (auto) 56.6 %; Platelet Count 331 K/uL (130-400); RDW Coefficient of Variation 13.8 % (11.5-14.5); RDW Standard Deviation 48.9 fL (36.4-46.3); Red Blood Count 3.93 M/uL (4.2-5.4); White Blood Count 9.16 K/uL (4.8-10.8)
[2020-06-22] MEDS: OXYBUTYNIN CHLORIDE 5 MG TAB PO PRN (07:33)
[2020-06-22] MEDS: INSULIN ASPART 100 UNITS/ML 3 ML PEN SC SCH ×4 (07:42→20:20)
[2020-06-22] MEDS: LACTOBACILLUS ACIDOPHILUS 1 GM PACK PO SCH ×3 (07:42→16:57)
[2020-06-22] MEDS: FLUTICASONE/VILANTEROL 200/25MCG 14 PUFFS/INHALER INH SCH (07:43)
[2020-06-22] MEDS: LOSARTAN POTASSIUM 50 MG TAB PO SCH (07:43)
[2020-06-22] MEDS: TAMSULOSIN HCL 0.4 MG CAP PO SCH (07:44)
[2020-06-22] MEDS: POTASSIUM CHLORIDE CRTAB 20 MEQ TABCR PO SCH ×3 (07:44→20:20)
[2020-06-22] MEDS: metroNIDAZOLE 500 MG TAB PO SCH ×3 (07:44→20:19)
[2020-06-22] MEDS: APIXABAN 5 MG TABLET PO SCH ×2 (07:44→20:18)
[2020-06-22] MEDS: amLODIPine BESYLATE 5 MG TAB PO SCH (07:44)
[2020-06-22] MEDS: CEFDINIR 300 MG CAP PO SCH ×2 (07:44→20:19)
[2020-06-22] MEDS: FUROSEMIDE 20 MG TAB PO SCH (07:44)
[2020-06-22] MEDS: THIAMINE HCL 100 MG in SYRINGE 9 ML IV SCH (07:45)
[2020-06-22 08:03] LABS: BUN Creatinine Ratio 12.5 (10-20); Calcium 9.2 mg/dl (8.5-10.1); Creatinine Clr Calc Pharmacy 88.1 ml/min; Est GFR (African American) 101.5; Est GFR (Non-African American) 87.6; Potassium 4.3 mmol/L (3.5-5.1)
[2020-06-22] MEDS ORDERED: oxyCODONE HCL IR 5 MG TAB (IMMEDIATE RELEASE) PO STA (09:51)
[2020-06-22] MEDS: CHOLESTYRAMINE LIGHT 4 GM PKT PO SCH ×2 (10:59→22:34)
[2020-06-22] MEDS: ONDANSETRON INJ 2 MG/ML 2 ML VIAL IV PRN (13:59)
--- NOTE | 2020-06-22 14:00 | Hospitalist Progress Note ---
Date of Service June 22, 2020 Assessment & Plan (1) Sepsis: Sepsis: Lorna ePrkins is an 84yo w/ a PMHx of afib on Eliquis, HTN, DM2, recent kidney stone w/ pyelo and abx tx and dc from [facility] 2 days prior to arrival, and C. diff. colitis who presented with sudden onset RLQ pain and explosive diarrhea with subsequent eval. suspicious for c. diff colitis along with diverticulitis. Sepsis 2/2 C. diff colitis with evidence of additional diverticulitis and fistula - Febrile, tachycardic, leukocytosis on admit - Hemodynamically stable - CT-A/P 06/13: mild to moderate colonic diverticulosis with evidence of acute sigmoid diverticulitis with increased inflammation from 06/10/20, no evidence of abscess - CT-A/P 06/17 with improvement in inflammation and no mention of fistula - CT-A/P 06/22 with continued improvement and no fistula visualized -On empiric Zosyn for diverticulitis narrowed - Continue Cefdinir/Flagyl PO - Blood cultures Negative - C/w Oxycodone 5mg PO q6H PRN for pain,. If having uncontrolled pain overnight, would recommend one time dose of Dilaudid 0.25 or 0.5mg IV as this has helped with pain - Continue Tylenol scheduled for pain Severe C. difficile colitis. - Gene & Toxin positive. 1x prior C. diff episode 2 years ago. - WBC 38.8 peak on 06/14; has been WNL for the past 5 days. Leukocytosis resolved most likely suggesting adequate current treatment. Lab work today along with examine is reassuring that she is improving; also BMs have decreased. She does appear fatigued which is understandable from dealing with current stress of acute illness with diminished physiologic reserve with advanced age. Discussed to let us know if she is hurting as we want to keep her comfortable to aid in recovery. Adjunct fidaxomicin 200 mg twice daily added 06/12 for poor clinical appearance. Discontinued due to improvement, continue vanc Cholestyramine to help decrease toxin load continue for now d/c if continued improvement in BMs tomorrow -Sounds like there might be underlying chronic irritable bowel picture which could also be contributing as could be triggered by bowel infection from Cdiff. - Pulse taper (125mg PO q12h x1 week, 125mg PO daily x1 week, 125mg PO q48h x2 weeks) GI consulted. - increased white count improved this morning Abdominal Pain - RLQ - same pain of RLQ, no signs of acute abdomen, labs today were unremarkable. Suspect still having intermittent cramping with diarrhea from toxin effect while this cdiff infection resolves. Her abdominal exam was reassuring as without appreciated tenderness to palpation. - Also history supports an underlying irritable bowel picture and notes prior treatment with dicyclomine that worked. She notes she has had fecal incontinences in the past with history that supports possible underlying irritable bowel. - restarted dicyclomine - continue Simethicone, will make scheduled but consider DC'ing if no improvement, Simethicone with appropriately safe/benign adverse effect profile, okay to try, orders placed. Encouraged to try added ambulation today to try to help move gas. Lower extremity edema - prior Lasix dose had been held initially - restarted home dose with 4L diuresis in the last 24 hours [place]/red Tinged Urine - Noted by nursing on morning of 06/18 of pink tinged urine and then a small clot visualized, this has been persistent and darkened today - hgb stable, hemodynamically stable - suspect due to trauma with Huerta and stent - Do not recommend discontinuing Eliquis because risk of clot greatly outweighs current risk of life threatening bleed. 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 - not noted on CT rescan X2, initial appearance may have been due to to severe acute inflammation R Sided Flank Pain with history of stent placement - Suspect 2/2 infection as above vs. stent - DDx includes post uretal stent pain - Flomax, oxybutynin for spasm - Urology consulted. Anticipate removal at 2-3-week follow-up once patient clinically improved was noted prior. - Daughter was requesting if stent could be removed prior to discharge to SNF. However, with current C diff infection, will need to be treated for this first prior to procedure for removal. Hx Extrinsic Asthma - Albuterol PRN - Continue fluticasone.vilanterol daily 1 puff IBS-D - Bentyl restarted HLD - Continue pravastatin 80mg qHS - Zetia held, resume @ d/c Atrial Flutter - Pacer in place - Continue Eliquis - No rate control prior to arrival Hypokalemia, resolved - Improved with repletion - BMP daily, replete as indicated HTN - continue home Amlodipine and Losartan DVT PPx: Eliquis Dispo: Med Tele Diet: DM2 (2) Diarrhea: (3) Hyperlipidemia: (4) Diverticulitis: (5) Flank pain: (6) Depression: (7) Diverticulosis: (8) History of Clostridium difficile infection: (9) Osteoarthritis: Admission and Anticipated Discharge Date Admission Date: June 10, 2020 Supervising Physician Co-Signing Physician Notes Attending attestation I also saw the patient with the resident physician and confirmed palacios portions of the history and physical examination. Agree with impression and plan as noted in the resident documentation. Upon our morning examination, the patient is seated in the bedside chair. She again notes waxing and waning abdominal " pressure" which seems to be relieved with defecation. Fortunately, her white blood cell count is improved and she has remained afebrile. All in all, she states that she is feeling better, except for the intermittent abdominal pressure. She had significant diuresis yesterday and she notes that the edema in her fingers is markedly improved. Exam 134/83, 72, 18, 36.6, 94% regular rate and rhythm Lungs are clear With firm palpation of the right lower quadrant, I cannot elicit any tenderness, rebound, or guarding. Laboratory data White blood cell count has normalized at 9.16, down from 12.16 yesterday. Hemoglobin stable at 12.7. Platelet count 331. Preserved renal function with BUN of 6 and creatinine 0.49. Microbiology A urine clean-catch collected 06/21/2020 shows pinpoint growth present. Imaging A CT scan of the abdomen pelvis shows improving acute sigmoid diverticulitis with decreased colonic wall thickening and pericolonic infiltration when compared to previous. Also noted are unchanged right greater than left pleural effusions with decreased abdominal pelvic ascites, and unchanged positioning of a right ureteral stent. Right ureteral calculi are again shown measuring up to 6 mm at the L4-L5 level. Impression and plan Sepsis, present upon arrival. C. difficile colitis Sigmoid diverticulitis History of irritable bowel syndrome Ureterolithiasis with stent Generalized weakness secondary to acute illness. All is reassuring today as the patient subjectively feels better, she remains afebrile, her mild leukocytosis seen yesterday has resolved, and the findings on CT scan support improvement of her colitis. I suspect the intermittent abdominal pain is either related to gas pain/IBS or related to the right renal stones and stent. We will continue current care Resume home diuretics and I suspect she will continue to diurese Resume Bentyl. Subjective Doing okay this morning. She was having pain in her in her rectum that was improved with bowel movements. She noticed that she was having increased swelling in her fingers, but this had improved. After she had a CT scan in the middle of the day she had some increased number of bowel movements and pressure. Her son who is a nurse was in the room and he asked about her C. diff. regimen going forward. Nursing brought up that her catheter was increasingly red from one day prior. Review of Systems Review of Systems: Constitutional: denies fevers, chills Cardiac: denies chest pain, palpitations Pulm.: denies shortness of breath Physical Exam Constitutional: WD/WN, vitals as above Eyes: PERRL, conjunctivae normal, anicteric sclerae ENMT: external ear and nose normal, oropharynx normal Neck: normal visual inspection Respiratory: normal respiratory effort, lungs clear to auscultation Cardiovascular: Rate/Rhythm: regular rate Extremities: + pedal edema Gastrointestinal (Abdomen): - soft, tender in the right lower quadrant Skin: no rashes, warm and dry Neurologic: no focal motor deficits Psychiatric: Affect: + depressed affect Results & Data Results & Data ([facility]) Vital Signs (Past 12 Hours) Vital Signs Temp Pulse Pulse Resp BP BP Pulse Ox 06/22/20 11:37 36.6 C 75 16 136/68 93 06/22/20 07:47 36.5 C 71 16 165/83 H 91 06/22/20 07:06 70 06/22/20 04:00 36.7 C 75 20 144/78 H 94 06/22/20 03:39 75 20 94 CBC Results Results Complete Blood Count Results: RBC 3.93 M/uL (4.2-5.4) L 06/22/20 WBC 9.16 K/uL (4.8-10.8) 06/22/20 Hgb 12.7 g/dL (12.0-16.0) 06/22/20 Hct 38.2 % (37-47) 06/22/20 Plt Count 331 K/uL (130-400) 06/22/20 Chemistry (BMP) Results BMP Results: Sodium 138 mmol/L (136-145) 06/22/20 Potassium 4.3 mmol/L (3.5-5.1) 06/22/20 Chloride 105 mmol/L (98-107) 06/22/20 BUN 6 mg/dl (7-18) L 06/22/20 Creatinine 0.49 mg/dl (0.6-1.2) L 06/22/20 Glucose 92 mg/dl (70-99) 06/22/20 Resident Activity Tracking Resident Involvement: Resident Care Provided Care Provided: Adult Hospital Medicine (1) Diarrhea Diarrhea type: unspecified type Qualified Code(s): R19.7 - Diarrhea, unspecified
--- NOTE | 2020-06-22 14:59 | CT Scan Report ---
ABDOMEN AND PELVIS CT WITH ORAL CONTRAST CT DOSE: 1250.20 mGy.cm HISTORY: Acute generalized abdominal pain worsening pain ? diverticulitis vs. fistula TECHNIQUE: Multiaxial CT images of the abdomen and pelvis were performed following the use of oral co ntrast. A dose lowering technique was utilized adhering to the principles of ALARA. COMPARISON STUDY: CT abdomen and pelvis 06/16/2020 FINDINGS: Unchanged right greater than left pleural effusions. Bibasilar dependent consolidation. No pneumatosis or pneumoperitoneum. Cardiac megaly with partially imaged pacer leads. Trace pericardial effusion. Limited evaluation of the solid abdominal organs without the use of IV contrast. Within the limitations of the exam, the spleen, pancreas and adrenal glands are unremarkable. Cholecystectomy. Unremarkable gallbladder. Unchanged punctate nonobstructing calculus of the inferior pole left kidney. 3 mm nonobstructing calc ulus of the interpolar right kidney. Right ureteral stent is in place. 6 mm mid ureteral calculus is noted at the level of L4-L5, unchanged from comparison. A punctate ureteral calculus is noted within the pelvis on image 264. No hydronephrosis. Decompressed urinary bladder with Huerta catheter. Air wit hin the bladder is likely secondary to instrumentation. Pelvic basin phlebolith. Hysterectomy. Calcif ied plaque of the abdominal aorta. No adenopathy. Decreased abdominal pelvic ascites. Duodenal diverticulosis. Improving acute sigmoid diverticulitis w ith decreased wall thickening and decreased pericolonic stranding with trace free fluid within the pe lvis. No perforation or abscess. No fistula or sinus tract identified. Surgically absent appendix. Mi ld generalized body wall edema. No acute fracture or suspicious bone lesion. IMPRESSION: 1. Improving acute sigmoid diverticulitis with decreased colonic wall thickening and pericolonic infi ltration. No evidence of perforation or abscess. 2. Unchanged right greater than left pleural effusions with decreased abdominal pelvic ascites. 3. Unchanged positioning of the right ureteral stent. Right ureteral calculi redemonstrated measuring up to 6 mm at the level of L4-L5. 4. No bowel obstruction. 5. Additional findings as above. ACT 112: Negative or not required by law. The above report was generated using voice recognition software. It may contain grammatical, syntax o r spelling errors. Electronically signed by: Michele Hopper M.D. 06/22/2020 2:57 PM
[2020-06-22] MEDS: PRAVASTATIN SOD 40 MG TAB PO SCH (20:19)
[2020-06-22] MEDS: MONTELUKAST SODIUM 10 MG TABLET PO SCH (20:19)
[2020-06-22] MEDS: DICYCLOMINE HCL 10 MG CAP PO PRN (21:38)
[2020-06-23] MEDS: oxyCODONE HCL IR 5 MG TAB (IMMEDIATE RELEASE) PO PRN (01:36)
[2020-06-23] MEDS: ACETAMINOPHEN 325 MG TAB PO SCH ×3 (02:05→10:10)
[2020-06-23] MEDS: RASPBERRY SYRUP 5 ML UDP PO SCH (05:34)
[2020-06-23] MEDS: SIMETHICONE 80 MG CHEW PO SCH (05:34)
[2020-06-23] MEDS: VANCOMYCIN HCL 125 MG/2.5ML SOLN PO SCH (05:34)
[2020-06-23] MEDS: DICYCLOMINE HCL 10 MG CAP PO PRN (05:35)
[2020-06-23] MEDS: LACTOBACILLUS ACIDOPHILUS 1 GM PACK PO SCH (08:00)
[2020-06-23] MEDS: FLUTICASONE/VILANTEROL 200/25MCG 14 PUFFS/INHALER INH SCH (08:01)
[2020-06-23] MEDS: APIXABAN 5 MG TABLET PO SCH (08:02)
[2020-06-23] MEDS: metroNIDAZOLE 500 MG TAB PO SCH (08:02)
[2020-06-23] MEDS: LOSARTAN POTASSIUM 50 MG TAB PO SCH (08:02)
[2020-06-23] MEDS: TAMSULOSIN HCL 0.4 MG CAP PO SCH (08:03)
[2020-06-23] MEDS: POTASSIUM CHLORIDE CRTAB 20 MEQ TABCR PO SCH (08:03)
[2020-06-23] MEDS: FUROSEMIDE 20 MG TAB PO SCH (08:03)
[2020-06-23] MEDS: CEFDINIR 300 MG CAP PO SCH (08:04)
[2020-06-23] MEDS: amLODIPine BESYLATE 5 MG TAB PO SCH (08:04)
[2020-06-23] MEDS: OXYBUTYNIN CHLORIDE 5 MG TAB PO PRN (08:36)
[2020-06-23] MEDS: INSULIN ASPART 100 UNITS/ML 3 ML PEN SC SCH ×2 (08:37→11:24)
--- NOTE | 2020-06-23 11:52 | Discharge Summary ---
Date of Service June 23, 2020 Admission HPI Per Admitting Provider This patient is an 84-year-old female with a history of paroxysmal atrial fibrillation on Eliquis, PPM, HTN, borderline DM 2, asthma, Zenker's diverticulum, urinary retention with recent right sided ureterolithiasis with hydronephrosis and stent placement and UTI. She was discharged from hospital 2 days ago after a prolonged course for UTI and kidney stones. She reports starting yesterday she had explosive diarrhea at least 5 times along with fecal incontinence but denies bloody stools. She has developed significantly worsened right sided flank pain radiating into the right lower quadrant as well as some soreness in the left lower quadrant. She has had sweats and chills at home. She denies nausea or vomiting and has been eating and drinking. She has been making urine in her Huerta catheter bag that she is had in place since last admission for 1 L urinary retention and urethral stricture. She has a history of C. difficile colitis in the past. She has been taking Keflex for her UTI since discharge. In the ER, she was found to have a significant leukocytosis of 29,000, was febrile, and vital signs were otherwise stable. A lactate was normal. She had a mild hypokalemia. No evidence of infection on UA. CT of the abdomen/pelvis showed acute sigmoid diverticulitis and her right ureteral stent was in place without any evidence of stones along it. Her Covid test was negative Denies any chest pain or shortness of breath, no headaches or lightheadedness. Admission Exam Per Admitting Provider Constitutional: WD/WN, vitals as above Eyes: PERRL, conjunctivae normal, anicteric sclerae ENMT: external ear and nose normal, oropharynx normal Neck: trachea midline, no thyromegaly Respiratory: normal respiratory effort, lungs clear to auscultation Cardiovascular: RRR, no murmur, no edema Chest (Breasts): Chest: normal inspection of chest Gastrointestinal (Abdomen): Inspection/Auscultation: abdomen normal to inspection and normal bowel sounds; abdomen not distended Percussion/Palpation: + abdomen tender (Exquisitely TTP in RLQ and right CVA, moderate TTP in LLQ, no guarding) and abdomen soft Musculoskeletal: Extremities: extremities normal to inspection; no cyanosis and no clubbing Skin: no rashes, warm and dry Neurologic: moves all extremities and awake; no focal motor deficits Psychiatric: A+Ox3, euthymic affect Genitourinary: Huerta catheter in place draining copious medium yellow urine Lymphatic: no lymphedema Principal Diagnosis c diff Discharge Exam Constitutional: WD/WN, vitals as above Eyes: PERRL, conjunctivae normal, anicteric sclerae ENMT: external ear and nose normal, oropharynx normal Neck: normal visual inspection Respiratory: normal respiratory effort, lungs clear to auscultation Cardiovascular: Rate/Rhythm: regular rate Extremities: + pedal edema Gastrointestinal (Abdomen): - soft, tender in the right lower quadrant Skin: no rashes, warm and dry Neurologic: no focal motor deficits Psychiatric: Affect: + depressed affect Discharge Data Allergies Allergy/AdvReac Type Severity Reaction Status Date / Time acetaminophen Allergy Unknown NAUSEA/DIZZ Verified 06/10/20 10:32 INESS budesonide Allergy Unknown PT UNSURE Verified 06/10/20 10:32 OF RXN formoterol Allergy Unknown PT UNSURE Verified 06/10/20 10:32 OF RXN Iodinated Contrast Media Allergy Unknown RASH,HIVES Verified 06/10/20 10:32 FROM IVP DYE metronidazole Allergy Unknown SEVERE GI Verified 06/10/20 10:32 SYMPTOMS oxycodone Allergy Unknown NAUSEA/DIZZ Verified 06/10/20 10:32 INESS tramadol Allergy Unknown NAUSEA/DIZZ Verified 06/10/20 10:32 INESS KEENA Inhibitors AdvReac Intermediate COUGH Verified 06/10/20 10:32 Consultations 06/10/20 11:44 ED Decision to Admit Stat 06/10/20 13:35 Consult Urology Routine 06/10/20 15:24 Consult Case Management - Discharge Planning Routine 06/12/20 11:45 Consult Gastroenterology Routine 06/13/20 11:24 Consult General Surgery Routine Ordered Studies 06/10/20 11:06 CT abd pelvis wo con Stat 06/12/20 12:22 CT abd pelvis oral con only Stat 06/16/20 07:57 CT abd pelvis oral con only Routine 06/22/20 11:55 CT abd pelvis oral con only Routine Hospital Course (1) Clostridium difficile infection: Lorna Perkins is an 84yo w/ a PMHx of afib on Eliquis, HTN, DM2, recent kidney stone w/ pyelo and abx tx and dc from [facility] 2 days prior to arrival, and C. diff. colitis who presented with sudden onset RLQ pain and explosive diarrhea with subsequent found to have c. diff colitis along with diverticulitis. Sepsis 2/2 C. diff colitis with evidence of additional diverticulitis Febrile, tachycardic, leukocytosis on admit Hemodynamically stable CT-A/P 06/13: mild to moderate colonic diverticulosis with evidence of acute sigmoid diverticulitis with increased inflammation from 06/10/20, no evidence of abscess CT-A/P 06/17 with improvement in inflammation and no mention of fistula CT-A/P 06/22 improvement in diverticulitis no fistula seen - Blood cultures Negative - Continue Cefdinir/Flagyl PO - for 5 days after discharge - continue 5mg PO q6H PRN for pain - continue Tylenol scheduled for pain Severe C. difficile colitis. - Gene & Toxin positive. 1x prior C. diff episode 2 years ago. - WBC 38.8 peak on 06/14; has been WNL for the past 5 days. Leukocytosis resolved most likely suggesting adequate current treatment. Lab work today along with examine is reassuring that she improving; also BMs have decreased. She does appear fatigued which is understandable from dealing with current stress of acute illness with diminished physiologic reserve with advanced age. -Sounds like there might be underlying chronic irritable bowel picture which cou ld also be contributing as could be triggered by bowel infection from Cdiff. - Recommend continuing Vancomycin 125mg PO q12h x1 week, 125mg PO daily x1 week, 125mg PO q48h x2 weeks - Noted that diarrhea is still present but is improving which supports clinical improvement with current treatment. Lab work this morning also supports that current treatment is appropriate. Abdominal Pain - RLQ - same pain of RLQ, notes worsening, no signs of acute abdomen, labs today were unremarkable. Suspect still having intermittent cramping with diarrhea from toxin effect while this cdiff infection resolves. Her abdominal exam was reassuring as without appreciated tenderness to palpation which was noted to have been significantly present on exam. - Also history supports an underlying irritable bowel picture and notes prior treatment with dicyclomine that worked. She notes she has had fecal incontinence in the past with history that supports possible underlying irritab le bowel. 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 stent - DDx includes post uretal stent pain - Flomax, oxybutynin for spasm - Analgesics as above - Urology consulted. Anticipate removal at 2-3-week follow-up once patient clinically improved - Daughter was requesting if stent could be removed prior to discharge to SNF. However, with current C diff infection, will need to be treated for this first prior to procedure for removal. Hx Extrinsic Asthma - Albuterol PRN - Continue fluticasone.vilanterol daily 1 puff IBS-D - continue Bentyl HLD - Continue pravastatin 80mg qHS - Zetia held, resume @ d/c Atrial Flutter - Pacer in place - Continue Eliquis - No rate control prior to arrival Hypokalemia - Improved with repletion HTN - continue home Amlodipine and Losartan Total Time Total Time Spent Total Time Spent (In Minutes): 25 mminutes Discharge Plan Discharge Items Patient Disposition: Transfer Detention Fac Reason For Visit: BACK PAIN Discharge Diagnosis: c. diff infection Activity: Per Instructions section Non-emergency contact: Primary Care Provider Call non-emergency contact if: your temperature is above 101 Follow-up/Referrals: Dania Barcenas DO [Primary Care Provider] - Diet: Regular Addtl Attending Provider Instructions: Lorna Perkins is an 84yo w/ a PMHx of afib on Eliquis, HTN, DM2, recent kidney stone w/ pyelo and abx tx and dc from [facility] 2 days prior to arrival, and C. diff. colitis who presented with sudden onset RLQ pain and explosive diarrhea with subsequent eval. suspicious for c. diff colitis along with diverticulitis. Sepsis 2/2 C. diff colitis with evidence of additional diverticulitis Febrile, tachycardic, leukocytosis on admit Hemodynamically stable CT-A/P 06/13: mild to moderate colonic diverticulosis with evidence of acute sigmoid diverticulitis with increased inflammation from 06/10/20, no evidence of abscess CT-A/P 06/17 with improvement in inflammation and no mention of fistula CT-A/P 06/22 improvement in diverticulitis no fistula seen - Blood cultures Negative - Continue Cefdinir/Flagyl PO - for 5 days after discharge - continue 5mg PO q6H PRN for pain - continue Tylenol scheduled for pain Severe C. difficile colitis. - Gene & Toxin positive. 1x prior C. diff episode 2 years ago. - WBC 38.8 peak on 06/14; has been WNL for the past 5 days. Leukocytosis resolved most likely suggesting adequate current treatment. Lab work today along with examine is reassuring that she improving; also BMs have decreased. She does appear fatigued which is understandable from dealing with current stress of acute illness with diminished physiologic reserve with advanced age. -Sounds like there might be underlying chronic irritable bowel picture which could also be contributing as could be triggered by bowel infection from Cdiff. - Recommend continuing Vancomycin 125mg PO q12h x1 week, 125mg PO daily x1 week, 125mg PO q48h x2 weeks - Noted that diarrhea is still present but is improving which supports clinical improvement with current treatment. Lab work this morning also supports that current treatment is appropriate. Abdominal Pain - RLQ - same pain of RLQ, notes worsening, no signs of acute abdomen, labs today were unremarkable. Suspect still having intermittent cramping with diarrhea from toxin effect while this cdiff infection resolves. Her abdominal exam was reassuring as without appreciated tenderness to palpation which was noted to have been significantly present on exam. - Also history supports an underlying irritable bowel picture and notes prior treatment with dicyclomine that worked. She notes she has had fecal incontinence in the past with history that supports possible underlying irritable bowel. - Will order Simethicone, will make scheduled but consider DC'ing if no improvement, Simethicone with appropriately safe/benign adverse effect profile, okay to try. 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 stent - DDx includes post uretal stent pain - Flomax, oxybutynin for spasm - Analgesics as above - Urology consulted. Anticipate removal at 2-3-week follow-up once patient clinically improved was noted prior. - Daughter was requesting if stent could be removed prior to discharge to SNF. However, with current C diff infection, will need to be treated for this first prior to procedure for removal. Hx Extrinsic Asthma - Albuterol PRN - Continue fluticasone.vilanterol daily 1 puff IBS-D - continue Bentyl HLD - Continue pravastatin 80mg qHS - Zetia held, resume @ d/c Atrial Flutter - Pacer in place - Continue Eliquis - No rate control prior to arrival Hypokalemia - Improved with repletion - BMP daily, replete as indicated HTN - continue home Amlodipine and Losartan Pending Studies at Discharge: No Stand-Alone Forms: My [facility] Skilled Items Patient informed of condition?: Yes DNR: Yes Discharge Level of Care: Skilled Communicable Disease: No Discharge Prognosis: Improving Lines: Peripheral IV Urinary Catheter: Yes Medications and DC Order Prescriptions: New metronidazole 500 mg Tablet 500 mg PO TID 5 Days Qty: 15 RF: 0 cefdinir 300 mg Capsule 300 mg PO BID 5 Days Qty: 10 RF: 0 vancomycin 125 mg capsule 125 mg PO Q12H Qty: 26 RF: 0 Continued albuterol sulfate 90 mcg/actuation HFA aerosol inhaler 2 puffs inhalation Q4H PRN (Reason: bronchospasm) Qty: 3 RF: 3 amlodipine [Norvasc] 5 mg tablet 5 mg PO QAM RF: 0 Eliquis 5 mg tablet 5 mg PO BID Qty: 180 RF: 0 furosemide 20 mg tablet 20 mg PO QAM RF: 0 losartan 100 mg tablet 100 mg PO QAM RF: 0 Metamucil 3.4 gram/5.4 gram powder 1 tbs PO QAM RF: 0 multivitamin tablet 1 tab PO QAM RF: 0 potassium chloride 20 mEq tablet extended release 20 meq PO QAM RF: 0 pravastatin 80 mg tablet 80 mg PO HS RF: 0 ezetimibe [Zetia] 10 mg tablet 10 mg PO HS RF: 0 lutein 10 mg tablet 10 mg PO BID RF: 0 dicyclomine 10 mg capsule 10 mg PO TID PRN (Reason: abdominal pain) Qty: 270 RF: 1 montelukast 10 mg tablet 10 mg PO HS RF: 0 fluticasone propion-salmeterol [Advair Diskus] 250-50 mcg/dose blister with device 1 inh INHALATION BID RF: 0 tamsulosin 0.4 mg Capsule 0.4 mg PO QAM Qty: 14 RF: 0 hydrocodone-acetaminophen 5-325 mg tablet 0.5 tab PO Q8H PRN (Reason: pain) Qty: 7 RF: 0 Discontinued cephalexin 500 mg capsule 500 mg PO BID 7 Days Qty: 14 RF: 0 Discharge Orders: Discharge Order (Routine); Ordered 06/23/20 Ordered By: Carlos Jaime Admission Data Admit Date/Time: 06/10/20 13:06 Attending Provider: Aki Del Valle Admit Provider: Estella Arndt Primary Care Provider: Dania Barcenas Other Providers: Rolando Friedman ; Estella Arndt ; [facility] ; [facility] ; Lanie Sommers ; Cathi Arevalo ; John Diaz Jr Other Interventions: Discharge Summary Assessment (RN) Last Done: 06/23/20 10:23 Supervising Physician Co-Signing Physician Notes Attending Attestation I also saw the patient on the day of discharge and confirmed palcaios portions of the history and physical examination. Agree with the impression and plan as noted in the resident discharge summary. She had no complaints on morning rounds. She slept well without the abdominal discomfort she had the nights previously. Exam 157/72, 72, 16, 36.5, 93% room air regular rate and rhythm Lungs are clear Abdomen soft and nontender Impression and plan Sepsis, present upon arrival. C. difficile colitis Sigmoid diverticulitis History of irritable bowel syndrome Ureterolithiasis with stent Generalized weakness secondary to acute illness. Patient will be discharged today to [facility]dc facility. Continue cefdinir and Flagyl for 5 days post discharge for her acute diverticulitis Recommend vancomycin tapering dose as noted for treatment of recurrent C. difficile She will need follow-up with urology in 2 to 3 weeks to address her stone and stent Resident Activity Tracking Resident Involvement: Resident Care Provided Care Provided: Adult Hospital Medicine CBC Results Results Complete Blood Count Results: RBC 3.93 M/uL (4.2-5.4) L 06/22/20 WBC 9.16 K/uL (4.8-10.8) 06/22/20 Hgb 12.7 g/dL (12.0-16.0) 06/22/20 Hct 38.2 % (37-47) 06/22/20 Plt Count 331 K/uL (130-400) 06/22/20 Chemistry (BMP) Results [facility] Results: Sodium 138 mmol/L (136-145) 06/22/20 Potassium 4.3 mmol/L (3.5-5.1) 06/22/20 Chloride 105 mmol/L (98-107) 06/22/20 BUN 6 mg/dl (7-18) L 06/22/20 Creatinine 0.49 mg/dl (0.6-1.2) L 06/22/20 Glucose 92 mg/dl (70-99) 06/22/20
== END 2020-06-23 11:37 | DRG 872 ==
LOC: ED 09:06 → 2N 13:06 → INTOOBSV 13:06 → SUATTDRO 13:06 → OBSVTOIN 13:06 → 2N 15:39 → 2W 06-16 09:17

== ENCOUNTER 2020-08-01 08:11 | Inpatient (IN) ==
--- NOTE | 2020-07-21 12:49 | PAT Medication Instructions ---
Medication Instructions Date of Service July 21, 2020 Home Medications Medication Instructions Recorded dicyclomine 10 mg capsule 10 mg PO TID PRN #270 cap 10/13/19 albuterol sulfate 90 mcg/actuation 2 puffs INHALATION Q4H PRN #3 10/19/19 aerosol inhaler inhaler oxycodone 5 mg tablet See Rx Instructions PO Q6H PRN #30 07/19/20 tab amlodipine 5 mg tablet 5 mg PO QAM apixaban 5 mg tablet 5 mg PO BID ezetimibe 10 mg tablet 10 mg PO HS furosemide 20 mg tablet 20 mg PO QAM losartan 100 mg tablet 100 mg PO QAM multivitamin 2 tab PO QAM potassium chloride 20 mEq tablet,extended release 20 meq PO QAM pravastatin 80 mg tablet 80 mg PO HS psyllium husk 3.4 gram/5.4 gram oral powder 1 tbs PO QAM lutein 10 mg tablet 10 mg PO BID dicyclomine 10 mg capsule 10 mg PO TID PRN albuterol sulfate 90 mcg/actuation aerosol inhaler 2 puffs INHALATION Q4H PRN fluticasone propion-salmeterol [Advair Diskus] 1 inh INHALATION BID montelukast 10 mg PO HS oxycodone 5 mg tablet See Rx Instructions PO Q6H PRN Lactobacillus acidophilus [Probiotic] 10,000 mmu cells PO BID vancomycin 125 mg PO Q48H Continue as directed vancomycin 125 mg PO Q48H ASK your prescriber and surgeon apixaban 5 mg tablet 5 mg PO BID STOP taking 2 weeks before surgery (or as soon as possible if surgery is within 2 weeks) lutein 10 mg tablet 10 mg PO BID DO NOT take the morning of surgery furosemide 20 mg tablet 20 mg PO QAM losartan 100 mg tablet 100 mg PO QAM multivitamin 2 tab PO QAM potassium chloride 20 mEq tablet,extended release 20 meq PO QAM psyllium husk 3.4 gram/5.4 gram oral powder 1 tbs PO QAM dicyclomine 10 mg capsule 10 mg PO TID PRN Lactobacillus acidophilus [Probiotic] 10,000 mmu cells PO BID Take morning of surgery With a small sip of water, OTHERWISE NOTHING TO EAT OR DRINK AFTER MIDNIGHT: amlodipine 5 mg tablet 5 mg PO QAM albuterol sulfate 90 mcg/actuation aerosol inhaler 2 puffs INHALATION Q4H PRN (use if needed; please bring rescue inhaler with you to hospital day of surgery if possible) fluticasone propion-salmeterol [Advair Diskus] 1 inh INHALATION BID oxycodone 5 mg tablet See Rx Instructions PO Q6H PRN (okay to take up to 4 hours prior to surgery if needed) Take evening before surgery ezetimibe 10 mg tablet 10 mg PO HS pravastatin 80 mg tablet 80 mg PO HS dicyclomine 10 mg capsule 10 mg PO TID PRN (if needed) albuterol sulfate 90 mcg/actuation aerosol inhaler 2 puffs INHALATION Q4H PRN (if needed) fluticasone propion-salmeterol [Advair Diskus] 1 inh INHALATION BID montelukast 10 mg PO HS oxycodone 5 mg tablet See Rx Instructions PO Q6H PRN (if needed) Lactobacillus acidophilus [Probiotic] 10,000 mmu cells PO BID Other Notes If you have any questions please call us at [phone] or [phone] or [phone] or [phone]
--- NOTE | 2020-07-25 10:17 | Anesthesiology Consultation ---
Date of Service July 25, 2020 Assessment & Plan (1) Encounter for pre-operative examination: COVID Status: As of 07/25 assessment, patient denies travel to endemic area, known exposure/sick contacts, or symptoms of COVID19. Patient instructed that they and their household members must follow strict social distancing guidelines, wear a mask in public and avoid travel/events/gatherings for 14 days prior to surgery. Preoperative COVID19 testing completed at [facility] on 07/25/2020, results currently pending. Patient made aware to self-isolate as much as possible between COVID testing and surgery. Pt to get second covid vaccine 07/27/20. S/P cysto/litho/stone extraction 06/02/20 = LMA # 4 atraumatic x 1. Slow IV induction. Chart Review Chart Review: Acceptable Risk for Surgery and Patient seen in Pre Admission Testing Teaching & Discussion Instructed NPO after midnight before surgery, except medications with 15 cc of water. Medication instructions provided according to the [facility] guidelines. History Surgery Operation Date: 08/01/20 11:15 Proposed Procedures p Cystoscopy, Ureteronephroscopy, Retrograde Pyelogram, With Possible Ureteral Dilation, Laser Distruction or Extraction of the Stone, Insertion or Exchange of Stent Catheter - Rolando Friedman, DO Height/Weight Height: 5 ft Weight: 94.8 kg Allergies Allergy/AdvReac Type Severity Reaction Status Date / Time budesonide Allergy Unknown PT UNSURE Verified 07/20/20 10:42 OF RXN formoterol Allergy Unknown PT UNSURE Verified 07/20/20 10:42 OF RXN Iodinated Contrast Media Allergy Unknown RASH,HIVES Verified 07/20/20 10:42 FROM IVP DYE metronidazole Allergy Unknown SEVERE GI Verified 07/20/20 10:42 SYMPTOMS tramadol Allergy Unknown NAUSEA/DIZZ Verified 07/20/20 10:42 INESS KEENA Inhibitors AdvReac Intermediate COUGH Verified 07/20/20 10:42 Medications Home Medications Medication Instructions Recorded Confirmed Last Taken amlodipine 5 mg tablet 5 mg PO QAM 12/29/18 07/20/20 06/10/20 apixaban 5 mg tablet 5 mg PO BID #180 tab 12/29/18 07/20/20 06/10/20 ezetimibe 10 mg tablet 10 mg PO HS tab 12/29/18 07/20/20 06/09/20 furosemide 20 mg tablet 20 mg PO QAM tab 12/29/18 07/20/20 06/10/20 losartan 100 mg tablet 100 mg PO QAM tab 12/29/18 07/20/20 06/10/20 multivitamin 2 tab PO QAM 12/29/18 07/20/20 06/10/20 potassium chloride 20 mEq 20 meq PO QAM tab 12/29/18 07/20/20 06/10/20 tablet,extended release pravastatin 80 mg tablet 80 mg PO HS tab 12/29/18 07/20/20 06/09/20 psyllium husk 3.4 gram/5.4 gram 1 tbs PO QAM 12/29/18 07/20/20 05/31/20 oral powder lutein 10 mg tablet 10 mg PO BID tab 12/30/18 07/20/20 06/10/20 dicyclomine 10 mg capsule 10 mg PO TID PRN #270 cap 10/13/19 07/20/20 06/10/20 albuterol sulfate 90 mcg/actuation 2 puffs INHALATION Q4H PRN #3 10/19/1907/20 Unknown aerosol inhaler inhaler fluticasone propion-salmeterol 1 inh INHALATION BID 06/01/20 07/20/20 06/10/20 [Advair Diskus] montelukast 10 mg PO HS 06/01/20 07/20/20 06/09/20 Lactobacillus acidophilus 10,000 mmu cells PO BID 07/20/20 07/20/20 Unknown [Probiotic] vancomycin 125 mg PO Q48H 07/20/20 07/20/20 Unknown oxycodone 5 mg tablet 10 mg PO Q4H PRN #60 tab 07/25/20 Unknown Past Medical History Medical History Acid reflux disease Allergic rhinitis due to pollen Basal cell carcinoma of skin of face Current use of half-way anticoagulation Diverticulosis Extrinsic asthma Advair BID, rare albuterol use, has not used for months. 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 Akers. Sleep apnea bipap 2L O2 [place] diverticulum Exercise / Class Metabolic Activity III < 4 Walking/Shop/Light housework (Using wheeled walker for ambulation) Past Family History Family History Father Cerebral artery occlusion Coronary heart disease Hypertension Myocardial infarction Mother Cerebral artery occlusion Diabetes Hypertension Denies family history of Ovarian cancer Prostate cancer Breast cancer Colorectal cancer Past Surgical History Surgical History H/O rectocele repair H/O: hysterectomy History of bladder surgery bladder sling History of colonoscopy History of total knee arthroplasty bilateral Hx of repair of right rotator cuff S/P carpal tunnel release R S/P cataract surgery b/l eyes S/P cholecystectomy S/P cystoscopy with ureteral stent placement 06/02/20 Dr. Rolando Friedman- Cystoscopy, Right retrograde pyelogram, Right ureteral dilation, Right ureteral sent placement, Right ureteroscopy, Laser lithotripsy, Stone basket extraction S/P Mohs surgery for basal cell carcinoma Status post placement of cardiac pacemaker (08/2011) Placed initially in 2011 for afib. Replaced 05/2020 [facility]. Past Anesthesia History No Hx of Anesthesia Complications and No Family Hx of Anesthesia Complications History of PONV No Hx of PONV and No Hx of Motion Sickness Social History Smoking Status: Never smoker Do You Dip or Chew Tobacco: No Hx Alcohol Use: No (very very rare) alcohol intake frequency: holidays/special occasions only Hx Substance Use: No substance use type: does not use Review of Systems Pt denies any recent chest pain, shortness of breath, palpitations, cough, fever, URI, or uncontrolled acid reflux. Physical Exam Vital Signs BP: 125/73 P: 76bpm SPO2: 96% RA T: 98.5 F R: 16 ENMT Mouth: + dental restorations (few crowns); no chipped teeth and no loose teeth Thyromental Distance: > or= 3.5 Finger Breadths Mallampati Class: II Neck + thick neck and + limited neck extension (very limited) Respiratory normal respiratory effort, lungs clear to auscultation + prolonged expiratory phase Cardiovascular Rate/Rhythm: regular rate and regular rhythm Heart Sounds: no murmur Extremities: + edema (2+ nonpitting, pt reports this is a bit above baseline but no lasix today) Lab Results Anesthesia Preop Results Results Anesthesia Widget: WBC 9.77 K/uL (4.8-10.8) 06/27/20 Hgb 12.7 g/dL (12.0-16.0) 06/27/20 Hct 39.0 % (37-47) 06/27/20 Plt 274 K/uL (130-400) 06/27/20 Na 140 mmol/L (136-145) 06/27/20 K 3.4 mmol/L (3.5-5.1) L 06/27/20 Cl 108 mmol/L (98-107) H 06/27/20 CO2 27 mmol/L (21-32) 06/27/20 BUN 8 mg/dl (7-18) 06/27/20 Creat 0.53 mg/dl (0.6-1.2) L 06/27/20 Glucose Level 104 mg/dl (70-99) H 06/27/20 PT 10.9 Seconds (9.0-12.0) 06/10/20 INR 1.1 (0.9-1.1) 06/10/20 Urine Color [place] 06/21/20 Urine Appearance Clear (Clear) 06/21/20 Urine pH 5.5 (4.5-7.5) 06/21/20 Urine Specific [place] 1.014 (1.000-1.030) 06/21/20 Urine Protein 1+ (Negative) H 06/21/20 Urine Glucose (UA) Negative (Negative) 06/21/20 Urine Ketones Negative (Negative) 06/21/20 Urine Blood 3+ (Negative) H 06/21/20 Urine Nitrite Negative (Negative) 06/21/20 Urine Bilirubin Negative (Negative) 06/21/20 Urine Urobilinogen Negative (Negative) 06/21/20 Urine Leukocyte Esterase 1+ (Negative) H 06/21/20 Urine WBC (Auto) 10-30 /hpf (0-5) H 06/21/20 Urine RBC (Auto) >30 /hpf (0-4) H 06/21/20 Urine Hyaline Casts (Auto) 1-5 /lpf (0-5) 06/21/20 Urine Epithelial Cells (Auto) >30 /lpf (0-5) H 06/21/20 Urine Bacteria (Auto) Negative (Negative) 06/21/20 Testing Electrocardiogram Date: 06/01/20 Ventricular paced rhythm at 70 bpm. Biventricular pacemaker detected. Compared with EKG of 09/10/2016, ventricular rate has decreased by 10 bpm. Chest X-Ray Date: 07/25/20 Mild cardiomegaly. Echocardiogram Date: 08/29/17 *No formal report received, but echo noted in cardiology note 05/18/20 Normal left ventricular wall motion and ejection fraction in the range of 55%, borderline LVH, mild mitral and tricuspid valvular insufficiency, and mild aortic and pulmonic valvular insufficiency. Other Testing Pacemaker Interrogation 05/24/20 Model: [employer] Implantation date: 09/20/11 (battery replaced 05/06/20) Indication: complete heart block Battery/Longevity: 8.8 years Mode: VVIR Pacin.3 ventricular-paced Summary: No events, OptiVol is WNL. This is a normal implantable pacemaker remote follow-up. No significant device related abnormalities were noted.
--- NOTE | 2020-07-25 12:48 | XRay Report ---
XR chest 2V PA/lateral CLINICAL HISTORY: Preoperative chest CARDIOVASCULAR DISEASE. COMPARISON STUDY: 07/09/2014 FINDINGS: The heart is enlarged. There is a left subclavian central venous pacemaker. There is no guillermo lure. There is no focal pulmonary consolidation. There are no significant pleural effusions. Degenera tive changes are present within the dorsal spine.[ IMPRESSION: Mild cardiomegaly. No acute findings. ACT 112: Negative or not required by law. Electronically signed by: Paco Mendez M.D. 07/25/2020 12:47 PM
[~2020-08-01 08:11] MED LIST changes: -ADVIN25/60 INH; +CIPROFLOXACIN / D5W 400 MG/200 ML BAG IV SCH; -DICY10CA12 PO; -DOCU100C31 PO; -FLNIN/ NAE; +LACTATED RINGER'S 1,000 ML IV SCH; -LOSA100T65 PO; -LSX20 PO; -LUTE15CA PO; -LVS125 PO; -MCRK/20 PO; -MISCCAP80 PO; -MULT-190 PO; -MULT-506 PO; -NRV/5 PO; -OMEG10007 PO; -OXGN; -PRAV40TA2 PO; -PSYL48.59 PO; -RANITAB33 PO; -SNG10 PO; -VNTHFA/IN INH; -WARF5TAB90 PO; -ZTA10 PO; +ceFAZolin 2000MG 2,000 MG/15 ML SYR IV SCH
--- NOTE | 2020-08-01 08:25 | History & Physical Bridge Note ---
Date of Service August 01, 2020 History & Physical Bridge Note I have examined the patient, reviewed the History & Physical and in the interval since the performance of the History & Physical I have noted the following changes of clinical significance: no changes noted
[2020-08-01] MEDS ORDERED: ATROPINE SULFATE 0.1 MG/ML 10ML SYR IV PRN (09:40)
[2020-08-01] MEDS ORDERED: ePHEDrine sulfate 50 MG/ML AMP IV PRN (09:40)
[2020-08-01] MEDS ORDERED: ONDANSETRON INJ 2 MG/ML 2 ML VIAL IV PRN ×2 (09:40→16:57)
[2020-08-01] MEDS ORDERED: LIDOCAINE 2% 2 ML VIAL/AMP(20MG/ML) INFIL ONE (11:04)
[2020-08-01] MEDS ORDERED: fentaNYL citrate 100 MCG/2 ML VIAL ONE (11:04)
[2020-08-01] MEDS ORDERED: PROPOFOL IV EMULSION 10 MG/ML 20 ML VIAL IV ONE (11:04)
[2020-08-01] MEDS ORDERED: ONDANSETRON INJ 2 MG/ML 2 ML VIAL ONE (11:38)
[2020-08-01] MEDS ORDERED: DIATRIZOATE MEGLUMINE 30% 100ML VIAL INSTIL ONE (11:42)
--- NOTE | 2020-08-01 11:50 | Operative Report ---
PG Post Operative Report Pre & Post Diagnosis Operation Date: 08/01/20 10:15 Pre-Op Diagnosis: Nephrolithiasis Post-Op Diagnosis: Nephrolithiasis I identified the patient and participated in the time-out.: Yes Procedure Operation Date: 08/01/20 10:15 Actual Procedures p Cystoscopy with Right Ureteronephroscopy, Retrograde Pyelogram, Ureteral Dilation, Basket Extraction of the Stone, and Exchange of Stent Catheter Right(Not Applicable) - Rolando Friedman, Surgeon Rolando Friedman, II, DO Hot Metal [employer]ger None Estimated Blood Loss 1 Findings Consistent with Post-Op Diagnosis Stone fragment removed after dilating distal ureter. Specimens Stone Fragments Drains Right 4.8 x 24 Anesthesia Type General Complications none Disposition Disposition: Recovery Room Indications Patient with bothersome stones. Risks and benefits discussed at length. Description of Procedure Patient was consented and brought back to the operating room. Patient was placed under anesthesia in the supine position and moved to the dorsal lithotomy position. Patient was prepped and draped in the regular sterile fashion. A time out was completed. A 30degree Cystoscope was placed into the bladder and the entire bladder was examined. The UO's were identified. The stent was partially removed and a wire was placed. The stent was then completely removed. The UO was cannulized with a catheter and a retrograde pyelogram was completed. A wire was then replaced. The Rigid ureteroscope was taken into the ureter. The distal ureter was dilated. The scope then advanced to the impacted stone. The stone was identified. The stone was grasped and removed and sent for analysis. The entire area was once again examined. No residual large fragments or areas of concern were noted. The scope was slowly removed with the wire left in place. Contrast was placed through the scope for a pyelogram to assist in stent plac ement. The entire ureter was examined as the scope was slowly removed. No obstructions or other areas of concern were noted. With the wire in place, a 4.8 Fr Double J stent was placed. It was confirmed with fluoroscopy. With the stent in place, the bladder was emptied. The scope was removed. The patient was cleaned, aroused from anesthesia, and transferred to the pacu in stable condition having tolerated the procedure well with no complications. I was present and participated in all aspects of the procedure. The patient will be monitored in the PACU until transferred. I attest to the content of the Intraoperative Record and any orders documented therein. Any exceptions are noted below.
[2020-08-01] MEDS: fentaNYL citrate 100 MCG/2 ML VIAL IV PRN ×8 (11:57→13:33)
--- NOTE | 2020-08-01 12:11 | Fluoroscopy Report ---
FL retrograde includes kub CLINICAL HISTORY: RIGHT LASER LITHO AND RETROGRADE AND STENT COMPARISON STUDY: CT of the abdomen and pelvis June 22, 2020. FLUOROSCOPY TIME: 24 seconds. FLUOROSCOPIC IMAGES: 2 FINDINGS: Fluoroscopy was provided during right sided lithotripsy with ureteral stent placement. IMPRESSION: Fluoroscopy provided during right-sided lithotripsy with ureteral stent placement. ACT 112: Negative or not required by law. Electronically signed by: Constantino Crandall M.D. 08/01/2020 12:09 PM
[2020-08-01] MEDS ORDERED: PHENAZOPYRIDINE HCL 200 MG TAB ONE (13:02)
[2020-08-01] MEDS ORDERED: PHENAZOPYRIDINE HCL 200 MG TAB PO STA (13:04)
[2020-08-01] MEDS ORDERED: KETOROLAC 30 MG/ML VIAL ONE (14:01)
[2020-08-01] MEDS ORDERED: KETOROLAC TROMETHAMINE 15 MG/ML VIAL IV ONE (14:05)
--- NOTE | 2020-08-01 14:23 | Anesthesiology Progress Note ---
Date of Service August 01, 2020 Anesthesia Post Procedure Vital Signs Vital Signs: Temp Pulse Pulse Resp BP Pulse Ox 08/01/20 14:10 70 20 161/55 H 92 08/01/20 14:00 72 23 101/37 L 91 08/01/20 13:50 73 26 H 81/35 L 92 08/01/20 13:40 69 20 104/46 L 93 08/01/20 13:30 78 18 96/47 L 94 08/01/20 13:10 70 27 H 137/56 L 94 08/01/20 13:00 71 23 141/66 H 92 08/01/20 12:50 86 20 146/79 H 94 08/01/20 12:40 70 20 162/70 H 95 08/01/20 12:30 70 20 167/71 H 95 08/01/20 12:20 71 20 171/84 H 95 08/01/20 12:10 74 20 176/98 H 95 08/01/20 12:00 70 18 154/82 H 96 08/01/20 11:51 98.8 F 71 20 147/78 H 96 08/01/20 09:08 98.1 F 86 20 148/70 H 96 Pain Intensity Right Abdomen: Pain Intensity: 10 Right Back: Pain Intensity: 10 Transfer of Care Handoff Completed per policy Notes Mental Status: alert / awake / arousable and participated in evaluation Patient Amnestic to Procedure: Yes Nausea / Vomiting: adequately controlled Pain: adequately controlled Airway Patency, RR, SpO2: stable & adequate BP & HR: stable & adequate Hydration State: stable & adequate Anesthetic Complications: no major complications apparent and Pt Satisfied with anesthetic care Notes: Patient stated having chest pain and back pain in PACU. A 12 lead EKG was ordered, and the EKG was unremarkable compared to a previous EKG. The patient stated her chest pain was improved, but she stated having right back pain that radiated to her groin. Despite pain medications, the patient continued to have back pain. I spoke with Dr. Friedman who evaluated the patient at bedside. The plan was to keep the patient overnight to monitor the patient. The plan was for the patient to go to telemetry. The patient was otherwise stable to be sent to the floor.
--- NOTE | 2020-08-01 14:46 | Electrocardiogram Report ---
Test Reason : Blood Pressure : / mmHG Vent. Rate : 072 BPM Atrial Rate : 441 BPM P-R Int : 000 ms QRS Dur : 140 ms QT Int : 458 ms P-R-T Axes : 000 263 088 degrees QTc Int : 501 ms Ventricular-paced rhythm Biventricular pacemaker detected Abnormal ECG When compared with ECG of 01-JUN-2020 09:27, Vent. rate has increased BY 2 BPM Confirmed by Donnell Dominguez ([id number]) on 08/01/2020 2:46:26 PM Referred By: Rolando Friedman Confirmed By:Donnell Dominguez
[2020-08-01] MEDS ORDERED: PIPERACILL/TAZOBAC CONSULT ACTIVE PRN (15:42)
[2020-08-01] MEDS ORDERED: PIPERACILLIN/TAZOBACTAM 3.375 GM in DEXTROSE 5% 100 ML IV SCH (15:45)
[2020-08-01] MEDS ORDERED: FLUCONAZOLE 100 MG/50 ML BAG IV SCH (16:00)
[2020-08-01] MEDS ORDERED: PIPERACILLIN/TAZOBACTAM 4.5 GM in DEXTROSE 5% 100 ML IV SCH (16:00)
--- NOTE | 2020-08-01 16:09 | XRay Report ---
SINGLE VIEW CHEST CLINICAL HISTORY: Postoperative fever. FINDINGS: An AP, portable, upright chest radiograph is compared to study dated 07/25/2020 and correlat ed with chest CT dated 04/16/2016. A 3-lead cardiac pacemaker is unchanged in position. The heart is e nlarged noting atherosclerotic calcification of the thoracic aorta. The pulmonary vasculature is nonc ongested. Chronic interstitial thickening is similar to previous. Scarring/atelectasis is noted at th e lung bases. No airspace consolidation or large pleural effusion is identified. No pneumothorax is s een. The skeletal structures are osteopenic. The bony thorax is grossly intact. Degenerative change i s noted in the shoulders and thoracic spine. IMPRESSION: 1. Cardiomegaly and cardiac pacemaker. There is no radiographic evidence of congestive failure. 2. No airspace consolidation or large pleural effusion is identified. ACT 112: Negative or not required by law. Electronically signed by: Melo Vega M.D. 08/01/2020 4:08 PM
[2020-08-01 16:45] LABS: Nucleated RBC # (auto) 0.02 K/uL (0-0); Nucleated RBC % (auto) 0.3 %
[2020-08-01 16:57] LABS: Hematocrit (blood only) 47.9 % (37-47); Hemoglobin 15.7 g/dL (12.0-16.0); Mean Corpuscular Hemoglobin 31.8 pg (25-34); Mean Corpuscular Volume 97.2 fL (80-100); RDW Coefficient of Variation 13.9 % (11.5-14.5); RDW Standard Deviation 49.7 fL (36.4-46.3); Red Blood Count 4.93 M/uL (4.2-5.4); White Blood Count 4.55 K/uL (4.8-10.8)
[2020-08-01] MEDS ORDERED: oxyCODONE HCL IR 5 MG TAB (IMMEDIATE RELEASE) PO PRN ×2 (16:57)
[2020-08-01] MEDS ORDERED: ACETAMINOPHEN 325 MG TAB PO PRN (16:57)
[2020-08-01] MEDS ORDERED: DICYCLOMINE HCL 10 MG CAP PO PRN (16:57)
[2020-08-01] MEDS ORDERED: ALBUTEROL HFA 8 GM INHALER INH PRN (16:57)
--- NOTE | 2020-08-01 16:59 | Hospitalist Consultation ---
Date of Consultation August 01, 2020 Assessment & Plan (1) Fever: Patient be admitted with fever and low blood pressure. This could be the beginning of sepsis from urinary source. Could be associated with recent instrumentation. 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 She will be given DuoNeb twice daily. She also has a history of obstructive sleep apnea on CPAP 7 cm of water with 2 L oxygen bleed in (6) DVT prophylaxis: SCDs History of Present Illness Attending Physician: Rolando Friedman, II, DO History of Present Illness Patient was seen postoperatively after exchange of right ureteral stent cystoscopy retrograde pyelogram extraction of stone by Dr. Friedman. Postoperatively she had some hypotension and a fever. Preoperatively she was given Cipro. She is also given Keflex. After the fever she is given Diflucan in Zosyn. Patient seen in the postanesthesia care unit she was awake and arousable able to answer commands her abdomen was slightly uncomfortable. Her oxygen sats were in the low 90s. She typically wears CPAP at night with oxygen bleed in and her low sats may be because she was still having some of the effects of anesthesia. Her lungs did not sound to be consistent with congestive heart failure she is only positive about 568 mL. She was having some mild wheezes and does have a history of asthma but she did take her long-acting inhaler this morning. Patient be admitted to the hospital with concern for sepsis or inflammatory c hanges after her cystoscopy. Given her interface with the healthcare system vancomycin and Zosyn will be continued. It is known that she has a history of C. difficile and will watch for this occurrence. Blood cultures and urine cultures were obtained to the procedure and a procalcitonin will be added Allergies Allergy/AdvReac Type Severity Reaction Status Date / Time budesonide Allergy Unknown PT UNSURE Verified 08/01/20 08:57 OF RXN formoterol Allergy Unknown PT UNSURE Verified 08/01/20 08:57 OF RXN Iodinated Contrast Media Allergy Unknown RASH,HIVES Verified 08/01/20 08:57 FROM IVP DYE metronidazole Allergy Unknown SEVERE GI Verified 08/01/20 08:57 SYMPTOMS tramadol Allergy Unknown NAUSEA/DIZZ Verified 08/01/20 08:57 INESS KEENA Inhibitors AdvReac Intermediate COUGH Verified 08/01/20 08:57 Home Medications Medication Instructions Recorded Confirmed Type amlodipine 5 mg tablet 5 mg PO QAM 12/29/18 08/01/20 History apixaban 5 mg tablet 5 mg PO BID #180 tab 12/29/18 08/01/20 History ezetimibe 10 mg tablet 10 mg PO HS tab 12/29/18 08/01/20 History furosemide 20 mg tablet 20 mg PO QAM tab 12/29/18 08/01/20 History losartan 100 mg tablet 100 mg PO QAM tab 12/29/18 08/01/20 History multivitamin 2 tab PO QAM 12/29/18 08/01/20 History potassium chloride 20 mEq 20 meq PO QAM tab 12/29/18 08/01/20 History tablet,extended release pravastatin 80 mg tablet 80 mg PO HS tab 12/29/18 08/01/20 History psyllium husk 3.4 gram/5.4 gram 1 tbs PO QAM 12/29/18 08/01/20 History oral powder lutein 10 mg tablet 10 mg PO BID tab 12/30/18 08/01/20 History dicyclomine 10 mg capsule 10 mg PO TID PRN #270 cap 10/13/19 08/01/20 Rx albuterol sulfate 90 mcg/actuation 2 puffs INHALATION Q4H PRN #3 10/19/19 08/01/20 Rx aerosol inhaler inhaler fluticasone propion-salmeterol 1 inh INHALATION BID 06/01/20 08/01/20 History [Advair Diskus] montelukast 10 mg PO HS 06/01/20 08/01/20 History Lactobacillus acidophilus 10,000 mmu cells PO BID 07/20/20 08/01/20 History [Probiotic] vancomycin 125 mg PO Q48H 07/20/20 08/01/20 History nitrofurantoin 100 mg PO BID 7 Days #14 cap 07/27/20 08/01/20 Rx monohydrate/macrocrystals 100 mg capsule oxycodone 5 mg tablet 10 mg PO Q4H PRN #60 tab 07/28/20 08/01/20 Rx acetaminophen [Tylenol] 650 mg PO QID PRN 08/01/20 08/01/20 History nitrofurantoin monohyd/m-cryst 100 mg PO BID 7 Days #14 cap 08/01/20 Rx [Macrobid] phenazopyridine [Pyridium] 200 mg PO Q8H PRN #10 tab 08/01/20 Rx tamsulosin 0.4 mg PO HS #30 cap 08/01/20 Rx Patient History Medical History (Updated 08/01/20 @ 17:11 by Adam Brooke MD) Acid reflux disease Allergic rhinitis due to pollen Basal cell carcinoma of skin of face Current use of shelter 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 Akers. Sleep apnea bipap 2L O2 Zenker diverticulum Surgical History H/O rectocele repair H/O: hysterectomy History of bladder surgery bladder sling History of colonoscopy History of total knee arthroplasty bilateral Hx of repair of right rotator cuff S/P carpal tunnel release R S/P cataract surgery b/l eyes S/P cholecystectomy S/P cystoscopy with ureteral stent placement 06/02/20 Dr. Rolando Friedman- Cystoscopy, Right retrograde pyelogram, Right ureteral dilation, Right ureteral sent placement, Right ureteroscopy, Laser lithotripsy, Stone basket extraction S/P Mohs surgery for basal cell carcinoma Status post placement of cardiac pacemaker (08/2011) Placed initially in 2011 for afib. Replaced 05/2020 [facility]. Family History Father Cerebral artery occlusion Coronary heart disease Hypertension Myocardial infarction Mother Cerebral artery occlusion Diabetes Hypertension Denies family history of Ovarian cancer Prostate cancer Breast cancer Colorectal cancer Social History Smoking Status: Never smoker Second Hand Exposure: No; Do You Dip or Chew Tobacco: No; Hx Alcohol Use: No (very very rare) Hx Substance Use: No Preferred Language: Wolof Communication Ability: Effective Visual Impairment: Limited Hearing Ability: Use of Hearing Aid Freight Rate Specialist Required: No Beliefs That Will Affect Care: None marital status: / Current Living Situation: Alone current occupational status: retired Other Information That Helps Us Care for You: No Feels Safe at Home: Yes Safety Concerns: Feels Safe At This Time Childhood Exposure to Second-Hand Smoke: Yes during the past year weight has: remained stable Dental Care, Regularly: Yes Physical Activity Frequency: Does not Exercise Seatbelt Use: always Assistive Devices: Glasses, Hearing Aid - Bilateral and Walker Review of Systems Review of Systems: Mild distress and mild fatigue no headache, blurry or double vision no speech or swallowing issues no chest pain, pressure or palpitations no shortness of breath, cough or wheezes Mild abdominal pain, nausea or vomiting, diarrhea or constipation Gross hematuria after procedure no focal joint pain or swelling Right-sided CVA tenderness but no radicular pain no bruising, bleeding or rashes no focal signs of weakness or numbness or altered sensation is still sedated from anesthesia no complaints of anxiety or depression.. Physical Exam Physical Exam: The patient appeared well nourished and normally developed. Vital signs as documented. Head exam is normocephalic atraumatic no scleral icterus Neck is without JVD, thyromegaly, or carotid bruits. Lungs are decreased at the bases no rales expiratory wheezes Cardiac exam, Rhythm is regular.. No murmurs, rubs or gallops. Abdominal exam reveals hypoactive bowel sounds distended no rebound or guarding mildly tender throughout Extremities are nonedematous and both pedal pulses are present Neurologic exam is alert and awakens to voice, no focal loss of strength or sensation Skin is without bruises or rashes Psychologically is without concerns for anxiety or depression Results & Data Results & Data ([facility]) Vital Signs (Past 12 Hours) Vital Signs Temp Pulse Pulse Resp BP Pulse Ox 08/01/20 15:30 70 24 161/62 H 95 08/01/20 15:15 70 24 169/68 H 95 08/01/20 15:00 70 24 161/79 H 94 08/01/20 14:45 70 27 H 115/64 95 08/01/20 14:30 99.0 F 70 27 H 127/82 95 08/01/20 14:20 77 24 152/53 H 93 08/01/20 14:10 70 20 161/55 H 92 08/01/20 14:00 72 23 101/37 L 91 08/01/20 13:50 73 26 H 81/35 L 92 08/01/20 13:40 69 20 104/46 L 93 08/01/20 13:30 78 18 96/47 L 94 08/01/20 13:10 70 27 H 137/56 L 94 08/01/20 13:00 71 23 141/66 H 92 08/01/20 12:50 86 20 146/79 H 94 08/01/20 12:40 70 20 162/70 H 95 08/01/20 12:30 70 20 167/71 H 95 08/01/20 12:20 71 20 171/84 H 95 08/01/20 12:10 74 20 176/98 H 95 08/01/20 12:00 70 18 154/82 H 96 08/01/20 11:51 98.8 F 71 20 147/78 H 96 08/01/20 09:08 98.1 F 86 20 148/70 H 96 PG Care Time/CCT Total # of Minutes Spent Total Time Spent with Patient: Total time spent is greater than 50% in coordination of care (as documented) at patient's floor/unit and/or counseling patient: Coding Level of Care Code 84406 Inpt Consult Level 4 Diagnoses Fever R50.9 Nephrolithiasis N20.0 Pacemaker Z95.0 Acid reflux disease K21.9 Extrinsic asthma J45.909 DVT prophylaxis Z29.9
[2020-08-01] MEDS ORDERED: VANCOMYCIN CONSULT ACTIVE PRN (17:01)
[2020-08-01] MEDS: LACTATED RINGER'S 1,000 ML IV SCH (17:05)
[2020-08-01 17:12] LABS: BUN Creatinine Ratio 8.6 (10-20); Calcium 9.2 mg/dl (8.5-10.1); Creatinine Clr Calc Pharmacy 40.4 ml/min
[2020-08-01 17:33] LABS: Mean Corpuscular Hgb Conc 32.8 g/dL (32-36); Platelet Count 43 K/uL (130-400)
[2020-08-01 17:34] LABS: ALC (manual) 0.28 K/uL (1.2-3.4); ANC (manual) 3.99 K/uL (1.4-6.5); Eosinophils # (manual) 0.04 K/uL (0-0.5); Eosinophils % (manual) 0.9 %; Lymphocytes # (manual) 0.28 K/uL (1.2-3.4); Lymphocytes % (manual) 6.1 %; Metamyelocytes % (manual) 4.4 %; Myelocytes # (manual) 0.04 K/uL (0-0); Myelocytes % (manual) 0.9 %; Neutrophils # (manual) 3.99 K/uL (1.4-6.5); Neutrophils % (manual) 87.7 %; Platelet Estimate SIGNIFIC DECREASED (Normal); RBC Morphology Unremarkable
[2020-08-01] MEDS ORDERED: KETOROLAC TROMETHAMINE 15 MG/ML VIAL IV PRN (17:38)
[2020-08-01] MEDS ORDERED: VANCOMYCIN HCL 2,250 MG in SODIUM CHLORIDE 0.9% 500 ML IV STA (18:28)
[2020-08-01] MEDS ORDERED: PIPERACILLIN/TAZOBACTAM 4.5 GM in DEXTROSE 5% 100 ML IV STA (18:47)
[2020-08-01] MEDS: ALBUT/IPRATROP 3MG/0.5MG NEB 3 ML VIAL NEB SCH (19:09)
--- NOTE | 2020-08-01 19:46 | Pharmacy Report ---
Pharmacy Abx Dose Short Note - Date of Service August 01, 2020 - Assessment & Plan Assessment 85 year old F receiving IV Vancomycin and Zosyn for treatment of post-op fever, possible sepsis secondary to UTI Day # 1 of antimicrobial therapy. * Patient presented with nephrolithiasis and underwent cystoscopy. Post-op, developed fever. Procalcitonin was elevated. Empirically started on Vancomycin and Zosyn. * Baseline sCr ~0.6 mg/dL * sCr = 1.01 mg/dL today. Anticipate that renal function should return to baseline tomorrow, therefore will dose Vancomycin based on this assumption. If, however, renal function does not improve, Vancomycin maintenance regimen will be modified accordingly.. * Of note, patient is obese and is at risk for Vancomycin accumulation Plan Vancomycin * Give Vancomycin 2250mg (~24mg/kg) IV x 1 as a loading dose * Initiate Vancomycin 1250mg (~13mg/kg) IV q12 * Goal trough level for UTI : 15 to 20 mcg/mL * Trough or random level ordered for: 08/03/20 @ 0930 Zosyn * Patient was supposed to received loading dose of Zosyn in the OR, but for unclear reason it was not administered? A dose was sent to the OR ~1600, but because there is no documentation and nursing states no bag of Zosyn in the room with patient at present time, will have to send another dose to load. * Give Zosyn 4.5g IV x 1 as a loading dose for BMI >35. Then Zosyn 4.5g IV q8 (extended infusion) for CrCl >20 Pharmacy will continue to follow and will adjust dose/frequency as necessary. Thank you.
[2020-08-01] MEDS: ACETAMINOPHEN 500 MG TAB PO SCH (20:42)
[2020-08-01] MEDS ORDERED: PRAVASTATIN SOD 40 MG TAB PO SCH (21:00)
[2020-08-01] MEDS ORDERED: EZETIMIBE 10 MG TABLET PO SCH (21:00)
[2020-08-01] MEDS ORDERED: MONTELUKAST SODIUM 10 MG TABLET PO SCH (21:00)
[2020-08-01] MEDS ORDERED: SODIUM CHLORIDE 0.9% 1000ML 1,000 ML IV ONE ×2 (21:21→21:22)
--- NOTE | 2020-08-01 21:24 | Communication Note ---
Date of Service: August 01, 2020 Called to patient bedside for complaints of lightheadedness, diaphoresis, hypotension to 62/38, with repeat check 74/48. This occurred after getting her Toradol for back pain. In short, patient was admitted for right ureteral stent cystoscopy retrograde pyelogram extraction of stone by Dr. Friedman. Earlier today Hospitalist service was consulted for hypotension and fever after procedure. She was started on IV Vanc/Zosyn after urine and blood cultures were collected. On arrival to room patient was clammy, in Trendelenburg position, complaining of feeling lightheaded. Denied chest pain, palpitations, SOB. Complaining of back pain and abdominal pain of similar nature to earlier in the day. Heart RRR, lungs CTA bilaterally (no crackles, wheezes), abdomen soft, mildly tender throughout. Reviewed last Echocardiogram performed 07/2017, which showed EF 55% and no described diastolic dysfunction. Patient is on daily furosemide 20mg PO; holding this as well as KEENA and high dose opiate given hypotension. Changed pain control orders to scheduled tylenol 1000mg q8h, toradol 15mg IV q6h as needed for moderate to severe pain. BP after about 250cc NSS increased to 90s/50s. Advised nursing to complete that bolus and call with BP following. BP after fluid bolus was 80s/50s, asymptomatic and no longer dizzy/lightheaded. Advised nursing to give another 1L NSS bolus. BP still held at 70-80s/40-50s. 3rd NSS bolus given. Due to BP still low, Stanislaw Garza PA-C made aware that patient would be transferred to ICU. On review of patient chart, patient was listed as FULL CODE which was different from last admission. Discussed code status with patient; while she is okay with pressure support should she need it, she does NOT want intubation, chest compressions, defibrillation should they be required in the event of cardiac arrest or respiratory failure. Conversation was had with LOWELL Serna and LOWELL Morales in attendance. Patient's Code Status was changed to DNR/DNI. This decision was confirmed with patient by Stanislaw Garza PA-C when he arrived to the room. Case discussed with Dr. Briones. Resident Activity Tracking Resident Involvement: Resident Care Provided Care Provided: Adult [facility]
[2020-08-01] MEDS: FAMOTIDINE 20 MG in SYRINGE 3 ML IV SCH (21:40)
[2020-08-02] MEDS ORDERED: SODIUM CHLORIDE 0.9% 1000ML 1,000 ML IV ONE (02:50)
[2020-08-02] MEDS: LACTATED RINGER'S 1,000 ML IV SCH ×2 (02:52→12:56)
[2020-08-02] MEDS ORDERED: STAT IV Infusion **Titration per Protocol STA (04:27)
[2020-08-02] MEDS ORDERED: NOREPINEPHRINE/D5W 8 MG/508 ML IV ONE (04:29)
[2020-08-02] MEDS ORDERED: NOREPINEPHRINE/D5W 8 MG/508 ML BAG IV SCH (04:30)
[2020-08-02] MEDS ORDERED: ICU PROTOCOL FOR HYPERGLYCEMIA PRN (04:49)
--- NOTE | 2020-08-02 05:00 | Critical Care Consultation ---
Date of Consultation August 02, 2020 Assessment & Plan (1) Admitted to intensive care unit: Reason Critically Ill: 85-year-old female with severe sepsis and septic shock likely from urinary source who is status post ureteral stenting with stone retrieval and stent placement requiring resuscitation with IV fluids and now requiring vasopressors with need for close hemodynamic monitoring. NEURO - * CAM ICU: NEGATIVE * Pain: PRN Fentanyl - takes Oxycodone 5-10 mg P4H PRN at home. CARDIAC/VASCULAR - * Hypotension: * Likely 2/2 sepsis. * Appropriately resuscitated with IV fluids prior to arrival in the ICU. * Will add vasopressors for ongoing support. * Will check H&H in the setting of recent surgical intervention and on apixaban at home. * Would hold on further aggressive IV fluid resuscitation as patient appears volume overloaded. * EKG: Paced rhythm. * Monitor on telemetry. RESPIRATORY - * Hypoxia: * Likely with degree of volume overload in the setting of resuscitation. * Will obtain chest x-ray to correlate with exam findings. * Will provide positive pressure ventilatory techniques as the patient does use this at home already. GI/NUTRITION - * Flank pain: * Likely postprocedural discomfort. * Ideally, would wish to proceed with CT, however the patient became nauseous with laying flat and did vomit x2. * Plan for CT abdomen/pelvis when patient clinically stable. * Prophylaxis: Famotidine RENAL/LYTES - * Initially w/o significant electrolyte derangements. * Monitor for changes with patient's developing clinical scenario. - * Ureteral stones s/p retrieval with stenting: * Febrile w/ borderline pressures s/p intervention. * Likely pyelonephritis. * Will image when clinically stable to r/o any other underlying issues. * Continues w/ blood from Huerta. * Huerta in place - Strict I&Os. ENDO - * No h/o DM or Thyroid Dz * BSGs per unit protocol. ISS --> gtt per unit policy. HEME - * Will check H&H s/p intervention w/ home use of apixaban. ID - * Severe sepsis w/ septic shock: * Likely 2/2 urinary source. * Currently on Diflucan, Zosyn, Vanc. * Continue for now. * Recheck Lactate/PCT LINES/IV ACCESS - * PIVs x2 * Huerta DVT PROPHYLAXIS - * Apixaban * SCDs I have personally spent 45 minutes of critical care time in the direct management of this patient. This is a life/limb threatening event. This includes time spent evaluating patient, direct bedside care, chart review, placing orders, interpretation of diagnostic studies, discussion with consultants, patient, and family members, as well as other required patient management activities. This time is exclusive of all separately billable procedures, and teaching time and separate from and in addition to any other critical care service time. Thank you for allowing us to participate in the care of this patient. Please refer to my attending physician's documentation for any further recommendations. (2) Severe sepsis with septic shock: (3) S/P ureteral stent placement: (4) Abdominal pain: (5) Fever: History of Present Illness Attending Physician: Rolando Friedman, II, DO History of Present Illness Patient is an 85-year-old female with a significant past medical history of sleep apnea, status post pacemaker to fibular, congestive heart failure, macular degeneration, asthma, and acid reflux. The patient was admitted to this facility today postoperatively after cystoscopy with RIGHT ureteral nephroscopy, retrograde pyelogram, ureteral dilatation, basket extraction of stone, and exchange of stent catheter to the RIGHT. Postoperatively, the patient was having fevers and borderline blood pressures. She was started on broad-spectrum antibiotics and admitted to the floor with IV fluids. Throughout the night, the patient's blood pressures became more of an issue with systolics in the 60s. She received several liters of IV fluids in an attempt to resuscitate. Unfortunately, the patient has ongoing hypotension and need for vasopressor support. Upon evaluation on 2 W., the patient is awake, alert, and oriented. She does appear ill. She complains of pain to the RIGHT sided flank area. She denies any abdominal pain, but is tender to palpation which she reports she does not remember feeling previously. She denies any complaints of headaches, dizziness, lightheadedness, chest pain, palpitations, pleuritic pain, or pain/weakness in her extremities. Allergies Allergy/AdvReac Type Severity Reaction Status Date / Time budesonide Allergy Unknown PT UNSURE Verified 08/01/20 08:57 OF RXN formoterol Allergy Unknown PT UNSURE Verified 08/01/20 08:57 OF RXN Iodinated Contrast Media Allergy Unknown RASH,HIVES Verified 08/01/20 08:57 FROM IVP DYE metronidazole Allergy Unknown SEVERE GI Verified 08/01/20 08:57 SYMPTOMS tramadol Allergy Unknown NAUSEA/DIZZ Verified 08/01/20 08:57 INESS KEENA Inhibitors AdvReac Intermediate COUGH Verified 08/01/20 08:57 Home Medications Medication Instructions Recorded Confirmed Type amlodipine 5 mg tablet 5 mg PO QAM 12/29/18 08/01/20 History apixaban 5 mg tablet 5 mg PO BID #180 tab 12/29/18 08/01/20 History ezetimibe 10 mg tablet 10 mg PO HS tab 12/29/18 08/01/20 History furosemide 20 mg tablet 20 mg PO QAM tab 12/29/18 08/01/20 History losartan 100 mg tablet 100 mg PO QAM tab 12/29/18 08/01/20 History multivitamin 2 tab PO QAM 12/29/18 08/01/20 History potassium chloride 20 mEq 20 meq PO QAM tab 12/29/18 08/01/20 History tablet,extended release pravastatin 80 mg tablet 80 mg PO HS tab 12/29/18 08/01/20 History psyllium husk 3.4 gram/5.4 gram 1 tbs PO QAM 12/29/18 08/01/20 History oral powder lutein 10 mg tablet 10 mg PO BID tab 12/30/18 08/01/20 History dicyclomine 10 mg capsule 10 mg PO TID PRN #270 cap 10/13/19 08/01/20 Rx albuterol sulfate 90 mcg/actuation 2 puffs INHALATION Q4H PRN #3 10/19/19 08/01/20 Rx aerosol inhaler inhaler fluticasone propion-salmeterol 1 inh INHALATION BID 06/01/20 08/01/20 History [Advair Diskus] montelukast 10 mg PO HS 06/01/20 08/01/20 History Lactobacillus acidophilus 10,000 mmu cells PO BID 07/20/20 08/01/20 History [Probiotic] vancomycin 125 mg PO Q48H 07/20/20 08/01/20 History nitrofurantoin 100 mg PO BID 7 Days #14 cap 07/27/20 08/01/20 Rx monohydrate/macrocrystals 100 mg capsule oxycodone 5 mg tablet 10 mg PO Q4H PRN #60 tab 07/28/20 08/01/20 Rx acetaminophen [Tylenol] 650 mg PO QID PRN 08/01/20 08/01/20 History nitrofurantoin monohyd/m-cryst 100 mg PO BID 7 Days #14 cap 08/01/20 Rx [Macrobid] phenazopyridine [Pyridium] 200 mg PO Q8H PRN #10 tab 08/01/20 Rx tamsulosin 0.4 mg PO HS #30 cap 08/01/20 Rx Patient History Medical History Acid reflux disease Allergic rhinitis due to pollen Basal cell carcinoma of skin of face Current use of [facility] 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 Akers. Sleep apnea bipap 2L O2 Zenker diverticulum Surgical History H/O rectocele repair H/O: hysterectomy History of bladder surgery bladder sling History of colonoscopy History of total knee arthroplasty bilateral Hx of repair of right rotator cuff S/P carpal tunnel release R S/P cataract surgery b/l eyes S/P cholecystectomy S/P cystoscopy with ureteral stent placement 06/02/20 Dr. Rolando Friedman- Cystoscopy, Right retrograde pyelogram, Right ureteral dilation, Right ureteral sent placement, Right ureteroscopy, Laser lithotripsy, Stone basket extraction S/P Mohs surgery for basal cell carcinoma Status post placement of cardiac pacemaker (08/2011) Placed initially in 2011 for afib. Replaced 05/2020 [facility]. Family History Father Cerebral artery occlusion Coronary heart disease Hypertension Myocardial infarction Mother Cerebral artery occlusion Diabetes Hypertension Denies family history of Ovarian cancer Prostate cancer Breast cancer Colorectal cancer Social History Smoking Status: Never smoker Second Hand Exposure: No; Do You Dip or Chew Tobacco: No; Hx Alcohol Use: No (very very rare) Hx Substance Use: No Preferred Language: Bermudian Communication Ability: Effective Visual Impairment: Limited Hearing Ability: Use of Hearing Aid Well Head Pumper Required: No Beliefs That Will Affect Care: None marital status: / Current Living Situation: Alone current occupational status: retired Other Information That Helps Us Care for You: No Feels Safe at Home: Yes Safety Concerns: Feels Safe At This Time Childhood Exposure to Second-Hand Smoke: Yes during the past year weight has: remained stable Dental Care, Regularly: Yes Physical Activity Frequency: Does not Exercise Seatbelt Use: always Assistive Devices: Glasses, Hearing Aid - Bilateral and Walker Review of Systems Review of Systems: A complete 10 point review of systems was reviewed with the patient with pertinent positives and negatives as per history of present illness. All else were negative. Physical Exam Physical Exam: VITAL SIGNS - Vital signs and nursing notes were reviewed. GENERAL - []-year-old [] appearing [] stated age who is in no acute distress. Communicates well with provider and answers questions appropriately. SKIN - Without rashes. HEAD - NC/AT. EYES - PERRL with EOMI bilaterally. Sclera anicteric. Palpebral conjunctiva pink and moist with no injection noted. EARS - No deformities of external structures noted on gross examination bilaterally. No pain elicited with palpation of the tragus bilaterally. External auditory canals without discharge or otorrhea. Tympanic membranes pearly real without retraction or bulging. No fluid or purulent material visualized behind the TM. Handle of malleus, umbo, cone of light, pars tensa/flaccid all easily visualized. NOSE - Midline and without cyanosis. No epistaxis or purulent drainage noted. Septum midline without deviation or septal hematoma noted. MOUTH/OROPHARYNX - Without perioral cyanosis. Buccal mucosa pink and moist and without leukoplakia. Tongue midline with equal elevation of palate bilaterally. No tonsillar hypertrophy, erythema, or exudates noted. [] dentition noted. NECK - Neck with FROM. Supple to palpation. [] lymphadenopathy noted. No nuchal rigidity. LUNGS - Chest wall symmetric without accessory muscle use, intercostals retrac tions, or central cyanosis. Normal vesicular breath sounds CTA B/L. No wheezes, rales, or rhonchi appreciated. CARDIAC - RRR with S1/S2. No murmur, rubs, or gallops appreciated. ABDOMEN - Abdominal contour [] without pulsations or visible masses. BS normoactive all four quadrants. No tenderness, palpable masses, hepatosplenomegaly, or ascites noted. EXTREMITIES - No clubbing or peripheral cyanosis. No pretibial edema present. +3/5 radial, posterior tibial, and dorsalis pedis pulses palpated throughout. +5/5 strength noted in UE/LE bilaterally. NEUROLOGIC - Cranial nerves II through XII grossly intact. Sensory intact to light touch throughout. Patellar reflexes +2/4. PSYCH - A&Ox3 and cooperates fully with examiner. Pt is very pleasant and interacts well with examiner. Results & Data Results & Data ([facility]) Vital Signs (Past 12 Hours) Vital Signs Temp Pulse Pulse Pulse Resp BP BP 08/02/20 04:19 64/33 L 08/02/20 04:05 76/43 L 08/02/20 03:14 36.3 C L 71 18 72/44 L 08/02/20 02:37 70 08/01/20 23:03 36.3 C L 70 16 84/51 L 08/01/20 22:22 70 19 08/01/20 20:46 71 90/57 L 08/01/20 20:05 70 84/52 L 08/01/20 19:44 36.6 C 71 18 62/38 L 74/48 L 08/01/20 19:11 72 16 08/01/20 17:16 70 08/01/20 17:05 38.8 C H 71 18 110/67 Pulse Ox 08/02/20 04:19 08/02/20 04:05 08/02/20 03:14 90 08/02/20 02:37 08/01/20 23:03 95 08/01/20 22:22 93 08/01/20 20:46 08/01/20 20:05 08/01/20 19:44 93 08/01/20 19:11 90 08/01/20 17:16 08/01/20 17:05 91 Coding Level of Care Code Critical Care 1st 30-74 mins Diagnoses Admitted to intensive care unit Z78.9 Severe sepsis with septic shock A41.9; R65.21 S/P ureteral stent placement Z96.0 Abdominal pain R10.9 Fever R50.9 Time Spent (min) 45
[2020-08-02] MEDS ORDERED: PIPERACILL/TAZOBAC CONSULT ACTIVE PRN (05:33)
[2020-08-02] MEDS ORDERED: PIPERACILLIN/TAZOBACTAM 4.5 GM in DEXTROSE 5% 100 ML IV ONE (05:45)
[2020-08-02 05:55] LABS: Albumin Level 2.4 gm/dl (3.4-5.0); BUN Creatinine Ratio 8.6 (10-20); Bilirubin,Total 7.3 mg/dl (0.2-1); Calcium 7.4 mg/dl (8.5-10.1); Creatinine Clr Calc Pharmacy 19.4 ml/min; Est GFR (African American) 23.9; Est GFR (Non-African American) 20.6; Magnesium 1.6 mg/dl (1.8-2.4); Phosphorus 3.6 mg/dl (2.5-4.9); Potassium 4.3 mmol/L (3.5-5.1); Total Protein 4.9 gm/dl (6.4-8.2)
[2020-08-02 05:57] LABS: Troponin I 0.049 ng/ml (0-0.045)
[2020-08-02 06:01] LABS: Hematocrit (blood only) 41.5 % (37-47); Hemoglobin 13.5 g/dL (12.0-16.0); Mean Corpuscular Hemoglobin 32.5 pg (25-34); Mean Corpuscular Hgb Conc 32.5 g/dL (32-36); Nucleated RBC # (auto) 0.08 K/uL (0-0); Nucleated RBC % (auto) 0.4 %; Platelet Count 33 K/uL (130-400); RDW Coefficient of Variation 15.2 % (11.5-14.5); Red Blood Count 4.15 M/uL (4.2-5.4); White Blood Count 20.04 K/uL (4.8-10.8)
[2020-08-02 06:02] LABS: ALC (manual) 0.52 K/uL (1.2-3.4); ANC (manual) 17.43 K/uL (1.4-6.5); Echinocytes 1+; Lymphocytes # (manual) 0.52 K/uL (1.2-3.4); Lymphocytes % (manual) 2.6 %; Metamyelocytes # (manual) 1.22 K/uL (0-0); Metamyelocytes % (manual) 6.1 %; Monocytes # (manual) 0.34 K/uL (0.11-0.59); Monocytes % (manual) 1.7 %; Myelocytes # (manual) 0.52 K/uL (0-0); Myelocytes % (manual) 2.6 %; Neutrophils # (manual) 17.43 K/uL (1.4-6.5); Platelet Estimate SIGNIFIC DECREASED (Normal); Toxic Vacuolation 1+
[2020-08-02] MEDS: ACETAMINOPHEN 500 MG TAB PO SCH ×2 (06:09→11:52)
--- NOTE | 2020-08-02 06:34 | XRay Report ---
XR chest 1V portable CLINICAL HISTORY: sob/hypoxia COMPARISON STUDY: Chest radiograph August 01, 2020. FINDINGS: Left subclavian biventricular pacer/AICD is in place. There are trace bilateral pleural eff usions with bibasilar opacities. Cardiomegaly is unchanged. Interstitial thickening has increased. Th is suggests mild pulmonary edema. There is no pneumothorax. A previous distal right clavicular resect ion is noted. IMPRESSION: Interstitial thickening suggestive of mild pulmonary edema with trace bilateral pleural effusions and bibasilar opacities that favor atelectasis. ACT 112: Negative or not required by law. Electronically signed by: Constantino Crandall M.D. 08/02/2020 6:32 AM
--- NOTE | 2020-08-02 06:37 | XRay Report ---
KUB CLINICAL HISTORY: abd distention s/p stenting COMPARISON STUDY: CT of the abdomen and pelvis June 22, 2020. FINDINGS: Incidental note is made of cholecystectomy clips. There is no evidence for a bowel obstruct ion. A right ureteral stent is in place. Distal aspect of stent was not imaged on this examination. N o ureteral calculi are identified. IMPRESSION: 1. No evidence for a bowel obstruction. 2. Right ureteral stent in place. No ureteral calculi or fragments identified. ACT 112: Negative or not required by law. Electronically signed by: Constantino Crandall M.D. 08/02/2020 6:35 AM
--- NOTE | 2020-08-02 06:49 | CT Scan Report ---
CT OF THE CHEST WITHOUT IV CONTRAST CLINICAL HISTORY: sob/hypoxia COMPARISON STUDY: Chest CT April 16, 2016. Chest radiograph performed earlier today. TECHNIQUE: Axial images of the chest were obtained without IV contrast. Images were reviewed in the axial, sagittal, and coronal planes. IV contrast was not administered for this examination. Automat ed exposure control was utilized for the study. A dose lowering technique was utilized adhering to t he principles of ALARA. FINDINGS: A left subclavian biventricular pacer/AICD is in place. There is moderate cardiomegaly. No significant pericardial effusion is noted. There is no pneumothorax. Small right and trace left pleu ral effusions are noted. Subpleural opacities favor atelectasis. There is mild interlobular septal th ickening. Numerous small bilateral pulmonary nodules are similar to prior chest CT. These are benign. Lungs are suboptimally assessed due to respiratory motion. Central airways are patent. No acute frac ture or suspicious lesion is identified within the visualized skeletal structures. There are mildly e nlarged left axillary and mediastinal lymph nodes. Index left axillary lymph node on image 81 of 311 measures 1.2 cm. Index right paratracheal lymph node on image 82 measures 1.2 cm. IMPRESSION: 1. Small right and trace left pleural effusions with associated airspace opacities favor atelectasis. 2. Suspected mild pulmonary edema. Moderate cardiomegaly. 3. Mildly enlarged left axillary and mediastinal lymph nodes which are nonspecific although probably benign. ACT 112: Negative or not required by law. Electronically signed by: Constantino Crandall M.D. 08/02/2020 6:47 AM
--- NOTE | 2020-08-02 07:01 | Communication Note ---
Date of Service: August 02, 2020 Patient continues to be hypotensive despite escalating doses of Levophed. Initial goal resuscitation was to place central line as well as arterial line for closer monitoring and aggressive management in the patient in active extremis. Patient was having nausea and vomiting which precluded initial placement of IJ central line. Despite this, the patient has good peripheral access and we are able to continue with vasopressors currently. Laboratory results are concerning for acute kidney injury. Patient is essentially an uric. Her lactate is nearly 8. Her liver enzymes are significantly elevated as well. I did present to bedside to start performing procedures including central line and arterial line. When I discussed central line for the third time, the patient states that she would not wish to proceed with any further interventions at this point and would rather we let her pass peacefully. When questioned why, she reports that she knows that "I will end up in a home." I did explain to her that I cannot guarantee this and I cannot guarantee that this is not something that she could improve from. Despite this extensive conversation and attempting to explain to the patient all treatments that may be of benefit to her, she adamantly declines any ongoing treatment at this point. The patient is awake, alert, and oriented. She is able to independently make decisions as she does so for herself at home as well. Patient does report that she has a living will at home that states that she is adamantly a DNR/DNI. She would wish to proceed with progressing towards comfort measures sooner rather than later. I did speak to her about allowing us to obtain CT of the abdomen pelvis as well as chest for ongoing assessment for possible reversible causes. She is agreeable to CT scanning, but still declines further procedures including central line or arterial line. She does request that I reach out to her children. 0608: Reached out to clinical coordinator to discuss patient's family being allowed to visit with mother in the setting of extenuating circumstances and end-of-life conversations. 0610: Spoke with patient's daughter, Arcelia Schwarz ([phone]). An extensive conversation with her regarding mother's wishes in the setting of decline. She states that this does seem consistent with the patient's wishes previously. She is comfortable with her mother's decision making and no escalation of care at this point. She will reach out to her siblings and will present to the hospital to be with her mother prior to discontinuing current care. 0624: Spoke with patient's daughter, Candelaria ([phone]). Again with extensive conversation regarding mother's current state and wishes. She is also in agreement that we of hold and on her mother's wishes at this time. 0633: Attempted to reach patient's son, Keron ([phone]). Left message. He did return call and again confirms that we should have hold his mother's wishes. I have personally spent 35 minutes of critical care time in the direct management of this patient. This is a life/limb threatening event. This includes time spent evaluating patient, direct bedside care, chart review, placing orders, interpretation of diagnostic studies, discussion with consultants, patient, and family members, as well as other required patient management activities. This time is exclusive of all separately billable procedures, and teaching time and separate from and in addition to any other critical care service time. Coding Level of Care Code Critical Care kirk mckeon'l 30 min Time Spent (min) 35
[2020-08-02] MEDS: ALBUT/IPRATROP 3MG/0.5MG NEB 3 ML VIAL NEB SCH (07:13)
--- NOTE | 2020-08-02 07:36 | CT Scan Report ---
ABDOMEN AND PELVIS CT WITHOUT CONTRAST CT DOSE: 2087.45 mGy.cm HISTORY: Acute generalized abdominal pain with hypertension. abd pain, hypotension s/p ureteral sten ting TECHNIQUE: Multiaxial CT images of the abdomen and pelvis were performed without contrast. A dose lo wering technique was utilized adhering to the principles of ALARA. COMPARISON STUDY: Chest CT of same day, CT abdomen and pelvis 06/22/2020 FINDINGS: Cardiomegaly. Probable mild pulmonary edema. Small right and trace left pleural effusions w ith bibasilar opacities suggestive of atelectasis. No pneumatosis or pneumoperitoneum. The unenhanced spleen, pancreas, adrenal glands and liver appear unremarkable. Cholecystectomy. Nonspecific bilateral perinephric stranding. Punctate calculus of the inferior pole left kidney redem onstrated. Unchanged 3 mm calculus of the interpolar right kidney. Right ureteral stent is in place. The previously noted ureteral calculi are no longer identified and have passed in the interval. Mild to moderate right-sided hydroureteronephrosis has progressed from comparison. Progressively worsened right perinephric and periureteral stranding. Decompressed urinary bladder with Huerta catheter in tame[place] ce. Hysterectomy. Calcified plaque of the abdominal aorta. No adenopathy. Periesophageal prominent lymph nodes are redemonstrated measuring up to 7 mm. Moderate fecal retentio n of the rectum. Colonic diverticulosis without definite CT evidence of acute diverticulitis. Nonvisu alization of the appendix. Mild diffuse mesenteric edema with trace ascites. Diastases recti. Degener ative changes of the spine, pelvis and hips. IMPRESSION: 1. Satisfactory positioning of the right ureteral stent. The previously described right ureteral calc jarocho have passed in the interval. There is however new mild to moderate right-sided hydroureteronephro sis. 2. Nonobstructing bilateral nephrolithiasis. 3. Moderate fecal retention of the rectum. 4. Colonic diverticulosis without acute diverticulitis. 5. Volume overload with pulmonary edema, small right and trace left pleural effusions with mesenteric edema and trace ascites. 6. Additional findings as above. ACT 112: Negative or not required by law. The above report was generated using voice recognition software. It may contain grammatical, syntax o r spelling errors. Electronically signed by: Michele Hopper M.D. 08/02/2020 7:34 AM
--- NOTE | 2020-08-02 07:55 | Urology Progress Note ---
Date of Service August 02, 2020 Assessment & Plan (1) Fever: (2) Severe sepsis with septic shock: (3) S/P ureteral stent placement: 85 year-old female patient, with multiple comorbidities, admitted s/p right ureteroscopy, basket stone extraction, right stent exchange secondary to fever and presumed sepsis. -POD #1 cystoscopy, right URS, basket extraction of stone, and right stent exchange with Dr. Friedman. - unfortunately, she acutely worsened post op and was admitted to the ICU - on pressors now, family at the bedside - we attempted to encourage her to continue her fight as this situation is likely reversible, however, she is relatively resolute that she is not interested in continuing lifesaving measures (wants to stop pressors, abx, IVF, etc) - she is very lucid and has expressed an excellent understanding of the situation, but simply seems ready to go. Her 3 children are in the room and in agreement with the plan. - we will continue to follow. - care discussed with the ICU team Admission and Anticipated Discharge Date Admission Date: August 01, 2020 Subjective Patient examined at bedside - alert and awake. Does appear fatigued. She does report discomfort to right flank/abdomen. Pain tolerable with PRN pain medications. Denies fevers or chills. Denies nausea or vomiting. She reports she is "ready to go". She notes she does not want aggressive resuscitation measures. She states she has been "alone for 17 years" and does not want to continue to be alone. Her family is planning to come in to visit her this morning. Code status has been changed to DNR/DNI after discussion with hospitalists. Chart review: Tmax in 24 hours 38.8 Currently afebrile. Hypotensive, most recent blood pressure 71/56 Currently on 12 L face mask. Wbc 20.04 (previously 4.55) Hgb 13.5 Creatinine 2.10 (previously 1.01). Preliminary urine culture gram negative bacilli. Preliminary blood culture gram negative bacilli. Patient currently on IV Zosyn and IV Fluconazole. Continues on vasopressors. Denies additional urologic concerns today. Review of Systems Constitutional: as per Subjective / HPI; no fever and no chills Gastrointestinal: as per Subjective / HPI; no nausea and no vomiting Genitourinary: as per Subjective / HPI Physical Exam Constitutional: cooperative; no acute distress Appears fatigued, non-toxic appearing Respiratory: normal respiratory effort and able to speak in complete sentences; no respiratory distress and no audible wheezes On 12 L oxygen via facial mask. Cardiovascular: Extremities: + edema (+1 pitting edema to bilateral lower extremities) Gastrointestinal (Abdomen): Inspection/Auscultation: abdomen normal to inspection; abdomen not distended Percussion/Palpation: + abdomen tender (Right lower quadrant) and abdomen soft; no guarding Psychiatric: Orientation: alert, oriented x 3 and cooperative Affect: + flat affect Genitourinary: Huerta intact draining clear pink urine. No visible clots. Results & Data ([facility]) Vital Signs (Past 12 Hours) Vital Signs Temp Pulse Pulse Pulse Resp BP BP 08/02/20 07:14 73 18 08/02/20 06:07 72 71/56 L 08/02/20 06:04 71 84/40 L 08/02/20 06:02 70 80/43 L 08/02/20 06:01 71 08/02/20 05:59 70 87/33 L 08/02/20 05:57 70 85/33 L 08/02/20 05:54 70 109/33 L 08/02/20 05:52 70 81/36 L 08/02/20 05:51 70 08/02/20 05:49 70 83/36 L 08/02/20 05:47 70 70/35 L 08/02/20 05:44 70 68/34 L 08/02/20 05:42 70 82/37 L 08/02/20 05:41 70 08/02/20 05:39 70 77/39 L 08/02/20 05:37 71 84/37 L 08/02/20 05:34 71 83/39 L 08/02/20 05:32 70 81/39 L 08/02/20 05:31 70 08/02/20 05:29 70 96/38 L 08/02/20 05:27 71 80/39 L 08/02/20 05:24 72 83/34 L 08/02/20 05:22 76 81/34 L 08/02/20 05:21 87 08/02/20 05:19 76 79/40 L 08/02/20 05:15 73 70/32 L 08/02/20 05:11 72 86/37 L 08/02/20 05:09 70 82/38 L 08/02/20 05:07 71 77/39 L 08/02/20 05:02 77 92/46 L 08/02/20 05:01 89 08/02/20 04:59 74 84/40 L 08/02/20 04:57 72 76/38 L 08/02/20 04:54 115 H 08/02/20 04:49 72 08/02/20 04:30 71 20 08/02/20 04:20 70 25 H 08/02/20 04:19 08/02/20 04:10 70 25 H 08/02/20 04:05 08/02/20 04:00 70 20 08/02/20 03:50 72 19 08/02/20 03:40 70 20 08/02/20 03:30 83 21 08/02/20 03:20 70 20 08/02/20 03:14 36.3 C L 71 18 72/44 L 08/02/20 03:10 74 15 08/02/20 03:00 70 15 08/02/20 02:50 70 4 L 08/02/20 02:40 70 21 08/02/20 02:37 70 08/02/20 02:30 75 21 08/02/20 02:20 70 15 08/02/20 02:10 71 23 08/02/20 02:00 70 16 08/02/20 01:50 70 16 08/02/20 01:40 70 23 08/02/20 01:30 70 15 08/02/20 01:20 70 14 08/02/20 01:10 70 14 08/02/20 01:00 73 15 08/02/20 00:50 70 20 08/02/20 00:40 70 15 08/02/20 00:30 70 15 08/02/20 00:20 75 08/02/20 00:10 70 29 H 08/02/20 00:00 70 18 08/01/20 23:50 73 20 08/01/20 23:40 71 22 08/01/20 23:30 80 23 08/01/20 23:20 90 24 08/01/20 23:10 70 0 L 08/01/20 23:03 36.3 C L 70 16 84/51 L 08/01/20 23:00 70 18 08/01/20 22:50 70 14 08/01/20 22:40 70 23 08/01/20 22:30 70 21 08/01/20 22:22 70 19 08/01/20 22:20 70 22 08/01/20 20:46 71 90/57 L 08/01/20 20:05 70 84/52 L BP Pulse Ox 08/02/20 07:14 93 08/02/20 06:07 94 08/02/20 06:04 96 08/02/20 06:02 95 08/02/20 06:01 91 08/02/20 05:59 89 L 08/02/20 05:57 90 08/02/20 05:54 94 08/02/20 05:52 93 08/02/20 05:51 93 08/02/20 05:49 93 08/02/20 05:47 94 08/02/20 05:44 96 08/02/20 05:42 96 08/02/20 05:41 95 08/02/20 05:39 94 08/02/20 05:37 94 08/02/20 05:34 94 08/02/20 05:32 96 08/02/20 05:31 92 08/02/20 05:29 92 08/02/20 05:27 94 08/02/20 05:24 94 08/02/20 05:22 94 08/02/20 05:21 91 08/02/20 05:19 96 08/02/20 05:15 96 08/02/20 05:11 88 L 08/02/20 05:09 86 L 08/02/20 05:07 82 L 08/02/20 05:02 82 L 08/02/20 05:01 08/02/20 04:59 83 L 08/02/20 04:57 80 L 08/02/20 04:54 85 L 08/02/20 04:49 08/02/20 04:30 08/02/20 04:20 08/02/20 04:19 64/33 L 08/02/20 04:10 08/02/20 04:05 76/43 L 08/02/20 04:00 08/02/20 03:50 08/02/20 03:40 08/02/20 03:30 08/02/20 03:20 08/02/20 03:14 90 08/02/20 03:10 08/02/20 03:00 08/02/20 02:50 08/02/20 02:40 08/02/20 02:37 08/02/20 02:30 08/02/20 02:20 08/02/20 02:10 08/02/20 02:00 08/02/20 01:50 08/02/20 01:40 08/02/20 01:30 08/02/20 01:20 08/02/20 01:10 08/02/20 01:00 08/02/20 00:50 08/02/20 00:40 08/02/20 00:30 08/02/20 00:20 08/02/20 00:10 08/02/20 00:00 08/01/20 23:50 08/01/20 23:40 08/01/20 23:30 08/01/20 23:20 08/01/20 23:10 08/01/20 23:03 95 08/01/20 23:00 08/01/20 22:50 08/01/20 22:40 08/01/20 22:30 08/01/20 22:22 93 08/01/20 22:20 08/01/20 20:46 08/01/20 20:05 PG Care Time/CCT Total # of Minutes Spent Total Time Spent with Patient: Total time spent is greater than 50% in coordination of care (as documented) at patient's floor/unit and/or counseling patient: Coding Level of Care Code 09826 Subseq Hosp Care Lvl 3 Diagnoses Fever R50.9 Severe sepsis with septic shock A41.9; R65.21 S/P ureteral stent placement Z96.0
[2020-08-02] MEDS ORDERED: MoRPHine SULFATE 2 MG/ML CARP IV STA (08:01)
--- NOTE | 2020-08-02 08:01 | Hospitalist Progress Note ---
Date of Service August 02, 2020 Assessment & Plan (1) Fever: developed septic shock overnight, high lactic acid, procalcitonin, leukocytosis, sepsis from urinary source. Could be associated with recent instrumentation. Patient has blood cultures obtained pt needed pressors, but upon further questioning does not want resuscitation, but wants to continue until family arrives. continue vancomycin and Zosyn therapy, was also given diflucan as has history fungal infection Ct chest abdomen and pelvis does not show acute alternative source in chest and abdomen, only shows some heart failure making additional fluid resuscitation challenging pt did require some pressors overnight, and the pt now does not wish for any medical support not even antibiotics, outlook is not optimistic for survival (2) Nephrolithiasis: Patient has gross hematuria after procedure Huerta catheter remains (3) Pacemaker: Patient has a pacemaker for history of atrial fibrillation [facility] is not on any rate controlling medications her antihypertensives will be held due to her lower blood pressure at this time (4) Acid reflux disease: Pepcid twice daily (5) Extrinsic asthma: Patient remains on Advair. She will be given DuoNeb twice daily. She also has a history of obstructive sleep apnea on CPAP 7 cm of water with 2 L oxygen bleed in (6) DVT prophylaxis: SCDs Admission and Anticipated Discharge Date Admission Date: August 01, 2020 Subjective Pt is with decision to not continue with supportive care, family is at bedside, they understand that without antibiotics the pt will likely , they are supportive of her decision in this manner, she is sedate with recently being medicated for back pain Review of Systems Review of Systems: Unobtainable due to cognitive status Physical Exam Constitutional: well developed and average body habitus Eyes: no conjunctival abnormality and no scleral abnormality Neck: normal visual inspection and trachea midline Respiratory: + respiratory distress Auscultation: + diminished lung sounds Cardiovascular: RRR, no murmur, no edema Gastrointestinal (Abdomen): Inspection/Auscultation: abdomen normal to inspection Percussion/Palpation: + abdomen tender and abdomen soft Musculoskeletal: no cyanosis or clubbing, extremities motor strength 5/5 Results & Data Results & Data ([facility]) Vital Signs (Past 12 Hours) Vital Signs Temp Pulse Pulse Pulse Resp BP BP 08/02/20 07:14 73 18 08/02/20 06:07 72 71/56 L 08/02/20 06:04 71 84/40 L 08/02/20 06:02 70 80/43 L 08/02/20 06:01 71 08/02/20 05:59 70 87/33 L 08/02/20 05:57 70 85/33 L 08/02/20 05:54 70 109/33 L 08/02/20 05:52 70 81/36 L 08/02/20 05:51 70 08/02/20 05:49 70 83/36 L 08/02/20 05:47 70 70/35 L 08/02/20 05:44 70 68/34 L 08/02/20 05:42 70 82/37 L 08/02/20 05:41 70 08/02/20 05:39 70 77/39 L 08/02/20 05:37 71 84/37 L 08/02/20 05:34 71 83/39 L 08/02/20 05:32 70 81/39 L 08/02/20 05:31 70 08/02/20 05:29 70 96/38 L 08/02/20 05:27 71 80/39 L 08/02/20 05:24 72 83/34 L 08/02/20 05:22 76 81/34 L 08/02/20 05:21 87 08/02/20 05:19 76 79/40 L 08/02/20 05:15 73 70/32 L 08/02/20 05:11 72 86/37 L 08/02/20 05:09 70 82/38 L 08/02/20 05:07 71 77/39 L 08/02/20 05:02 77 92/46 L 08/02/20 05:01 89 08/02/20 04:59 74 84/40 L 08/02/20 04:57 72 76/38 L 08/02/20 04:54 115 H 08/02/20 04:49 72 08/02/20 04:30 71 20 08/02/20 04:20 70 25 H 08/02/20 04:19 08/02/20 04:10 70 25 H 08/02/20 04:05 08/02/20 04:00 70 20 08/02/20 03:50 72 19 08/02/20 03:40 70 20 08/02/20 03:30 83 21 08/02/20 03:20 70 20 08/02/20 03:14 97.3 F L 71 18 72/44 L 08/02/20 03:10 74 15 08/02/20 03:00 70 15 08/02/20 02:50 70 4 L 08/02/20 02:40 70 21 08/02/20 02:37 70 08/02/20 02:30 75 21 08/02/20 02:20 70 15 08/02/20 02:10 71 23 08/02/20 02:00 70 16 08/02/20 01:50 70 16 08/02/20 01:40 70 23 08/02/20 01:30 70 15 08/02/20 01:20 70 14 08/02/20 01:10 70 14 08/02/20 01:00 73 15 08/02/20 00:50 70 20 08/02/20 00:40 70 15 08/02/20 00:30 70 15 08/02/20 00:20 75 08/02/20 00:10 70 29 H 08/02/20 00:00 70 18 08/01/20 23:50 73 20 08/01/20 23:40 71 22 08/01/20 23:30 80 23 08/01/20 23:20 90 24 08/01/20 23:10 70 0 L 08/01/20 23:03 97.3 F L 70 16 84/51 L 08/01/20 23:00 70 18 08/01/20 22:50 70 14 08/01/20 22:40 70 23 08/01/20 22:30 70 21 08/01/20 22:22 70 19 08/01/20 22:20 70 22 08/01/20 20:46 71 90/57 L 08/01/20 20:05 70 84/52 L BP Pulse Ox 08/02/20 07:14 93 08/02/20 06:07 94 08/02/20 06:04 96 08/02/20 06:02 95 08/02/20 06:01 91 08/02/20 05:59 89 L 08/02/20 05:57 90 08/02/20 05:54 94 08/02/20 05:52 93 08/02/20 05:51 93 08/02/20 05:49 93 08/02/20 05:47 94 08/02/20 05:44 96 08/02/20 05:42 96 08/02/20 05:41 95 08/02/20 05:39 94 08/02/20 05:37 94 08/02/20 05:34 94 08/02/20 05:32 96 08/02/20 05:31 92 08/02/20 05:29 92 08/02/20 05:27 94 08/02/20 05:24 94 08/02/20 05:22 94 08/02/20 05:21 91 08/02/20 05:19 96 08/02/20 05:15 96 08/02/20 05:11 88 L 08/02/20 05:09 86 L 08/02/20 05:07 82 L 08/02/20 05:02 82 L 08/02/20 05:01 08/02/20 04:59 83 L 08/02/20 04:57 80 L 08/02/20 04:54 85 L 08/02/20 04:49 08/02/20 04:30 08/02/20 04:20 08/02/20 04:19 64/33 L 08/02/20 04:10 08/02/20 04:05 76/43 L 08/02/20 04:00 08/02/20 03:50 08/02/20 03:40 08/02/20 03:30 08/02/20 03:20 08/02/20 03:14 90 08/02/20 03:10 08/02/20 03:00 08/02/20 02:50 08/02/20 02:40 08/02/20 02:37 08/02/20 02:30 08/02/20 02:20 08/02/20 02:10 08/02/20 02:00 08/02/20 01:50 08/02/20 01:40 08/02/20 01:30 08/02/20 01:20 08/02/20 01:10 08/02/20 01:00 08/02/20 00:50 08/02/20 00:40 08/02/20 00:30 08/02/20 00:20 08/02/20 00:10 08/02/20 00:00 08/01/20 23:50 08/01/20 23:40 08/01/20 23:30 08/01/20 23:20 08/01/20 23:10 08/01/20 23:03 95 08/01/20 23:00 08/01/20 22:50 08/01/20 22:40 08/01/20 22:30 08/01/20 22:22 93 08/01/20 22:20 08/01/20 20:46 08/01/20 20:05 PG Care Time/CCT Total # of Minutes Spent Total Time Spent with Patient: Total time spent is greater than 50% in coordination of care (as documented) at patient's floor/unit and/or counseling patient: Coding Level of Care Code 44505 Subseq Hosp Care Lvl 3 Diagnoses Fever R50.9 Nephrolithiasis N20.0 Pacemaker Z95.0 Acid reflux disease K21.9 Extrinsic asthma J45.909 DVT prophylaxis Z29.9
[2020-08-02] MEDS ORDERED: MULTIVITAMIN TAB PO SCH (09:00)
[2020-08-02] MEDS ORDERED: FUROSEMIDE 20 MG TAB PO SCH (09:00)
[2020-08-02] MEDS ORDERED: PANTOprazole 40 MG TAB PO SCH (09:00)
[2020-08-02] MEDS ORDERED: amLODIPine BESYLATE 5 MG TAB PO SCH (09:00)
[2020-08-02] MEDS ORDERED: LOSARTAN POTASSIUM 50 MG TAB PO SCH (09:00)
[2020-08-02] MEDS ORDERED: PSYLLIUM 58.6% POWDER PACKET PO SCH (09:00)
[2020-08-02] MEDS ORDERED: POTASSIUM CHLORIDE CRTAB 20 MEQ TABCR PO SCH (09:00)
[2020-08-02] MEDS ORDERED: FLUTICASONE/VILANTEROL 200/25MCG 14 PUFFS/INHALER INH SCH (09:00)
[2020-08-02] MEDS ORDERED: ONDANSETRON INJ 2 MG/ML 2 ML VIAL IV PRN (09:14)
[2020-08-02] MEDS ORDERED: ONDANSETRON 4 MG OD TAB SL PRN (09:14)
[2020-08-02] MEDS ORDERED: MoRPHine SULFATE 2 MG/ML CARP IV PRN (09:14)
[2020-08-02] MEDS ORDERED: GLYCOPYRROLATE 0.2 MG/ML VIAL IV PRN (09:14)
[2020-08-02] MEDS ORDERED: LORazepam 0.5 MG TAB PO PRN (09:14)
[2020-08-02] MEDS ORDERED: LORazepam 0.5 MG/1 ML VIAL IV PRN (09:14)
[2020-08-02] MEDS ORDERED: VANCOMYCIN HCL 1,250 MG in SODIUM CHLORIDE 0.9% 250 ML IV SCH (10:00)
[2020-08-02] MEDS: FAMOTIDINE 20 MG in SYRINGE 3 ML IV SCH (10:09)
[2020-08-02] MEDS ORDERED: ALBUT/IPRATROP 3MG/0.5MG NEB 3 ML VIAL NEB PRN (10:23)
[2020-08-02] MEDS ORDERED: HYDROmorphone INJ 0.5 MG/0.5 ML SYR IV PRN (10:29)
--- NOTE | 2020-08-02 10:46 | Palliative Care Consultation ---
Date of Consultation August 02, 2020 Assessment & Plan (1) Palliative care encounter: I met with Lorna and her children at bedside. They are all very much in agreement that they want to pursue comfort directed care. They want her to be comfortable and understand that she is approaching her . We discussed pain medication. Given her renal failure, would avoid morphine due to metabolite toxicity. Will rotate to hydromorphone and monitor. She may benefit from an infusion. Will monitor delirium when pain is better controlled. This is likely multifactorial. We discussed confusion and restlessness being related to pain, medication side effect and terminal delirium. They would prefer that she be comfortable even if sedated. We will monitor and adjust medications as needed. I checked on Lorna again around 2:30pm. She is now in private room on third floor. She is obtunded with mottling of feet. She appears comfortable. Per RN, she tolerated routine care well. No family in room. Continue current meds. (2) Nephrolithiasis: (3) Severe sepsis with septic shock: (4) Pacemaker: (5) Macular degeneration: History of Present Illness Reason for Consultation: comfort care Requesting Physician: Dr. Brown Attending Physician: Rolando Friedman, II, DO History of Present Illness 85 yo lady with history of afib and pacemaker who had been living independently at home until about two months ago when she was hospitalized with obstructive nephrolithiasis and UTI. She had lithotripsy and stent placement as well as antibiotic treatment. Unfortunately, she developed C diff and was readmitted for treatment of this. She was discharged to [facility] for rehab and had returned home in mid June. Since her initial stone, she has had ongoing pain in her back and groin and has been on various opioids for pain. At home she was taking oxycodone 10mg every four hours without significant relief. She underwent stone removal and stent replacement yesterday but developed fever and hypotension, postoperatively. Her family reports that prior to the procedure, she had told them that if this didn't go well, "pull the plug". She has been quite open and consistent about not wanting to continue with treatment in favor of a comfort directed approach. Her family notes that she would be very distressed if she were dependent on others for care and would not want to live like that. They are all in agreement that withdrawing curative treatment and shifting focus to comfort would be in her best interest. She is restless, picking at sheets, moaning and complains of pain in her back and pain with touch. She has had significant decline in kidney funtion over the last 24 hours with creatinine increased to 2.1 with GFR of 20. Allergies Allergy/AdvReac Type Severity Reaction Status Date / Time budesonide Allergy Unknown PT UNSURE Verified 08/01/20 08:57 OF RXN formoterol Allergy Unknown PT UNSURE Verified 08/01/20 08:57 OF RXN Iodinated Contrast Media Allergy Unknown RASH,HIVES Verified 08/01/20 08:57 FROM IVP DYE metronidazole Allergy Unknown SEVERE GI Verified 08/01/20 08:57 SYMPTOMS tramadol Allergy Unknown NAUSEA/DIZZ Verified 08/01/20 08:57 INESS KEENA Inhibitors AdvReac Intermediate COUGH Verified 08/01/20 08:57 Home Medications Medication Instructions Recorded Confirmed Type amlodipine 5 mg tablet 5 mg PO QAM 12/29/18 08/01/20 History apixaban 5 mg tablet 5 mg PO BID #180 tab 12/29/18 08/01/20 History ezetimibe 10 mg tablet 10 mg PO HS tab 12/29/18 08/01/20 History furosemide 20 mg tablet 20 mg PO QAM tab 12/29/18 08/01/20 History losartan 100 mg tablet 100 mg PO QAM tab 12/29/18 08/01/20 History multivitamin 2 tab PO QAM 12/29/18 08/01/20 History potassium chloride 20 mEq 20 meq PO QAM tab 12/29/18 08/01/20 History tablet,extended release pravastatin 80 mg tablet 80 mg PO HS tab 12/29/18 08/01/20 History psyllium husk 3.4 gram/5.4 gram 1 tbs PO QAM 12/29/18 08/01/20 History oral powder lutein 10 mg tablet 10 mg PO BID tab 12/30/18 08/01/20 History dicyclomine 10 mg capsule 10 mg PO TID PRN #270 cap 10/13/19 08/01/20 Rx albuterol sulfate 90 mcg/actuation 2 puffs INHALATION Q4H PRN #3 10/19/19 08/01/20 Rx aerosol inhaler inhaler fluticasone propion-salmeterol 1 inh INHALATION BID 06/01/20 08/01/20 History [Advair Diskus] montelukast 10 mg PO HS 06/01/20 08/01/20 History Lactobacillus acidophilus 10,000 mmu cells PO BID 07/20/20 08/01/20 History [Probiotic] vancomycin 125 mg PO Q48H 07/20/20 08/01/20 History nitrofurantoin 100 mg PO BID 7 Days #14 cap 07/27/20 08/01/20 Rx monohydrate/macrocrystals 100 mg capsule oxycodone 5 mg tablet 10 mg PO Q4H PRN #60 tab 07/28/20 08/01/20 Rx acetaminophen [Tylenol] 650 mg PO QID PRN 08/01/20 08/01/20 History nitrofurantoin monohyd/m-cryst 100 mg PO BID 7 Days #14 cap 08/01/20 Rx [Macrobid] phenazopyridine [Pyridium] 200 mg PO Q8H PRN #10 tab 08/01/20 Rx tamsulosin 0.4 mg PO HS #30 cap 08/01/20 Rx Patient History Medical History Acid reflux disease Allergic rhinitis due to pollen Basal cell carcinoma of skin of face 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 Akers. Sleep apnea bipap 2L O2 Zenker diverticulum Surgical History H/O rectocele repair H/O: hysterectomy History of bladder surgery bladder sling History of colonoscopy History of total knee arthroplasty bilateral Hx of repair of right rotator cuff S/P carpal tunnel release R S/P cataract surgery b/l eyes S/P cholecystectomy S/P cystoscopy with ureteral stent placement 06/02/20 Dr. Rolando Friedman- Cystoscopy, Right retrograde pyelogram, Right ureteral dilation, Right ureteral sent placement, Right ureteroscopy, Laser lithotripsy, Stone basket extraction S/P Mohs surgery for basal cell carcinoma Status post placement of cardiac pacemaker (08/2011) Placed initially in 2011 for afib. [facility] Family History Father Cerebral artery occlusion Coronary heart disease Hypertension Myocardial infarction Mother Cerebral artery occlusion Diabetes Hypertension Denies family history of Ovarian cancer Prostate cancer Breast cancer Colorectal cancer Social History Smoking Status: Never smoker Second Hand Exposure: No; Do You Dip or Chew Tobacco: No; Hx Alcohol Use: No (very very rare) Hx Substance Use: No Preferred Language: Yoruba Communication Ability: Effective Visual Impairment: Limited Hearing Ability: Use of Hearing Aid Cnc Set Up Operator Required: No Beliefs That Will Affect Care: None marital status: / Current Living Situation: Alone current occupational status: retired Other Information That Helps Us Care for You: No Feels Safe at Home: Yes Safety Concerns: Feels Safe At This Time Childhood Exposure to Second-Hand Smoke: Yes during the past year weight has: remained stable Dental Care, Regularly: Yes Physical Activity Frequency: Does not Exercise Seatbelt Use: always Assistive Devices: Glasses, Hearing Aid - Bilateral and Walker Review of Systems Review of Systems: [place] Symptom Assessment Scale Pain 3/3 Dyspnea 0/3 Anxiety 2/3 Nausea 0/3 Drowsiness 1/3 Palliative Performance Score Physical Exam Constitutional: + in distress restless, undressing ENMT: Mouth: + dry oral mucous membranes Respiratory: normal respiratory effort; no labored breathing Cardiovascular: Rate/Rhythm: regular rate and regular rhythm Gastrointestinal (Abdomen): Inspection/Auscultation: + abdomen distended Musculoskeletal: moves al extremities Neurologic: delirium Results & Data ([facility]) Vital Signs (Past 12 Hours) Vital Signs Temp Pulse Pulse Resp BP BP BP 08/02/20 07:14 73 18 08/02/20 06:07 72 71/56 L 08/02/20 06:04 71 84/40 L 08/02/20 06:02 70 80/43 L 08/02/20 06:01 71 08/02/20 05:59 70 87/33 L 08/02/20 05:57 70 85/33 L 08/02/20 05:54 70 109/33 L 08/02/20 05:52 70 81/36 L 08/02/20 05:51 70 08/02/20 05:49 70 83/36 L 08/02/20 05:47 70 70/35 L 08/02/20 05:44 70 68/34 L 08/02/20 05:42 70 82/37 L 08/02/20 05:41 70 08/02/20 05:39 70 77/39 L 08/02/20 05:37 71 84/37 L 08/02/20 05:34 71 83/39 L 08/02/20 05:32 70 81/39 L 08/02/20 05:31 70 08/02/20 05:29 70 96/38 L 08/02/20 05:27 71 80/39 L 08/02/20 05:24 72 83/34 L 08/02/20 05:22 76 81/34 L 08/02/20 05:21 87 08/02/20 05:19 76 79/40 L 08/02/20 05:15 73 70/32 L 08/02/20 05:11 72 86/37 L 08/02/20 05:09 70 82/38 L 08/02/20 05:07 71 77/39 L 08/02/20 05:02 77 92/46 L 08/02/20 05:01 89 08/02/20 04:59 74 84/40 L 08/02/20 04:57 72 76/38 L 08/02/20 04:54 115 H 08/02/20 04:49 72 08/02/20 04:30 71 20 08/02/20 04:20 70 25 H 08/02/20 04:19 64/33 L 08/02/20 04:10 70 25 H 08/02/20 04:05 76/43 L 08/02/20 04:00 70 20 08/02/20 03:50 72 19 08/02/20 03:40 70 20 08/02/20 03:30 83 21 08/02/20 03:20 70 20 08/02/20 03:14 97.3 F L 71 18 72/44 L 08/02/20 03:10 74 15 08/02/20 03:00 70 15 08/02/20 02:50 70 4 L 08/02/20 02:40 70 21 08/02/20 02:37 70 08/02/20 02:30 75 21 08/02/20 02:20 70 15 08/02/20 02:10 71 23 08/02/20 02:00 70 16 08/02/20 01:50 70 16 08/02/20 01:40 70 23 08/02/20 01:30 70 15 08/02/20 01:20 70 14 08/02/20 01:10 70 14 08/02/20 01:00 73 15 08/02/20 00:50 70 20 08/02/20 00:40 70 15 08/02/20 00:30 70 15 08/02/20 00:20 75 08/02/20 00:10 70 29 H 08/02/20 00:00 70 18 08/01/20 23:50 73 20 08/01/20 23:40 71 22 08/01/20 23:30 80 23 08/01/20 23:20 90 24 08/01/20 23:10 70 0 L 08/01/20 23:03 97.3 F L 70 16 84/51 L 08/01/20 23:00 70 18 08/01/20 22:50 70 14 Pulse Ox 08/02/20 07:14 93 08/02/20 06:07 94 08/02/20 06:04 96 08/02/20 06:02 95 08/02/20 06:01 91 08/02/20 05:59 89 L 08/02/20 05:57 90 08/02/20 05:54 94 08/02/20 05:52 93 08/02/20 05:51 93 08/02/20 05:49 93 08/02/20 05:47 94 08/02/20 05:44 96 08/02/20 05:42 96 08/02/20 05:41 95 08/02/20 05:39 94 08/02/20 05:37 94 08/02/20 05:34 94 08/02/20 05:32 96 08/02/20 05:31 92 08/02/20 05:29 92 08/02/20 05:27 94 08/02/20 05:24 94 08/02/20 05:22 94 08/02/20 05:21 91 08/02/20 05:19 96 08/02/20 05:15 96 08/02/20 05:11 88 L 08/02/20 05:09 86 L 08/02/20 05:07 82 L 08/02/20 05:02 82 L 08/02/20 05:01 08/02/20 04:59 83 L 08/02/20 04:57 80 L 08/02/20 04:54 85 L 08/02/20 04:49 08/02/20 04:30 08/02/20 04:20 08/02/20 04:19 08/02/20 04:10 08/02/20 04:05 08/02/20 04:00 08/02/20 03:50 08/02/20 03:40 08/02/20 03:30 08/02/20 03:20 08/02/20 03:14 90 08/02/20 03:10 08/02/20 03:00 08/02/20 02:50 08/02/20 02:40 08/02/20 02:37 08/02/20 02:30 08/02/20 02:20 08/02/20 02:10 08/02/20 02:00 08/02/20 01:50 08/02/20 01:40 08/02/20 01:30 08/02/20 01:20 08/02/20 01:10 08/02/20 01:00 08/02/20 00:50 08/02/20 00:40 08/02/20 00:30 08/02/20 00:20 08/02/20 00:10 08/02/20 00:00 08/01/20 23:50 08/01/20 23:40 08/01/20 23:30 08/01/20 23:20 08/01/20 23:10 08/01/20 23:03 95 08/01/20 23:00 08/01/20 22:50 PG Care Time/CCT Total # of Minutes Spent Total Time Spent with Patient: Total time spent is greater than 50% in coordination of care (as documented) at patient's floor/unit and/or counseling patient: total time spent 70 minutes with more than 50% of time spent on goals of care, symptom management, family education and support. Coding Level of Care Code 03972 Inpt Consult Level 4 Diagnoses Palliative care encounter Z51.5 Nephrolithiasis N20.0 Severe sepsis with septic shock A41.9; R65.21 Pacemaker Z95.0 Macular degeneration H35.30
[2020-08-02] MEDS ORDERED: PIPERACILLIN/TAZOBACTAM 4.5 GM in DEXTROSE 5% 100 ML IV SCH ×2 (12:00)
--- NOTE | 2020-08-02 13:54 | Communication Note ---
Date of Service: August 02, 2020 Patient seen and examined. Discussed with critical care TISH and on multidisciplinary rounds as well as with urology and the primary admitting service at bedside. Met with patient and family members at bedside. Patient appears to be suffering urosepsis with gram-negative bacteremia. Suspect E. coli based on previous cultures. She has renal insufficiency and probable shock liver and required vasopressor agents. After meeting with the patient and family at bedside and reviewing the case, the patient clearly states that she does not want to pursue any additional intervention including pressors antibiotics or oxygen and wants to be made comfortable. She understands that this likely will result in potential . Her family reiterates that she is making sound medical decisions and this is consistent with how she is lived her life previously and consistent with previous expressed wishes. The patient has been consistent in expressing these wishes to the overnight critical care TISH, the admitting hospitalist, the urologist, and myself. In accordance with the patient's wishes, we will not pursue additional aggressive interventions and instead transition to more of a palliative approach. At this point time she can be transferred out of the intensive care unit back to the hospitalist service. 39 minutes critical care time meeting with family and reviewing chart. Coding Level of Care Code Critical Care ea addt'l 30 min Time Spent (min) 39
[2020-08-02] MEDS ORDERED: FLUCONAZOLE 100 MG/50 ML BAG IV SCH (16:00)
--- NOTE | 2020-08-02 16:17 | Discharge Summary ---
Date of Service August 02, 2020 Principal Diagnosis septic shock from urinary source pronounced at 1522 08/02/20 Discharge Exam no spontaneous heart tones or respirations and pronounced at 1522 Discharge Data Allergies Allergy/AdvReac Type Severity Reaction Status Date / Time budesonide Allergy Unknown PT UNSURE Verified 08/01/20 08:57 OF RXN formoterol Allergy Unknown PT UNSURE Verified 08/01/20 08:57 OF RXN Iodinated Contrast Media Allergy Unknown RASH,HIVES Verified 08/01/20 08:57 FROM IVP DYE metronidazole Allergy Unknown SEVERE GI Verified 08/01/20 08:57 SYMPTOMS tramadol Allergy Unknown NAUSEA/DIZZ Verified 08/01/20 08:57 INESS KEENA Inhibitors AdvReac Intermediate COUGH Verified 08/01/20 08:57 Consultations 08/01/20 15:38 Consult Infectious Diseases Routine 08/01/20 16:57 Consult Hospitalist Routine 08/02/20 04:49 Consult Acid Tester Routine 08/02/20 09:14 Consult Palliative Care Routine Procedures Performed Operation Date: 08/01/20 10:15 Actual Procedures p Exchange of Right Stent Catheter(Right) - Rolando Friedman DO s Cystoscopy, Right Ureteronephroscopy, Retrograde Pyelogram, Ureteral Dilation,Basket Extraction of the Stone, (Right) - Rolando Friedman DO Ordered Studies 08/01/20 10:15 FL retrograde includes kub Routine 08/02/20 04:42 CT abd pelvis wo con Stat 08/02/20 05:57 US point of care ultrasound Urgent 08/02/20 06:06 CT chest diagnostic wo con Stat Hospital Course (1) : pt pronounced 1522 on 08/02/20 from sepsis from urinary source pt withdrew care by her own decision earlier in the day, family was at bedside and supportive of her decisions, they were also present when she the remainder below is record of this hospital stay (2) Fever: developed septic shock overnight, high lactic acid, procalcitonin, leukocytosis, sepsis from urinary source. Could be associated with recent instrumentation. Patient has blood cultures obtained pt needed pressors, but upon further questioning does not want resuscitation, but wants to continue until family arrives. continue vancomycin and Zosyn therapy, was also given diflucan as has history fungal infection Ct chest abdomen and pelvis does not show acute alternative source in chest and abdomen, only shows some heart failure making additional fluid resuscitation challenging pt did require some pressors overnight, and the pt now does not wish for any medical support not even antibiotics, outlook is not optimistic for survival (3) Nephrolithiasis: Patient has gross hematuria after procedure Huerta catheter remains (4) Pacemaker: Patient has a pacemaker for history of atrial fibrillation [facility] is not on any rate controlling medications her antihypertensives will be held due to her lower blood pressure at this time (5) Acid reflux disease: Pepcid twice daily Total Time Total Time Spent Total Time Spent (In Minutes): It required greater than 30 minutes to prepare this patient for discharge Discharge Plan Discharge Items Reason For Visit: Nephrolithiasis Discharge Diagnosis: Same Activity: Resume your previous activity Lifting: No more than 50 pounds Call non-emergency contact if: you have any medication questions, your symptoms worsen, your pain is not controlled, your pain is worsening, your pain is concerning for you, you have a fever and your temperature is above 101.5 Follow-up/Referrals: Dania Barcenas DO [Primary Care Provider] - Addtl Attending Provider Instructions: May have blood in urine. Call if any fevers or chills. Pending Studies at Discharge: No Stand-Alone Forms: My [facility] Medications and DC Order Prescriptions: New phenazopyridine [Pyridium] 200 mg tablet 200 mg PO Q8H PRN (Reason: pain) Qty: 10 RF: 0 tamsulosin 0.4 mg capsule 0.4 mg PO HS Qty: 30 RF: 0 nitrofurantoin monohyd/m-cryst [Macrobid] 100 mg capsule 100 mg PO BID 7 Days Qty: 14 RF: 0 Continued albuterol sulfate 90 mcg/actuation HFA aerosol inhaler 2 puffs inhalation Q4H PRN (Reason: bronchospasm) Qty: 3 RF: 3 nitrofurantoin monohyd/m-cryst [Macrobid] 100 mg capsule 100 mg PO BID 7 Days Qty: 14 RF: 0 amlodipine [Norvasc] 5 mg tablet 5 mg PO QAM RF: 0 Eliquis 5 mg tablet 5 mg PO BID Qty: 180 RF: 0 furosemide 20 mg tablet 20 mg PO QAM RF: 0 losartan 100 mg tablet 100 mg PO QAM RF: 0 Metamucil 3.4 gram/5.4 gram powder 1 tbs PO QAM RF: 0 multivitamin tablet 2 tab PO QAM RF: 0 potassium chloride 20 mEq tablet extended release 20 meq PO QAM RF: 0 pravastatin 80 mg tablet 80 mg PO HS RF: 0 ezetimibe [Zetia] 10 mg tablet 10 mg PO HS RF: 0 lutein 10 mg tablet 10 mg PO BID RF: 0 oxycodone 5 mg tablet 10 mg PO Q4H PRN (Reason: pain) Qty: 60 RF: 0 dicyclomine 10 mg capsule 10 mg PO TID PRN (Reason: abdominal pain) Qty: 270 RF: 1 montelukast 10 mg tablet 10 mg PO HS RF: 0 fluticasone propion-salmeterol [Advair Diskus] 250-50 mcg/dose blister with device 1 inh INHALATION BID RF: 0 Probiotic 10 billion cell Capsule 10,000 mmu cells PO BID RF: 0 vancomycin 125 mg capsule 125 mg PO Q48H RF: 0 acetaminophen [Tylenol] 325 mg Tablet 650 mg PO QID PRN (Reason: Pain) RF: 0 Admission Data Admit Date/Time: 08/01/20 14:28 Attending Provider: Rolando Friedman Admit Provider: Rolando Friedman Primary Care Provider: Dania Barcenas Other Providers: Angelo Israel ; Leatha Bagley ; Milton Briones I. ; Ulysses Blas II ; Mimi Hdz ; Juliano Hilliard ; Hunter Otero ; Susanna Read ; Michael Pham ; Pablito Abarca ; Adam Brooke ; Khoa Jeter ; Collins Medina ; Estella Arndt ; Claribel Nur ; Gerard Douglas ; Tawana Velasco ; Dina Briones ; Chinmay Hare ; Gucci Luciano ; Layne Valladares ; Aki Del Valle ; Cristian Morejon ; Matt Summers ; Scotty Amezquita ; Michael Sanford ; Claude Ballard ; Cathi Arevalo ; Jose Kerr ; Inocencio Mosley ; Abelardo Messer ; Lelo Anderson ; Corey Hamilton [facility] Coding Level of Care Code D/C Day Management >30 mins Diagnoses R99 Fever R50.9 Nephrolithiasis N20.0 Pacemaker Z95.0 Acid reflux disease K21.9
[2020-08-03] MEDS ORDERED: VANCOMYCIN TROUGH ONE (09:30)
[2020-08-07 13:46] LABS: Component 2 DNR; Source URETERAL STONE
--- NOTE | 2020-08-15 08:53 | Coding Query ---
CODING QUERY To promote full compliance with coding requirements relating to patient care, provider participation is requested in all cases of auto finance sales rep uncertainty. Please assist us with the question(s) below: Coding Question(s): The Discharge Summary documents Septic Shock from Urinary Source in the Principal Diagnosis area and, under the Hospital Course, there is documentation of, "Fever: developed septic shock overnight, high lactic acid, procalcitonin, leukocytosis, sepsis from urinary source. Could be associated with recent instrumentation". The Critical Care Consultation on 08/02 documents, "Admitted to intensive care unit: Reason Critically Ill: 85-year-old female with severe sepsis and septic shock likely from urinary source who is status post ureteral stenting with stone retrieval and stent placement", and, "Ureteral stones s/p retrieval with stenting: Febrile w/ borderline pressures s/p intervention. Likely pyelonephritis.". Please specify below, in your clinical opinion, regarding the source(s) of Sepsis. ( ) likely Acute Pyelonephritis. Please specify below further: ( ) likely due to previous ureteral stent complication ( ) likely due to ureteral stent complication placed during this admission ( ) likely due to Postoperative Infection complication from previous procedure ( ) likely due to Postoperative Infection complication from the procedure on this admission ( ) Not due to ureteral stent and Not Postoperative infection or complication ( ) Unspecified ( xx ) Other: Please Specify___i would [prefer you queary the surgeon to determine if this was a complication of the procedure ( ) likely Chronic or Unspecified Pyelonephritis. Please specify below further: ( ) likely due to previous ureteral stent complication ( ) likely due to ureteral stent complication placed during this admission ( ) likely due to Postoperative Infection complication from previous procedure ( ) likely due to Postoperative Infection complication from the procedure on this admission ( ) Not due to ureteral stent and Not Postoperative infection or complication ( xx ) Unspecified ( ) Other: Please Specify ( ) likely infection due to previously placed ureteral stent complication ( ) likely infection due to ureteral stent complication placed during this admission ( ) likely Postoperative Infection complication from previous procedure ( ) likely Postoperative Infection Complication form the procedure on this admission ( ) Other: Please Specify Physician's Response(s): Thank you María Elena Nice Principal Diagnosis: "that condition established after study, to be chiefly responsible for occasioning the admission of the patient to the hospital for care." Co-Existing Principal Diagnosis: "when two or more diagnoses equally meet the criteria for principal diagnosis as determined by the circumstances of admission, diagnostic work up, and/or therapy provided, and the Alphabetic Index, Tabular List, or another coding guideline does not provide sequencing direction, any one of the diagnoses may be sequenced first." "When the physician has documented what appears to be a current diagnosis in the body of the record, but has not included the diagnosis in the final diagnostic statement, the physician should be asked whether the diagnosis should be added." ([facility] 2 QTR90. p3-4) YAMILETH
--- NOTE | 2020-08-15 08:54 | Coding Query ---
PRESENT ON ADMISSION QUERY To promote full compliance with coding requirements relating to pateint care, physician participation is requested in all cases of hospital unit coordinator uncertainty. Please assist us with the question(s) below: Please place an X within the parenthesis (x). The following diagnosis(es) listed in this patient's medical record require physician assistance to determine if they were present on admission (POA) or not. Please advise for each diagnosis whether it was present on admission, not present on admission, or if it was clinically undetermined. 1. SEPSIS ( ) Present On Admission ( xx) Not Present On Admission ( ) Clinically Undetermined 2. SEPTIC SHOCK ( ) Present On Admission ( xx) Not Present On Admission ( ) Clinically Undetermined Thank you María Elena Nice *Definition of the present on admission (POA)-Present on admission is defined as present at the time the order for inpatient admission occurs. Conditions that develop during an outpatient encounter prior to a written order for inpatient admission (including emergency department, observation, or outpatient surgery) are considered present on admission. JUSTIND
--- NOTE | 2020-08-16 07:40 | Coding Query ---
CODING QUERY To promote full compliance with coding requirements relating to patient care, provider participation is requested in all cases of correctional case records supervisor uncertainty. Please assist us with the question(s) below: Coding Question(s): The Discharge Summary documents Septic Shock from Urinary Source in the Principal Diagnosis area and, under the Hospital Course, there is documentation of, "Fever: developed septic shock overnight, high lactic acid, procalcitonin, leukocytosis, sepsis from urinary source. Could be associated with recent instrumentation". The Critical Care Consultation on 08/02 documents, "Admitted to intensive care unit: Reason Critically Ill: 85-year-old female with severe sepsis and septic shock likely from urinary source who is status post ureteral stenting with stone retrieval and stent placement", and, "Ureteral stones s/p retrieval with stenting: Febrile w/ borderline pressures s/p intervention. Likely pyelonephritis.". Please specify below, in your clinical opinion, regarding Pyelonephritis and/or urinary source and if there is postoperative complication from previous surgery or the surgery on this admission. ( ) likely Acute Pyelonephritis. Please specify below further: ( ) likely due to previous ureteral stent complication ( ) likely due to ureteral stent complication placed during this admission ( ) likely due to Postoperative Infection complication from previous procedure ( ) likely due to Postoperative Infection complication from the procedure on this admission ( ) Not due to ureteral stent and Not Postoperative infection or complication ( ) Unspecified ( ) Other: Please Specify ( ) likely Chronic or Unspecified Pyelonephritis. Please specify below further: ( ) likely due to previous ureteral stent complication ( ) likely due to ureteral stent complication placed during this admission ( ) likely due to Postoperative Infection complication from previous procedure ( ) likely due to Postoperative Infection complication from the procedure on this admission ( ) Not due to ureteral stent and Not Postoperative infection or complication ( ) Unspecified ( ) Other: Please Specify ( ) likely other urinary infection, not Pyelonephritis, due to previously placed ureteral stent complication ( ) likely other urinary infection, not Pyelonephritis, due to ureteral stent complication placed during this admission ( ) likely other Postoperative Infection complication from previous procedure ( ) likely other Postoperative Infection Complication form the procedure on this admission (X) Other: Please Specify Obstructing Stone with Pyelonephritis. Acute Pyelonephritis with severe known chronic urinary tract infections due to obstructing stone disease. Previously had Severe sepsis from obstructing stone requiring multiple interventions and still was dealing with issues related to stone. Pyelonephritis due to resistant and high risk infections. Prior to procedures, Actively being treated for acute urinary infections as well as subsequent C. Diff Infection. Procedure and stent as well as previous stent and procedures were all interventions for the infection/sepsis/pyelonephritis caused by the obstructing stone. Physician's Response(s): Obstructing stone with Pyelonephritis requiring multiple interventions. Thank you María Elena Nice Principal Diagnosis: "that condition established after study, to be chiefly responsible for occasioning the admission of the patient to the hospital for care." Co-Existing Principal Diagnosis: "when two or more diagnoses equally meet the criteria for principal diagnosis as determined by the circumstances of admission, diagnostic work up, and/or therapy provided, and the Alphabetic Index, Tabular List, or another coding guideline does not provide sequencing direction, any one of the diagnoses may be sequenced first." "When the physician has documented what appears to be a current diagnosis in the body of the record, but has not included the diagnosis in the final diagnostic statement, the physician should be asked whether the diagnosis should be added." ([facility] QTR90. p3-4) [email or web address]
== END 2020-08-02 17:02 | disposition expired | DRG 659 ==
LOC: ASU 08:11 → 2W 14:28 → 1E 08-02 04:47 → 3N 08-02 12:22